=== PATIENT | male | born 1940 | race Caucasian/White ===

== ENCOUNTER → 2016-10-23 | Outpatient (CLI) | payer MEDICARE, OTHER ==
[2016-10-23 10:10] LABS: ALT 52 U/L (21-72); AST 43 U/L (17-59); Alkaline Phosphatase 84 U/L (38-126); Anion Gap 12 mmol/L; Blood Urea Nitrogen 20 mg/dL (9-20); Calcium 8.7 mg/dL (8.4-10.2); Carbon Dioxide 25 mmol/L (22-30); Chloride 106 mmol/L (98-107); Glucose 145 mg/dL (74-99); Non-African American GFR(MDRD) 58 (>60 ml/min/1.73 sqM); Sodium 143 mmol/L (137-145); Total Bilirubin 0.5 mg/dL (0.2-1.3); Total Protein 6.7 g/dL (6.3-8.2)
== END | disposition home or self-care (01) ==
LOC: LABWHC1 09:27
PROVIDERS: ATTEND Internal Medicine
DX: E03.9 Hypothyroidism, unspecified (principal); I10 Essential (primary) hypertension
CPT/HCPCS: 36415; 80053; 84443

== ENCOUNTER → 2017-03-27 | Outpatient (CLI) | payer MEDICARE, OTHER ==
--- NOTE | 2017-03-27 09:53 | CT ---
EXAMINATION TYPE: CT chest wo con DATE OF EXAM: 03/27/2017 COMPARISON: NONE HISTORY: persistent perihilar infiltrate CT DLP: 580.5 mGycm Automated exposure control for dose reduction was used. FINDINGS: Lung parenchyma: There is no mass or pulmonary nodule. There is no focal consolidation or atelectasis . However, there is a subtle groundglass opacity pattern, consistent with nonspecific alveolitis, pre dominantly in the axial compartment of the lung - and homogeneously involving the upper, mid and lowe r lung zones on the right. This pattern is not seen on the left. Pleural spaces: Negative. Mediastinum: Sternal sutures and mediastinal clips and coronary calcifications noted, mild cardiomega ly. Pericardial spaces negative. No adenopathy. Bones and soft tissues: Unremarkable. IMPRESSION: SUBTLE NONSPECIFIC RIGHT-SIDED ALVEOLITIS PATTERN; NO FOCAL MASS OR INFILTRATE.
== END | disposition home or self-care (01) ==
LOC: RADCTMAIN 07:02
PROVIDERS: ATTEND Internal Medicine
DX: J98.4 Other disorders of lung (principal)
CPT/HCPCS: 71250

== ENCOUNTER 2017-12-10 09:44 | Inpatient (IN) | payer MEDICARE, OTHER ==
[2017-12-10] MEDS ORDERED: IPRATROPIUM-ALBUTEROL 3 ML NEB INHALATION STA (10:18)
--- NOTE | 2017-12-10 11:57 | XR ---
EXAMINATION TYPE: XR chest 2V DATE OF EXAM: 12/10/2017 COMPARISON: Prior chest x-ray 11/08/2017 HISTORY: Difficulty breathing and shortness of breath TECHNIQUE: Frontal and lateral views of the chest are obtained. FINDINGS: Patient is post median sternotomy, generator in the right pectoral region again noted, the re are leads in the right atrium and ventricle. Surgical clips are present in the right upper quadran t. Right hemidiaphragm is elevated. No evident pneumothorax or pleural effusion. Cardiomediastinal si lhouette, pulmonary vascularity and hyacinth are stable. IMPRESSION: Similar to prior exam. Postprocedural changes.
[2017-12-10 12:05] LABS: Basophils % (A) 0 %; Eosinophils % (A) 0 %; HCT 33.7 % (39.0-53.0); HGB 11.1 gm/dL (13.0-17.5); Lymphocytes # (A) 0.6 k/uL (1.0-4.8); Lymphocytes % (A) 6 %; MCH 33.3 pg (25.0-35.0); MCHC 32.9 g/dL (31.0-37.0); MCV 101.4 fL (80.0-100.0); Macrocytosis Slight; Mean Platelet Volume 8.1; Monocytes # (A) 0.5 k/uL (0-1.0); Monocytes % (A) 5 %; Neutrophils # (A) 8.7 k/uL (1.3-7.7); Neutrophils % (A) 87 %; Platelet Count 128 k/uL (150-450); RBC 3.32 m/uL (4.30-5.90); RDW 14.7 % (11.5-15.5); WBC 9.9 k/uL (3.8-10.6)
[2017-12-10 12:12] LABS: ALT 45 U/L (21-72); AST 35 U/L (17-59); Albumin 3.3 g/dL (3.5-5.0); Alkaline Phosphatase 68 U/L (38-126); Anion Gap 11 mmol/L; Blood Urea Nitrogen 32 mg/dL (9-20); Calcium 8.5 mg/dL (8.4-10.2); Carbon Dioxide 26 mmol/L (22-30); Chloride 101 mmol/L (98-107); Glucose 102 mg/dL (74-99); Potassium 3.5 mmol/L (3.5-5.1); Sodium 138 mmol/L (137-145); Total Bilirubin 0.6 mg/dL (0.2-1.3); Total Protein 5.9 g/dL (6.3-8.2)
[2017-12-10 12:14] LABS: D-Dimer 0.34 mg/L FEU (<0.60); INR 1.5 (<1.2); Partial Thromboplastin Time 27.8 sec (22.0-30.0); Prothrombin Time 13.7 sec (9.0-12.0)
[2017-12-10 12:23] LABS: Troponin I 0.028 ng/mL (0.000-0.034)
[2017-12-10 12:26] LABS: Creatine Kinase MB 3.6 ng/mL (0.0-2.4)
--- NOTE | 2017-12-10 12:44 | ED ---
URI HPI - General Chief Complaint: Upper Respiratory Infection Stated Complaint: TANIA X 2 DYS Time Seen by Provider: 12/10/17 10:10 Source: patient, RN notes reviewed Mode of arrival: wheelchair Limitations: no limitations - History of Present Illness Initial Comments: 77-year-old male presents emergency Department chief complaint of exertional shortness of breath. Patient states that he's had shortness with the last few months but states last few days have been the worse. He has been seen his agency manager Dr. Santana who has been giving him steroids and antibiotics and states it's not helping. He has had problems with MRSA in the past states he also has an issue with his right lung in which he gets recurrent right lower lobe infections. Patient states that he usually gets Bactrim. Patient's concerned about possible CHF he has a history of CHF but only takes Lasix daily. Denies any increased swelling of his lower extremities. He states he has difficulty taking more than a few steps. He doesn't to some wheezing but states that he does do breathing treatments at home. Patient denies any known fever or chills. Denies headache, dizziness. Patient does have some underlying cardiac disease. - Related Data Home Medications Medication Instructions Recorded Confirmed ALPRAZolam [Xanax] 0.5 mg PO HS PRN 12/10/17 12/10/17 Albuterol Nebulized [Ventolin 2.5 mg INHALATION RT-QID PRN 12/10/17 12/10/17 Nebulized] Aspirin [Adult Low Dose Aspirin EC] 81 mg PO DAILY 12/10/17 12/10/17 Cyanocobalamin [Vitamin B-12 1,000 mcg SQ Q30D 12/10/17 12/10/17 Injection] Ferrous Sulfate [Feosol] 325 mg PO DAILY 12/10/17 12/10/17 Furosemide [Lasix] 40 mg PO BID 12/10/17 12/10/17 Gabapentin 600 mg PO BID 12/10/17 12/10/17 HYDROcodone/APAP 10-325MG [[place] 1 tab PO TID PRN 12/10/17 12/10/17 10-325] Ipratropium/Albuterol Sulfate 2 puff INHALATION RT-QID 12/10/17 12/10/17 [Combivent Respimat Inhaler] Isosorbide Mononitrate ER [Imdur] 30 mg PO DAILY 12/10/17 12/10/17 Levothyroxine Sodium [Synthroid] 50 mcg PO DAILY 12/10/17 12/10/17 Losartan Potassium [Cozaar] 25 mg PO HS 12/10/17 12/10/17 Metoprolol Succinate (ER) [Toprol 50 mg PO DAILY 12/10/17 12/10/17 Xl] Morphine Sulfate [Ms Contin] 30 mg PO BID PRN 12/10/17 12/10/17 Nitroglycerin Sl Tabs [Nitrostat] 0.4 mg SUBLINGUAL Q5M PRN 12/10/17 12/10/17 Ranolazine [Ranexa] 500 mg PO BID 12/10/17 12/10/17 Simvastatin 40 mg PO HS 12/10/17 12/10/17 Spironolactone [Aldactone] 25 mg PO DAILY 12/10/17 12/10/17 Sulfamethox-Tmp 800-160Mg [Bactrim 1 tab PO Q12HR 12/10/17 12/10/17 DS 800-160 mg] Vit C/E/Zn/Coppr/Lutein/Zeaxan 2 cap PO DAILY 12/10/17 12/10/17 [Preservision Areds 2 Softgel] Warfarin [Coumadin] 1 mg PO SUTUTH 12/10/17 12/10/17 Warfarin [Coumadin] 2 mg PO MOWEFRSA 12/10/17 12/10/17 predniSONE See Taper PO DIRECTED 12/10/17 12/10/17 rOPINIRole HCL [Requip] 2 mg PO 5XD 12/10/17 12/10/17 Allergies Allergy/AdvReac Type Severity Reaction Status Date / Time No Known Allergies Allergy Verified 12/10/17 10:13 Review of Systems ROS Statement: Those systems with pertinent positive or pertinent negative responses have been documented in the HPI. ROS Other: All systems not noted in ROS Statement are negative. Past Medical History Past Medical History: Thyroid Disorder History of Any Multi-Drug Resistant Organisms: MRSA Date of last positivie culture/infection: MDRO Source:: right hand Past Surgical History: Heart Catheterization, Heart Catheterization With Stent, Hernia Repair, Pacemaker Additional Past Surgical History / Comment(s): tritecta tissure heart valve, hammertoe, bunionectomy, gastroplasty Past Psychological History: No Psychological Hx Reported Smoking Status: Former smoker Past Alcohol Use History: None Reported Past Drug Use History: None Reported General Exam Limitations: no limitations General appearance: alert, in no apparent distress Head exam: Present: atraumatic, normocephalic, normal inspection Eye exam: Present: normal appearance, PERRL, EOMI. Absent: scleral icterus, conjunctival injection, periorbital swelling ENT exam: Present: normal exam, normal oropharynx, mucous membranes moist Neck exam: Present: normal inspection. Absent: tenderness, meningismus, lymphadenopathy Respiratory exam: Present: wheezes, rhonchi. Absent: normal lung sounds bilaterally, respiratory distress, rales, stridor Cardiovascular Exam: Present: regular rate, normal rhythm, normal heart sounds. Absent: systolic murmur, diastolic murmur, rubs, gallop, clicks Extremities exam: Absent: pedal edema Neurological exam: Present: alert, oriented X3, CN II-XII intact Skin exam: Present: warm, dry, intact, normal color. Absent: rash Course Vital Signs 12/10/17 12/10/17 12/10/17 09:47 10:40 10:50 Temperature 98.2 F Pulse Rate 74 82 80 Respiratory 18 Rate Blood Pressure 120/51 O2 Sat by Pulse 94 L Oximetry 12/10/17 12/10/17 12:17 12:57 Temperature Pulse Rate 69 89 Respiratory 18 18 Rate Blood Pressure 120/57 133/61 O2 Sat by Pulse 100 89 L Oximetry Medical Decision Making - Medical Decision Making 77-year-old male presented return for exertional shortness breath. He did have an impetigo ox in which she dropped on 89. Patient does have some underlying lung issues, cardiac issues. Patient will be admitted for evaluation. - Lab Data Result diagrams: 12/10/17 11:32 12/10/17 11:32 Lab Results 12/10/17 12/10/17 12/10/17 Range/Units 11:32 11:32 11:32 WBC 9.9 (3.8-10.6) k/uL RBC 3.32 L (4.30-5.90) m/uL Hgb 11.1 L (13.0-17.5) gm/dL Hct 33.7 L (39.0-53.0) % MCV 101.4 H (80.0-100.0) fL MCH 33.3 (25.0-35.0) pg MCHC 32.9 (31.0-37.0) g/dL RDW 14.7 (11.5-15.5) % Plt Count 128 L (150-450) k/uL Neutrophils % 87 % Lymphocytes % 6 % Monocytes % 5 % Eosinophils % 0 % Basophils % 0 % Neutrophils # 8.7 H (1.3-7.7) k/uL Lymphocytes # 0.6 L (1.0-4.8) k/uL Monocytes # 0.5 (0-1.0) k/uL Eosinophils # 0.0 (0-0.7) k/uL Basophils # 0.0 (0-0.2) k/uL Macrocytosis Slight PT (9.0-12.0) sec INR (<1.2) APTT (22.0-30.0) sec D-Dimer (<0.60) mg/L FEU Sodium 138 (137-145) mmol/L Potassium 3.5 (3.5-5.1) mmol/L Chloride 101 (98-107) mmol/L Carbon Dioxide 26 (22-30) mmol/L Anion Gap 11 mmol/L BUN 32 H (9-20) mg/dL Creatinine 1.22 (0.66-1.25) mg/dL Est GFR (MDRD) Af Amer >60 (>60 ml/min/1.73 sqM) Est GFR (MDRD) Non-Af 58 (>60 ml/min/1.73 sqM) Glucose 102 H (74-99) mg/dL Calcium 8.5 (8.4-10.2) mg/dL Magnesium 1.8 (1.6-2.3) mg/dL Total Bilirubin 0.6 (0.2-1.3) mg/dL AST 35 (17-59) U/L ALT 45 (21-72) U/L Alkaline Phosphatase 68 (38-126) U/L Total Creatine Kinase 174 H (55-170) U/L CK-MB (CK-2) 3.6 H* (0.0-2.4) ng/mL CK-MB (CK-2) Rel Index 2.1 Troponin I 0.028 (0.000-0.034) ng/mL NT-Pro-B Natriuret Pep pg/mL Total Protein 5.9 L (6.3-8.2) g/dL Albumin 3.3 L (3.5-5.0) g/dL 12/10/17 12/10/17 Range/Units 11:32 11:32 WBC (3.8-10.6) k/uL RBC (4.30-5.90) m/uL Hgb (13.0-17.5) gm/dL Hct (39.0-53.0) % MCV (80.0-100.0) fL MCH (25.0-35.0) pg MCHC (31.0-37.0) g/dL RDW (11.5-15.5) % Plt Count (150-450) k/uL Neutrophils % % Lymphocytes % % Monocytes % % Eosinophils % % Basophils % % Neutrophils # (1.3-7.7) k/uL Lymphocytes # (1.0-4.8) k/uL Monocytes # (0-1.0) k/uL Eosinophils # (0-0.7) k/uL Basophils # (0-0.2) k/uL Macrocytosis PT 13.7 H (9.0-12.0) sec INR 1.5 H (<1.2) APTT 27.8 (22.0-30.0) sec D-Dimer 0.34 (<0.60) mg/L FEU Sodium (137-145) mmol/L Potassium (3.5-5.1) mmol/L Chloride (98-107) mmol/L Carbon Dioxide (22-30) mmol/L Anion Gap mmol/L BUN (9-20) mg/dL Creatinine (0.66-1.25) mg/dL Est GFR (MDRD) Af Amer (>60 ml/min/1.73 sqM) Est GFR (MDRD) Non-Af (>60 ml/min/1.73 sqM) Glucose (74-99) mg/dL Calcium (8.4-10.2) mg/dL Magnesium (1.6-2.3) mg/dL Total Bilirubin (0.2-1.3) mg/dL AST (17-59) U/L ALT (21-72) U/L Alkaline Phosphatase (38-126) U/L Total Creatine Kinase (55-170) U/L CK-MB (CK-2) (0.0-2.4) ng/mL CK-MB (CK-2) Rel Index Troponin I (0.000-0.034) ng/mL NT-Pro-B Natriuret Pep 392 pg/mL Total Protein (6.3-8.2) g/dL Albumin (3.5-5.0) g/dL Disposition Clinical Impression: Exertional shortness of breath, COPD exacerbation Disposition: ADMITTED IP TO THIS HOSP Condition: Stable Referrals: Jagdeep Funez DO [Primary Care Provider] - 1-2 days
[2017-12-10] MEDS ORDERED: methylPREDNISolone SOD SUCCI 125 MG/2 ML VIAL IV STA (13:19)
[2017-12-10] MEDS ORDERED: NITROGLYCERIN SL TABS 0.4 MG TAB SUBLINGUAL PRN (18:15)
[2017-12-10] MEDS ORDERED: ALBUTEROL NEBULIZED 2.5 MG/3 ML INHALATION PRN (18:15)
[2017-12-10] MEDS ORDERED: ALPRAZolam 0.5 MG TAB PO PRN (18:15)
[2017-12-10] MEDS: MORPHINE SULFATE ER 30 MG TABLET PO PRN (18:48)
[2017-12-10] MEDS: WARFARIN 2 MG TAB PO SCH (18:59)
[2017-12-10] MEDS: FUROSEMIDE 40 MG TAB PO SCH (18:59)
[2017-12-10] MEDS: IPRATROPIUM-ALBUTEROL 3 ML NEB INHALATION SCH ×3 (19:43→23:59)
[2017-12-10] MEDS ORDERED: NON-FORMULARY DRUG (Ipratropium/Albuterol Sulfate [Combivent Respimat Inhaler] 2 PUFF) INHALATION SCH (20:00)
[2017-12-10 21:29] LABS: Appearance,Urine Clear (Clear); Bilirubin,Urine Negative (Negative); Blood,Urine Negative (Negative); Color,Urine Light Yellow; Glucose,Urine (UA) Negative (Negative); Ketones,Urine Negative (Negative); Leukocyte Esterase,Urine Negative (Negative); Protein,Urine Negative (Negative); Specific Gravity,Urine 1.006 (1.001-1.035); Urobilinogen,Urine <2.0 mg/dL (<2.0)
[2017-12-10 21:33] LABS: Glucose,Whole Blood 224 mg/dL (75-99)
[2017-12-10] MEDS: GABAPENTIN 300 MG CAP PO SCH (21:59)
[2017-12-10] MEDS: LOSARTAN 25 MG TAB PO SCH (21:59)
[2017-12-10] MEDS: RANOLAZINE 500 MG TAB.ER.12H PO SCH (21:59)
[2017-12-10] MEDS: SULFAMETHOX-TMP 800-160MG 1 EACH TAB PO SCH (21:59)
[2017-12-10] MEDS: ATORVASTATIN 20 MG TAB PO SCH (21:59)
[2017-12-10] MEDS: cefTRIAXone IN SWFI 1,000 MG/10 ML SYRINGE IVP SCH (22:02)
[2017-12-10] MEDS: INSULIN ASPART 100 UNIT/ML 1 ML 10 ML VIAL SQ SCH (22:03)
--- NOTE | 2017-12-10 22:05 | CT ---
EXAMINATION TYPE: CT chest wo con DATE OF EXAM: 12/10/2017 COMPARISON: 03/27/2017 HISTORY: SOB. CT DLP: 473.9 mGycm. Automated Exposure Control for Dose Reduction was Utilized. TECHNIQUE: CT scan of the thorax is performed without IV contrast. FINDINGS: There is some patchy nodular infiltrate in the right mid and lower lung field. There is interposition of the hepatic flexure of the colon which is a normal variant. There is some elevation of the right diaphragm. Thoracic aorta is atheromatous. There is no mediastinal adenopathy. There is no pericardia l effusion. There is no pleural effusion. There is a mild reticular nodular infiltrate also in the ri ght upper lobe. The left lung is clear of consolidation. There is linear density at the left medial p osterior lung base. There is spurring in the thoracic spine. IMPRESSION: There is chronic infiltrate in the right lung that is slightly worse than old CT scan and consistent with fibrosis and some degree of acute pneumonia in the right lower lobe. Chronic right d iaphragm elevation is suggestive of phrenic nerve paralysis. Atherosclerotic vascular disease. There is new atelectasis at the medial left posterior lung base.
--- NOTE | 2017-12-10 22:24 | HP ---
HISTORY AND PHYSICAL DATE OF SERVICE: 12/12/17 CHIEF COMPLAINTS: Cough and shortness of breath. HISTORY OF PRESENT ILLNESS: This 77-year-old gentleman with a past medical history of multiple medical problems including asthma, CHF, COPD, DVT, GERD, hypertension, hyperlipidemia, history of pneumonia, pulmonary embolism, history of rheumatoid arthritis being followed by Dr. Porter as well as Dr. Santana in the outpatient setting was complaining of increasing shortness of breath. The patient was being treated with Dr. Santana and the patient received steroids, antibiotics. Because of lack of improvement, increased shortness of breath, patient came to [facility] and was admitted for further evaluation and treatment. The patient also had history of MRSA and possible recurrent right lower lobe infection in the right lung also. There is no history of fever, rigors or chills. No history of headache, loss of consciousness or seizures at this time. PAST MEDICAL HISTORY: History of asthma, CHF, COPD, DVT, GERD, hypertension, hyperlipidemia, rheumatoid arthritis, pulmonary embolism. MEDICATIONS: Prior to admission include home medications are: 1. Prednisone taper. 2. Bactrim DS 1 p.o. b.i.d. 3. Toprol-XL 50 mg. 4. Ventolin 2.5 q.i.d. p.r.n. 5. Coumadin 2 mg, 1 mg on Sunday, Sunday, . 6. Nitrostat 0.4 mg p.r.n. 7. Vitamin B12 1000 mcg daily. 8. Combivent Respimat 2 puffs q.i.d. 9. Ranexa 5 mg. 10.Cozaar 25 mg daily. 11.Lasix 40 mg p.o. b.i.d. 12.Vitamin C, zinc, copper, lutein 2 capsules p.o. daily. 13.Aldactone 25 mg. 14.Synthroid 50 mg. 15.Imdur 30 mg. 16.Iron sulfate 320 mg p.o. daily. 17.Requip 2 mg. 18.Gabapentin 600 mg p.o. b.i.d. 19.Simvastatin 40 mg q.h.s. 20.Aspirin 81 mg. 21.Xanax 0.5 mg q.h.s. 22.Ms Contin 30 mg b.i.d. p.r.n. 23.[place] 1 tab t.i.d. p.r.n. ALLERGIES: None. FAMILY HISTORY: No history of strokes and heart disease in family. SOCIAL HISTORY: Previous history of smoking. No history of current smoking, alcohol intake. REVIEW OF SYSTEMS: ENT: No diminished vision or hearing. Cardiovascular: As mentioned earlier. Respirations: As mentioned earlier. GI no nausea or vomiting. no dysuria. Nervous system: No numbness, weakness. Allergy/Immunology: No asthma or hayfever. Musculoskeletal: As mentioned earlier. HEMATOLOGY/ONCOLOGY: No history of anemia. Endocrine: No history of diabetes or hypothyroidism. Constitutional: As mentioned earlier. Rheumatology: Negative. Dermatology: Negative. Psychiatric: As mentioned earlier. EXAMINATION: Pulse 73, blood pressure 140/78, respiration 18, temperature 98.8, pulse ox 94% on 2 L. HEENT: Conjunctivae normal. Oral mucosa moist. Neck is no jugular venous distention. No carotid bruit. No lymph node enlargement. Cardiovascular S1, S2 muffled. Respiratory: Breath sounds diminished in the bases. Bilateral scattered rhonchi and expiratory wheezing also present. ABDOMEN: Soft, nontender. No mass palpable. Legs no edema and no swelling. NERVOUS SYSTEM: Higher functions as mentioned earlier, moves all 4 limbs, no focal motor or sensory deficits. Lymphatics: No lymph nodes palpable in the neck, axillae or groin. Skin no ulcer, rash or bleeding. LABS: WBC 9.2, hemoglobin 11.1, and platelets 128, creatinine kinase is 174 and albumin 3.3. ASSESSMENT: 1. Shortness of breath for evaluation rule out possibly chronic obstructive pulmonary disease acute exacerbation and possibly right lobe pneumonia gram-negative. 2. History of recurrent infection, right lower lobe, rule out bronchiectasis. 3. Anemia increased MCV. 4. History of congestive heart failure. 5. History of asthma/chronic obstructive pulmonary disease. 6. History of deep vein thrombosis. 7. Gastroesophageal reflux disease. 8. Hypertension. 9. Hyperlipidemia. 10.History of pneumonia. 11.History of pulmonary embolism. 12.History of rheumatoid arthritis. 13.History of macular degeneration. 14.History of MRSA. 15.History of coronary artery disease/ stent. 16.History of Trifecta aortic valve replacement. 17.Remote history of nicotine dependence. RECOMMENDATIONS AND DISCUSSION: This 77-year-old gentleman who presented with multiple complex medical issues, we will monitor the patient closely, continue the current medications, symptomatic treatment, management and recommend bronchodilators and IV steroids. I would also recommend empiric antibiotics in the form of Rocephin and Zithromax. Resume the home medications. Monitor closely and Dr. Rodriguez will be consulted as well as Cardiology. Guarded prognosis because of multiple complex medical issues. The patient's NT proBNP is only 392. The heart failure seems to be unlikely. Repeat labs to be ordered. Further recommendations to follow. MMODL / IJN: [id number] / JOHN
[2017-12-10] MEDS: AZITHROMYCIN 500 MG in SODIUM CHLORIDE 0.9% 250 ML IVPB SCH (22:56)
[2017-12-11] MEDS: methylPREDNISolone SOD SUCCI 125 MG/2 ML VIAL IV SCH ×4 (00:08→17:17)
[2017-12-11 03:51] LABS: Hemoglobin A1C 4.8 % (4.0-6.0)
[2017-12-11] MEDS: IPRATROPIUM-ALBUTEROL 3 ML NEB INHALATION SCH ×5 (03:57→20:53)
[2017-12-11] MEDS: LEVOTHYROXINE 50 MCG TAB PO SCH (06:26)
[2017-12-11 07:29] LABS: Glucose,Whole Blood 234 mg/dL (75-99)
[2017-12-11 08:34] LABS: Basophils % (A) 0 %; Eosinophils % (A) 0 %; HCT 38.2 % (39.0-53.0); Lymphocytes # (A) 0.3 k/uL (1.0-4.8); Lymphocytes % (A) 3 %; MCH 32.3 pg (25.0-35.0); MCHC 31.6 g/dL (31.0-37.0); MCV 102.3 fL (80.0-100.0); Macrocytosis Slight; Monocytes # (A) 0.1 k/uL (0-1.0); Monocytes % (A) 2 %; Neutrophils # (A) 7.3 k/uL (1.3-7.7); Neutrophils % (A) 94 %; Platelet Count 131 k/uL (150-450); RBC 3.73 m/uL (4.30-5.90); RDW 14.5 % (11.5-15.5); WBC 7.7 k/uL (3.8-10.6)
[2017-12-11 08:43] LABS: INR 1.5 (<1.2); Prothrombin Time 14.2 sec (9.0-12.0)
[2017-12-11] MEDS: SULFAMETHOX-TMP 800-160MG 1 EACH TAB PO SCH ×2 (08:57→20:55)
[2017-12-11] MEDS: ISOSORBIDE MONONITRATE ER 30 MG TAB.ER.24H PO SCH (08:57)
[2017-12-11] MEDS: GABAPENTIN 300 MG CAP PO SCH ×2 (08:57→20:55)
[2017-12-11] MEDS: SPIRONOLACTONE 25 MG TAB PO SCH (08:58)
[2017-12-11] MEDS: ASPIRIN 81 MG PO SCH (08:58)
[2017-12-11] MEDS: FUROSEMIDE 40 MG TAB PO SCH ×2 (08:58→17:17)
[2017-12-11] MEDS: MORPHINE SULFATE ER 30 MG TABLET PO PRN ×2 (08:58→20:55)
[2017-12-11] MEDS: RANOLAZINE 500 MG TAB.ER.12H PO SCH ×2 (08:58→20:55)
[2017-12-11] MEDS: METOPROLOL SUCCINATE (ER) 50 MG TAB.ER.24H PO SCH (08:59)
[2017-12-11] MEDS: INSULIN ASPART 100 UNIT/ML 1 ML 10 ML VIAL SQ SCH ×4 (08:59→21:33)
[2017-12-11] MEDS: AZITHROMYCIN 500 MG in SODIUM CHLORIDE 0.9% 250 ML IVPB SCH (08:59)
[2017-12-11] MEDS: cefTRIAXone IN SWFI 1,000 MG/10 ML SYRINGE IVP SCH (08:59)
[2017-12-11 09:11] LABS: Anion Gap 14 mmol/L; Blood Urea Nitrogen 31 mg/dL (9-20); Calcium 8.7 mg/dL (8.4-10.2); Carbon Dioxide 21 mmol/L (22-30); Chloride 103 mmol/L (98-107); Glucose 229 mg/dL (74-99); Potassium 3.6 mmol/L (3.5-5.1); Sodium 138 mmol/L (137-145)
[2017-12-11 10:56] VITALS: BMI 32.5
--- NOTE | 2017-12-11 11:18 | P.CNPUL ---
History of Present Illness Consult date: 12/11/17 Reason for consult: dyspnea, cough, COPD, hypoxemia, pulmonary fibrosis, abnormal CXR/CT Chief complaint: Shortness of breath, upper respiratory tract infection History of present illness: Consult dated 12/11/2017 This is a 77-year-old male who comes to the emergency room complaining of shortness of breath. He's had progressive shortness of breath over the last few months. It's been getting worse. He sees my partner. He's been treated with antibiotics and steroids and has not been really helping. He's had a previous history of MRSA infection in the past. He also has a history of recurrent right lower lobe infection. The patient states that he is feeling much better today. His complaint chest and included shortness of breath chest tightness wheezing cough. His cough is very congested and wet. He was coughing up some phlegm yesterday none today. Again feeling much better today. No fever or chills. No nausea vomiting or diarrhea. His past medical history is positive for COPD multiple pulmonary infections hyperlipidemia hypertension hypothyroidism coronary artery disease heart catheterization stent placement pacemaker insertion. Review of Systems A 12 point review of system is positive for shortness of breath chest tightness wheezing cough chest congestion and minimal phlegm production. No fever or chills. Past Medical History Past Medical History: Asthma, Heart Failure, COPD, Deep Vein Thrombosis (DVT), GERD/Reflux, Hyperlipidemia, Hypertension, Pneumonia, Pulmonary Embolus (PE), Rheumatoid Arthritis (RA), Thyroid Disorder Additional Past Medical History / Comment(s): MACULAR DEGNERATION MISA EYES,PAST GERD,PT STATES HE IS NOT DIABETIC-IN PAST PT WAS TOLD HE WAS DIABETIC/ PUT ON METFORMIN BUT ANOTHER DR TOLD HIM HE WAS'NT AND TOOK HIM OFF MEDS, SHINGLES LT EAR 2011 OR 2012, "IRREG HEARTBEAT", RLS, USES A CANE FOR DISTANCE. History of Any Multi-Drug Resistant Organisms: MRSA Date of last positivie culture/infection: MDRO Source:: right hand Past Surgical History: Heart Catheterization, Heart Catheterization With Stent, Hernia Repair, Pacemaker Additional Past Surgical History / Comment(s): Trifecta aortic valve repalcement , hammertoe, bunionectomy, gastroplasty 7 heart caths, stents to rca, gastroplasty 1979, crys en y 8-2016 Past Anesthesia/Blood Transfusion Reactions: No Reported Reaction Date of Last Stent Placement:: 2012 Type of Cardiac Device: Permanent Pacemaker Device Placement Date:: 2006 Smoking Status: Former smoker - Past Family History Father History Unknown: Yes Mother History Unknown: Yes Medications and Allergies Home Medications Medication Instructions Recorded Confirmed Type ALPRAZolam [Xanax] 0.5 mg PO HS PRN 12/10/17 12/10/17 History Albuterol Nebulized [Ventolin 2.5 mg INHALATION RT-QID PRN 12/10/17 12/10/17 History Nebulized] Aspirin [Adult Low Dose Aspirin EC] 81 mg PO DAILY 12/10/17 12/10/17 History Cyanocobalamin [Vitamin B-12 1,000 mcg SQ Q30D 12/10/17 12/10/17 History Injection] Ferrous Sulfate [Feosol] 325 mg PO DAILY 12/10/17 12/10/17 History Furosemide [Lasix] 40 mg PO BID 12/10/17 12/10/17 History Gabapentin 600 mg PO BID 12/10/17 12/10/17 History HYDROcodone/APAP 10-325MG [[place] 1 tab PO TID PRN 12/10/17 12/10/17 History 10-325] Ipratropium/Albuterol Sulfate 2 puff INHALATION RT-QID 12/10/17 12/10/17 History [Combivent Respimat Inhaler] Isosorbide Mononitrate ER [Imdur] 30 mg PO DAILY 12/10/17 12/10/17 History Levothyroxine Sodium [Synthroid] 50 mcg PO DAILY 12/10/17 12/10/17 History Losartan Potassium [Cozaar] 25 mg PO HS 12/10/17 12/10/17 History Metoprolol Succinate (ER) [Toprol 50 mg PO DAILY 12/10/17 12/10/17 History Xl] Morphine Sulfate [Ms Contin] 30 mg PO BID PRN 12/10/17 12/10/17 History Nitroglycerin Sl Tabs [Nitrostat] 0.4 mg SUBLINGUAL Q5M PRN 12/10/17 12/10/17 History Ranolazine [Ranexa] 500 mg PO BID 12/10/17 12/10/17 History Simvastatin 40 mg PO HS 12/10/17 12/10/17 History Spironolactone [Aldactone] 25 mg PO DAILY 12/10/17 12/10/17 History Sulfamethox-Tmp 800-160Mg [Bactrim 1 tab PO Q12HR 12/10/17 12/10/17 History DS 800-160 mg] Vit C/E/Zn/Coppr/Lutein/Zeaxan 2 cap PO DAILY 12/10/17 12/10/17 History [Preservision Areds 2 Softgel] Warfarin [Coumadin] 1 mg PO SUTUTH 12/10/17 12/10/17 History Warfarin [Coumadin] 2 mg PO MOWEFRSA 12/10/17 12/10/17 History predniSONE See Taper PO DIRECTED 12/10/17 12/10/17 History rOPINIRole HCL [Requip] 2 mg PO 5XD 12/10/17 12/10/17 History Allergies Allergy/AdvReac Type Severity Reaction Status Date / Time No Known Allergies Allergy Verified 12/10/17 10:13 Physical Exam Osteopathic Statement: *. No significant issues noted on an osteopathic structural exam other than those noted in the History and Physical/Consult. Vitals: Vital Signs Temp Pulse Pulse Resp BP BP Pulse Ox 12/11/17 07:38 79 12/11/17 07:28 79 16 12/11/17 06:25 97.0 F L 73 16 139/74 93 L 12/11/17 04:10 84 12/11/17 03:58 80 12/11/17 00:14 84 12/11/17 00:00 84 12/10/17 23:00 97.4 F L 70 16 117/61 92 L 12/10/17 19:54 88 16 12/10/17 19:43 84 16 12/10/17 16:00 16 12/10/17 15:03 98.8 F 73 18 117/58 95 12/10/17 15:00 98.4 F 70 16 114/57 92 L 12/10/17 14:08 98.2 F 77 20 122/60 98 12/10/17 12:57 89 18 133/61 89 L 12/10/17 12:17 69 18 120/57 100 Intake and Output 12/10/17 12/11/17 12/11/17 22:59 06:59 14:59 Other: Voiding Method Urinal # Voids 1 1 1 Weight 108.862 kg Patient Weight 12/12/17 06:59 Weight 108.862 kg No acute distress, oriented 3. Nasal O2 in place. HEENT examination is grossly unremarkable. Mucous membranes are moist. No oral lesions. Neck supple. Full range of motion. No adenopathy thyromegaly or neck vein distention. Cardiovascular examination reveals regular rhythm rate. S1-S2 normal. No S3 or S4. No discernible murmur noted. Lungs reveal bilateral inspiratory and expiratory wheezes and rhonchi. Breath sounds are diminished. There is prolongation on forced maneuver.. Abdomen soft bowel sounds are heard. No masses or tenderness. Extremities are intact. No cyanosis clubbing or edema. Skin is without rash or lesion. Neurologic examination is brief but nonfocal. Results - Laboratory Findings CBC and BMP: 12/11/17 07:55 12/11/17 07:55 PT/INR, D-dimer PT 14.2 sec (9.0-12.0) H 12/11/17 07:55 INR 1.5 (<1.2) H 12/11/17 07:55 D-Dimer 0.34 mg/L FEU (<0.60) 12/10/17 11:32 Abnormal lab findings: Abnormal Labs 12/10/17 12/10/17 12/10/17 11:32 11:32 11:32 RBC 3.32 L Hgb 11.1 L Hct 33.7 L MCV 101.4 H Plt Count 128 L Neutrophils # 8.7 H Lymphocytes # 0.6 L PT INR Carbon Dioxide BUN 32 H Glucose 102 H POC Glucose (mg/dL) Total Creatine Kinase 174 H CK-MB (CK-2) 3.6 H* Total Protein 5.9 L Albumin 3.3 L 12/10/17 12/10/17 12/11/17 11:32 21:30 07:27 RBC Hgb Hct MCV Plt Count Neutrophils # Lymphocytes # PT 13.7 H INR 1.5 H Carbon Dioxide BUN Glucose POC Glucose (mg/dL) 224 H 234 H Total Creatine Kinase CK-MB (CK-2) Total Protein Albumin 12/11/17 12/11/17 12/11/17 07:55 07:55 07:55 RBC 3.73 L Hgb 12.0 L Hct 38.2 L MCV 102.3 H Plt Count 131 L Neutrophils # Lymphocytes # 0.3 L PT 14.2 H INR 1.5 H Carbon Dioxide 21 L BUN 31 H Glucose 229 H POC Glucose (mg/dL) Total Creatine Kinase CK-MB (CK-2) Total Protein Albumin - Diagnostic Findings Chest x-ray: image reviewed CT scan - chest: image reviewed (X-rays CAT scan labs and medications are all reviewed.) Assessment and Plan Assessment: Assessment COPD exacerbation complicated by purulent bronchitis/bronchopneumonia. Hypothyroidism Hypertension Hyperlipidemia Previous history of stent placement Previous history of pacemaker insertion Plan: Plan dated 12/11/2017 The patient's medications are reviewed. Chest x-ray seems to show her chronic changes particularly in the right lower lobe. The patient does not appear to be particularly ill. The patient is wheezing quite a bit. We'll make sure the patient's on appropriate medications including short acting beta agonist, short acting muscarinic antagonist, long-acting beta agonist, inhaled corticosteroids. Also needs systemic corticosteroids and antibiotics. Additional recommendations and suggestions are forthcoming. We'll continue to follow. Time with Patient: Greater than 30
[2017-12-11 11:37] LABS: Glucose,Whole Blood 240 mg/dL (75-99)
[2017-12-11] MEDS: VIT A,C & E-LUTEIN-MINERALS 1 EACH TAB PO SCH (11:53)
[2017-12-11] MEDS: FERROUS SULFATE 325 MG TAB PO SCH (11:53)
[2017-12-11 17:34] LABS: Glucose,Whole Blood 155 mg/dL (75-99)
[2017-12-11] MEDS ORDERED: WARFARIN 1 MG TAB PO SCH (18:00)
[2017-12-11] MEDS ORDERED: FORMOTEROL FUMARATE 20 MCG/2 ML NEBU INHALATION SCH (20:00)
[2017-12-11] MEDS ORDERED: Potassium Replacement Protocol 1 EACH MISC MISCELLANE PRN (20:16)
[2017-12-11 20:46] LABS: Glucose,Whole Blood 229 mg/dL (75-99)
[2017-12-11] MEDS: FORMOTEROL FUMARATE 20 MCG/2 ML NEBU INHALATION SCH (20:53)
[2017-12-11] MEDS: BUDESONIDE 1 MG/2 ML NEBU INHALATION SCH (20:53)
[2017-12-11] MEDS: ATORVASTATIN 20 MG TAB PO SCH (20:55)
[2017-12-11] MEDS: LOSARTAN 25 MG TAB PO SCH (20:55)
[2017-12-12] MEDS: IPRATROPIUM-ALBUTEROL 3 ML NEB INHALATION SCH ×7 (00:05→23:34)
[2017-12-12] MEDS: HYDROcodone/APAP 10-325MG 1 EACH TAB PO PRN ×2 (00:35→23:15)
[2017-12-12] MEDS: methylPREDNISolone SOD SUCCI 125 MG/2 ML VIAL IV SCH ×2 (00:35→06:35)
[2017-12-12] MEDS: LEVOTHYROXINE 50 MCG TAB PO SCH (06:35)
[2017-12-12 07:20] LABS: Glucose,Whole Blood 171 mg/dL (75-99)
[2017-12-12 08:20] LABS: Basophils % (A) 0 %; Eosinophils % (A) 0 %; HCT 36.5 % (39.0-53.0); HGB 11.8 gm/dL (13.0-17.5); Lymphocytes # (A) 0.2 k/uL (1.0-4.8); Lymphocytes % (A) 2 %; MCH 32.3 pg (25.0-35.0); MCHC 32.2 g/dL (31.0-37.0); MCV 100.2 fL (80.0-100.0); Macrocytosis Slight; Mean Platelet Volume 8.1; Monocytes # (A) 0.4 k/uL (0-1.0); Monocytes % (A) 2 %; Neutrophils # (A) 14.1 k/uL (1.3-7.7); Neutrophils % (A) 95 %; Platelet Count 169 k/uL (150-450); RBC 3.64 m/uL (4.30-5.90); RDW 14.4 % (11.5-15.5); WBC 14.8 k/uL (3.8-10.6)
[2017-12-12] MEDS: INSULIN ASPART 100 UNIT/ML 1 ML 10 ML VIAL SQ SCH ×7 (08:20→21:09)
[2017-12-12 08:30] LABS: Calcium 8.9 mg/dL (8.4-10.2); Potassium 4.1 mmol/L (3.5-5.1)
[2017-12-12] MEDS: cefTRIAXone IN SWFI 1,000 MG/10 ML SYRINGE IVP SCH (08:40)
[2017-12-12] MEDS: SULFAMETHOX-TMP 800-160MG 1 EACH TAB PO SCH (08:40)
[2017-12-12] MEDS: GABAPENTIN 300 MG CAP PO SCH ×2 (08:40→21:03)
[2017-12-12] MEDS: METOPROLOL SUCCINATE (ER) 50 MG TAB.ER.24H PO SCH (08:40)
[2017-12-12] MEDS: ASPIRIN 81 MG PO SCH (08:41)
[2017-12-12] MEDS: ISOSORBIDE MONONITRATE ER 30 MG TAB.ER.24H PO SCH (08:41)
[2017-12-12] MEDS: AZITHROMYCIN 500 MG TAB PO SCH (08:41)
[2017-12-12] MEDS: SPIRONOLACTONE 25 MG TAB PO SCH (08:41)
[2017-12-12] MEDS: FUROSEMIDE 40 MG TAB PO SCH (08:41)
[2017-12-12] MEDS: RANOLAZINE 500 MG TAB.ER.12H PO SCH ×2 (08:42→21:04)
[2017-12-12] MEDS: BUDESONIDE 1 MG/2 ML NEBU INHALATION SCH ×2 (08:48→19:16)
[2017-12-12] MEDS: FORMOTEROL FUMARATE 20 MCG/2 ML NEBU INHALATION SCH ×2 (08:48→19:16)
[2017-12-12] MEDS: FERROUS SULFATE 325 MG TAB PO SCH (10:58)
[2017-12-12] MEDS: VIT A,C & E-LUTEIN-MINERALS 1 EACH TAB PO SCH (10:58)
[2017-12-12 11:32] LABS: Glucose,Whole Blood 163 mg/dL (75-99)
--- NOTE | 2017-12-12 12:00 | P.PN ---
Subjective Progress Note Date: 12/12/17 Mr. Hall is seen and examined today in follow-up. He is seen sitting up in the chair in no acute distress. He states his breathing is getting better since admission. He is continuing to receive IV antibiotics and IV steroids. He denies chest pain, palpitation, nausea, vomiting or syncope. WBC 14.8, hgb 11.8 , plt 169, INR 2.0, potassium 4.1, creatinine 1.62 up from 1.2 on admission. Blood pressure today 123/70 heart rate 71 afebrile. Objective - Vital Signs Vital signs: Vital Signs Temp 97.4 F L 12/12/17 06:33 Pulse 72 12/12/17 09:13 Resp 16 12/12/17 06:33 BP 123/70 12/12/17 06:33 Pulse Ox 93 L 12/12/17 06:33 Intake & Output 12/11/17 12/12/17 12/12/17 18:59 06:59 18:59 Weight 108.862 kg 102 kg Other: # Voids 3 2 # Bowel Movements 1 - Exam GENERAL: Well-appearing, well-nourished and in no acute distress. NECK: Supple without JVD or thyromegaly. LUNGS: Faint expiratory wheeze. No rales or rhonchi. Respiration equal and unlabored. HEART: Regular rate and rhythm with systolic click secondary to aortic valve replacement. No rubs or gallops. S1 and S2 heard. EXTREMITIES: Normal range of motion, no edema. No clubbing or cyanosis. Peripheral pulses intact. - Labs CBC & Chem 7: 12/12/17 07:48 12/12/17 07:48 Labs: Abnormal Lab Results - Last 24 Hours (Table) 12/11/17 12/11/17 12/12/17 Range/Units 17:14 20:44 07:18 WBC (3.8-10.6) k/uL RBC (4.30-5.90) m/uL Hgb (13.0-17.5) gm/dL Hct (39.0-53.0) % MCV (80.0-100.0) fL Neutrophils # (1.3-7.7) k/uL Lymphocytes # (1.0-4.8) k/uL PT (9.0-12.0) sec INR (<1.2) BUN (9-20) mg/dL Creatinine (0.66-1.25) mg/dL Glucose (74-99) mg/dL POC Glucose (mg/dL) 155 H 229 H 171 H (75-99) mg/dL 12/12/17 12/12/17 12/12/17 Range/Units 07:48 07:48 07:48 WBC 14.8 H (3.8-10.6) k/uL RBC 3.64 L (4.30-5.90) m/uL Hgb 11.8 L (13.0-17.5) gm/dL Hct 36.5 L (39.0-53.0) % MCV 100.2 H (80.0-100.0) fL Neutrophils # 14.1 H (1.3-7.7) k/uL Lymphocytes # 0.2 L (1.0-4.8) k/uL PT 18.0 H (9.0-12.0) sec INR 2.0 H (<1.2) BUN 41 H (9-20) mg/dL Creatinine 1.62 H (0.66-1.25) mg/dL Glucose 153 H (74-99) mg/dL POC Glucose (mg/dL) (75-99) mg/dL 12/12/17 Range/Units 11:29 WBC (3.8-10.6) k/uL RBC (4.30-5.90) m/uL Hgb (13.0-17.5) gm/dL Hct (39.0-53.0) % MCV (80.0-100.0) fL Neutrophils # (1.3-7.7) k/uL Lymphocytes # (1.0-4.8) k/uL PT (9.0-12.0) sec INR (<1.2) BUN (9-20) mg/dL Creatinine (0.66-1.25) mg/dL Glucose (74-99) mg/dL POC Glucose (mg/dL) 163 H (75-99) mg/dL Assessment and Plan Assessment: ASSESSMENT 1. Acute exacerbation of COPD on IV steroids and antibiotics 2. History of coronary artery disease 3. History of pacemaker implantation 4. History of mechanical aortic valve replacement, on coumadin 5. Dyslipidemia 6. Hypertension PLAN Follow up with his primary undercar specialist upon discharge. Continue aspirin, atorvastatin, imdur, losartan, toprol, ranexa, aldactone and coumadin as previously ordered. We will see him as needed. Nurse Practitioner note has been reviewed, I agree with a documented findings and plan of care. Patient was seen and examined.
--- NOTE | 2017-12-12 12:32 | P.PN ---
Subjective Progress Note Date: 12/12/17 Principal diagnosis: COPD exacerbation, with purulent bronchitis/bronchopneumonia, chronic right diaphragm paralysis, cannot rule out right lower lobe pneumonia Consult dated 12/11/2017 This is a 77-year-old male who comes to the emergency room complaining of shortness of breath. He's had progressive shortness of breath over the last few months. It's been getting worse. He sees my partner. He's been treated with antibiotics and steroids and has not been really helping. He's had a previous history of MRSA infection in the past. He also has a history of recurrent right lower lobe infection. The patient states that he is feeling much better today. His complaint chest and included shortness of breath chest tightness wheezing cough. His cough is very congested and wet. He was coughing up some phlegm yesterday none today. Again feeling much better today. No fever or chills. No nausea vomiting or diarrhea. His past medical history is positive for COPD multiple pulmonary infections hyperlipidemia hypertension hypothyroidism coronary artery disease heart catheterization stent placement pacemaker insertion. On 12/04/2017 patient seen in follow-up. Reports breathing a lot easier. Bilateral lower extremity edema has significantly improved. Lung sounds are positive for coarse rhonchi over right posterior lower lobe, there are a few expiratory wheezes auscultated. His cough is productive of small amount of green sputum. he remains afebrile, he is on room air with O2 sat at 93%. His respirations are even and nonlabored. He did sleep in the chair last night, but not related to dyspnea but rather his chronic back pain. Today's labs show WBC is 14.8, INR is 2.0, electrolyte profile is normal, BUN is up to 41 from 31 from yesterday, and creatinine is up to 1.62. Patient is currently on oral Lasix at 40 mg twice a day, we will decreased the dose down to once daily, patient is also on Bactrim, we will discontinue that. Remains on Rocephin, and Zithromax, remains on Pulmicort, Perforomist, and IV steroids, which we will change to oral prednisone. Objective - Vital Signs Vital signs: Vital Signs Temp 97.4 F L 12/12/17 06:33 Pulse 72 12/12/17 12:06 Resp 16 12/12/17 06:33 BP 123/70 12/12/17 06:33 Pulse Ox 93 L 12/12/17 06:33 Intake & Output 12/11/17 12/12/17 12/12/17 18:59 06:59 18:59 Weight 108.862 kg 102 kg Other: # Voids 3 2 # Bowel Movements 1 - Exam No acute distress, oriented 3. Nasal O2 in place. HEENT examination is grossly unremarkable. Mucous membranes are moist. No oral lesions. Neck supple. Full range of motion. No adenopathy thyromegaly or neck vein distention. Cardiovascular examination reveals regular rhythm rate. S1-S2 normal. No S3 or S4. No discernible murmur noted. Lungs reveal right posterior lower lobe inspiratory and expiratory wheezes and rhonchi. Breath sounds are diminished. There is prolongation on forced maneuver.. Abdomen soft bowel sounds are heard. No masses or tenderness. Extremities are intact. No cyanosis clubbing or edema. Skin is without rash or lesion. Neurologic examination is brief but nonfocal. - Labs CBC & Chem 7: 12/12/17 07:48 12/12/17 07:48 Labs: Abnormal Lab Results - Last 24 Hours (Table) 12/11/17 12/11/17 12/12/17 Range/Units 17:14 20:44 07:18 WBC (3.8-10.6) k/uL RBC (4.30-5.90) m/uL Hgb (13.0-17.5) gm/dL Hct (39.0-53.0) % MCV (80.0-100.0) fL Neutrophils # (1.3-7.7) k/uL Lymphocytes # (1.0-4.8) k/uL PT (9.0-12.0) sec INR (<1.2) BUN (9-20) mg/dL Creatinine (0.66-1.25) mg/dL Glucose (74-99) mg/dL POC Glucose (mg/dL) 155 H 229 H 171 H (75-99) mg/dL 12/12/17 12/12/17 12/12/17 Range/Units 07:48 07:48 07:48 WBC 14.8 H (3.8-10.6) k/uL RBC 3.64 L (4.30-5.90) m/uL Hgb 11.8 L (13.0-17.5) gm/dL Hct 36.5 L (39.0-53.0) % MCV 100.2 H (80.0-100.0) fL Neutrophils # 14.1 H (1.3-7.7) k/uL Lymphocytes # 0.2 L (1.0-4.8) k/uL PT 18.0 H (9.0-12.0) sec INR 2.0 H (<1.2) BUN 41 H (9-20) mg/dL Creatinine 1.62 H (0.66-1.25) mg/dL Glucose 153 H (74-99) mg/dL POC Glucose (mg/dL) (75-99) mg/dL 12/12/17 Range/Units 11:29 WBC (3.8-10.6) k/uL RBC (4.30-5.90) m/uL Hgb (13.0-17.5) gm/dL Hct (39.0-53.0) % MCV (80.0-100.0) fL Neutrophils # (1.3-7.7) k/uL Lymphocytes # (1.0-4.8) k/uL PT (9.0-12.0) sec INR (<1.2) BUN (9-20) mg/dL Creatinine (0.66-1.25) mg/dL Glucose (74-99) mg/dL POC Glucose (mg/dL) 163 H (75-99) mg/dL Assessment and Plan Plan: Assessment: #1. COPD exacerbation complicated by purulent bronchitis/bronchopneumonia. #2. Right hemidiaphragm chronic paralysis, CT chest from 12/10/2017 showed a chronic infiltrate in the right lung that is slightly worse than the old CT, cannot rule out acute pneumonia in the right lower lobe. But clinically patient is negative for any fevers, chills, chest pain. #3. Acute kidney injury, possibly related to Bactrim and ATN, we'll decrease the dose of Lasix to once daily, we'll discontinue Bactrim, patient will continue on Rocephin and Zithromax for now #4. Hypothyroidism #5. Hypertension #6. Hyperlipidemia #7. Previous history of stent placement #8. Previous history of pacemaker insertion Plan: Continue with current plan of treatment, patient developed acute kidney injury, possibly related to Bactrim and acute tubular necrosis. We will decrease the dose of Lasix down to once a day, we'll discontinue the Bactrim. Continue on Rocephin and Zithromax, continues on nebulized treatments. We'll switch the Solu-Medrol to oral prednisone. Sputum culture. I performed a history & physical examination of the patient and discussed their management with my nurse practitioner, Gayle Thompson. I reviewed the nurse practitioner's note and agree with the documented findings and plan of care. Lung sounds are positive for scattered rhonchi and wheezing over right lower lobe . The findings and the impression was discussed with the patient. I attest to the documentation by the nurse practitioner. Time with Patient: Less than 30
--- NOTE | 2017-12-12 13:03 | ECHOF ---
Referral Reason:sob MEASUREMENTS -------- HEIGHT: 182.9 cm WEIGHT: 108.9 kg BP: IVSd: 1.2 cm (0.6 - 1.1) LVIDd: 4.3 cm (3.9 - 5.3) LVPWd: 1.4 cm (0.6 - 1.1) IVSs: 2.0 cm LVIDs: 2.7 cm LVPWs: 2.2 cm LAESV Index (A-L): 28.93 ml/m Ao Diam: 3.0 cm (2.0 - 3.7) AV Cusp: 1.5 cm (1.5 - 2.6) LA Diam: 4.3 cm (2.7 - 3.8) MV EXCURSION: 19.436 mm (> 18.000) MV EF SLOPE: 36 mm/s (70 - 150) EPSS: 1.0 cm AV maxP.13 mmHg AV meanP.42 mmHg RAP: 5.00 mmHg RVSP: 11.86 mmHg FINDINGS -------- Pacemaker This was a technically difficult study with suboptimal views. The left ventricular size is normal. There is moderate concentric left ventricular hypertrophy. O verall left ventricular systolic function is low-normal with, an EF between 50 - 55 %. The right ventricle is normal in size and function. LA is midly dilated 29-33ml/m2. The right atrium is normal in size. 1.5mg of Definity was utilized for enhancement of images Peak/mean gradient across the Aortic Valve is 28.13mmHg / 14.42mmHg. Normally functioning bioprosth etic valve. The mitral valve leaflets are mildly thickened. Mild mitral annular calcification present. Mild m itral regurgitation is present. Mild tricuspid regurgitation present. The right ventricular systolic pressure, as measured by Doppl er, is 11.86mmHg. Pulmonic valve appears structurally normal. The aortic root, ascending aorta and aortic arch are normal. Normal inferior vena cava with normal inspiratory collapse consistent with estimated right atrial pre ssure of 5 mmHg. The pericardium is normal. CONCLUSIONS -------- 1. Pacemaker 2. This was a technically difficult study with suboptimal views. 3. The left ventricular size is normal. 4. There is moderate concentric left ventricular hypertrophy. 5. The right ventricle is normal in size and function. 6. LA is midly dilated 29-33ml/m2. 7. The right atrium is normal in size. 8. Lumason used 9. Peak/mean gradient across the Aortic Valve is 28.13mmHg / 14.42mmHg. 10. Normally functioning bioprosthetic valve. 11. The mitral valve leaflets are mildly thickened. 12. Mild mitral annular calcification present. 13. Mild mitral regurgitation is present. 14. Mild tricuspid regurgitation present. 15. The right ventricular systolic pressure, as measured by Doppler, is 11.86mmHg. 16. Pulmonic valve appears structurally normal. 17. The aortic root, ascending aorta and aortic arch are normal. 18. Normal inferior vena cava with normal inspiratory collapse consistent with estimated right atrial pressure of 5 mmHg. 19. The pericardium is normal. NUTRITION INTERN: Ophelia Jaimes RDCS
--- NOTE | 2017-12-12 15:29 | P.PN ---
Subjective Progress Note Date: 12/11/17 Progress note being dictated for Dr. Dean. Interval history: This a 77-year-old gentleman admitted with shortness of breath , possible COPD exacerbation, possibly right lower lobe pneumonia in a patient with history of recurrent right lower lobe infection and multiple other medical issues. Maintained on nebulized bronchodilators, IV steroids, Rocephin and Zithromax. Breathing improving, nonproductive congested cough. Afebrile, normal WBC. Objective - Vital Signs Vital signs: Vital Signs Temp 96.9 F L 12/11/17 15:00 Pulse 80 12/11/17 16:32 Resp 18 12/11/17 15:44 BP 104/55 12/11/17 15:00 Pulse Ox 94 L 12/11/17 15:00 Intake & Output 12/11/17 12/11/17 12/12/17 06:59 18:59 06:59 Weight 108.862 kg Other: Voiding Method Urinal # Voids 1 3 # Bowel Movements 1 - Exam PHYSICAL EXAM: VITAL SIGNS: As above GENERAL: Sitting up in bed, no acute distress HEENT: Conjunctivae normal. eyes normal. NECK: No JVD. No thyroid enlargement. No LNs CARDIOVASCULAR: S1, S2 muffled. No murmur RESPIRATION: Breath sounds diminished in the bases. Bilateral Scattered rhonchi with prolonged expiratory wheezing ABDOMEN: Soft, nontender . No guarding. no masses palpable.Bowel sounds heard. LEGS: No edema. no swelling PSYCHIATRY: Alert and oriented -3, mood and affect normal. NERVOUS SYSTEM: Cranial N 2-12 grossly normal. Moves all 4 limbs. Diffuse weakness No focal deficits. Skin: no ulcer no rash Joints: No active swelling. No inflammation. Lymphatic system. No LN neck axilla or groin. - Labs CBC & Chem 7: 12/12/17 07:48 12/12/17 07:48 Labs: Abnormal Lab Results - Last 24 Hours (Table) 12/10/17 12/11/17 12/11/17 Range/Units 21:30 07:27 07:55 RBC 3.73 L (4.30-5.90) m/uL Hgb 12.0 L (13.0-17.5) gm/dL Hct 38.2 L (39.0-53.0) % MCV 102.3 H (80.0-100.0) fL Plt Count 131 L (150-450) k/uL Lymphocytes # 0.3 L (1.0-4.8) k/uL PT (9.0-12.0) sec INR (<1.2) Carbon Dioxide (22-30) mmol/L BUN (9-20) mg/dL Glucose (74-99) mg/dL POC Glucose (mg/dL) 224 H 234 H (75-99) mg/dL 12/11/17 12/11/17 12/11/17 Range/Units 07:55 07:55 11:22 RBC (4.30-5.90) m/uL Hgb (13.0-17.5) gm/dL Hct (39.0-53.0) % MCV (80.0-100.0) fL Plt Count (150-450) k/uL Lymphocytes # (1.0-4.8) k/uL PT 14.2 H (9.0-12.0) sec INR 1.5 H (<1.2) Carbon Dioxide 21 L (22-30) mmol/L BUN 31 H (9-20) mg/dL Glucose 229 H (74-99) mg/dL POC Glucose (mg/dL) 240 H (75-99) mg/dL 12/11/17 Range/Units 17:14 RBC (4.30-5.90) m/uL Hgb (13.0-17.5) gm/dL Hct (39.0-53.0) % MCV (80.0-100.0) fL Plt Count (150-450) k/uL Lymphocytes # (1.0-4.8) k/uL PT (9.0-12.0) sec INR (<1.2) Carbon Dioxide (22-30) mmol/L BUN (9-20) mg/dL Glucose (74-99) mg/dL POC Glucose (mg/dL) 155 H (75-99) mg/dL Assessment and Plan Assessment: 1. Shortness of breath for evaluation, acute COPD exacerbation, purulent bronchitis, possible right lower lobe pneumonia, gram-negative 2. History of recurrent infection, right lower lobe, rule out bronchiectasis 3. Anemia, increased MCV 4. Chronic CHF 5. Gastroesophageal reflux disease 6. Hypertension 7. Hyperlipidemia 8. CAD, history of stent, trifecta.aortic valve replacement, pacemaker 9. Remote history of nicotine dependence Plan: Continue on current medication regime ,monitoring and symptomatic treatment. Maintain nebulized medical dilators, steroids and antibiotics. Increase ambulation as tolerated. Follow closely with both cardiology and pulmonary. Discharge planning in progress for tomorrow. The impression and plan of care has been dictated as directed. : I performed a history and examination of this patient, discussed the same with the dictator. I agree with the dictator's note ,documented as a scribe. Any additional findings or plans will be noted.
--- NOTE | 2017-12-12 15:42 | P.PN ---
Subjective Progress Note Date: 12/12/17 Progress note being dictated for Dr. Dean. Interval history: This a 77-year-old gentleman admitted with shortness of breath , possible COPD exacerbation, possibly right lower lobe pneumonia in a patient with history of recurrent right lower lobe infection and multiple other medical issues. Maintained on nebulized bronchodilators, IV steroids, Rocephin and Zithromax. Breathing improving, nonproductive congested cough. Afebrile, normal WBC. 12/12/17 Breathing continues to improve, maintaining O2 sats on room air 93%. Reports minimal green sputum production. Afebrile, elevated WBC 14.8. Renal function mildly worsened. Chest CT reporting chronic right lung infiltrate slightly worse than prior scan, consistent with fibrosis, possible acute right lower lobe pneumonia, chronic right diaphragm elevation, possible phrenic nerve paralysis, new left basilar atelectasis . Echo suboptimal reports moderate concentric left ventricular hypertrophy, low normal LV function, EF 50-55%. Objective - Vital Signs Vital signs: Vital Signs Temp 96.0 F L 12/12/17 15:00 Pulse 67 12/12/17 15:00 Resp 16 12/12/17 15:00 BP 101/56 12/12/17 15:00 Pulse Ox 94 L 12/12/17 15:00 Intake & Output 12/11/17 12/12/17 12/12/17 18:59 06:59 18:59 Intake Total 480 Balance 480 Weight 108.862 kg 102 kg Intake: Oral 480 Other: # Voids 3 2 2 # Bowel Movements 1 - Exam PHYSICAL EXAM: VITAL SIGNS: As above GENERAL: Sitting up in chair, no acute distress HEENT: Conjunctivae normal. eyes normal. NECK: No JVD. No thyroid enlargement. No LNs CARDIOVASCULAR: S1, S2 muffled. No murmur RESPIRATION: Breath sounds diminished in the bases. Bilateral Scattered rhonchi with prolonged expiratory wheezing ABDOMEN: Soft, nontender . No guarding. no masses palpable.Bowel sounds heard. LEGS: No edema. no swelling PSYCHIATRY: Alert and oriented -3, mood and affect normal. NERVOUS SYSTEM: Cranial N 2-12 grossly normal. Moves all 4 limbs. Diffuse weakness No focal deficits. Skin: no ulcer no rash Joints: No active swelling. No inflammation. Lymphatic system. No LN neck axilla or groin. - Labs CBC & Chem 7: 12/12/17 07:48 12/12/17 07:48 Labs: Abnormal Lab Results - Last 24 Hours (Table) 12/11/17 12/11/17 12/12/17 Range/Units 17:14 20:44 07:18 WBC (3.8-10.6) k/uL RBC (4.30-5.90) m/uL Hgb (13.0-17.5) gm/dL Hct (39.0-53.0) % MCV (80.0-100.0) fL Neutrophils # (1.3-7.7) k/uL Lymphocytes # (1.0-4.8) k/uL PT (9.0-12.0) sec INR (<1.2) BUN (9-20) mg/dL Creatinine (0.66-1.25) mg/dL Glucose (74-99) mg/dL POC Glucose (mg/dL) 155 H 229 H 171 H (75-99) mg/dL 12/12/17 12/12/17 12/12/17 Range/Units 07:48 07:48 07:48 WBC 14.8 H (3.8-10.6) k/uL RBC 3.64 L (4.30-5.90) m/uL Hgb 11.8 L (13.0-17.5) gm/dL Hct 36.5 L (39.0-53.0) % MCV 100.2 H (80.0-100.0) fL Neutrophils # 14.1 H (1.3-7.7) k/uL Lymphocytes # 0.2 L (1.0-4.8) k/uL PT 18.0 H (9.0-12.0) sec INR 2.0 H (<1.2) BUN 41 H (9-20) mg/dL Creatinine 1.62 H (0.66-1.25) mg/dL Glucose 153 H (74-99) mg/dL POC Glucose (mg/dL) (75-99) mg/dL 12/12/17 Range/Units 11:29 WBC (3.8-10.6) k/uL RBC (4.30-5.90) m/uL Hgb (13.0-17.5) gm/dL Hct (39.0-53.0) % MCV (80.0-100.0) fL Neutrophils # (1.3-7.7) k/uL Lymphocytes # (1.0-4.8) k/uL PT (9.0-12.0) sec INR (<1.2) BUN (9-20) mg/dL Creatinine (0.66-1.25) mg/dL Glucose (74-99) mg/dL POC Glucose (mg/dL) 163 H (75-99) mg/dL Assessment and Plan Assessment: 1. Shortness of breath for evaluation, acute COPD exacerbation, purulent bronchitis, possible right lower lobe pneumonia, gram-negative 2. History of recurrent infection, right lower lobe, rule out bronchiectasis 3. Anemia, increased MCV 4. Chronic CHF 5. Gastroesophageal reflux disease 6. Hypertension 7. Hyperlipidemia 8. CAD, history of stent, trifecta.aortic valve replacement, pacemaker 9. Remote history of nicotine dependence Plan: Continue on current medication regime ,monitoring and symptomatic treatment. Sputum culture ordered. Maintain nebulized bronchodilators, steroids and antibiotics. Steroid tapering as per pulmonary. Increase ambulation as tolerated. Bactrim discontinued, Lasix dose decreased, Close monitoring of renal function with repeat labs ordered for a.m. Discharge planning in progress for tomorrow. The impression and plan of care has been dictated as directed. : I performed a history and examination of this patient, discussed the same with the dictator. I agree with the dictator's note ,documented as a scribe. Any additional findings or plans will be noted.
[2017-12-12] MEDS ORDERED: FUROSEMIDE 40 MG TAB PO SCH (16:00)
[2017-12-12] MEDS: MORPHINE SULFATE ER 30 MG TABLET PO PRN (16:17)
--- NOTE | 2017-12-12 16:39 | CDI ---
Last Revision, September 2017 Documentation Clarification Form Date: 12/12/2017 4:15:00 PM From: Alva Mckinney RN, CCDS Admit Date: 12/10/2017 1:34:00 PM Patient Name: Emmanuel Hall Visit Number: [id number] Discharge Date: ATTENTION: The Clinical Documentation Specialists (CDI) and [facility] Coding Staff appreciate your assistance in clarifying documentation. Please respond to the clarification below the line at the bottom and electronically sign. The CDI & [facility] Coding staff will review the response and follow-up if needed. Please note: Queries are made part of the Legal Health Record. If you have any questions, please contact the author of this message via ITS. Dr. Tabitha Dean/[place] LE[facility]IS History/Risk Factors: COPD, HTN, CHF, Asthma Clinical Indicators: Admitted with shortness of breath with chronic CHF in your H/P and progress notes. VS/Pulse OX: 120/51 74 18 98.2 BNP: 392 Echocardiogram Results: EF 50-55 % Chest X Ray: Postporcedural changes Treatment: Lasix PO In your professional opinion, can you please clarify the type of CHF if known? Chronic Systolic Heart Failure: Chronic Diastolic Heart Failure: Unable to Determine Other, please specify Please continue to document in your progress notes and discharge summary in order to capture severity of illness and risk of mortality. Include clinical findings that support your diagnosis. \ Chronic Diastolic Heart Failure: MTDD
[2017-12-12 16:58] LABS: Glucose,Whole Blood 132 mg/dL (75-99)
[2017-12-12] MEDS: WARFARIN 2 MG TAB PO SCH (17:54)
[2017-12-12 20:54] LABS: Glucose,Whole Blood 142 mg/dL (75-99)
[2017-12-12] MEDS: LOSARTAN 25 MG TAB PO SCH (21:04)
[2017-12-12] MEDS: ATORVASTATIN 20 MG TAB PO SCH (21:04)
[2017-12-13] MEDS: IPRATROPIUM-ALBUTEROL 3 ML NEB INHALATION SCH ×3 (04:12→11:40)
[2017-12-13] MEDS: MORPHINE SULFATE ER 30 MG TABLET PO PRN (04:21)
[2017-12-13 06:21] VITALS: BP 126/74; TEMP 96.7
[2017-12-13] MEDS: LEVOTHYROXINE 50 MCG TAB PO SCH (06:21)
[2017-12-13] MEDS: FORMOTEROL FUMARATE 20 MCG/2 ML NEBU INHALATION SCH (07:07)
[2017-12-13] MEDS: BUDESONIDE 1 MG/2 ML NEBU INHALATION SCH (07:07)
[2017-12-13 07:36] LABS: Glucose,Whole Blood 151 mg/dL (75-99)
[2017-12-13] MEDS: INSULIN ASPART 100 UNIT/ML 1 ML 10 ML VIAL SQ SCH ×4 (07:46→12:22)
[2017-12-13] MEDS: SPIRONOLACTONE 25 MG TAB PO SCH (07:46)
[2017-12-13] MEDS: METOPROLOL SUCCINATE (ER) 50 MG TAB.ER.24H PO SCH (07:47)
[2017-12-13] MEDS: GABAPENTIN 300 MG CAP PO SCH (07:47)
[2017-12-13] MEDS: ISOSORBIDE MONONITRATE ER 30 MG TAB.ER.24H PO SCH (07:47)
[2017-12-13] MEDS: RANOLAZINE 500 MG TAB.ER.12H PO SCH (07:47)
[2017-12-13] MEDS: AZITHROMYCIN 500 MG TAB PO SCH (07:47)
[2017-12-13] MEDS: ASPIRIN 81 MG PO SCH (07:48)
[2017-12-13] MEDS: cefTRIAXone IN SWFI 1,000 MG/10 ML SYRINGE IVP SCH (07:49)
[2017-12-13 08:02] LABS: Basophils % (A) 0 %; Eosinophils % (A) 0 %; HCT 34.5 % (39.0-53.0); HGB 11.2 gm/dL (13.0-17.5); Lymphocytes # (A) 0.4 k/uL (1.0-4.8); Lymphocytes % (A) 3 %; MCH 32.2 pg (25.0-35.0); MCHC 32.6 g/dL (31.0-37.0); MCV 98.8 fL (80.0-100.0); Mean Platelet Volume 8.7; Monocytes # (A) 0.6 k/uL (0-1.0); Monocytes % (A) 4 %; Neutrophils % (A) 92 %; Platelet Count 151 k/uL (150-450); RBC 3.49 m/uL (4.30-5.90); RDW 14.5 % (11.5-15.5)
[2017-12-13 08:08] LABS: INR 2.4 (<1.2); Prothrombin Time 21.7 sec (9.0-12.0)
[2017-12-13 08:51] VITALS: RESP 18
[2017-12-13 08:53] LABS: Calcium 8.7 mg/dL (8.4-10.2); Potassium 3.9 mmol/L (3.5-5.1)
[2017-12-13] MEDS ORDERED: predniSONE 20 MG TAB PO SCH (09:00)
[2017-12-13] MEDS ORDERED: FUROSEMIDE 40 MG TAB PO SCH ×2 (09:00)
--- NOTE | 2017-12-13 11:09 | P.PN ---
Subjective Progress Note Date: 12/13/17 Principal diagnosis: COPD exacerbation, with purulent bronchitis/bronchopneumonia, chronic right diaphragm paralysis, cannot rule out right lower lobe pneumonia Consult dated 12/11/2017 This is a 77-year-old male who comes to the emergency room complaining of shortness of breath. He's had progressive shortness of breath over the last few months. It's been getting worse. He sees my partner. He's been treated with antibiotics and steroids and has not been really helping. He's had a previous history of MRSA infection in the past. He also has a history of recurrent right lower lobe infection. The patient states that he is feeling much better today. His complaint chest and included shortness of breath chest tightness wheezing cough. His cough is very congested and wet. He was coughing up some phlegm yesterday none today. Again feeling much better today. No fever or chills. No nausea vomiting or diarrhea. His past medical history is positive for COPD multiple pulmonary infections hyperlipidemia hypertension hypothyroidism coronary artery disease heart catheterization stent placement pacemaker insertion. On 12/12/2017 patient seen in follow-up. Reports breathing a lot easier. Bilateral lower extremity edema has significantly improved. Lung sounds are positive for coarse rhonchi over right posterior lower lobe, there are a few expiratory wheezes auscultated. His cough is productive of small amount of green sputum. he remains afebrile, he is on room air with O2 sat at 93%. His respirations are even and nonlabored. He did sleep in the chair last night, but not related to dyspnea but rather his chronic back pain. Today's labs show WBC is 14.8, INR is 2.0, electrolyte profile is normal, BUN is up to 41 from 31 from yesterday, and creatinine is up to 1.62. Patient is currently on oral Lasix at 40 mg twice a day, we will decreased the dose down to once daily, patient is also on Bactrim, we will discontinue that. Remains on Rocephin, and Zithromax, remains on Pulmicort, Perforomist, and IV steroids, which we will change to oral prednisone. On 12/13/2017 patient seen in follow-up. Doing very well, denies any acute distress, has been ambulating around the room, tolerating it well. Lung sounds are positive for some coarse rhonchi over right lung, patient states it is a chronic finding in view of his right hemidiaphragm paralysis. There are a few scattered rales over left base. But overall patient reports feeling better, only occasional minimal cough, dry nonproductive. Today's lab work shows WBC is trending down, down to 13.0, hemoglobin is stable at 11.2, INR is 2.4, BUN is 48, creatinine is 1.67. Christina date we decreased the oral Lasix to once a day, and we discontinued the Bactrim. Patient continues on a combination of Rocephin and Zithromax for a purulent bronchitis/bronchopneumonia, cannot rule out right lower lobe pneumonia. Patient is afebrile, vital signs are stable denies any chest congestion or excessive sputum production, denies any chest pain. Denies any hemoptysis. From pulmonary standpoint he is stable for discharge home today, on outpatient course of antibiotics, prednisone taper, his maintenance inhalers and nebulized treatments. Objective - Vital Signs Vital signs: Vital Signs Temp 96.7 F L 12/13/17 06:20 Pulse 76 12/13/17 07:33 Resp 18 12/13/17 08:00 BP 126/74 12/13/17 06:20 Pulse Ox 93 L 12/13/17 06:20 Intake & Output 12/12/17 12/13/17 12/13/17 18:59 06:59 18:59 Intake Total 480 500 Balance 480 500 Weight 102 kg 108 kg Intake: Oral 480 500 Other: Voiding Method Urinal Urinal # Voids 2 1 # Bowel Movements 1 - Exam No acute distress, oriented 3. Nasal O2 in place. HEENT examination is grossly unremarkable. Mucous membranes are moist. No oral lesions. Neck supple. Full range of motion. No adenopathy thyromegaly or neck vein distention. Cardiovascular examination reveals regular rhythm rate. S1-S2 normal. No S3 or S4. No discernible murmur noted. Lungs reveal right posterior lower l rhonchi. Minimal crackles over left base . Overall breath sounds reveal better air entry bilaterally There is prolongation on forced maneuver.. Abdomen soft bowel sounds are heard. No masses or tenderness. Extremities are intact. No cyanosis clubbing or edema. Skin is without rash or lesion. Neurologic examination is brief but nonfocal. - Labs CBC & Chem 7: 12/13/17 07:32 12/13/17 07:32 Labs: Abnormal Lab Results - Last 24 Hours (Table) 12/12/17 12/12/17 12/12/17 Range/Units 11:29 16:55 20:44 WBC (3.8-10.6) k/uL RBC (4.30-5.90) m/uL Hgb (13.0-17.5) gm/dL Hct (39.0-53.0) % Neutrophils # (1.3-7.7) k/uL Lymphocytes # (1.0-4.8) k/uL PT (9.0-12.0) sec INR (<1.2) BUN (9-20) mg/dL Creatinine (0.66-1.25) mg/dL Glucose (74-99) mg/dL POC Glucose (mg/dL) 163 H 132 H 142 H (75-99) mg/dL 12/13/17 12/13/17 12/13/17 Range/Units 07:32 07:32 07:32 WBC 13.0 H (3.8-10.6) k/uL RBC 3.49 L (4.30-5.90) m/uL Hgb 11.2 L (13.0-17.5) gm/dL Hct 34.5 L (39.0-53.0) % Neutrophils # 12.0 H (1.3-7.7) k/uL Lymphocytes # 0.4 L (1.0-4.8) k/uL PT 21.7 H (9.0-12.0) sec INR 2.4 H (<1.2) BUN 48 H (9-20) mg/dL Creatinine 1.67 H (0.66-1.25) mg/dL Glucose 135 H (74-99) mg/dL POC Glucose (mg/dL) (75-99) mg/dL 12/13/17 Range/Units 07:34 WBC (3.8-10.6) k/uL RBC (4.30-5.90) m/uL Hgb (13.0-17.5) gm/dL Hct (39.0-53.0) % Neutrophils # (1.3-7.7) k/uL Lymphocytes # (1.0-4.8) k/uL PT (9.0-12.0) sec INR (<1.2) BUN (9-20) mg/dL Creatinine (0.66-1.25) mg/dL Glucose (74-99) mg/dL POC Glucose (mg/dL) 151 H (75-99) mg/dL Microbiology - Last 24 Hours (Table) 12/12/17 16:30 Gram Stain - Preliminary Sputum Assessment and Plan Plan: Assessment: #1. COPD exacerbation complicated by purulent bronchitis/bronchopneumonia. #2. Right hemidiaphragm chronic paralysis, CT chest from 12/10/2017 showed a chronic infiltrate in the right lung that is slightly worse than the old CT, cannot rule out acute pneumonia in the right lower lobe. But clinically patient is negative for any fevers, chills, chest pain, hemoptysis #3. Acute kidney injury, possibly related to Bactrim and ATN, we'll decrease the dose of Lasix to once daily, we'll discontinue Bactrim, patient will continue on Rocephin and Zithromax for now #4. Hypothyroidism #5. Hypertension #6. Hyperlipidemia #7. Previous history of stent placement #8. Previous history of pacemaker insertion Plan: Patient continues to improve, reports feeling much better, requesting to go home today. Patient has been ambulating in the room, tolerating it well. Denies any fevers, denies any chills, night sweats, hemoptysis or chest wall tenderness. Vital signs are stable. From pulmonary standpoint patient is stable to be discharged home today, on outpatient course of Zithromax in [place] , and prednisone taper, he can continue on his maintenance inhalers and nebulized treatments, follow-up with Dr. Santana in the office, patient has an existing appointment on 12/20/2017. He can keep that appointment. I performed a history & physical examination of the patient and discussed their management with my nurse practitioner, Gayle Thompson. I reviewed the nurse practitioner's note and agree with the documented findings and plan of care. Lung sounds are positive for scattered rhonchi over right lower lobe, minimal crackles over left base . The findings and the impression was discussed with the patient. I attest to the documentation by the nurse practitioner. Time with Patient: Less than 30
[2017-12-13] MEDS: FERROUS SULFATE 325 MG TAB PO SCH (11:12)
[2017-12-13] MEDS: VIT A,C & E-LUTEIN-MINERALS 1 EACH TAB PO SCH (11:12)
[2017-12-13 11:42] VITALS: PULSE 72
[2017-12-13 12:01] LABS: Glucose,Whole Blood 119 mg/dL (75-99)
--- NOTE | 2017-12-14 06:32 | DS ---
DISCHARGE SUMMARY DATE OF SERVICE: 12/13/2017 FINAL DIAGNOSES: 1. Chronic obstructive pulmonary disease acute exacerbation with possible right lower lobe pneumonia, gram-negative, improved. 2. History of recurrent infection, right lower lobe with chronic changes. 3. Anemia, increased MCV. 4. Chronic congestive heart failure. 5. Gastroesophageal reflux disease. 6. Hypertension. 7. Hyperlipidemia. 8. Coronary artery disease stent. 9. aortic valve replacement pacemaker. 10.Remote history of nicotine dependence. DISCHARGE DISPOSITION: The patient is being discharged in stable condition with guarded prognosis. HISTORY OF PRESENT ILLNESS: This 77-year-old gentleman with a past history of multiple medical problems, admitted with features of shortness of breath and cough and COPD versus possible pneumonia, treated with bronchodilators and antibiotics. Patient improved significantly. Cardiology and Pulmonology saw the patient. Chest CT was also done. PHYSICAL EXAMINATION: On exam, vital signs were stable. Cardiovascular: S1, S2. Abdomen soft, respiration, a few crackles in the right lower base. DISCHARGE INSTRUCTIONS: 1. Discharge diet is cardiac diet. 2. Activity limited until followup. 3. Follow up with Dr. Roberts as mentioned before. 4. Follow with Dr. Santana as recommended. MEDICATIONS: 1. Albuterol 2.5 q.i.d. 2. Xanax 0.5 q.h.s. p.r.n. 3. Ecotrin 81 mg p.o. daily. 4. Zithromax 500 mg daily for 4 days. 5. Ceftin 500 mg p.o. b.i.d. for 1 week. 6. Vitamin B12 1000 mcg p.o. Q 30 days. 7. Iron sulfate 320 mg p.o. daily. 8. Lasix 40 mg p.o. b.i.d. 9. Gabapentin 600 mg p.o. b.i.d. 10.Hydrocodone 10 mg t.i.d. p.r.n. 11.Combivent Rescue 2 puffs q.i.d. 12.Imdur 30 mg p.o. daily. 13.Synthroid 50 mcg p.o. daily. 14.Cozaar 25 mg q.h.s. 15.Toprol-XL 50 mg p.o. daily. 16.MS Contin 30 mg b.i.d. p.r.n. 17.Nitrostat 0.4 sublingual p.r.n. 18.Prednisone that will be 30 mg daily for 3 days, 20 for 3 days, 10 mg for 3 days and then stop. 19.Ranexa 500 mg p.o. b.i.d. 20.Requip 2 mg p.o. 5 times . 21.Simvastatin 40 mg q.h.s. 22.Aldactone 25 mg p.o. daily. 23.Vitamin D zinc 1 p.o. daily. 24.Coumadin 1 mg and Sunday, and 2 mg on other days. Follow up labs, PT. MMODL / IJN: [id number] / JOHN
== END 2017-12-13 14:14 | disposition home or self-care (01) | DRG 177 ==
LOC: EC 09:44 → 4MS4W 13:34
PROVIDERS: ADMIT Hospitalist; ATTEND Hospitalist
DX: J15.6 Pneumonia due to other Gram-negative bacteria (principal); N17.0 Acute kidney failure with tubular necrosis; I50.32 Chronic diastolic (congestive) heart failure; J44.1 Chronic obstructive pulmonary disease with (acute) exacerbation; J44.0 Chronic obstructive pulmonary disease with (acute) lower respiratory infection; I11.0 Hypertensive heart disease with heart failure; D64.9 Anemia, unspecified; J18.0 Bronchopneumonia, unspecified organism; M06.9 Rheumatoid arthritis, unspecified; K21.9 Gastro-esophageal reflux disease without esophagitis; E78.5 Hyperlipidemia, unspecified; H35.30 Unspecified macular degeneration; I25.10 Atherosclerotic heart disease of native coronary artery without angina pectoris; E03.9 Hypothyroidism, unspecified; J98.6 Disorders of diaphragm; G25.81 Restless legs syndrome; G89.29 Other chronic pain; Z95.5 Presence of coronary angioplasty implant and graft; Z95.2 Presence of prosthetic heart valve; Z87.891 Personal history of nicotine dependence; Z86.718 Personal history of other venous thrombosis and embolism; Z87.01 Personal history of pneumonia (recurrent); Z86.711 Personal history of pulmonary embolism; Z86.14 Personal history of Methicillin resistant Staphylococcus aureus infection; Z79.899 Other long term (current) drug therapy; Z79.82 Long term (current) use of aspirin; Z79.891 Long term (current) use of opiate analgesic; Z79.01 Long term (current) use of anticoagulants; Z86.19 Personal history of other infectious and parasitic diseases; Z95.0 Presence of cardiac pacemaker; Z79.52 Long term (current) use of systemic steroids
CPT/HCPCS: 36415; 71046; 71250; 80048; 80053; 81003; 82550; 82553; 83036; 83735; 83880; 84484; 85025; 85379; 85610; 85730; 87070; 87077; 87186; 87205; 93005; 93306; 94640; 96374; 99284

== ENCOUNTER 2018-01-29 16:48 | Inpatient (IN) | payer MEDICARE, OTHER ==
[2018-01-29] MEDS ORDERED: SODIUM CHLORIDE 0.9% 1,000 ML IV STA (17:21)
[2018-01-29] MEDS ORDERED: IPRATROPIUM 0.5 MG/2.5 ML NEBU INHALATION STA (17:21)
[2018-01-29] MEDS ORDERED: ALBUTEROL NEBULIZED 2.5 MG/3 ML INHALATION STA (17:21)
[2018-01-29] MEDS ORDERED: SODIUM CHLORIDE 0.9% 500 ML IV STA (17:21)
--- NOTE | 2018-01-29 17:35 | ED ---
General Adult HPI - General Chief complaint: Shortness of Breath Stated complaint: pneumonia Time Seen by Provider: 01/29/18 17:21 Source: patient, RN notes reviewed, old records reviewed Mode of arrival: ambulatory Limitations: no limitations - History of Present Illness Initial comments: This is a 77-year-old male to the ER for evaluation. Patient sent in by Dr. Rdz for evaluation and admission. Patient has history of pneumonia, MRSA, multiple lung infections and recent hospitalization. No recent travel history or sick contacts. Patient states he has been feeling well for a few days worsening fever and chills last night increased shortness of breath today. No pain - Related Data Home Medications Medication Instructions Recorded Confirmed ALPRAZolam [Xanax] 0.5 mg PO HS PRN 12/10/17 01/29/18 Aspirin [Adult Low Dose Aspirin EC] 81 mg PO DAILY 12/10/17 01/29/18 Cyanocobalamin [Vitamin B-12 1,000 mcg SQ Q30D 12/10/17 01/29/18 Injection] Ferrous Sulfate [Iron (65 MG 325 mg PO DAILY 12/10/17 01/29/18 Elemental)] Furosemide [Lasix] 40 mg PO BID 12/10/17 01/29/18 Gabapentin 600 mg PO BID 12/10/17 01/29/18 HYDROcodone/APAP 10-325MG [[place] 1 tab PO TID PRN 12/10/17 01/29/18 10-325] Ipratropium/Albuterol Sulfate 2 puff INHALATION RT-QID 12/10/17 01/29/18 [Combivent Respimat Inhaler] Isosorbide Mononitrate ER [Imdur] 30 mg PO DAILY 12/10/17 01/29/18 Levothyroxine Sodium [Synthroid] 50 mcg PO DAILY 12/10/17 01/29/18 Losartan Potassium [Cozaar] 25 mg PO HS 12/10/17 01/29/18 Metoprolol Succinate (ER) [Toprol 50 mg PO DAILY 12/10/17 01/29/18 XL] Morphine Sulfate [Ms Contin] 30 mg PO BID PRN 12/10/17 01/29/18 Nitroglycerin Sl Tabs [Nitrostat] 0.4 mg SUBLINGUAL Q5M PRN 12/10/17 01/29/18 Ranolazine [Ranexa] 500 mg PO BID 12/10/17 01/29/18 Simvastatin 40 mg PO HS 12/10/17 01/29/18 Spironolactone [Aldactone] 25 mg PO DAILY 12/10/17 01/29/18 Vit C/E/Zn/Coppr/Lutein/Zeaxan 2 cap PO DAILY 12/10/17 01/29/18 [Preservision Areds 2 Softgel] Warfarin [Coumadin] 1 mg PO SUTUTH 12/10/17 01/29/18 Warfarin [Coumadin] 2 mg PO MOWEFRSA 12/10/17 01/29/18 rOPINIRole HCL [Requip] 2 mg PO 5XD 12/10/17 01/29/18 predniSONE 5 mg PO DAILY 01/29/18 01/29/18 Previous Rx's Medication Instructions Recorded Albuterol Nebulized [Ventolin 2.5 mg INHALATION RT-QID #0 12/13/17 Nebulized] Allergies Allergy/AdvReac Type Severity Reaction Status Date / Time No Known Allergies Allergy Verified 01/29/18 18:29 Review of Systems ROS Statement: Those systems with pertinent positive or pertinent negative responses have been documented in the HPI. ROS Other: All systems not noted in ROS Statement are negative. Past Medical History Past Medical History: Asthma, Heart Failure, COPD, Deep Vein Thrombosis (DVT), GERD/Reflux, Hyperlipidemia, Hypertension, Pneumonia, Pulmonary Embolus (PE), Rheumatoid Arthritis (RA), Thyroid Disorder Additional Past Medical History / Comment(s): MACULAR DEGNERATION MISA EYES,PAST GERD,PT STATES HE IS NOT DIABETIC-IN PAST PT WAS TOLD HE WAS DIABETIC/ PUT ON METFORMIN BUT ANOTHER DR TOLD HIM HE WAS'NT AND TOOK HIM OFF MEDS, SHINGLES LT EAR 2011 OR 2012, "IRREG HEARTBEAT", RLS, USES A CANE FOR DISTANCE. History of Any Multi-Drug Resistant Organisms: MRSA Date of last positivie culture/infection: MDRO Source:: right hand Past Surgical History: Heart Catheterization, Heart Catheterization With Stent, Hernia Repair, Pacemaker Additional Past Surgical History / Comment(s): Trifecta aortic valve repalcement , hammertoe, bunionectomy, gastroplasty 7 heart caths, stents to rca, gastroplasty 1979, crys en y Past Anesthesia/Blood Transfusion Reactions: No Reported Reaction Date of Last Stent Placement:: 2012 Type of Cardiac Device: Permanent Pacemaker Device Placement Date:: 2006 Past Psychological History: No Psychological Hx Reported Smoking Status: Former smoker Past Alcohol Use History: None Reported Past Drug Use History: None Reported - Past Family History Father History Unknown: Yes Mother History Unknown: Yes General Exam Limitations: no limitations General appearance: alert, in no apparent distress, anxious Head exam: Present: atraumatic, normocephalic, normal inspection Eye exam: Present: normal appearance, PERRL, EOMI. Absent: scleral icterus, conjunctival injection, periorbital swelling ENT exam: Present: normal exam, mucous membranes moist Neck exam: Present: normal inspection. Absent: tenderness, meningismus, lymphadenopathy Respiratory exam: Present: wheezes, accessory muscle use, decreased breath sounds, prolonged expiratory. Absent: normal lung sounds bilaterally, respiratory distress, rales, rhonchi, stridor Cardiovascular Exam: Present: regular rate, normal rhythm, normal heart sounds. Absent: systolic murmur, diastolic murmur, rubs, gallop, clicks GI/Abdominal exam: Present: soft, normal bowel sounds. Absent: distended, tenderness, guarding, rebound, rigid Extremities exam: Present: normal inspection, full ROM, normal capillary refill. Absent: tenderness, pedal edema, joint swelling, calf tenderness Back exam: Present: normal inspection Neurological exam: Present: alert, oriented X3, CN II-XII intact Psychiatric exam: Present: normal affect, normal mood Skin exam: Present: warm, dry, intact, normal color. Absent: rash Course Vital Signs 01/29/18 01/29/18 01/29/18 17:17 17:54 17:56 Temperature 98.4 F Pulse Rate 70 73 73 Respiratory 20 20 Rate Blood Pressure 109/53 140/65 O2 Sat by Pulse 91 L 98 Oximetry 01/29/18 18:04 Temperature Pulse Rate 83 Respiratory Rate Blood Pressure O2 Sat by Pulse Oximetry - Reevaluation(s) Reevaluation #1: 01/29/18 18:41 Patient does have improvement in breathing is breathing treatment EKG Findings - EKG Comments: EKG Findings:: EKG shows A. fib rhythm rate of 70 FL 254 QRS 112 QTc 423 Medical Decision Making - Medical Decision Making 77 male the ER for evaluation shortness of breath cough congestion fever pneumonia. Patient be admitted for IV antibiotics. Patient will be evaluated by pulmonology - Lab Data Result diagrams: 01/29/18 17:50 01/29/18 17:50 Lab Results 01/29/18 01/29/18 01/29/18 Range/Units 17:50 17:50 17:50 WBC 15.0 H (3.8-10.6) k/uL RBC 3.23 L (4.30-5.90) m/uL Hgb 10.1 L (13.0-17.5) gm/dL Hct 31.3 L (39.0-53.0) % MCV 96.7 (80.0-100.0) fL MCH 31.4 (25.0-35.0) pg MCHC 32.4 (31.0-37.0) g/dL RDW 15.0 (11.5-15.5) % Plt Count 132 L (150-450) k/uL Neutrophils % 90 % Lymphocytes % 4 % Monocytes % 4 % Eosinophils % 0 % Basophils % 0 % Neutrophils # 13.4 H (1.3-7.7) k/uL Lymphocytes # 0.7 L (1.0-4.8) k/uL Monocytes # 0.7 (0-1.0) k/uL Eosinophils # 0.1 (0-0.7) k/uL Basophils # 0.0 (0-0.2) k/uL PT (9.0-12.0) sec INR (<1.2) APTT (22.0-30.0) sec Sodium 140 (137-145) mmol/L Potassium 3.6 (3.5-5.1) mmol/L Chloride 104 (98-107) mmol/L Carbon Dioxide 25 (22-30) mmol/L Anion Gap 11 mmol/L BUN 33 H (9-20) mg/dL Creatinine 1.69 H (0.66-1.25) mg/dL Est GFR (CKD-EPI)AfAm 45 (>60 ml/min/1.73 sqM) Est GFR (CKD-EPI)NonAf 39 (>60 ml/min/1.73 sqM) Glucose 110 H (74-99) mg/dL Calcium 8.3 L (8.4-10.2) mg/dL Magnesium 1.5 L (1.6-2.3) mg/dL Total Bilirubin 0.6 (0.2-1.3) mg/dL AST 25 (17-59) U/L ALT 32 (21-72) U/L Alkaline Phosphatase 89 (38-126) U/L Total Creatine Kinase 127 (55-170) U/L NT-Pro-B Natriuret Pep pg/mL Total Protein 5.6 L (6.3-8.2) g/dL Albumin 3.0 L (3.5-5.0) g/dL 01/29/18 01/29/18 Range/Units 17:50 17:50 WBC (3.8-10.6) k/uL RBC (4.30-5.90) m/uL Hgb (13.0-17.5) gm/dL Hct (39.0-53.0) % MCV (80.0-100.0) fL MCH (25.0-35.0) pg MCHC (31.0-37.0) g/dL RDW (11.5-15.5) % Plt Count (150-450) k/uL Neutrophils % % Lymphocytes % % Monocytes % % Eosinophils % % Basophils % % Neutrophils # (1.3-7.7) k/uL Lymphocytes # (1.0-4.8) k/uL Monocytes # (0-1.0) k/uL Eosinophils # (0-0.7) k/uL Basophils # (0-0.2) k/uL PT 17.7 H (9.0-12.0) sec INR 1.9 H (<1.2) APTT 27.3 (22.0-30.0) sec Sodium (137-145) mmol/L Potassium (3.5-5.1) mmol/L Chloride (98-107) mmol/L Carbon Dioxide (22-30) mmol/L Anion Gap mmol/L BUN (9-20) mg/dL Creatinine (0.66-1.25) mg/dL Est GFR (CKD-EPI)AfAm (>60 ml/min/1.73 sqM) Est GFR (CKD-EPI)NonAf (>60 ml/min/1.73 sqM) Glucose (74-99) mg/dL Calcium (8.4-10.2) mg/dL Magnesium (1.6-2.3) mg/dL Total Bilirubin (0.2-1.3) mg/dL AST (17-59) U/L ALT (21-72) U/L Alkaline Phosphatase (38-126) U/L Total Creatine Kinase (55-170) U/L NT-Pro-B Natriuret Pep 818 pg/mL Total Protein (6.3-8.2) g/dL Albumin (3.5-5.0) g/dL - Radiology Data Radiology results: report reviewed (Chest x-ray two-view positive pneumonia), image reviewed Disposition Clinical Impression: COPD exacerbation, Exertional shortness of breath, Acute exacerbation of chronic obstructive airways disease, Nosocomial pneumonia Disposition: ADMITTED IP TO THIS HOSP Condition: Fair Is patient prescribed a controlled substance at discharge?: No If prescribed controlled substance>3 days was MAPS reviewed?: No When asked, does pt state using other controlled substances?: No Referrals: Jagdeep Funez DO [Primary Care Provider] - 1-2 days
[2018-01-29 18:06] LABS: Basophils % (A) 0 %; Eosinophils # (A) 0.1 k/uL (0-0.7); Eosinophils % (A) 0 %; HCT 31.3 % (39.0-53.0); HGB 10.1 gm/dL (13.0-17.5); Lymphocytes # (A) 0.7 k/uL (1.0-4.8); Lymphocytes % (A) 4 %; MCH 31.4 pg (25.0-35.0); MCHC 32.4 g/dL (31.0-37.0); MCV 96.7 fL (80.0-100.0); Mean Platelet Volume 9.4; Monocytes # (A) 0.7 k/uL (0-1.0); Monocytes % (A) 4 %; Neutrophils # (A) 13.4 k/uL (1.3-7.7); Neutrophils % (A) 90 %; Platelet Count 132 k/uL (150-450); RBC 3.23 m/uL (4.30-5.90)
[2018-01-29 18:16] LABS: Calcium 8.3 mg/dL (8.4-10.2); Magnesium 1.5 mg/dL (1.6-2.3); Potassium 3.6 mmol/L (3.5-5.1); Total Bilirubin 0.6 mg/dL (0.2-1.3); Total Protein 5.6 g/dL (6.3-8.2)
[2018-01-29 18:17] LABS: INR 1.9 (<1.2); Partial Thromboplastin Time 27.3 sec (22.0-30.0); Prothrombin Time 17.7 sec (9.0-12.0)
[2018-01-29 18:26] LABS: Creatine Kinase 127 U/L (55-170)
[2018-01-29 18:40] LABS: Troponin I <0.012 ng/mL (0.000-0.034)
[2018-01-29] MEDS ORDERED: PNEUMONIA PROTOCOL UTILIZED 1 EACH MISC PO PRN (18:42)
[2018-01-29] MEDS ORDERED: LEVOFLOXACIN 750MG-D5W PMX 750 MG in DEXTROSE/WATER 1 150ML.BAG IVPB STA (18:42)
[2018-01-29] MEDS ORDERED: PIPERACILLIN-TAZOBACTAM 3.375 GM in DEXTROSE/WATER 1 50ML.BAG IVPB STA (18:42)
[2018-01-29 18:44] LABS: Creatine Kinase MB 4.2 ng/mL (0.0-2.4)
--- NOTE | 2018-01-29 18:57 | XR ---
EXAMINATION TYPE: XR chest 2V DATE OF EXAM: 01/29/2018 COMPARISON: 12/10/17 HISTORY: Shortness of breath TECHNIQUE: Frontal and lateral views of the chest are obtained. FINDINGS: Scattered senescent parenchymal changes noted. Hyperinflation compatible with COPD. Patchy infiltrate right perihilar and right lower lobe regions. Chronic elevation right hemidiaphragm . Heart size is stable. Mediastinal structures are stable and grossly unremarkable. No evidence for hilar prominence. Degenerative changes dorsal spine. IMPRESSION: 1. Patchy infiltrate right perihilar and right lower lobe regions.
[2018-01-29] MEDS: IPRATROPIUM-ALBUTEROL 3 ML NEB INHALATION SCH (19:48)
[2018-01-29] MEDS ORDERED: NITROGLYCERIN SL TABS 0.4 MG TAB SUBLINGUAL PRN (21:47)
[2018-01-29] MEDS ORDERED: MORPHINE SULFATE ER 30 MG TABLET PO PRN (21:47)
[2018-01-29] MEDS ORDERED: CYANOCOBALAMIN 1,000 MCG/ML 1 ML VIAL IM SCH (22:00)
[2018-01-29] MEDS ORDERED: WARFARIN 1 MG TAB PO ONE (22:00)
[2018-01-29] MEDS: SODIUM CHLORIDE 0.9% 1,000 ML IV SCH (22:20)
[2018-01-29] MEDS: GABAPENTIN 300 MG CAP PO SCH (22:25)
[2018-01-29] MEDS: ATORVASTATIN 20 MG TAB PO SCH (22:26)
[2018-01-29] MEDS: RANOLAZINE 500 MG TAB.ER.12H PO SCH (22:26)
[2018-01-29] MEDS: LOSARTAN 25 MG TAB PO SCH (22:26)
[2018-01-29] MEDS: FUROSEMIDE 40 MG TAB PO SCH (22:26)
--- NOTE | 2018-01-30 03:12 | HP ---
HISTORY AND PHYSICAL DATE OF SERVICE: 01/29/2018 CHIEF COMPLAINT: Shortness of breath and cough and fever. HISTORY OF PRESENT ILLNESS: This 77-year-old gentleman with a past medical history of COPD, a history of right lower lobe pneumonia recently and history of CHF, history of GERD, hypertension, hyperlipidemia being followed by Dr. Funez in the outpatient setting, was recently admitted with pneumonia and COPD. The patient went home and currently the patient complained of increasing shortness of breath and cough. The patient went to Dr. Santana's office and right upper lobe pneumonia was suspected. Patient was then taken to [facility] for further evaluation and treatment. There is no history any rigors. There is no history of headache, loss of consciousness, seizures. PAST MEDICAL HISTORY: History of COPD, history of CHF, history of hypertension, hyperlipidemia, history of CAD, aortic valve replacement. MEDICATIONS PRIOR TO ADMISSION: Include home medications are: 1. Xanax 0.5 b.i.d. p.r.n. 2. Vitamin B12 1000 mcg subcu 30 days. 3. Nitrostat 0.4 mg p.o. sublingual p.r.n. 4. Coumadin 2 mg Sunday, Sunday, Sunday, Sunday; 1 mg Sunday, Sunday, . 5. Simvastatin 40 mg q.h.s. 6. Cozaar 25 mg q.h.s. 7. [place] 10 mg t.i.d. p.r.n. 8. Requip 0.2 mg 5 times daily. 9. Prednisone 5 mg p.o. daily. 10.PreserVision 2 capsules daily. 11.Aldactone 25 mg p.o. daily. 12.Ranexa 500 mg p.o. b.i.d. 13.MS Contin 30 mg b.i.d. p.r.n. 14.Toprol-XL 50 mg p.o. daily. 15.Synthroid 50 mcg p.o. daily. 16.Imdur 30 mg p.o. daily. 17.Combivent 2 puffs q.i.d. 18.Gabapentin 600 mg p.o. b.i.d. 19.Lasix 40 mg p.o. b.i.d. 20.Iron sulfate 320 mg p.o. daily. 21.Aspirin 81 mg p.o. daily. 22.Ventolin 2.5 q.i.d. ALLERGIES: None. FAMILY HISTORY: No history of heart disease, strokes in the family. SOCIAL HISTORY: Previous history of smoking. No history of currently alcohol or smoking. REVIEW OF SYSTEMS: ENT: No diminished hearing, diminished vision. CARDIOVASCULAR: As mentioned earlier. RESPIRATORY: As mentioned earlier. GI: No nausea or vomiting, diarrhea. : No dysuria. NERVOUS: No numbness or weakness. ALLERGY/IMMUNOLOGY: No asthma or hay fever. MUSCULOSKELETAL: As mentioned earlier. HEMATOLOGY/ONCOLOGY: No history of anemia. ENDOCRINE: No history of diabetes, hypothyroidism. CONSTITUTIONAL: As mentioned earlier. DERMATOLOGY: Negative. RHEUMATOLOGY: Negative. PSYCHIATRY: As mentioned earlier. PHYSICAL EXAM: Patient is alert, oriented x3. Pulse is 69, blood pressure 126/64, respirations 16, temperature 98.4, pulse ox 97% on 2L. HEENT: Conjunctivae normal. Oral mucosa moist. NECK: No jugular venous distention. No carotid bruits. No lymph node enlargement. CARDIOVASCULAR: S1, S2 muffled. RESPIRATORY: Breath sounds diminished in the bases. A few scattered rhonchi and crackles. Expiratory wheezing also present. ABDOMEN: Soft, nontender. No mass palpable. LEGS: No edema. No swelling. NERVOUS SYSTEM: Higher functions as mentioned earlier. Moves all 4 limbs. No focal motor or sensory deficits. LYMPHATIC: No lymphadenopathy in neck or axillae. SKIN: No ulcer, rash or bleeding. LABS: WBC 15, hemoglobin is 10.1, platelets are 132. Creatinine is 1.69. CK-MB is 4.2. ASSESSMENT: 1. Chronic obstructive pulmonary disease acute exacerbation with acute right lower lobe pneumonia, possibly gram-negative. 2. History of right lower lobe recurrent infections and pneumonia and with chronic changes. 3. Increased creatinine with chronic kidney disease stage 3. 4. Increased WBC. 5. Anemia. 6. History of asthma. 7. History of congestive heart failure. 8. History of deep venous thrombosis. 9. Chronic obstructive pulmonary disease. 10.Hypertension. 11.Hyperlipidemia. 12.History of pulmonary embolism. 13.History of rheumatoid arthritis. 14.History of macular degeneration. 15.History of coronary artery disease with stent. 16.History of Trifecta aortic valve replacement. 17.History of gastroplasty. 18.History of permanent pacemaker. 19.Anxiety. 20.Remote history of nicotine dependence. RECOMMENDATIONS AND DISCUSSION: In this 77-year-old gentleman who presented with multiple complex medical issues, at this time, we will monitor the patient closely, continue the current medical management and symptomatic treatment, bronchodilators, resume the home medications. I would also recommend broad-spectrum IV antibiotics and follow closely with Dr. Santana and Dr. Roberts. See orders for details. Prognosis guarded because of multiple complex medical issues. Further recommendations to follow. MMODL / IJN: [id number] /
[2018-01-30] MEDS: PIPERACILLIN-TAZOBACTAM 3.375 GM in DEXTROSE/WATER 1 50ML.BAG IVPB SCH ×3 (06:04→22:28)
[2018-01-30] MEDS: LEVOTHYROXINE 50 MCG TAB PO SCH (06:47)
[2018-01-30] MEDS: IPRATROPIUM-ALBUTEROL 3 ML NEB INHALATION SCH ×4 (07:10→19:18)
[2018-01-30] MEDS: ASPIRIN 81 MG PO SCH (07:28)
[2018-01-30] MEDS: FUROSEMIDE 40 MG TAB PO SCH ×2 (07:28→20:25)
[2018-01-30] MEDS: ISOSORBIDE MONONITRATE ER 30 MG TAB.ER.24H PO SCH (07:28)
[2018-01-30] MEDS: RANOLAZINE 500 MG TAB.ER.12H PO SCH ×2 (07:28→20:25)
[2018-01-30] MEDS: METOPROLOL SUCCINATE (ER) 50 MG TAB.ER.24H PO SCH (07:28)
[2018-01-30] MEDS: GABAPENTIN 300 MG CAP PO SCH ×2 (07:28→20:25)
[2018-01-30] MEDS: SPIRONOLACTONE 25 MG TAB PO SCH (07:28)
[2018-01-30] MEDS ORDERED: ENOXAPARIN 40 MG/0.4 ML SYRINGE SQ SCH (09:00)
[2018-01-30] MEDS ORDERED: predniSONE 5 MG TAB PO SCH (09:00)
--- NOTE | 2018-01-30 10:10 | XR ---
EXAMINATION TYPE: XR chest 2V DATE OF EXAM: 01/30/2018 COMPARISON: Previous chest x-ray 01/29/2018 HISTORY: Pneumonia TECHNIQUE: Frontal and lateral views of the chest are obtained. FINDINGS: Right hemidiaphragm remains elevated. Airspace disease again noted in the right lung. Pace maker is stable, surgical clips present in the right upper quadrant. No evident pneumothorax or pleur al effusion. Cardiac mediastinal silhouette, pulmonary vascularity and hyacinth are stable. Patient is po st median sternotomy. IMPRESSION: Findings similar to prior exam, correlate for pneumonia. Follow-up recommended.
[2018-01-30] MEDS: methylPREDNISolone SOD SUCCI 40 MG/ML 1 ML VIAL IV SCH ×3 (10:51→23:43)
[2018-01-30] MEDS: VIT A,C & E-LUTEIN-MINERALS 1 EACH TAB PO SCH (10:51)
[2018-01-30] MEDS: FERROUS SULFATE 325 MG TAB PO SCH (10:52)
[2018-01-30 11:17] LABS: Basophils % (A) 0 %; Eosinophils # (A) 0.1 k/uL (0-0.7); Eosinophils % (A) 1 %; HCT 30.6 % (39.0-53.0); HGB 10.2 gm/dL (13.0-17.5); Lymphocytes # (A) 0.5 k/uL (1.0-4.8); Lymphocytes % (A) 4 %; MCH 32.1 pg (25.0-35.0); MCHC 33.3 g/dL (31.0-37.0); MCV 96.4 fL (80.0-100.0); Mean Platelet Volume 8.8; Monocytes # (A) 0.6 k/uL (0-1.0); Monocytes % (A) 5 %; Neutrophils # (A) 11.4 k/uL (1.3-7.7); Neutrophils % (A) 89 %; Platelet Count 143 k/uL (150-450); RBC 3.18 m/uL (4.30-5.90); RDW 14.9 % (11.5-15.5); WBC 12.8 k/uL (3.8-10.6)
[2018-01-30 11:29] LABS: Potassium 3.8 mmol/L (3.5-5.1)
[2018-01-30 11:31] LABS: Calcium 8.2 mg/dL (8.4-10.2)
--- NOTE | 2018-01-30 12:03 | CDI ---
Last Revision, September 2017 Documentation Clarification Form Date: 01/30/2018 12:00:00 PM From: Angela RoyANTONIO, CCDS Admit Date: 01/29/2018 6:42:00 PM Patient Name: Emmanuel Hall Visit Number: [id number] Discharge Date: ATTENTION: The Clinical Documentation Specialists (CDI) and [facility] Coding Staff appreciate your assistance in clarifying documentation. Please respond to the clarification below the line at the bottom and electronically sign. The CDI & [facility] Coding staff will review the response and follow-up if needed. Please note: Queries are made part of the Legal Health Record. If you have any questions, please contact the author of this message via ITS. Dr. Tabitha Dean: 77 yo male admitted with SOB, cough & fever. History/Risk Factors: COPD, Chronic Diastolic CHF (per previous admission notes) , CKD Stage 3, Hypertension & recurrent pneumonia. Present of coronary stents, PPM & AVR. Former smoker. Clinical Indicators: VS: P 70, R 20, BP 109/53, PO 91 ra LAB: CKMB 4.2, BNP: 818, BUN 33, Creatinine 1.69. Echocardiogram Results: Previous admission 12/12: Systolic low normal w/EF 50-55% , Mild TR. No ECHO this admit. Chest X Ray: Heart size is stable, Patchy infiltrate right perihilar & RLL regions. Treatment: Albuterol Nebs, IV fluids, IV Levaquin, IV Zosyn, O2 2Lnc, po Lasix 40 mg BID (home dose), Coumadin, other home meds. Pulmonary consult pending. In your professional opinion, can you please clarify the type of CHF if known? Systolic Heart Failure: Diastolic Heart Failure: Systolic & Diastolic Heart Failure: Unable to Determine Other, please specify Please continue to document in your progress notes and discharge summary in order to capture severity of illness and risk of mortality. Include clinical findings that support your diagnosis. Diastolic Heart Failure:chronic MTDD
[2018-01-30] MEDS: SODIUM CHLORIDE 0.9% 1,000 ML IV SCH (14:48)
--- NOTE | 2018-01-30 15:04 | P.CNPUL ---
History of Present Illness Consult date: 01/30/18 Requesting physician: Tabitha Dean Reason for consult: dyspnea, cough, pneumonia Chief complaint: Increased weakness, shortness of breath, chills, chest congestion History of present illness: Mr. Hall is a 77-year-old white male patient of Dr. Funez, who presented to the emergency department on 01/29/2018 at 1648 with complaints of increasing shortness of breath, chills, chest congestion, cough, increasing weakness with the onset of symptoms on 01/28/2018. Patient has an underlying history of chronic right diaphragmatic paralysis, pneumonias, permanent pacemaker, MRSA infection in the left upper chest pacemaker incision site subsequent pacemaker generator placement in the right upper chest, aortic valve replacement, previous Crys-en-Y gastric bypass surgery and subsequent gastroplasty, hypothyroidism, hypertension, hyperlipidemia, coronary artery disease with previous stenting, chronic kidney disease, and obstructive sleep apnea, and chronic CHF. Patient had a recent hospitalization in November for an acute COPD exacerbation with purulent tracheal bronchitis/bronchopneumonia, and possible right lower lobe pneumonia, was treated with Zithromax and Rocephin, steroids, and nebulized treatments, improved and was discharged home in stable condition. Chest x-ray from 01/30/2018 showed elevated right hemidiaphragm, patchy infiltrates in the right upper lobe, and a pacemaker in the right upper chest, surgical clips in the right upper quadrant, no evident pneumothorax or pleural effusion. Patient has been afebrile while inpatient, he was hypoxemic at 89% on 2 L per nasal cannula on presentation. he has been hemodynamically stable. Patient was started on empiric antibiotics Zosyn and Levaquin, nebulized bronchodilators, and IV steroids and was admitted for further management. Blood work showed leukocytosis with a CBC of 15.0, hemoglobin of 10.1, INR is 1.9, and the patient is on chronic anticoagulation with Coumadin, BUN is 33, and creatinine is 1.69, and the renal profile is improved compared to the previous hospitalization in . Troponin was negative 1, CK -MB was 4.2, proBNP was within normal limits at 818. EKG showed atrial paced rhythm at a rate of 70 BPM, with nonspecific ST and T wave changes. Review of Systems All systems: negative Constitutional: Denies chills, Denies fever Eyes: denies blurred vision, denies pain Ears, nose, mouth and throat: Denies headache, Denies sore throat Cardiovascular: Denies chest pain, Denies shortness of breath Respiratory: Reports congestion, Reports dyspnea, Reports pain, Reports pain on inspiration, Reports pleurisy, Reports respiratory infections, Reports sleep apnea, Denies cough Gastrointestinal: Denies abdominal pain, Denies diarrhea, Denies nausea, Denies vomiting Musculoskeletal: Denies myalgias Integumentary: Denies pruritus, Denies rash Neurological: Denies numbness, Denies weakness Psychiatric: Denies anxiety, Denies depression Endocrine: Denies fatigue, Denies weight change Past Medical History Past Medical History: Atrial Fibrillation, Asthma, Coronary Artery Disease (CAD) , Heart Failure, COPD, Deep Vein Thrombosis (DVT), GERD/Reflux, Hyperlipidemia, Hypertension, Pneumonia, Pulmonary Embolus (PE), Rheumatoid Arthritis (RA), Thyroid Disorder Additional Past Medical History / Comment(s): MACULAR DEGNERATION MISA EYES,GERD , SHINGLES LT EAR [id number], "IRREG HEARTBEAT", RLS, USES A CANE FOR DISTANCE. History of Any Multi-Drug Resistant Organisms: MRSA Date of last positivie culture/infection: MDRO Source:: right hand Past Surgical History: Bariatric Surgery, Heart Catheterization, Heart Catheterization With Stent, Hernia Repair, Pacemaker Additional Past Surgical History / Comment(s): Trifecta aortic valve repalcement , hammertoe, bunionectomy, gastroplasty 7 heart caths, stents to rca, gastroplasty 1979, crys en y -2015 Past Anesthesia/Blood Transfusion Reactions: No Reported Reaction Date of Last Stent Placement:: 2012 Type of Cardiac Device: Permanent Pacemaker Device Placement Date:: 2006 Past Psychological History: Anxiety Smoking Status: Former smoker Past Alcohol Use History: None Reported Additional Past Alcohol Use History / Comment(s): STARTED SMOKING AT AGE 19 UP TO 2 PPD QUIT 1977 Past Drug Use History: None Reported - Past Family History Father History Unknown: Yes Mother History Unknown: Yes Medications and Allergies Home Medications Medication Instructions Recorded Confirmed Type ALPRAZolam [Xanax] 0.5 mg PO BID PRN 12/10/17 01/29/18 History Aspirin [Adult Low Dose Aspirin EC] 81 mg PO DAILY 12/10/17 01/29/18 History Cyanocobalamin [Vitamin B-12 1,000 mcg SQ Q30D 12/10/17 01/29/18 History Injection] Ferrous Sulfate [Iron (65 MG 325 mg PO DAILY 12/10/17 01/29/18 History Elemental)] Furosemide [Lasix] 40 mg PO BID 12/10/17 01/29/18 History Gabapentin 600 mg PO BID 12/10/17 01/29/18 History HYDROcodone/APAP 10-325MG [[place] 1 tab PO TID PRN 12/10/17 01/29/18 History 10-325] Ipratropium/Albuterol Sulfate 2 puff INHALATION RT-QID 12/10/17 01/29/18 History [Combivent Respimat Inhaler] Isosorbide Mononitrate ER [Imdur] 30 mg PO DAILY 12/10/17 01/29/18 History Levothyroxine Sodium [Synthroid] 50 mcg PO DAILY 12/10/17 01/29/18 History Losartan Potassium [Cozaar] 25 mg PO HS 12/10/17 01/29/18 History Metoprolol Succinate (ER) [Toprol 50 mg PO DAILY 12/10/17 01/29/18 History XL] Morphine Sulfate [Ms Contin] 30 mg PO BID PRN 12/10/17 01/29/18 History Nitroglycerin Sl Tabs [Nitrostat] 0.4 mg SUBLINGUAL Q5M PRN 12/10/17 01/29/18 History Ranolazine [Ranexa] 500 mg PO BID 12/10/17 01/29/18 History Simvastatin 40 mg PO HS 12/10/17 01/29/18 History Spironolactone [Aldactone] 25 mg PO DAILY 12/10/17 01/29/18 History Vit C/E/Zn/Coppr/Lutein/Zeaxan 2 cap PO DAILY 12/10/17 01/29/18 History [Preservision Areds 2 Softgel] Warfarin [Coumadin] 1 mg PO SUTUTH 12/10/17 01/29/18 History Warfarin [Coumadin] 2 mg PO MOWEFRSA 12/10/17 01/29/18 History rOPINIRole HCL [Requip] 2 mg PO 5XD 12/10/17 01/29/18 History Albuterol Nebulized [Ventolin 2.5 mg INHALATION RT-QID #0 12/13/17 01/29/18 Rx Nebulized] predniSONE 5 mg PO DAILY 01/29/18 01/29/18 History Allergies Allergy/AdvReac Type Severity Reaction Status Date / Time No Known Allergies Allergy Verified 01/29/18 18:29 Physical Exam Vitals: Vital Signs Temp Pulse Pulse Resp BP BP Pulse Ox 01/30/18 12:10 76 01/30/18 11:53 80 01/30/18 07:20 76 01/30/18 07:10 76 01/30/18 05:55 97.9 F 67 20 108/49 96 01/29/18 22:55 97.1 F L 70 20 112/61 97 01/29/18 19:02 98.5 F 69 16 126/65 97 01/29/18 18:49 83 01/29/18 18:04 83 01/29/18 17:56 73 20 140/65 98 01/29/18 17:54 73 01/29/18 17:17 98.4 F 70 20 109/53 91 L Intake and Output 01/29/18 01/30/18 01/30/18 22:59 06:59 14:59 Other: Voiding Method Toilet Toilet # Voids 1 3 3 Weight 111.584 kg - Constitutional General appearance: no acute distress - EENT Eyes: EOMI ENT: NA/AT, normal oropharynx - Neck Neck: no lymphadenopathy Carotids: bilateral: upstroke normal Thyroid: bilateral: normal size - Respiratory Respiratory: bilateral: diminished, rales (Right upper lobe), prolonged expiration - Cardiovascular Rhythm: regular Heart sounds: normal: S1, S2 leg Peripheral Edema: absent: None foot Peripheral Edema: absent: None dorsalis pedis Peripheral Pulses: bilateral: Normal radial pulse Peripheral Pulses: bilateral: Normal - Gastrointestinal General gastrointestinal: no organomegaly, soft, no tenderness - Integumentary Integumentary: normal turgor - Neurologic Neurologic: CNII-XII intact - Musculoskeletal Musculoskeletal: generalized weakness Results - Laboratory Findings CBC and BMP: 01/30/18 10:58 01/30/18 10:58 PT/INR, D-dimer PT 17.7 sec (9.0-12.0) H 01/29/18 17:50 INR 1.9 (<1.2) H 01/29/18 17:50 Abnormal lab findings: Abnormal Labs 01/29/18 01/29/18 01/29/18 17:50 17:50 17:50 WBC 15.0 H RBC 3.23 L Hgb 10.1 L Hct 31.3 L Plt Count 132 L Neutrophils # 13.4 H Lymphocytes # 0.7 L PT INR BUN 33 H Creatinine 1.69 H Glucose 110 H Calcium 8.3 L Magnesium 1.5 L CK-MB (CK-2) 4.2 H* Total Protein 5.6 L Albumin 3.0 L 01/29/18 01/30/18 01/30/18 17:50 10:58 10:58 WBC 12.8 H RBC 3.18 L Hgb 10.2 L Hct 30.6 L Plt Count 143 L Neutrophils # 11.4 H Lymphocytes # 0.5 L PT 17.7 H INR 1.9 H BUN 28 H Creatinine 1.55 H Glucose 117 H Calcium 8.2 L Magnesium CK-MB (CK-2) Total Protein Albumin - Diagnostic Findings Chest x-ray: report reviewed, image reviewed Additional studies: Twelve-lead EKG reviewed Assessment and Plan Plan: Assessment: #1. Acute hypoxic respiratory failure, secondary to acute right upper lobe pneumonia, possibly gram-negative. Chest x-ray shows chronic elevation of the right hemidiaphragm and a new right upper lobe patchy infiltrate. And the patient presented with increasing shortness of breath, weakness, chills, chest congestion and wheezing #2. Acute exacerbation of COPD secondary to the above #3. Leukocytosis secondary to the acute right upper lobe pneumonia #4. Acute on chronic renal failure, possibly related to ATN #5. Chronic elevation of the right hemidiaphragm #6. History of sleep apnea #7. Chronic congestive heart failure, and the most recent echocardiogram from 12/11/2017 showed preserved left ventricular systolic function with ejection fraction of 50-55% off #8. History of bioprosthetic aortic valve replacement #9. Permanent pacemaker, with initial implantation in the left upper chest, MRSA infection in the incision site, and subsequent generator change and placement in the right upper chest #10. History of pulmonary embolisms and DVTs, patient is on chronic anticoagulation with Coumadin, and his admission INR is 1.9 #11. Hypertension, hyperlipidemia #12. Hypothyroidism #13. History of coronary artery disease with previous stenting #14. History of Crys-en-Y gastric bypass, with subsequent gastroplasty in 1979 #15. Anemia of chronic disease Plan: Continue with current antibiotic coverage, sputum sample is positive for Enterobacter aerogenes and it is sensitive to Zosyn and Levaquin, continue nebulized treatments, continue oral Lasix. Continue Coumadin. Monitor vital signs, fever pattern, monitor lab work, and renal profile, urine output. We will add IV Solu-Medrol at 40 mg every 8 hours. We'll continue to follow I performed a history & physical examination of the patient and discussed their management with my nurse practitioner, Gayle Thompson. I reviewed the nurse practitioner's note and agree with the documented findings and plan of care. Lung sounds are positive for prolongation of the expiratory phase, coarse rales in the right upper lobe. The findings and the impression was discussed with the patient. I attest to the documentation by the nurse practitioner. Time with Patient: Greater than 30
[2018-01-30] MEDS: HYDROcodone/APAP 10-325MG 1 EACH TAB PO PRN (15:14)
[2018-01-30] MEDS ORDERED: WARFARIN 2 MG TAB PO SCH (18:00)
[2018-01-30] MEDS ORDERED: LEVOFLOXACIN 750MG-D5W PMX 750 MG in DEXTROSE/WATER 1 150ML.BAG IVPB SCH (20:00)
[2018-01-30] MEDS: LOSARTAN 25 MG TAB PO SCH (20:25)
[2018-01-30] MEDS: ATORVASTATIN 20 MG TAB PO SCH (20:25)
[2018-01-31] MEDS: ALPRAZolam 0.5 MG TAB PO PRN ×3 (00:32→22:24)
[2018-01-31] MEDS: PIPERACILLIN-TAZOBACTAM 3.375 GM in DEXTROSE/WATER 1 50ML.BAG IVPB SCH ×3 (05:00→22:54)
[2018-01-31] MEDS: LEVOTHYROXINE 50 MCG TAB PO SCH (06:49)
[2018-01-31] MEDS: GABAPENTIN 300 MG CAP PO SCH ×2 (07:50→22:20)
[2018-01-31] MEDS: SPIRONOLACTONE 25 MG TAB PO SCH (07:51)
[2018-01-31] MEDS: RANOLAZINE 500 MG TAB.ER.12H PO SCH ×2 (07:51→22:21)
[2018-01-31] MEDS: FUROSEMIDE 40 MG TAB PO SCH ×2 (07:51→22:18)
[2018-01-31] MEDS: METOPROLOL SUCCINATE (ER) 50 MG TAB.ER.24H PO SCH (07:52)
[2018-01-31] MEDS: ASPIRIN 81 MG PO SCH (07:52)
[2018-01-31] MEDS: ISOSORBIDE MONONITRATE ER 30 MG TAB.ER.24H PO SCH (07:52)
[2018-01-31] MEDS: methylPREDNISolone SOD SUCCI 40 MG/ML 1 ML VIAL IV SCH (07:52)
[2018-01-31 08:30] LABS: Basophils % (A) 0 %; Eosinophils % (A) 0 %; HCT 35.3 % (39.0-53.0); HGB 11.5 gm/dL (13.0-17.5); Lymphocytes # (A) 0.4 k/uL (1.0-4.8); Lymphocytes % (A) 3 %; MCH 31.7 pg (25.0-35.0); MCHC 32.5 g/dL (31.0-37.0); MCV 97.3 fL (80.0-100.0); Mean Platelet Volume 9.1; Monocytes # (A) 0.4 k/uL (0-1.0); Monocytes % (A) 3 %; Neutrophils % (A) 94 %; Platelet Count 168 k/uL (150-450); RBC 3.63 m/uL (4.30-5.90); RDW 14.9 % (11.5-15.5); WBC 14.9 k/uL (3.8-10.6)
[2018-01-31 08:42] LABS: Calcium 8.8 mg/dL (8.4-10.2); Potassium 3.5 mmol/L (3.5-5.1)
[2018-01-31] MEDS: IPRATROPIUM-ALBUTEROL 3 ML NEB INHALATION SCH ×4 (09:20→20:34)
[2018-01-31] MEDS ORDERED: Magnesium Replacement Protocol 1 EACH MISC MISCELLANE PRN (11:28)
[2018-01-31 12:09] LABS: INR 2.3 (<1.2); Prothrombin Time 20.7 sec (9.0-12.0)
[2018-01-31] MEDS: VIT A,C & E-LUTEIN-MINERALS 1 EACH TAB PO SCH (12:09)
[2018-01-31] MEDS: FERROUS SULFATE 325 MG TAB PO SCH (12:09)
[2018-01-31] MEDS: predniSONE 10 MG TAB PO SCH (12:09)
[2018-01-31] MEDS: MAGNESIUM SULFATE-D5W PMX 1 GM in DEXTROSE/WATER 1 100ML.BAG IVPB SCH ×2 (12:11→14:30)
--- NOTE | 2018-01-31 13:32 | P.PN ---
Subjective Progress Note Date: 01/31/18 Principal diagnosis: Acute hypoxic respiratory failure secondary to an acute right upper lobe pneumonia. Mr. Hall is a 77-year-old white male patient of Dr. Funez, who presented to the emergency department on 01/29/2018 at 1648 with complaints of increasing shortness of breath, chills, chest congestion, cough, increasing weakness with the onset of symptoms on 01/28/2018. Patient has an underlying history of chronic right diaphragmatic paralysis, pneumonias, permanent pacemaker, MRSA infection in the left upper chest pacemaker incision site subsequent pacemaker generator placement in the right upper chest, aortic valve replacement, previous Vazquez-en-Y gastric bypass surgery and subsequent gastroplasty, hypothyroidism, hypertension, hyperlipidemia, coronary artery disease with previous stenting, chronic kidney disease, and obstructive sleep apnea, and chronic CHF. Patient had a recent hospitalization in November for an acute COPD exacerbation with purulent tracheal bronchitis/bronchopneumonia, and possible right lower lobe pneumonia, was treated with Zithromax and Rocephin, steroids, and nebulized treatments, improved and was discharged home in stable condition. Chest x-ray from 01/30/2018 showed elevated right hemidiaphragm, patchy infiltrates in the right upper lobe, and a pacemaker in the right upper chest, surgical clips in the right upper quadrant, no evident pneumothorax or pleural effusion. Patient has been afebrile while inpatient, he was hypoxemic at 89% on 2 L per nasal cannula on presentation. he has been hemodynamically stable. Patient was started on empiric antibiotics Zosyn and Levaquin, nebulized bronchodilators, and IV steroids and was admitted for further management. Blood work showed leukocytosis with a CBC of 15.0, hemoglobin of 10.1, INR is 1.9, and the patient is on chronic anticoagulation with Coumadin, BUN is 33, and creatinine is 1.69, and the renal profile is improved compared to the previous hospitalization in . Troponin was negative 1, CK -MB was 4.2, proBNP was within normal limits at 818. EKG showed atrial paced rhythm at a rate of 70 BPM, with nonspecific ST and T wave changes. The patient was seen and evaluated again today 01/31/2018 in follow-up on the regular medical floor. He is awake and alert in no acute distress. He is breathing easier today as compared to yesterday. He was somewhat agitated this morning and his IV Solu-Medrol converted to poor oral prednisone. No worsening shortness of breath, cough or congestion. He is maintaining good O2 saturations in the 90s on room air. Follow-up chest x-ray reveals improvement in the right upper lobe infiltrate. Cultures reveal no growth. White count 14.9. INR 2.3. Creatinine 1.30. Objective - Vital Signs Vital signs: Vital Signs Temp 97.4 F L 01/31/18 07:15 Pulse 72 01/31/18 09:36 Resp 16 01/31/18 07:15 BP 110/57 01/31/18 07:15 Pulse Ox 92 L 01/31/18 07:15 Intake & Output 01/30/18 01/31/18 01/31/18 18:59 06:59 18:59 Intake Total 200 200 Balance 200 200 Intake: Oral 200 200 Other: Voiding Method Toilet # Voids 3 1 # Bowel Movements 0 - Exam GENERAL EXAM: Alert, active, comfortable in no apparent distress. HEAD: Normocephalic. EYES: Normal reaction of pupils, equal size. NOSE: Clear with pink turbinates. THROAT: No erythema or exudates. NECK: No masses, no JVD. CHEST: No chest wall deformity. LUNGS: Equal air entry with crackles in the right upper lobe. CVS: S1 and S2 normal with no audible murmur, regular rhythm. ABDOMEN: No hepatosplenomegaly, normal bowel sounds, no guarding or rigidity. SPINE: No scoliosis or deformity SKIN: No rashes CENTRAL NERVOUS SYSTEM: No focal deficits, tone is normal in all 4 extremities. EXTREMITIES: There is no peripheral edema. No clubbing, no cyanosis. Peripheral pulses are intact. - Labs CBC & Chem 7: 01/31/18 07:28 01/31/18 07:28 Labs: Abnormal Lab Results - Last 24 Hours (Table) 01/31/18 01/31/18 01/31/18 Range/Units 07:28 07:28 07:28 WBC 14.9 H (3.8-10.6) k/uL RBC 3.63 L (4.30-5.90) m/uL Hgb 11.5 L (13.0-17.5) gm/dL Hct 35.3 L (39.0-53.0) % Neutrophils # 14.0 H (1.3-7.7) k/uL Lymphocytes # 0.4 L (1.0-4.8) k/uL PT (9.0-12.0) sec INR (<1.2) BUN 29 H (9-20) mg/dL Creatinine 1.30 H (0.66-1.25) mg/dL Glucose 152 H (74-99) mg/dL Magnesium 1.5 L (1.6-2.3) mg/dL 01/31/18 Range/Units 11:39 WBC (3.8-10.6) k/uL RBC (4.30-5.90) m/uL Hgb (13.0-17.5) gm/dL Hct (39.0-53.0) % Neutrophils # (1.3-7.7) k/uL Lymphocytes # (1.0-4.8) k/uL PT 20.7 H (9.0-12.0) sec INR 2.3 H (<1.2) BUN (9-20) mg/dL Creatinine (0.66-1.25) mg/dL Glucose (74-99) mg/dL Magnesium (1.6-2.3) mg/dL Microbiology - Last 24 Hours (Table) 01/29/18 17:50 Blood Culture - Preliminary Blood No Growth after 24 hours Assessment and Plan Assessment: Assessment: #1. Acute hypoxic respiratory failure, secondary to acute right upper lobe pneumonia, possibly gram-negative. Chest x-ray shows chronic elevation of the right hemidiaphragm and a new right upper lobe patchy infiltrate. And the patient presented with increasing shortness of breath, weakness, chills, chest congestion and wheezing. 01/31/2018 follow-up chest x-ray shows improvement. He is also improved clinically. Maintaining good O2 saturations in the 90s on room air. #2. Acute exacerbation of COPD secondary to the above #3. Leukocytosis secondary to the acute right upper lobe pneumonia #4. Acute on chronic renal failure, possibly related to ATN #5. Chronic elevation of the right hemidiaphragm #6. History of sleep apnea #7. Chronic congestive heart failure, and the most recent echocardiogram from 12/11/2017 showed preserved left ventricular systolic function with ejection fraction of 50-55% off #8. History of bioprosthetic aortic valve replacement #9. Permanent pacemaker, with initial implantation in the left upper chest, MRSA infection in the incision site, and subsequent generator change and placement in the right upper chest #10. History of pulmonary embolisms and DVTs, patient is on chronic anticoagulation with Coumadin, and his admission INR is 1.9 #11. Hypertension, hyperlipidemia #12. Hypothyroidism #13. History of coronary artery disease with previous stenting #14. History of Vazquez-en-Y gastric bypass, with subsequent gastroplasty in 1979 #15. Anemia of chronic disease Plan: The patient was seen and evaluated by Dr. Roberts. He is improved today both clinically and radiographically. He remains on Zosyn and Levaquin. He's been converted to oral prednisone. Continue with his other current medications. We' ll increase his activity as tolerated. We'll continue to follow. I, the cosigning physician, performed a history & physical examination of the patient. Lungs sounds crackles in the right upper lobe. Maintaining good O2 saturations in the 90s on room air. I discussed the assessment and plan of care with my nurse practitioner, Katja Lin. I attest to the above note as dictated by her.
--- NOTE | 2018-01-31 14:08 | XR ---
EXAMINATION TYPE: XR chest 2V DATE OF EXAM: 01/31/2018 COMPARISON: Prior chest x-ray 01/30/2018 HISTORY: Pneumonia TECHNIQUE: Frontal and lateral views of the chest are obtained on 3 images. FINDINGS: There is some improvement in aeration as compared to prior exam within the right lung. No significant change. IMPRESSION: There is some improvement in aeration as compared to prior.
[2018-01-31] MEDS: SODIUM CHLORIDE 0.9% 1,000 ML IV SCH (17:51)
[2018-01-31] MEDS ORDERED: WARFARIN 1 MG TAB PO SCH (18:00)
--- NOTE | 2018-01-31 18:27 | P.PN ---
Subjective Progress Note Date: 01/30/18 Progress note being dictated for Dr. Dean. Interval history: This a 77-year-old gentleman admitted with acute exacerbation COPD, acute right lower lobe pneumonia, acute on chronic renal failure and multiple other medical issues. Evaluated by pulmonary with recommendations noted. Maintained on IV antibiotics, nebulized bronchodilators with breathing improving. Renal function improving. Denies chest pain, palpitations, or increasing shortness of breath. Objective - Vital Signs Vital signs: Vital Signs Temp 97.9 F 01/30/18 05:55 Pulse 76 01/30/18 07:20 Resp 20 01/30/18 05:55 BP 108/49 01/30/18 05:55 Pulse Ox 96 01/30/18 05:55 Intake & Output 01/29/18 01/30/18 01/30/18 18:59 06:59 18:59 Weight 111.584 kg Other: Voiding Method Toilet Toilet # Voids 3 - Exam PHYSICAL EXAM: VITAL SIGNS: As above GENERAL: Sitting up in chair, no acute distress HEENT: Conjunctivae normal. eyes normal. Oral mucosa more NECK: No JVD. No thyroid enlargement. No LNs CARDIOVASCULAR: S1, S2 muffled. No murmur RESPIRATION: Breath sounds diminished in the bases. Occasional scattered rhonchi and crackles. Mild expiratory wheezing. ABDOMEN: Soft, nontender . No guarding. no masses palpable.Bowel sounds heard. LEGS: No edema. no swelling PSYCHIATRY: Alert and oriented -3, mood and affect normal. NERVOUS SYSTEM: Cranial N 2-12 grossly normal. Moves all 4 limbs. Diffuse weakness No focal deficits. Skin: no ulcer no rash Joints: No active swelling. No inflammation. Lymphatic system. No LN neck axilla or groin. - Labs CBC & Chem 7: 01/31/18 07:28 01/31/18 07:28 Labs: Abnormal Lab Results - Last 24 Hours (Table) 01/29/18 01/29/18 01/29/18 Range/Units 17:50 17:50 17:50 WBC 15.0 H (3.8-10.6) k/uL RBC 3.23 L (4.30-5.90) m/uL Hgb 10.1 L (13.0-17.5) gm/dL Hct 31.3 L (39.0-53.0) % Plt Count 132 L (150-450) k/uL Neutrophils # 13.4 H (1.3-7.7) k/uL Lymphocytes # 0.7 L (1.0-4.8) k/uL PT (9.0-12.0) sec INR (<1.2) BUN 33 H (9-20) mg/dL Creatinine 1.69 H (0.66-1.25) mg/dL Glucose 110 H (74-99) mg/dL Calcium 8.3 L (8.4-10.2) mg/dL Magnesium 1.5 L (1.6-2.3) mg/dL CK-MB (CK-2) 4.2 H* (0.0-2.4) ng/mL Total Protein 5.6 L (6.3-8.2) g/dL Albumin 3.0 L (3.5-5.0) g/dL 01/29/18 Range/Units 17:50 WBC (3.8-10.6) k/uL RBC (4.30-5.90) m/uL Hgb (13.0-17.5) gm/dL Hct (39.0-53.0) % Plt Count (150-450) k/uL Neutrophils # (1.3-7.7) k/uL Lymphocytes # (1.0-4.8) k/uL PT 17.7 H (9.0-12.0) sec INR 1.9 H (<1.2) BUN (9-20) mg/dL Creatinine (0.66-1.25) mg/dL Glucose (74-99) mg/dL Calcium (8.4-10.2) mg/dL Magnesium (1.6-2.3) mg/dL CK-MB (CK-2) (0.0-2.4) ng/mL Total Protein (6.3-8.2) g/dL Albumin (3.5-5.0) g/dL Assessment and Plan Assessment: 1. Acute COPD exacerbation with acute right lower lobe pneumonia, possibly gram -negative 2. History of right lower lobe recurrent infections, pneumonia with chronic changes 3. Acute on chronic renal failure, stage III, improving 4. Leukocytosis 5. Anemia of chronic disease 6. Hypertension 7. Hyperlipidemia 8. History of permanent pacemaker implantation 9. CAD with history of stent, Trifecta aortic valve replacement
--- NOTE | 2018-01-31 18:43 | P.PN ---
Subjective Progress Note Date: 01/31/18 Progress note being dictated for Dr. Dean. Interval history: This a 77-year-old gentleman admitted with acute exacerbation COPD, acute right lower lobe pneumonia, acute on chronic renal failure and multiple other medical issues. Evaluated by pulmonary with recommendations noted. Maintained on IV antibiotics, nebulized bronchodilators with breathing improving. Renal function improving. Denies chest pain, palpitations, or increasing shortness of breath. 01/31/2018 breathing improving chest x-ray reporting improvement in aeration. Steroids converted to oral. Cultures reporting no growth. Renal function continues to improve. INR 2.3. Objective - Vital Signs Vital signs: Vital Signs Temp 98.0 F 01/31/18 15:00 Pulse 76 01/31/18 17:49 Resp 20 01/31/18 15:00 BP 113/52 01/31/18 15:00 Pulse Ox 93 L 01/31/18 15:00 Intake & Output 01/30/18 01/31/18 01/31/18 18:59 06:59 18:59 Intake Total 200 400 Balance 200 400 Intake: Oral 200 400 Other: Voiding Method Toilet # Voids 3 1 2 # Bowel Movements 0 - Exam PHYSICAL EXAM: VITAL SIGNS: As above GENERAL: Sitting up in chair, no acute distress HEENT: Conjunctivae normal. eyes normal. Oral mucosa more NECK: No JVD. No thyroid enlargement. No LNs CARDIOVASCULAR: S1, S2 muffled. No murmur RESPIRATION: Breath sounds diminished in the bases. Occasional scattered rhonchi and right upper lobe crackles. ABDOMEN: Soft, nontender . No guarding. no masses palpable.Bowel sounds heard. LEGS: No edema. no swelling PSYCHIATRY: Alert and oriented -3, mood and affect normal. NERVOUS SYSTEM: Cranial N 2-12 grossly normal. Moves all 4 limbs. Diffuse weakness No focal deficits. Skin: no ulcer no rash Joints: No active swelling. No inflammation. Lymphatic system. No LN neck axilla or groin. Microbiology 01/29/18 17:50 Blood Blood Culture - Preliminary No Growth after 24 hours - Labs CBC & Chem 7: 01/31/18 07:28 01/31/18 07:28 Labs: Abnormal Lab Results - Last 24 Hours (Table) 01/31/18 01/31/18 01/31/18 Range/Units 07:28 07:28 07:28 WBC 14.9 H (3.8-10.6) k/uL RBC 3.63 L (4.30-5.90) m/uL Hgb 11.5 L (13.0-17.5) gm/dL Hct 35.3 L (39.0-53.0) % Neutrophils # 14.0 H (1.3-7.7) k/uL Lymphocytes # 0.4 L (1.0-4.8) k/uL PT (9.0-12.0) sec INR (<1.2) BUN 29 H (9-20) mg/dL Creatinine 1.30 H (0.66-1.25) mg/dL Glucose 152 H (74-99) mg/dL Magnesium 1.5 L (1.6-2.3) mg/dL 01/31/18 Range/Units 11:39 WBC (3.8-10.6) k/uL RBC (4.30-5.90) m/uL Hgb (13.0-17.5) gm/dL Hct (39.0-53.0) % Neutrophils # (1.3-7.7) k/uL Lymphocytes # (1.0-4.8) k/uL PT 20.7 H (9.0-12.0) sec INR 2.3 H (<1.2) BUN (9-20) mg/dL Creatinine (0.66-1.25) mg/dL Glucose (74-99) mg/dL Magnesium (1.6-2.3) mg/dL Microbiology - Last 24 Hours (Table) 01/29/18 17:50 Blood Culture - Preliminary Blood No Growth after 24 hours Assessment and Plan Assessment: 1. Acute COPD exacerbation with acute right lower lobe pneumonia, possibly gram -negative 2. History of right lower lobe recurrent infections, pneumonia with chronic changes 3. Acute on chronic renal failure, stage III, improving 4. Leukocytosis 5. Anemia of chronic disease 6. Hypertension 7. Hyperlipidemia 8. History of permanent pacemaker implantation 9. CAD with history of stent, Trifecta aortic valve replacement Plan: Continue on current medication regime ,monitoring and symptomatic treatment. Maintained Levaquin, Zosyn, nebulized bronchodilators, oral steroids. Increase activity as tolerated. Close monitoring of renal function with repeat labs ordered for a.m. Discharge planning in progress for tomorrow pending pulmonary clearance. The impression and plan of care has been dictated as directed. : I performed a history and examination of this patient, discussed the same with the dictator. I agree with the dictator's note ,documented as a scribe. Any additional findings or plans will be noted.
[2018-01-31] MEDS ORDERED: LEVOFLOXACIN 750 MG TAB PO SCH (20:00)
[2018-01-31] MEDS: HYDROcodone/APAP 10-325MG 1 EACH TAB PO PRN (22:02)
[2018-01-31] MEDS: LOSARTAN 25 MG TAB PO SCH (22:17)
[2018-01-31] MEDS: ATORVASTATIN 20 MG TAB PO SCH (22:18)
[2018-01-31 23:15] VITALS: RESP 18
[2018-02-01 06:12] VITALS: BP 112/70; TEMP 98.8
[2018-02-01] MEDS: PIPERACILLIN-TAZOBACTAM 3.375 GM in DEXTROSE/WATER 1 50ML.BAG IVPB SCH ×2 (06:13→12:58)
[2018-02-01] MEDS: LEVOTHYROXINE 50 MCG TAB PO SCH (06:27)
[2018-02-01] MEDS: ISOSORBIDE MONONITRATE ER 30 MG TAB.ER.24H PO SCH (08:51)
[2018-02-01] MEDS: GABAPENTIN 300 MG CAP PO SCH (08:52)
[2018-02-01] MEDS: RANOLAZINE 500 MG TAB.ER.12H PO SCH (08:52)
[2018-02-01] MEDS: FUROSEMIDE 40 MG TAB PO SCH (08:52)
[2018-02-01] MEDS: predniSONE 10 MG TAB PO SCH (08:53)
[2018-02-01] MEDS: ASPIRIN 81 MG PO SCH (08:53)
[2018-02-01] MEDS: SPIRONOLACTONE 25 MG TAB PO SCH (08:53)
[2018-02-01] MEDS: METOPROLOL SUCCINATE (ER) 50 MG TAB.ER.24H PO SCH (08:53)
[2018-02-01 09:03] LABS: Basophils % (A) 0 %; Eosinophils % (A) 0 %; HCT 35.9 % (39.0-53.0); Lymphocytes % (A) 6 %; MCH 32.7 pg (25.0-35.0); MCHC 33.5 g/dL (31.0-37.0); MCV 97.5 fL (80.0-100.0); Monocytes # (A) 0.8 k/uL (0-1.0); Monocytes % (A) 5 %; Neutrophils # (A) 13.8 k/uL (1.3-7.7); Neutrophils % (A) 87 %; Platelet Count 203 k/uL (150-450); RBC 3.68 m/uL (4.30-5.90); RDW 14.7 % (11.5-15.5); WBC 15.9 k/uL (3.8-10.6)
[2018-02-01] MEDS: IPRATROPIUM-ALBUTEROL 3 ML NEB INHALATION SCH ×2 (09:04→12:04)
[2018-02-01 09:37] LABS: Calcium 8.9 mg/dL (8.4-10.2); Magnesium 1.9 mg/dL (1.6-2.3); Potassium 3.2 mmol/L (3.5-5.1)
[2018-02-01] MEDS ORDERED: Potassium Replacement Protocol 1 EACH MISC MISCELLANE PRN (10:43)
[2018-02-01] MEDS ORDERED: Magnesium Replacement Protocol 1 EACH MISC MISCELLANE PRN (10:43)
[2018-02-01] MEDS: MAGNESIUM SULFATE-D5W PMX 1 GM in DEXTROSE/WATER 1 100ML.BAG IVPB SCH ×2 (11:49→12:57)
[2018-02-01] MEDS: POTASSIUM CHLORIDE ER 20 MEQ TAB.ER PO SCH (11:49)
[2018-02-01 12:07] VITALS: PULSE 68
[2018-02-01] MEDS: VIT A,C & E-LUTEIN-MINERALS 1 EACH TAB PO SCH (12:57)
[2018-02-01] MEDS: FERROUS SULFATE 325 MG TAB PO SCH (12:57)
[2018-02-01 13:55] LABS: Prothrombin Time 17.7 sec (9.0-12.0)
--- NOTE | 2018-02-01 14:25 | P.PN ---
Subjective Progress Note Date: 02/01/18 Principal diagnosis: Acute hypoxic respiratory failure secondary to an acute right upper lobe pneumonia Mr. Hall is a 77-year-old white male patient of Dr. Funez, who presented to the emergency department on 01/29/2018 at 1648 with complaints of increasing shortness of breath, chills, chest congestion, cough, increasing weakness with the onset of symptoms on 01/28/2018. Patient has an underlying history of chronic right diaphragmatic paralysis, pneumonias, permanent pacemaker, MRSA infection in the left upper chest pacemaker incision site subsequent pacemaker generator placement in the right upper chest, aortic valve replacement, previous Vazquez-en-Y gastric bypass surgery and subsequent gastroplasty, hypothyroidism, hypertension, hyperlipidemia, coronary artery disease with previous stenting, chronic kidney disease, and obstructive sleep apnea, and chronic CHF. Patient had a recent hospitalization in November for an acute COPD exacerbation with purulent tracheal bronchitis/bronchopneumonia, and possible right lower lobe pneumonia, was treated with Zithromax and Rocephin, steroids, and nebulized treatments, improved and was discharged home in stable condition. Chest x-ray from 01/30/2018 showed elevated right hemidiaphragm, patchy infiltrates in the right upper lobe, and a pacemaker in the right upper chest, surgical clips in the right upper quadrant, no evident pneumothorax or pleural effusion. Patient has been afebrile while inpatient, he was hypoxemic at 89% on 2 L per nasal cannula on presentation. he has been hemodynamically stable. Patient was started on empiric antibiotics Zosyn and Levaquin, nebulized bronchodilators, and IV steroids and was admitted for further management. Blood work showed leukocytosis with a CBC of 15.0, hemoglobin of 10.1, INR is 1.9, and the patient is on chronic anticoagulation with Coumadin, BUN is 33, and creatinine is 1.69, and the renal profile is improved compared to the previous hospitalization in . Troponin was negative 1, CK -MB was 4.2, proBNP was within normal limits at 818. EKG showed atrial paced rhythm at a rate of 70 BPM, with nonspecific ST and T wave changes. The patient was seen and evaluated again today 01/31/2018 in follow-up on the regular medical floor. He is awake and alert in no acute distress. He is breathing easier today as compared to yesterday. He was somewhat agitated this morning and his IV Solu-Medrol converted to poor oral prednisone. No worsening shortness of breath, cough or congestion. He is maintaining good O2 saturations in the 90s on room air. Follow-up chest x-ray reveals improvement in the right upper lobe infiltrate. Cultures reveal no growth. White count 14.9. INR 2.3. Creatinine 1.30. On 02/01/2018 patient seen in follow-up. He is improving, denies any worsening dyspnea, but is sensitive stable, he is afebrile, denies any fever or chills, denies any chest discomfort. He is currently on room air, with O2 sat 95%. Today's lab was reviewed, WBCs 15.9, hemoglobin is 12.0, potassium is 3.2, and his renal profile is slightly worse, with B1 40, and creatinine is 1.44, patient has been receiving diuretics. Denies any chest pain, denies any cough or sputum production. No hemoptysis. No acute events overnight. Patient is stable for discharge home today, on 7 course of outpatient Levaquin, and his maintenance inhalers and nebulized treatments. Objective - Vital Signs Vital signs: Vital Signs Temp 98.8 F 02/01/18 05:40 Pulse 68 02/01/18 12:12 Resp 18 02/01/18 05:40 BP 112/70 02/01/18 05:40 Pulse Ox 95 02/01/18 09:05 Intake & Output 01/31/18 02/01/18 02/01/18 18:59 06:59 18:59 Intake Total 400 Balance 400 Intake: Oral 400 Other: # Voids 2 1 # Bowel Movements 0 - Exam GENERAL EXAM: Alert, active, comfortable in no apparent distress. HEAD: Normocephalic. EYES: Normal reaction of pupils, equal size. NOSE: Clear with pink turbinates. THROAT: No erythema or exudates. NECK: No masses, no JVD. CHEST: No chest wall deformity. LUNGS: Clear breath sounds, rhonchi, no rales CVS: S1 and S2 normal with no audible murmur, regular rhythm. ABDOMEN: No hepatosplenomegaly, normal bowel sounds, no guarding or rigidity. SPINE: No scoliosis or deformity SKIN: No rashes CENTRAL NERVOUS SYSTEM: No focal deficits, tone is normal in all 4 extremities. EXTREMITIES: There is no peripheral edema. No clubbing, no cyanosis. Peripheral pulses are intact. - Labs CBC & Chem 7: 02/01/18 08:10 02/01/18 08:10 Labs: Abnormal Lab Results - Last 24 Hours (Table) 02/01/18 02/01/18 02/01/18 Range/Units 08:10 08:10 13:36 WBC 15.9 H (3.8-10.6) k/uL RBC 3.68 L (4.30-5.90) m/uL Hgb 12.0 L (13.0-17.5) gm/dL Hct 35.9 L (39.0-53.0) % Neutrophils # 13.8 H (1.3-7.7) k/uL PT 17.7 H (9.0-12.0) sec INR 2.0 H (<1.2) Potassium 3.2 L (3.5-5.1) mmol/L BUN 40 H (9-20) mg/dL Creatinine 1.44 H (0.66-1.25) mg/dL Glucose 108 H (74-99) mg/dL Microbiology - Last 24 Hours (Table) 01/31/18 09:00 Gram Stain - Preliminary Sputum 01/29/18 17:50 Blood Culture - Preliminary Blood No Growth after 48 hours Assessment and Plan Plan: Assessment: #1. Acute hypoxic respiratory failure, secondary to acute right upper lobe pneumonia, possibly gram-negative. Chest x-ray shows chronic elevation of the right hemidiaphragm and a new right upper lobe patchy infiltrate. And the patient presented with increasing shortness of breath, weakness, chills, chest congestion and wheezing #2. Acute exacerbation of COPD secondary to the above #3. Leukocytosis secondary to the acute right upper lobe pneumonia #4. Acute on chronic renal failure, possibly related to ATN #5. Chronic elevation of the right hemidiaphragm #6. History of sleep apnea #7. Chronic congestive heart failure, and the most recent echocardiogram from 12/11/2017 showed preserved left ventricular systolic function with ejection fraction of 50-55% off #8. History of bioprosthetic aortic valve replacement #9. Permanent pacemaker, with initial implantation in the left upper chest, MRSA infection in the incision site, and subsequent generator change and placement in the right upper chest #10. History of pulmonary embolisms and DVTs, patient is on chronic anticoagulation with Coumadin, and his admission INR is 1.9 #11. Hypertension, hyperlipidemia #12. Hypothyroidism #13. History of coronary artery disease with previous stenting #14. History of Vazquez-en-Y gastric bypass, with subsequent gastroplasty in 1979 #15. Anemia of chronic disease Plan: Patient continues to improve, has been treated with accommodation of Zosyn and Levaquin, currently afebrile, denies any chest pain, denies any fever or chills , denies any worsening dyspnea. Blood and sputum culture pending, but the patient is improved. Patient is stable for discharge home today, on 7-day course of Levaquin 750 mg once daily. Follow-up with Dr. Santana any office in 7 days. I performed a history & physical examination of the patient and discussed their management with my nurse practitioner, Gayle Thompson. I reviewed the nurse practitioner's note and agree with the documented findings and plan of care. Lung sounds are positive clear lung sounds. The findings and the impression was discussed with the patient. I attest to the documentation by the nurse practitioner. Time with Patient: Less than 30
--- NOTE | 2018-02-01 14:26 | P.PN ---
Subjective Progress Note Date: 02/01/18 Mr. Hall is a 77-year-old white male patient of Dr. Funez, who presented to the emergency department on 01/29/2018 at 1648 with complaints of increasing shortness of breath, chills, chest congestion, cough, increasing weakness with the onset of symptoms on 01/28/2018. Patient has an underlying history of chronic right diaphragmatic paralysis, pneumonias, permanent pacemaker, MRSA infection in the left upper chest pacemaker incision site subsequent pacemaker generator placement in the right upper chest, aortic valve replacement, previous Vazquez-en-Y gastric bypass surgery and subsequent gastroplasty, hypothyroidism, hypertension, hyperlipidemia, coronary artery disease with previous stenting, chronic kidney disease, and obstructive sleep apnea, and chronic CHF. Patient had a recent hospitalization in November for an acute COPD exacerbation with purulent tracheal bronchitis/bronchopneumonia, and possible right lower lobe pneumonia, was treated with Zithromax and Rocephin, steroids, and nebulized treatments, improved and was discharged home in stable condition. Chest x-ray from 01/30/2018 showed elevated right hemidiaphragm, patchy infiltrates in the right upper lobe, and a pacemaker in the right upper chest, surgical clips in the right upper quadrant, no evident pneumothorax or pleural effusion. Patient has been afebrile while inpatient, he was hypoxemic at 89% on 2 L per nasal cannula on presentation. he has been hemodynamically stable. Patient was started on empiric antibiotics Zosyn and Levaquin, nebulized bronchodilators, and IV steroids and was admitted for further management. Blood work showed leukocytosis with a CBC of 15.0, hemoglobin of 10.1, INR is 1.9, and the patient is on chronic anticoagulation with Coumadin, BUN is 33, and creatinine is 1.69, and the renal profile is improved compared to the previous hospitalization in November/December. Troponin was negative 1, CK -MB was 4.2, proBNP was within normal limits at 818. EKG showed atrial paced rhythm at a rate of 70 BPM, with nonspecific ST and T wave changes. The patient was seen and evaluated again today 01/31/2018 in follow-up on the regular medical floor. He is awake and alert in no acute distress. He is breathing easier today as compared to yesterday. He was somewhat agitated this morning and his IV Solu-Medrol converted to poor oral prednisone. No worsening shortness of breath, cough or congestion. He is maintaining good O2 saturations in the 90s on room air. Follow-up chest x-ray reveals improvement in the right upper lobe infiltrate. Cultures reveal no growth. White count 14.9. INR 2.3. Creatinine 1.30. On 02/02/2008 and I'm seeing this patient for a follow-up in no fever or chills. Patient is on room air. The chest x-ray from yesterday was showing improvement in the right upper lobe pulmonary infiltrates. No fever. No chills. The patient is on accommodation of Zosyn and Levaquin. The patient is white cell count of 15.9. The sputum cultures been negative. The blood cultures been negative Objective - Vital Signs Vital signs: Vital Signs Temp 98.8 F 02/01/18 05:40 Pulse 68 02/01/18 12:12 Resp 18 02/01/18 05:40 BP 112/70 02/01/18 05:40 Pulse Ox 95 02/01/18 09:05 Intake & Output 01/31/18 02/01/18 02/01/18 18:59 06:59 18:59 Intake Total 400 Balance 400 Intake: Oral 400 Other: # Voids 2 1 1 # Bowel Movements 0 - Exam GENERAL EXAM: Alert, active, comfortable in no apparent distress. HEAD: Normocephalic. EYES: Normal reaction of pupils, equal size. NOSE: Clear with pink turbinates. THROAT: No erythema or exudates. NECK: No masses, no JVD. CHEST: No chest wall deformity. LUNGS: Equal air entry with crackles in the right upper lobe. CVS: S1 and S2 normal with no audible murmur, regular rhythm. ABDOMEN: No hepatosplenomegaly, normal bowel sounds, no guarding or rigidity. SPINE: No scoliosis or deformity SKIN: No rashes CENTRAL NERVOUS SYSTEM: No focal deficits, tone is normal in all 4 extremities. EXTREMITIES: There is no peripheral edema. No clubbing, no cyanosis. Peripheral pulses are intact. - Labs CBC & Chem 7: 02/01/18 08:10 02/01/18 08:10 Labs: Abnormal Lab Results - Last 24 Hours (Table) 02/01/18 02/01/18 02/01/18 Range/Units 08:10 08:10 13:36 WBC 15.9 H (3.8-10.6) k/uL RBC 3.68 L (4.30-5.90) m/uL Hgb 12.0 L (13.0-17.5) gm/dL Hct 35.9 L (39.0-53.0) % Neutrophils # 13.8 H (1.3-7.7) k/uL PT 17.7 H (9.0-12.0) sec INR 2.0 H (<1.2) Potassium 3.2 L (3.5-5.1) mmol/L BUN 40 H (9-20) mg/dL Creatinine 1.44 H (0.66-1.25) mg/dL Glucose 108 H (74-99) mg/dL Microbiology - Last 24 Hours (Table) 01/31/18 09:00 Gram Stain - Preliminary Sputum 01/29/18 17:50 Blood Culture - Preliminary Blood No Growth after 48 hours Assessment and Plan Plan: Assessment: #1. Acute hypoxic respiratory failure, secondary to acute right upper lobe pneumonia, suspect bacterial, although there is no positive sputum culture obtained in this patient. the patient is improved in the right upper lobe infiltrate is been improving and clinically the patient is much less short of breath and his oxidation is normalized to the point where the patient is currently on room air. He was treated with a combination of Zosyn and Levaquin. #2. Acute exacerbation of COPD secondary to the above, improved #3. Leukocytosis secondary to the acute right upper lobe pneumonia, improved #4. Acute on chronic renal failure, possibly related to ATN, with a stable renal function #5. Chronic elevation of the right hemidiaphragm #6. History of sleep apnea #7. Chronic congestive heart failure, and the most recent echocardiogram from 12/11/2017 showed preserved left ventricular systolic function with ejection fraction of 50-55% off #8. History of bioprosthetic aortic valve replacement #9. Permanent pacemaker, with initial implantation in the left upper chest, MRSA infection in the incision site, and subsequent generator change and placement in the right upper chest #10. History of pulmonary embolisms and DVTs, patient is on chronic anticoagulation with Coumadin, and his admission INR is 1.9 #11. Hypertension, hyperlipidemia #12. Hypothyroidism #13. History of coronary artery disease with previous stenting #14. History of Vazquez-en-Y gastric bypass, with subsequent gastroplasty in 1979 #15. Anemia of chronic disease Plan The patient can be discharged home on Levaquin orally 750 mg on a daily basis to be followed up by Dr. Fitch for the follow-up chest x-ray within a week. He is clear for discharge from the pulmonary standpoint.
--- NOTE | 2018-02-01 19:50 | DS ---
DISCHARGE SUMMARY FINAL DIAGNOSES: 1. Chronic obstructive pulmonary disease, acute exacerbation, with acute right upper lobe pneumonia, possibly Gram-negative. 2. History of right lower lobe pneumonia, recurrent infections, and pneumonia with chronic changes. 3. Acute on chronic renal failure, stage III, improving. 4. Leukocytosis. 5. Anemia of chronic disease. 6. Hypertension. 7. Hyperlipidemia. 8. History of permanent pacemaker implantation. 9. History of coronary artery disease and stent. 10.Trifecta aortic valve replacement. DISCHARGE DISPOSITION: The patient will be discharged in stable condition. Discharge cleared by Dr. Roberts. HISTORY OF PRESENT ILLNESS: This 77-year-old gentleman with a past medical history of multiple medical issues and multiple medical problems was admitted with COPD, acute exacerbation, as well as right upper lobe pneumonia. Patient was treated with antibiotics, steroids and bronchodilators. Patient improved significantly. Dr. Roberts saw the patient and recommended the patient for discharge. On exam, vitals are stable. CARDIOVASCULAR SYSTEM: S1, S2 muffled. RESPIRATORY SYSTEM: A few scattered rhonchi and crackles. Abdomen is soft. NERVOUS SYSTEM: No focal deficit. DISCHARGE ADVICE AND MEDICATIONS: 1. Diet is cardiac. 2. Activity limited until followup. 3. Follow up with Dr. Roberts in 2-3 days. 4. Follow up with Dr. Funez. 5. Albuterol 2.5 q.i.d. and p.r.n. 6. Xanax 0.5 b.i.d. 7. Ecotrin 81 mg p.o. daily. 8. Vitamin B12 1000 subcutaneously daily. 9. Iron sulfate 325 mg p.o. daily. 10.Lasix 40 mg p.o. b.i.d. 11.Gabapentin 600 mg p.o. b.i.d. 12.Porter 10 mg t.i.d. p.r.n. 13.DuoNeb q.i.d. and p.r.n. 14.Imdur ER 30 mg p.o. daily. 15.Levaquin 750 mg q.24 hours for 7 days. 16.Levothyroxine 50 mcg p.o. daily. 17.Cozaar 25 mg p.o. at bedtime. 18.Toprol XL 50 mg p.o. daily. 19.MS Contin 30 mg p.o. b.i.d. 20.Nitrostat 0.4 sublingually p.r.n. 21.Prednisone taper: 30 mg p.o. daily for 3 days; 20 mg p.o. daily for 3 days; 10 mg for 3 days; and then resume the maintenance dose of 5 mg p.o. daily. 22.Ranexa 500 mg p.o. b.i.d. 23.Requip 2 mg p.o. 5 times daily. 24.Simvastatin 40 mg p.o. at bedtime. 25.Aldactone 25 mg p.o. daily. 26.Vitamin C, E, zinc, copper, lutein 2 capsules p.o. daily. 27.Coumadin 1 mg p.o. Sunday, Sunday, ; and 2 mg on Sunday, Sunday, Sunday, Sunday. 28.Monitor PT/INR, CBC closely in the outpatient setting. MMODL / IJN: [id number] / MTDD
--- NOTE | 2018-02-04 11:49 | XR ---
EXAMINATION TYPE: XR chest 2V DATE OF EXAM: 02/04/2018 COMPARISON: Prior chest x-ray 01/31/2018 HISTORY: Right upper lobe pneumonia TECHNIQUE: Frontal and lateral views of the chest are obtained. FINDINGS: There is some improvement in aeration within the right lung. Elevation of the right hemidi aphragm persists. Postop changes are again seen. No evident pneumothorax or sizable effusion. Cardiac mediastinal silhouette is stable. IMPRESSION: Improvement in aeration.
--- NOTE | 2018-02-09 15:20 | CDI ---
Documentation Clarification Form Date: 02/09/2018 12:00:00 AM From: STEVE Gilmore; Tahmina Viveros Tutor Phone: If you have a question about this query, please contact Tahmina Viveros Tutor at [phone] between 8am and 5pm. Admit Date: 01/29/2018 6:42:00 PM Patient Name: Emmanuel Hall Visit Number: [id number] Discharge Date:02/01/2018 ATTENTION: The Clinical Documentation Specialists (CDI) and [facility] Coding Staff appreciate your assistance in clarifying documentation. Please respond to the clarification below the line at the bottom and electronically sign. The CDI & [facility] Coding staff will review the response and follow-up if needed. Please note: Queries are made part of the Legal Health Record. If you have any questions, please contact the author of this message via ITS. Dr. Tabitha Dean Atrial fibrillation is documented in consultation dated 01/30, along with irregular heartbeat. History/Risk Factors: CAD, CHF, pacemaker. Treatment: Coumadin EKG: Afib rhythm rate of 70. In your professional opinion, can you please clarify the type of atrial fibrillation, if known? Chronic/Permanent Paroxysmal Persistent Other, please specify Unable to determine Chronic/Permanent MTDD
== END 2018-02-01 14:30 | disposition home or self-care (01) | DRG 177 ==
LOC: EC 16:48 → 4MS4W 18:42
PROVIDERS: ADMIT Hospitalist; ATTEND Hospitalist
DX: J15.6 Pneumonia due to other Gram-negative bacteria (principal); J96.01 Acute respiratory failure with hypoxia; N17.0 Acute kidney failure with tubular necrosis; I13.0 Hypertensive heart and chronic kidney disease with heart failure and stage 1 through stage 4 chronic kidney disease, or unspecified chronic kidney disease; I50.32 Chronic diastolic (congestive) heart failure; J44.0 Chronic obstructive pulmonary disease with (acute) lower respiratory infection; J44.1 Chronic obstructive pulmonary disease with (acute) exacerbation; D63.8 Anemia in other chronic diseases classified elsewhere; Z86.14 Personal history of Methicillin resistant Staphylococcus aureus infection; E03.9 Hypothyroidism, unspecified; E78.5 Hyperlipidemia, unspecified; F41.9 Anxiety disorder, unspecified; G25.81 Restless legs syndrome; G47.33 Obstructive sleep apnea (adult) (pediatric); H35.30 Unspecified macular degeneration; I25.10 Atherosclerotic heart disease of native coronary artery without angina pectoris; K21.9 Gastro-esophageal reflux disease without esophagitis; M06.9 Rheumatoid arthritis, unspecified; N18.3 Chronic kidney disease, stage 3 (moderate); Y95 Nosocomial condition; Z79.01 Long term (current) use of anticoagulants; Z79.82 Long term (current) use of aspirin; Z79.899 Other long term (current) drug therapy; Z86.711 Personal history of pulmonary embolism; Z86.718 Personal history of other venous thrombosis and embolism; Z87.01 Personal history of pneumonia (recurrent); Z87.891 Personal history of nicotine dependence; Z95.0 Presence of cardiac pacemaker; Z95.3 Presence of xenogenic heart valve; Z95.5 Presence of coronary angioplasty implant and graft; Z98.84 Bariatric surgery status; Z79.890 Hormone replacement therapy; Z79.891 Long term (current) use of opiate analgesic; Z79.52 Long term (current) use of systemic steroids; I48.2 Chronic atrial fibrillation
CPT/HCPCS: 36415; 71046; 80048; 80053; 82550; 82553; 83735; 83880; 84484; 85025; 85610; 85730; 87040; 87070; 87205; 93005; 94640; 94644; 94760; 96361; 96365; 99285

== ENCOUNTER → 2018-03-12 | Outpatient (CLI) | payer MEDICARE, OTHER ==
--- NOTE | 2018-03-12 16:29 | FL ---
EXAMINATION TYPE: FL sniff test without CXR DATE OF EXAM: 03/12/2018 COMPARISON: Fluoroscopic sniff test report May 17, 2015. Chest x-ray February 22, 2018 and older studies back through July 03, 2016. HISTORY: Right-sided diaphragm paralysis per order. History of aortic valve replacement, pacemaker wi th repositioning due to MRSA, coronary stents, gastric bypass, and cholecystectomy as well as COPD. TECHNIQUE: Fluoroscopic assisted sniff test. A total of 25 seconds of fluoroscopic time was utilized. 30 spot images are saved. FINDINGS: Elevated right hemidiaphragm is redemonstrated. Sternal wires and dual lead right-sided pac emaker is again seen. Surgical sutures and clips from gastric bypass procedure epigastric region are noted. Cholecystectomy clips are seen. During real-time scanning there is satisfactory movement of the left hemidiaphragm in appropriate dir ection during inspiration and expiration. There is absent movement of the elevated right hemidiaphrag m noted on today's study. IMPRESSION: Fluoroscopic confirmation of right hemidiaphragm paralysis on today's study.
== END | disposition home or self-care (01) ==
LOC: RADFLMAIN 15:56
PROVIDERS: ATTEND Internal Medicine
DX: J98.6 Disorders of diaphragm (principal)
CPT/HCPCS: 76000

== ENCOUNTER 2018-06-27 11:01 | Emergency (ER) | payer MEDICARE, OTHER ==
[2018-06-27 11:31] VITALS: RESP 18
--- NOTE | 2018-06-27 11:36 | ED ---
General Adult HPI - General Chief complaint: Shortness of Breath Stated complaint: POSS PNEUMONIA Source: patient Mode of arrival: ambulatory Limitations: no limitations - History of Present Illness Initial comments: Dictation was produced using [email or web address] dictation software. please excuse any grammatical, word or spelling errors. Chief Complaint: 77-year-old male past medical history of right diaphragmatic injury who is followed outpatient by payroll analyst told to come to the emergency department for shortness of breath and difficulty breathing. History of Present Illness: Patient is a 77-year-old male with complicated history. He has a history of right diaphragmatic injury and COPD. He has had multiple gastric bypass surgeries several years ago. There is concern that patient suffered diaphragmatic injury from that approximately 5 years ago. Patient's payroll analyst is Dr. Santana. He called his payroll analyst today explain his symptoms and was instructed come to the emergency department. Patient is supposed to undergo bronchial washing. He is supposed to have a scheduled diaphragmatic plication to be done at [facility] by cardiothoracic surgery. He actually was supposed to get the surgery however surgery was not performed because of concerns of pneumonia. Patient feels well at this time. The ROS documented in this emergency department record has been reviewed and confirmed by me. Those systems with pertinent positive or negative responses have been documented in the HPI. All other systems are other negative and/or noncontributory. - Related Data Home Medications Medication Instructions Recorded Confirmed ALPRAZolam [Xanax] 0.5 mg PO BID PRN 12/10/17 06/27/18 Aspirin [Adult Low Dose Aspirin EC] 81 mg PO DAILY 12/10/17 06/27/18 Cyanocobalamin [Vitamin B-12 1,000 mcg SQ Q30D 12/10/17 06/27/18 Injection] Ferrous Sulfate [Iron (65 MG 325 mg PO DAILY 12/10/17 06/27/18 Elemental)] Furosemide [Lasix] 40 mg PO BID 12/10/17 06/27/18 Gabapentin 600 mg PO BID 12/10/17 06/27/18 HYDROcodone/APAP 10-325MG [[place] 1 tab PO TID PRN 12/10/17 06/27/18 10-325] Ipratropium/Albuterol Sulfate 2 puff INHALATION RT-QID 12/10/17 06/27/18 [Combivent Respimat Inhaler] Isosorbide Mononitrate ER [Imdur] 30 mg PO DAILY 12/10/17 06/27/18 Levothyroxine Sodium [Synthroid] 50 mcg PO DAILY 12/10/17 06/27/18 Losartan Potassium [Cozaar] 25 mg PO HS 12/10/17 06/27/18 Metoprolol Succinate (ER) [Toprol 50 mg PO DAILY 12/10/17 06/27/18 XL] Morphine Sulfate [Ms Contin] 30 mg PO BID PRN 12/10/17 06/27/18 Nitroglycerin Sl Tabs [Nitrostat] 0.4 mg SUBLINGUAL Q5M PRN 12/10/17 06/27/18 Ranolazine [Ranexa] 500 mg PO BID 12/10/17 06/27/18 Simvastatin 40 mg PO HS 12/10/17 06/27/18 Spironolactone [Aldactone] 25 mg PO DAILY 12/10/17 06/27/18 Vit C/E/Zn/Coppr/Lutein/Zeaxan 2 cap PO DAILY 12/10/17 06/27/18 [Preservision Areds 2 Softgel] Warfarin [Coumadin] 1 mg PO DIRECTED 12/10/17 06/27/18 rOPINIRole HCL [Requip] 2 mg PO 5XD 12/10/17 06/27/18 Albuterol Nebulized [Ventolin 2.5 mg INHALATION RT-Q6H PRN 06/27/18 06/27/18 Nebulized] Cephalexin [Keflex] 500 mg PO Q6H 06/27/18 06/27/18 Famotidine [Pepcid] 20 mg PO DAILY 06/27/18 06/27/18 guaiFENesin [Mucinex] 600 mg PO BID 06/27/18 06/27/18 Previous Rx's Medication Instructions Recorded predniSONE 5 mg PO DAILY #0 02/01/18 Sulfamethox-Tmp 800-160Mg [Bactrim 1 tab PO Q12HR 5 Days #10 tab 06/27/18 DS 800-160 mg] methylPREDNISolone [Medrol Dose 4 mg PO DIRECTED #1 pack 06/27/18 Pack] Allergies Allergy/AdvReac Type Severity Reaction Status Date / Time No Known Allergies Allergy Verified 06/27/18 11:43 Review of Systems ROS Statement: Those systems with pertinent positive or pertinent negative responses have been documented in the HPI. ROS Other: All systems not noted in ROS Statement are negative. Past Medical History Past Medical History: Atrial Fibrillation, Asthma, Coronary Artery Disease (CAD) , Heart Failure, COPD, Deep Vein Thrombosis (DVT), GERD/Reflux, Hyperlipidemia, Hypertension, Pneumonia, Pulmonary Embolus (PE), Rheumatoid Arthritis (RA), Thyroid Disorder Additional Past Medical History / Comment(s): MACULAR DEGNERATION MISA EYES,GERD , SHINGLES LT EAR [phone], "IRREG HEARTBEAT", RLS, USES A CANE FOR DISTANCE. History of Any Multi-Drug Resistant Organisms: MRSA Date of last positivie culture/infection: MDRO Source:: right hand Past Surgical History: Bariatric Surgery, Heart Catheterization, Heart Catheterization With Stent, Hernia Repair, Pacemaker Additional Past Surgical History / Comment(s): Trifecta aortic valve repalcement , hammertoe, bunionectomy, gastroplasty 7 heart caths, stents to rca, gastroplasty 1979, crys en y Past Anesthesia/Blood Transfusion Reactions: No Reported Reaction Date of Last Stent Placement:: 2012 Type of Cardiac Device: Permanent Pacemaker Device Placement Date:: 2006 Past Psychological History: Anxiety Smoking Status: Former smoker Past Alcohol Use History: None Reported Past Drug Use History: None Reported - Past Family History Father History Unknown: Yes Mother History Unknown: Yes General Exam - General Exam Comments Initial Comments: PHYSICAL EXAM: General Impression: Alert and oriented x3, not in acute distress HEENT: Normocephalic atraumatic, extra-ocular movements intact, pupils equal and reactive to light bilaterally, mucous membranes moist. Cardiovascular: Heart regular rate and rhythm, S1&S2 audible, no murmurs, rubs or gallops Chest: Bilateral lung crackles worse in the right than on the left Abdomen: Bowel sounds present, abdomen soft, non-tender, non-distended, no organomegaly Musculoskeletal: Pulses present and equal in all extremities, no peripheral edema Motor: Power 5/5 bilaterally, no focal deficits noted Neurological: CN II-XII grossly intact, no focal motor or sensory deficits noted Skin: Intact with no visualized rashes Psych: Normal affect and mood Limitations: no limitations Course Vital Signs 06/27/18 06/27/18 06/27/18 11:04 11:30 12:35 Temperature 98.3 F Pulse Rate 60 69 75 Respiratory 20 18 Rate Blood Pressure 140/62 137/62 O2 Sat by Pulse 85 L 98 Oximetry 06/27/18 12:44 Temperature Pulse Rate 77 Respiratory Rate Blood Pressure O2 Sat by Pulse Oximetry Medical Decision Making - Medical Decision Making ED course: 77-year-old male instructed by payroll analyst come to the emergency department for admission. Patient has a complex history of right diaphragmatic injury, frequent pneumonias vital signs upon arrival shows hypoxia of 85% on room air. Patient is not on home oxygen.Laboratory evaluation obtained. Patient has a white count 10.8 which is below usual. INR shows level II.0 which is therapeutic. His patient is on Coumadin. Laboratory evaluation obtained. Elevation of renal markers. Glucose 127. Metabolic panel obtained showing no acute processes. Patient has normal renal markers. Slight elevation in V1. Rest of labs unremarkable. X-ray was obtained showing atelectasis to the right lower lung. Patient case was discussed with his payroll analyst Dr. Santana who requests the patient be treated for COPD. He requests that patient be given Bactrim antibiotics and Medrol Dosepak. Discussed with patient that he should return with strict precautions. Patient told that if he has any issues to report merely back to the emergency department. Initial vital signs taken by nurse shows hypoxia of 85 however I believe this is an error. Patient was taken off of oxygen and had room air saturations in the mid to high 90s. No discernible hypoxia at this time. Patient clear for discharge. He understands and agrees with disposition. He lives nearby can come back to the emergency department should he expense any worsening or recurrent symptoms. Patient told to keep his appointment with Dr. Loja. - Lab Data Result diagrams: 06/27/18 11:25 06/27/18 11:25 Lab Results 06/27/18 06/27/18 06/27/18 Range/Units 11:25 11:25 11:25 WBC 10.8 H (3.8-10.6) k/uL RBC 3.46 L (4.30-5.90) m/uL Hgb 11.2 L (13.0-17.5) gm/dL Hct 34.6 L (39.0-53.0) % MCV 99.8 (80.0-100.0) fL MCH 32.4 (25.0-35.0) pg MCHC 32.4 (31.0-37.0) g/dL RDW 14.8 (11.5-15.5) % Plt Count 222 (150-450) k/uL Neutrophils % 85 % Lymphocytes % 5 % Monocytes % 6 % Eosinophils % 2 % Basophils % 0 % Neutrophils # 9.2 H (1.3-7.7) k/uL Lymphocytes # 0.5 L (1.0-4.8) k/uL Monocytes # 0.7 (0-1.0) k/uL Eosinophils # 0.2 (0-0.7) k/uL Basophils # 0.0 (0-0.2) k/uL Macrocytosis Slight PT (9.0-12.0) sec INR (<1.2) APTT (22.0-30.0) sec Sodium 141 (137-145) mmol/L Potassium 4.3 (3.5-5.1) mmol/L Chloride 108 H (98-107) mmol/L Carbon Dioxide 25 (22-30) mmol/L Anion Gap 8 mmol/L BUN 27 H (9-20) mg/dL Creatinine 1.23 (0.66-1.25) mg/dL Est GFR (CKD-EPI)AfAm 65 (>60 ml/min/1.73 sqM) Est GFR (CKD-EPI)NonAf 57 (>60 ml/min/1.73 sqM) Glucose 127 H (74-99) mg/dL Calcium 8.7 (8.4-10.2) mg/dL Magnesium 1.6 (1.6-2.3) mg/dL Total Bilirubin 0.6 (0.2-1.3) mg/dL AST 25 (17-59) U/L ALT 37 (21-72) U/L Alkaline Phosphatase 79 (38-126) U/L Total Creatine Kinase 95 (55-170) U/L CK-MB (CK-2) 4.9 H (0.0-2.4) ng/mL CK-MB (CK-2) Rel Index 5.2 Troponin I <0.012 (0.000-0.034) ng/mL Total Protein 6.1 L (6.3-8.2) g/dL Albumin 3.3 L (3.5-5.0) g/dL 06/27/18 Range/Units 11:25 WBC (3.8-10.6) k/uL RBC (4.30-5.90) m/uL Hgb (13.0-17.5) gm/dL Hct (39.0-53.0) % MCV (80.0-100.0) fL MCH (25.0-35.0) pg MCHC (31.0-37.0) g/dL RDW (11.5-15.5) % Plt Count (150-450) k/uL Neutrophils % % Lymphocytes % % Monocytes % % Eosinophils % % Basophils % % Neutrophils # (1.3-7.7) k/uL Lymphocytes # (1.0-4.8) k/uL Monocytes # (0-1.0) k/uL Eosinophils # (0-0.7) k/uL Basophils # (0-0.2) k/uL Macrocytosis PT 27.3 H (9.0-12.0) sec INR 3.0 H (<1.2) APTT 33.5 H (22.0-30.0) sec Sodium (137-145) mmol/L Potassium (3.5-5.1) mmol/L Chloride (98-107) mmol/L Carbon Dioxide (22-30) mmol/L Anion Gap mmol/L BUN (9-20) mg/dL Creatinine (0.66-1.25) mg/dL Est GFR (CKD-EPI)AfAm (>60 ml/min/1.73 sqM) Est GFR (CKD-EPI)NonAf (>60 ml/min/1.73 sqM) Glucose (74-99) mg/dL Calcium (8.4-10.2) mg/dL Magnesium (1.6-2.3) mg/dL Total Bilirubin (0.2-1.3) mg/dL AST (17-59) U/L ALT (21-72) U/L Alkaline Phosphatase (38-126) U/L Total Creatine Kinase (55-170) U/L CK-MB (CK-2) (0.0-2.4) ng/mL CK-MB (CK-2) Rel Index Troponin I (0.000-0.034) ng/mL Total Protein (6.3-8.2) g/dL Albumin (3.5-5.0) g/dL Disposition Clinical Impression: Dyspnea Disposition: HOME SELF-CARE Condition: Good Instructions: COPD (Chronic Obstructive Pulmonary Disease) (ED) Prescriptions: methylPREDNISolone [Medrol Dose Pack] 4 mg PO DIRECTED #1 pack Sulfamethox-Tmp 800-160Mg [Bactrim DS 800-160 mg] 1 tab PO Q12HR 5 Days #10 tab Is patient prescribed a controlled substance at d/c from ED?: No Referrals: Randell Santana MD [Primary Care Provider] - 1-2 days Time of Disposition: 13:34
[2018-06-27] MEDS ORDERED: SODIUM CHLORIDE 0.9% 1,000 ML IV STA (11:43)
[2018-06-27 12:01] LABS: Basophils % (A) 0 %; Eosinophils # (A) 0.2 k/uL (0-0.7); Eosinophils % (A) 2 %; HCT 34.6 % (39.0-53.0); HGB 11.2 gm/dL (13.0-17.5); Lymphocytes # (A) 0.5 k/uL (1.0-4.8); Lymphocytes % (A) 5 %; MCH 32.4 pg (25.0-35.0); MCHC 32.4 g/dL (31.0-37.0); MCV 99.8 fL (80.0-100.0); Macrocytosis Slight; Mean Platelet Volume 7.4; Monocytes # (A) 0.7 k/uL (0-1.0); Monocytes % (A) 6 %; Neutrophils # (A) 9.2 k/uL (1.3-7.7); Neutrophils % (A) 85 %; Platelet Count 222 k/uL (150-450); RBC 3.46 m/uL (4.30-5.90); RDW 14.8 % (11.5-15.5); WBC 10.8 k/uL (3.8-10.6)
[2018-06-27 12:04] LABS: Partial Thromboplastin Time 33.5 sec (22.0-30.0); Prothrombin Time 27.3 sec (9.0-12.0)
[2018-06-27 12:09] LABS: Albumin 3.3 g/dL (3.5-5.0); Calcium 8.7 mg/dL (8.4-10.2); Magnesium 1.6 mg/dL (1.6-2.3); Potassium 4.3 mmol/L (3.5-5.1); Total Bilirubin 0.6 mg/dL (0.2-1.3); Total Protein 6.1 g/dL (6.3-8.2)
[2018-06-27 12:18] LABS: Creatine Kinase 95 U/L (55-170)
--- NOTE | 2018-06-27 12:18 | XR ---
EXAMINATION TYPE: XR chest 2V DATE OF EXAM: 06/27/2018 COMPARISON: Prior chest 05/15/2018, 02/01/2018 HISTORY: Pleural effusion, abnormal chest x-ray TECHNIQUE: Frontal and lateral views of the chest are obtained. FINDINGS: Patient is post median sternotomy and rotated. There are overlying cardiac leads. Cardiac mediastinal silhouette, pulmonary vascularity and hyacinth are stable. There is chronic elevation of righ t hemidiaphragm, surgical clips present in the right upper quadrant. Pacemaker stable, there are lead s in the right atrium and ventricle. No evident pneumothorax. No sizable effusion. Some minimal patch y basilar density persists. The aorta is dense. IMPRESSION: Probable basilar atelectasis, follow-up as indicated.
[2018-06-27] MEDS ORDERED: IPRATROPIUM-ALBUTEROL 3 ML NEB INHALATION STA (12:25)
[2018-06-27] MEDS ORDERED: DEXAMETHASONE SOD PHOSPHATE 10 MG/ML 1 ML VIAL IV STA (12:26)
[2018-06-27 12:30] LABS: Creatine Kinase MB 4.9 ng/mL (0.0-2.4); Troponin I <0.012 ng/mL (0.000-0.034)
[2018-06-27 13:35] VITALS: BP 133/64; PULSE 74
[2018-06-27 13:46] VITALS: TEMP 97.7
== END 2018-06-27 13:35 | disposition home or self-care (01) ==
LOC: EC 11:01
DX: R06.02 Shortness of breath (principal); R09.02 Hypoxemia; J98.11 Atelectasis; I25.10 Atherosclerotic heart disease of native coronary artery without angina pectoris; J44.9 Chronic obstructive pulmonary disease, unspecified; I48.91 Unspecified atrial fibrillation; I11.0 Hypertensive heart disease with heart failure; I50.9 Heart failure, unspecified; F41.9 Anxiety disorder, unspecified; E78.5 Hyperlipidemia, unspecified; K21.9 Gastro-esophageal reflux disease without esophagitis; Z79.01 Long term (current) use of anticoagulants; Z79.82 Long term (current) use of aspirin; Z79.899 Other long term (current) drug therapy; Z87.891 Personal history of nicotine dependence; Z86.711 Personal history of pulmonary embolism; Z86.718 Personal history of other venous thrombosis and embolism; Z95.0 Presence of cardiac pacemaker; Z95.1 Presence of aortocoronary bypass graft; Z98.84 Bariatric surgery status
CPT/HCPCS: 36415; 71046; 80053; 82550; 82553; 83735; 84484; 85025; 85610; 85730; 93005; 94640; 96361; 96374; 99285

== ENCOUNTER 2018-07-02 11:21 | Day surgery (SDC) | payer MEDICARE, OTHER ==
[2018-06-28 12:43] VITALS: BMI 29.7
[~2018-07-02 11:21] MED LIST: ALBUTEROL NEB (CONC) 2.5 MG/0.5 ML INHALATION ONE; LACTATED RINGERS 1,000 ML IV ONE; LACTATED RINGERS 1,000 ML IV SCH; LIDOCAINE 2% (PF) 20 MG/ML 2 ML AMP INHALATION ONE; LIDOCAINE VISCOUS 300 MG/15 ML CUP MUCOUS MEM ONE; MORPHINE SULFATE 2 MG/ML SYRINGE IV PRN; ONDANSETRON 4 MG/2 ML VIAL IVP ONE
[2018-07-02 12:15] VITALS: RESP 16; TEMP 98.4
[2018-07-02 12:18] LABS: Glucose,Whole Blood 110 mg/dL (75-99)
[2018-07-02] MEDS ORDERED: LIDOCAINE 1% INJ 10MG/ML (20 ML MDV) ONE (12:52)
[2018-07-02] MEDS ORDERED: PROPOFOL 10 MG/ML 20 ML VIAL IV ONE (12:52)
[2018-07-02] MEDS ORDERED: LIDOCAINE 2% INJ 20 MG/ML INTRATRACH ONE (13:05)
[2018-07-02 13:43] VITALS: BP 117/43; PULSE 70
--- NOTE | 2018-07-02 13:58 | PCN ---
PROCEDURE NOTE PROCEDURE: Bronchoscopy, bronchoalveolar lavage of the right middle lobe and right lower lobe. 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 ANESTHESIA USED: IV conscious sedation. Please refer to [employer] SE[employer] documentation. PROCEDURE DESCRIPTION: Patient was prepared according to the bronchoscopy protocol. O2 was applied via nasal cannula. We monitored his O2 saturation continuously. Blood pressure was intermittently monitored, and cardiac rhythm was continuously monitored. After adequate IV conscious sedation, 2 mL of lidocaine were instilled into the right naris, and the right naris was locally anesthetized. Then the bronchoscope was advanced through the right naris down to the area of the vocal cords. Purulent secretions were noted on the vocal cords, and these were suctioned. Then bronchoscope was advanced further down through the vocal cords down to the area of the trachea, thorough examination was done of the trachea, right upper lobe, right middle lobe, right lower lobe, left upper lobe, lingula and left lower lobe. There was clearly evidence of significant purulent secretions noted in the right middle lobe and right lower lobe. Lavage and suctioning of all the purulent secretions was done. Minimal secretions noted in the left lower lobe and these were suctioned. Fluid which was obtained from the right middle lobe and right lower lobe was sent for different diagnostic studies. The procedure was well tolerated, no evidence of any immediate complications. MMODL / IJN: [id number] /
[2018-07-02 16:56] LABS: Appearance,BF Cloudy; Color,BF Yellow; Nucleated Cells, Body Fluid 19100 /uL; RBC, Body Fluid 400 /uL
[2018-07-02 17:02] LABS: Mononuclear WBC,Body Fluid 3 %; Polynuclear WBC,Body Fluid 97 %; Total Cells Counted,Body Fluid 100
== END 2018-07-02 14:17 | disposition home or self-care (01) ==
LOC: ORWHC2ENDO 11:21
PROVIDERS: ATTEND Internal Medicine
DX: J18.9 Pneumonia, unspecified organism (principal); J98.6 Disorders of diaphragm; Z87.01 Personal history of pneumonia (recurrent); Z87.09 Personal history of other diseases of the respiratory system; J98.11 Atelectasis; J44.9 Chronic obstructive pulmonary disease, unspecified; I13.0 Hypertensive heart and chronic kidney disease with heart failure and stage 1 through stage 4 chronic kidney disease, or unspecified chronic kidney disease; I50.9 Heart failure, unspecified; N18.9 Chronic kidney disease, unspecified; E53.8 Deficiency of other specified B group vitamins; M19.90 Unspecified osteoarthritis, unspecified site; G25.81 Restless legs syndrome; D50.9 Iron deficiency anemia, unspecified; G47.33 Obstructive sleep apnea (adult) (pediatric); E78.5 Hyperlipidemia, unspecified; E03.9 Hypothyroidism, unspecified; E66.01 Morbid (severe) obesity due to excess calories; Z68.29 Body mass index [BMI] 29.0-29.9, adult; I25.10 Atherosclerotic heart disease of native coronary artery without angina pectoris; K21.9 Gastro-esophageal reflux disease without esophagitis; Z95.0 Presence of cardiac pacemaker; Z95.5 Presence of coronary angioplasty implant and graft; Z95.2 Presence of prosthetic heart valve; Z79.82 Long term (current) use of aspirin; Z79.891 Long term (current) use of opiate analgesic; Z79.51 Long term (current) use of inhaled steroids; Z79.52 Long term (current) use of systemic steroids; Z79.899 Other long term (current) drug therapy; Z79.01 Long term (current) use of anticoagulants; Z79.890 Hormone replacement therapy; Z86.14 Personal history of Methicillin resistant Staphylococcus aureus infection; Z87.891 Personal history of nicotine dependence
CPT/HCPCS: 94640; 89050; 87070; 87205; 87116; 87102; 87077; 87186; 87206; 31645; 31624; J2001 ×3; J2704

== ENCOUNTER 2019-05-19 18:17 | Inpatient (IN) | payer MEDICARE, OTHER ==
[2019-05-19] MEDS ORDERED: methylPREDNISolone SOD SUCCI 125 MG/2 ML VIAL IV STA (18:35)
[2019-05-19] MEDS ORDERED: IPRATROPIUM-ALBUTEROL 3 ML NEB INHALATION STA (18:35)
[2019-05-19] MEDS ORDERED: SODIUM CHLORIDE 0.9% 1,000 ML IV STA ×3 (18:35→19:31)
--- NOTE | 2019-05-19 18:38 | ED ---
General Adult HPI - General Chief complaint: Shortness of Breath Stated complaint: Sob/cough Time Seen by Provider: 05/19/19 18:28 Source: patient, RN notes reviewed Mode of arrival: ambulatory Limitations: no limitations - History of Present Illness Initial comments: Patient is a pleasant 78-year-old male presenting to the emergency Department with complaints of difficulty breathing. Onset of symptoms was today. Symptoms are somewhat worse this morning and improve somewhat with nebulizer treatment. Patient does have history of chronic lung problems and chronic pneumonia. No fevers. Patient has been coughing with occasional dark brownish sputum. No leg pain or leg swelling. No chest pain. - Related Data Home Medications Medication Instructions Recorded Confirmed ALPRAZolam [Xanax] 0.5 mg PO BID PRN 12/10/17 05/19/19 Aspirin [Adult Low Dose Aspirin EC] 81 mg PO DAILY 12/10/17 05/19/19 Cyanocobalamin [Vitamin B-12 1,000 mcg SQ Q30D 12/10/17 05/19/19 Injection] Ferrous Sulfate [Iron (65 MG 325 mg PO DAILY 12/10/17 05/19/19 Elemental)] Furosemide [Lasix] 40 mg PO BID 12/10/17 05/19/19 Gabapentin 600 mg PO BID 12/10/17 05/19/19 HYDROcodone/APAP 10-325MG [[place] 1 tab PO TID PRN 12/10/17 05/19/19 10-325] Isosorbide Mononitrate ER [Imdur] 30 mg PO DAILY 12/10/17 05/19/19 Levothyroxine Sodium [Synthroid] 50 mcg PO DAILY 12/10/17 05/19/19 Losartan Potassium [Cozaar] 25 mg PO HS 12/10/17 05/19/19 Metoprolol Succinate (ER) [Toprol 50 mg PO DAILY 12/10/17 05/19/19 XL] Morphine Sulfate [Ms Contin] 30 mg PO Q12H 12/10/17 05/19/19 Nitroglycerin Sl Tabs [Nitrostat] 0.4 mg SUBLINGUAL Q5M PRN 12/10/17 05/19/19 Simvastatin 40 mg PO HS 12/10/17 05/19/19 Spironolactone [Aldactone] 25 mg PO DAILY 12/10/17 05/19/19 Vit C/E/Zn/Coppr/Lutein/Zeaxan 2 cap PO DAILY 12/10/17 05/19/19 [Preservision Areds 2 Softgel] rOPINIRole HCL [Requip] 2 mg PO DIRECTED 12/10/17 05/19/19 Albuterol Nebulized [Ventolin 2.5 mg INHALATION RT-QID PRN 06/27/18 05/19/19 Nebulized] Warfarin Sodium [Coumadin] 2 mg PO SUTUWETHFRSA 09/11/18 05/19/19 predniSONE 5 mg PO DAILY 09/11/18 05/19/19 Ranolazine [Ranexa] 500 mg PO BID 05/19/19 05/19/19 Warfarin Sodium [Coumadin] 3 mg PO MO 05/19/19 05/19/19 Previous Rx's Medication Instructions Recorded Ipratropium/Albuterol Sulfate 2 puff INHALATION RT-QID #120 09/13/18 [Combivent Respimat Inhaler] Allergies Allergy/AdvReac Type Severity Reaction Status Date / Time No Known Allergies Allergy Verified 05/19/19 18:59 Review of Systems ROS Statement: Those systems with pertinent positive or pertinent negative responses have been documented in the HPI. ROS Other: All systems not noted in ROS Statement are negative. Constitutional: Denies: fever Eyes: Denies: eye pain ENT: Denies: ear pain Respiratory: Reports: cough, dyspnea Cardiovascular: Denies: chest pain Endocrine: Reports: fatigue Gastrointestinal: Denies: abdominal pain Genitourinary: Denies: dysuria Musculoskeletal: Denies: back pain Skin: Denies: rash Neurological: Denies: weakness Past Medical History Past Medical History: Atrial Fibrillation, Asthma, Coronary Artery Disease (CAD), Heart Failure, COPD, Deep Vein Thrombosis (DVT), GERD/Reflux, Hyperlipidemia, Hypertension, Pneumonia, Pulmonary Embolus (PE), Rheumatoid Arthritis (RA), Thyroid Disorder Additional Past Medical History / Comment(s): MACULAR DEGNERATION MISA EYES,GERD, SHINGLES LT EAR [phone], "IRREG HEARTBEAT", RLS, USES A CANE FOR DISTANCE. History of Any Multi-Drug Resistant Organisms: ESBL, MRSA Date of last positivie culture/infection: 07/02/18 ESBL / 01/2017 MRSA MDRO Source:: BRONCH ESBL/ MRSA HAND Past Surgical History: Bariatric Surgery, Heart Catheterization, Heart Catheterization With Stent, Hernia Repair, Pacemaker Additional Past Surgical History / Comment(s): Trifecta aortic valve repalcement, hammertoe, bunionectomy, gastroplasty 7 heart caths, stents to rca, gastroplasty 1979, crys-en-y May 2016 at [facility] [place]; 2017- Diaphram Plycation at [facility] Past Anesthesia/Blood Transfusion Reactions: No Reported Reaction Date of Last Stent Placement:: 2012 Type of Cardiac Device: Permanent Pacemaker Device Placement Date:: 2006 Past Psychological History: Anxiety Smoking Status: Former smoker Past Alcohol Use History: None Reported Past Drug Use History: None Reported - Past Family History Father History Unknown: Yes Mother History Unknown: Yes General Exam Limitations: no limitations General appearance: alert, in no apparent distress Head exam: Present: atraumatic Eye exam: Present: normal appearance, PERRL ENT exam: Present: normal oropharynx Neck exam: Present: normal inspection Respiratory exam: Present: respiratory distress (Patient does have mild respiratory distress), wheezes, rales Cardiovascular Exam: Present: regular rate, normal rhythm GI/Abdominal exam: Present: soft. Absent: tenderness Extremities exam: Present: normal inspection. Absent: calf tenderness Back exam: Present: normal inspection Neurological exam: Present: alert Psychiatric exam: Present: normal affect, normal mood Skin exam: Present: normal color Course Vital Signs 05/19/19 05/19/19 05/19/19 18:25 18:32 18:39 Temperature 99.0 F Pulse Rate 71 68 67 Respiratory 22 20 20 Rate Blood Pressure 63/31 81/70 75/44 O2 Sat by Pulse 82 L 87 L 91 L Oximetry 05/19/19 05/19/19 05/19/19 18:45 18:48 18:56 Temperature Pulse Rate 69 70 70 Respiratory 20 18 20 Rate Blood Pressure 74/37 78/34 O2 Sat by Pulse 96 98 Oximetry 05/19/19 05/19/19 05/19/19 18:57 19:00 19:06 Temperature Pulse Rate 72 70 Respiratory 18 20 24 Rate Blood Pressure 70/34 O2 Sat by Pulse 96 Oximetry 05/19/19 05/19/19 05/19/19 19:31 20:21 20:45 Temperature Pulse Rate 72 77 70 Respiratory 22 18 20 Rate Blood Pressure 87/41 98/46 102/52 O2 Sat by Pulse 98 98 97 Oximetry 05/19/19 05/19/19 05/19/19 20:48 20:58 21:00 Temperature Pulse Rate 70 72 70 Respiratory 20 18 20 Rate Blood Pressure 102/52 100/47 106/49 O2 Sat by Pulse 97 96 96 Oximetry - Reevaluation(s) Reevaluation #1: 05/19/19 19:54 Patient is criteria for septic shock diagnosed at 1954. Blood culture and lactic acid and IV fluid bolus has been ordered. 05/19/19 20:55 Patient and family were updated on results and plan. Case was discussed with Dr. Quintanilla, covering for Dr. Santana, who will consult with critical care. He does recommend admission under Dr. Dean. 05/19/19 21:[address] camp, covering for Dr. Dean who will admit. EKG Findings - EKG Comments: EKG Findings:: Paced rhythm with rate of 70. OH 224. QRS 132. QT or 18. QTC 41. Left axis. Left bundle branch block. No acute ST change. Procedures - Central Line Placement Right SC Consent Obtained: verbal consent Patient Placed on Monitor/Pulse Ox: Yes MD Prep: mask, gown, gloves Central Line Prep: Povidone-Iodine 1% Local Anesthesia Used: Lidocaine 1% Amount of Anesthesia Used (mls): 2 Ultrasound Used for Placement: No Central Line Lumen Inserted: triple Central Line Position: good blood return, all ports aspirated, flushed, capped, sutured in place with 3-0 nylon Dressing Applied: Tegaderm Post Procedure X-Ray: tip of catheter in good position Patient Tolerated Procedure: well Complications: none - Sepsis Sepsis Focused Exam #1 Time Sepsis Criteria Met: 19:54 Sepsis Focused Exam Date: 05/19/19 Sepsis Focused Exam Time: 20:37 Sepsis Focused Exam Complete: Yes Vital Signs & RN Notes Reviewed: Yes Capillary Refill: < 2 Seconds: Fingers, Toes Peripheral Pulses: Normal: Radial (R), Radial (L) Skin Color: Normal for Patient Respiratory Exam: rales Cardiovascular Exam: regular rate, normal rhythm Medical Decision Making - Lab Data Result diagrams: 05/19/19 18:45 05/19/19 18:45 Lab Results 05/19/19 05/19/19 05/19/19 Range/Units 18:37 18:45 18:45 WBC 17.1 H (3.8-10.6) k/uL RBC 3.60 L (4.30-5.90) m/uL Hgb 11.8 L (13.0-17.5) gm/dL Hct 35.3 L (39.0-53.0) % MCV 98.0 (80.0-100.0) fL MCH 32.7 (25.0-35.0) pg MCHC 33.4 (31.0-37.0) g/dL RDW 14.7 (11.5-15.5) % Plt Count 166 (150-450) k/uL Neutrophils % (Manual) 55 % Band Neutrophils % 31 % Lymphocytes % (Manual) 6 % Monocytes % (Manual) 8 % Neutrophils # (Manual) 14.70 H (1.3-7.7) k/uL Lymphocytes # (Manual) 1.03 (1.0-4.8) k/uL Monocytes # (Manual) 1.37 H (0-1.0) k/uL Nucleated RBCs 0 (0-0) /100 WBC Manual Slide Review Performed Hypochromasia (manual) Present Poikilocytosis (manual Present Anisocytosis (manual) Present PT (9.0-12.0) sec INR (<1.2) APTT (22.0-30.0) sec Sodium 141 (137-145) mmol/L Potassium 4.2 (3.5-5.1) mmol/L Chloride 106 (98-107) mmol/L Carbon Dioxide 22 (22-30) mmol/L Anion Gap 13 mmol/L BUN 48 H (9-20) mg/dL Creatinine 1.99 H (0.66-1.25) mg/dL Est GFR (CKD-EPI)AfAm 36 (>60 ml/min/1.73 sqM) Est GFR (CKD-EPI)NonAf 31 (>60 ml/min/1.73 sqM) Glucose 110 H (74-99) mg/dL Plasma Lactic Acid Rivas 4.1 H* (0.7-2.0) mmol/L Calcium 8.6 (8.4-10.2) mg/dL Total Bilirubin 0.7 (0.2-1.3) mg/dL AST 29 (17-59) U/L ALT 21 (21-72) U/L Alkaline Phosphatase 58 (38-126) U/L Troponin I (0.000-0.034) ng/mL Total Protein 6.4 (6.3-8.2) g/dL Albumin 3.5 (3.5-5.0) g/dL 05/19/19 05/19/19 Range/Units 18:45 18:45 WBC (3.8-10.6) k/uL RBC (4.30-5.90) m/uL Hgb (13.0-17.5) gm/dL Hct (39.0-53.0) % MCV (80.0-100.0) fL MCH (25.0-35.0) pg MCHC (31.0-37.0) g/dL RDW (11.5-15.5) % Plt Count (150-450) k/uL Neutrophils % (Manual) % Band Neutrophils % % Lymphocytes % (Manual) % Monocytes % (Manual) % Neutrophils # (Manual) (1.3-7.7) k/uL Lymphocytes # (Manual) (1.0-4.8) k/uL Monocytes # (Manual) (0-1.0) k/uL Nucleated RBCs (0-0) /100 WBC Manual Slide Review Hypochromasia (manual) Poikilocytosis (manual Anisocytosis (manual) PT 21.9 H (9.0-12.0) sec INR 2.2 H (<1.2) APTT 29.9 (22.0-30.0) sec Sodium (137-145) mmol/L Potassium (3.5-5.1) mmol/L Chloride (98-107) mmol/L Carbon Dioxide (22-30) mmol/L Anion Gap mmol/L BUN (9-20) mg/dL Creatinine (0.66-1.25) mg/dL Est GFR (CKD-EPI)AfAm (>60 ml/min/1.73 sqM) Est GFR (CKD-EPI)NonAf (>60 ml/min/1.73 sqM) Glucose (74-99) mg/dL Plasma Lactic Acid Rivas (0.7-2.0) mmol/L Calcium (8.4-10.2) mg/dL Total Bilirubin (0.2-1.3) mg/dL AST (17-59) U/L ALT (21-72) U/L Alkaline Phosphatase (38-126) U/L Troponin I 0.015 (0.000-0.034) ng/mL Total Protein (6.3-8.2) g/dL Albumin (3.5-5.0) g/dL - Radiology Data Radiology results: report reviewed (Chest x-ray shows multifocal) pneumonia, mostly right lower lobe) Critical Care Time Critical Care Time: Yes Total Critical Care Time: 45 Disposition Clinical Impression: Pneumonia, Septic shock Disposition: ADMITTED IP TO THIS [facility] Condition: Serious Referrals: Jagdeep Funez DO [Primary Care Provider] - 1-2 days Decision Time: 20:56
[2019-05-19] MEDS ORDERED: SODIUM CHLORIDE 0.9% 500 ML 500 ML IV STA (18:58)
[2019-05-19 19:03] LABS: Albumin 3.5 g/dL (3.5-5.0); Calcium 8.6 mg/dL (8.4-10.2); Potassium 4.2 mmol/L (3.5-5.1); Total Bilirubin 0.7 mg/dL (0.2-1.3); Total Protein 6.4 g/dL (6.3-8.2)
[2019-05-19 19:21] LABS: HCT 35.3 % (39.0-53.0); HGB 11.8 gm/dL (13.0-17.5); MCH 32.7 pg (25.0-35.0); MCHC 33.4 g/dL (31.0-37.0); Mean Platelet Volume 8.4; Platelet Count 166 k/uL (150-450); RDW 14.7 % (11.5-15.5); WBC 17.1 k/uL (3.8-10.6)
[2019-05-19 19:27] LABS: INR 2.2 (<1.2); Partial Thromboplastin Time 29.9 sec (22.0-30.0); Prothrombin Time 21.9 sec (9.0-12.0)
[2019-05-19] MEDS ORDERED: SODIUM CHLORIDE 0.9% 250 ML IV STA (19:31)
[2019-05-19] MEDS ORDERED: IPRATROPIUM-ALBUTEROL 3 ML NEB INHALATION PRN (19:37)
[2019-05-19] MEDS ORDERED: PIPERACILLIN-TAZOBACTAM 3.375 GM in SODIUM CHLORIDE 0.9% 100 ML IVPB STA (19:37)
[2019-05-19] MEDS ORDERED: PNEUMONIA PROTOCOL UTILIZED 1 EACH MISC PO PRN (19:37)
[2019-05-19] MEDS ORDERED: LEVOFLOXACIN 750MG-D5W PMX 750 MG in DEXTROSE/WATER 1 150ML.BAG IVPB STA (19:37)
[2019-05-19 19:49] LABS: Band Neutrophils % 31 %; Lymphocytes # (M) 1.03 k/uL (1.0-4.8); Monocytes # (M) 1.37 k/uL (0-1.0); Neutrophils % (M) 55 %; Nucleated Red Blood Cells 0 /100 WBC (0-0); Total Cells Counted 100
[2019-05-19 19:50] LABS: Anisocytosis (M) Present; Hypochromasia (M) Present; Poikilocytosis (M) Present
[2019-05-19] MEDS: SODIUM CHLORIDE 0.9% 1,000 ML IV SCH ×2 (20:06→23:56)
--- NOTE | 2019-05-19 20:16 | XR ---
EXAMINATION: XR chest - 3V DATE AND TIME: 05/19/2019 7:23 PM CLINICAL INDICATION: PHH; difficulty breathing TECHNIQUE: AP and 2 lateral radiographs COMPARISON: 09/11/2018 FINDINGS: Cardiac pacemaker and EKG leads and sternal sutures and mediastinal clips noted. Cardiac silhouette mildly enlarged. There is ill-defined consolidated opacity throughout the right mid and lower lung zone, with blunting of the right costophrenic angle. These changes are consistent with a clinical diagnosis of multifoca l pneumonia with right pleural effusion. Retrocardiac air bronchograms also noted, consistent with co nsolidative involvement of some of the left lower lobe. No abnormal gas collections. No acute skeletal or soft tissue findings. IMPRESSION: Radiographic pattern consistent with a clinical diagnosis of multifocal bronchopneumonia. Short interval follow-up imaging recommended to prove resolution of these findings.
[2019-05-19] MEDS ORDERED: NALOXONE 0.4 MG/ML 1 ML VIAL IV PRN (20:56)
[2019-05-19] MEDS ORDERED: ACETAMINOPHEN TAB 325 MG TAB PO PRN (20:56)
--- NOTE | 2019-05-19 21:27 | XR ---
EXAMINATION: XR chest 1V portable DATE AND TIME: 05/19/2019 8:46 PM CLINICAL INDICATION: PHH; line TECHNIQUE: AP upright portable COMPARISON: 05/19/2019 7:31 PM FINDINGS: Since the prior study a right subclavian central line has been placed, with its tip superimposed over the SVC. There is no pneumothorax. The previously seen evidence of multifocal bronchopneumonia is unaltered. IMPRESSION: Central line placement.
[2019-05-19 22:40] LABS: Glucose,Whole Blood 156 mg/dL (75-99)
[2019-05-19] MEDS: IPRATROPIUM-ALBUTEROL 3 ML NEB INHALATION SCH (23:09)
[2019-05-19] MEDS ORDERED: ROPINIROLE HCL 2 MG PO SCH (23:45)
[2019-05-19] MEDS ORDERED: ALPRAZolam 0.5 MG TAB PO PRN (23:49)
[2019-05-19] MEDS ORDERED: ALBUTEROL NEBULIZED 2.5 MG/3 ML INHALATION PRN (23:49)
[2019-05-19] MEDS ORDERED: WARFARIN 3 MG TAB PO SCH (23:55)
[2019-05-19] MEDS: NOREPINEPHRINE 32 MG in SODIUM CHLORIDE 0.9% 218 ML IV SCH (23:56)
[2019-05-20] MEDS ORDERED: HYDROcodone/APAP 10-325MG 1 EACH TAB PO PRN
[2019-05-20] MEDS ORDERED: WARFARIN 2 MG TAB PO SCH
[2019-05-20] MEDS: GABAPENTIN 300 MG CAP PO SCH ×3 (00:25→22:30)
[2019-05-20] MEDS: RANOLAZINE 500 MG TAB.ER.12H PO SCH ×3 (00:25→22:31)
[2019-05-20] MEDS: PIPERACILLIN-TAZOBACTAM 3.375 GM in SODIUM CHLORIDE 0.9% 100 ML IVPB SCH ×3 (04:15→22:30)
[2019-05-20 04:51] VITALS: BMI 25.9
[2019-05-20 06:33] LABS: Albumin 2.9 g/dL (3.5-5.0); Calcium 8.1 mg/dL (8.4-10.2); Total Bilirubin 0.4 mg/dL (0.2-1.3); Total Protein 5.6 g/dL (6.3-8.2)
[2019-05-20] MEDS: SODIUM CHLORIDE 0.9% 1,000 ML IV SCH ×3 (06:37→11:34)
[2019-05-20] MEDS: LEVOTHYROXINE 50 MCG TAB PO SCH (06:37)
[2019-05-20 06:45] LABS: HGB 10.2 gm/dL (13.0-17.5); MCH 32.8 pg (25.0-35.0); MCHC 32.8 g/dL (31.0-37.0); MCV 99.9 fL (80.0-100.0); Mean Platelet Volume 8.8; Platelet Count 127 k/uL (150-450); RDW 14.8 % (11.5-15.5); WBC 17.9 k/uL (3.8-10.6)
[2019-05-20] MEDS: IPRATROPIUM-ALBUTEROL 3 ML NEB INHALATION SCH ×4 (07:58→20:17)
[2019-05-20] MEDS: FERROUS SULFATE 325 MG TAB PO SCH (08:23)
[2019-05-20] MEDS: MORPHINE SULFATE ER 30 MG TABLET PO SCH ×2 (08:23→22:30)
[2019-05-20] MEDS: ASPIRIN 81 MG PO SCH (08:23)
--- NOTE | 2019-05-20 08:28 | XR ---
EXAMINATION TYPE: XR chest 1V portable DATE OF EXAM: 05/20/2019 COMPARISON: 05/19/2019 HISTORY: Abnormal x-ray TECHNIQUE: Single frontal view of the chest is obtained. FINDINGS: Right-sided infiltrate and pleural effusion stable. Subsegmental changes medial margin lef t lung base stable. Cardiomegaly, postsurgical change and cardiac device noted prominence to the interstitium. No pneumothorax. Arthropathy of the shoulders. IMPRESSION: 1. Bilateral Infiltrate and right-sided pleural effusion correlate for pneumonia versus CHF.
[2019-05-20 08:52] LABS: Band Neutrophils % 21 %; Lymphocytes # (M) 0.54 k/uL (1.0-4.8); Monocytes # (M) 0.54 k/uL (0-1.0); Neutrophils % (M) 73 %; Nucleated Red Blood Cells 0 /100 WBC (0-0); Total Cells Counted 200
[2019-05-20 08:53] LABS: Anisocytosis (M) Present; Poikilocytosis (M) Present
[2019-05-20 08:54] LABS: Crenated RBC Present
[2019-05-20] MEDS ORDERED: PANTOPRAZOLE 40 MG/10 ML VIAL IV SCH (09:00)
--- NOTE | 2019-05-20 09:45 | CONS ---
CONSULTATION PULMONARY/CRITICAL CARE CONSULTATION: DATE OF CONSULTATION: May 20, 2019 This is a 78-year-old gentleman who presented to the emergency room with complaints of cough, phlegm production and shortness of breath. He typically sees my partner as his primary doctor. Anyway, the patient complained of difficulty breathing. Apparently developed the day of admission. Prior to that, he was doing relatively well. Apparently was painting or painting a barn or something like this. Anyway, his had a doctor's appointment. He ended up developing this acute and sudden shortness of breath, chest congestion, cough and some phlegm production. There was no fever or chills. He was not coughing up any blood. No nausea, vomiting or diarrhea. No chest pain or chest discomfort. No genitourinary complaints. He was seen in the emergency room by Dr. Rick Medina and Dr. Medina called me on the phone because he was concerned about possible early sepsis. His lactic acid was elevated and the patient had on chest x-ray what appeared to be a pneumonia. Anyway, Emmanuel is resting pretty comfortably. He is on O2 of 4 L by nasal cannula. He is getting saline at 100 mL an hour. The patient is currently on Zosyn and Levaquin and he was admitted with a diagnosis of pneumonia. The patient also has significant history of a right diaphragm plication by Dr. Mena at [facility] back in June 2018. CURRENT HOME MEDICATIONS: Current home medications include Xanax, aspirin, vitamin B12, iron tablets, Lasix, gabapentin, [place], Imdur, Synthroid, Cozaar, Toprol, morphine, nitroglycerin, simvastatin, Aldactone, eye vitamins, Requip, Ventolin, Coumadin, prednisone, Ranexa, and warfarin. ALLERGIES: Allergies are denied. MEDICAL HISTORY: His medical history is extensive and includes atrial fibrillation, chronic bronchial asthma/COPD, CAD, CHF, deep venous thrombosis, GERD, hyperlipidemia, hypertension, pneumonia, pulmonary embolism, rheumatoid arthritis, and hypothyroidism. In addition, the patient suffers from macular degeneration, shingles, restless legs syndrome, and a previous history of extended spectrum beta lactamase producing organisms and MRSA infection. SURGICAL HISTORY: Surgical history includes among other things, bariatric surgery, heart catheterization with stent placement, hernia repair, pacemaker insertion, aortic valve replacement, hammertoe and bunionectomy surgeries, multiple heart catheterizations and stents and the recent diaphragmatic plication in June 2018. SOCIAL HISTORY: Social history is positive for previous heavy tobacco use. Does not smoke currently. Denies any alcohol use or illicit drug use. FAMILY HISTORY: Family history is unknown. He apparently did not know of the prior history of either his mother or his father. They may have had some medical illnesses, but he was not aware of them. OCCUPATION HISTORY: Occupational history is that he is currently retired. He worked in a factory I believe. REVIEW OF SYSTEMS: CONSTITUTIONAL: Weakness. NEUROLOGIC: Negative. HEENT: Negative. CARDIOVASCULAR: Negative. PULMONARY: Shortness of breath, cough, chest congestion, occasional phlegm production. GI: Negative : Negative. RHEUMATOLOGIC: Negative. IMMUNOLOGIC: Negative. ENDOCRINOLOGIC: Negative. DERMATOLOGIC: Negative. PHYSICAL EXAMINATION: VITAL SIGNS: Current vital signs are reviewed. His temperature is 97.9, heart rate 70, respiratory rate 16, blood pressure 120/57, mean 78 and 3 L saturations 100%. He appears in no acute distress. HEENT: Examination is grossly unremarkable. Mucous membranes are moist. No oral lesions. NECK: Supple. Full range of motion. No adenopathy or thyromegaly. Neck veins are flat. CARDIOVASCULAR: Examination reveals regular rhythm rate. Heart rate 70 beats per minute. S1, S2 normal. Heart sounds are distant. No distinct murmur noted. LUNGS: Reveal coarse inspiratory and expiratory rhonchi. No expiratory wheezes. Few scattered bilateral crackles. Breath sounds equal bilaterally, but they are diminished throughout. When you ask the patient to cough, it has a very wet congested-sounding cough. ABDOMEN: Soft. Bowel sounds are heard. EXTREMITIES: Are intact. No cyanosis, clubbing, or edema. SKIN: Without rash. NEUROLOGIC: Examination is brief but nonfocal. LAB DATA: Lab data is reviewed. White count 17.9, hemoglobin 10.2, hematocrit 31, platelet count 127,000. Sodium 141, potassium 4, chloride 111, CO2 is 23. Anion gap is 7. BUN and creatinine were 45 and 1.65. Lactic acid came down from 5.7 to 2.3. Albumin 2.9. He has had 3 chest x-rays since he has been here. It does show bilateral infiltrates and right-sided pleural effusion. Likely consistent with pneumonia than anything else. The patient's N-terminal proBNP was modestly elevated at 1100. Microbiology is currently pending or negative. I did ask Richy, the nurse, to make sure he had blood, urine and sputum cultures. MEDICATIONS: Medications are reviewed. Everything is appropriate. He is currently on Zosyn and Levaquin. ASSESSMENT: 1. Pneumonia, with possible sepsis, improved. 2. Previous history of pneumonia. 3. History of chronic obstructive pulmonary disease/asthma. 4. History of atrial fibrillation, chronic. 5. History of coronary artery disease with multiple stents. 6. History of congestive heart failure. 7. History of deep venous thrombosis. 8. Gastroesophageal reflux disease by history. 9. History of hyperlipidemia. 10.Benign essential hypertension. 11.History of pulmonary embolism. 12.Rheumatoid arthritis by history. 13.Hypothyroidism. 14.Macular degeneration. 15.History of shingles. 16.Status post aortic valve replacement. 17.Previous history of extended spectrum beta lactamase producing organisms as well as methicillin-resistant Staphylococcus aureus infection. PLAN: Medications are reviewed. Currently, he is on updrafts and Zosyn as well as Levaquin. We will continue to follow. Emmanuel's lactic acid has come down nicely. Later today he could be transferred out of the unit if remained stable. No additional recommendations made. We will continue to follow. We will make sure he is on all his appropriate breathing medications. Prognosis is guarded. I have asked the nurse to make sure he had blood, urine and sputum sampling. MMODL / IJN: [id number] /
[2019-05-20] MEDS: predniSONE 5 MG TAB PO SCH (09:53)
--- NOTE | 2019-05-20 12:17 | P.HPIM ---
History of Present Illness 70-year-old pleasant gentleman came in complaints of found shards of breath cough with sputum production and fever. Patient is found to have right lower lobe infiltrate patient was admitted for Pneumonia patient multiple episodes of pneumonia because of which patient was started on Zosyn and vancomycin. Patient has a highly elevated lactic acid of around 5.5 which has come down patient on IV fluids holding off on diuretic therapy at this time. Patient doesn't have any fevers today denied any diarrhea denied any dysuria. He lactic acidosis did improve. Patient will be continued on IV fluids. Patient on Coumadin with ther apy cannot INR will be repeated tomorrow. As patient is on Coumadin discontinue levofloxacin and Zosyn will be continued and INR repeated tomorrow Review of Systems REVIEW OF SYSTEMS: CONSTITUTIONAL: No fever, no malaise, no fatigue. HEENT: No recent visual problems or hearing problems. Denied any sore throat. CARDIOVASCULAR: As mentioned in HPI PULMONARY: No shortness of breath, no cough, no hemoptysis. GASTROINTESTINAL: No diarrhea, no nausea, no vomiting, no abdominal pain. NEUROLOGICAL: No headaches, no weakness, no numbness. HEMATOLOGICAL: Denies any bleeding or petechiae. GENITOURINARY: Denies any burning micturition, frequency, or urgency. MUSCULOSKELETAL/RHEUMATOLOGICAL: Denies any joint pain, swelling, or any muscle pain. ENDOCRINE: Denies any polyuria or polydipsia. The rest of the 14-point review of systems is negative. Past Medical History Past Medical History: Atrial Fibrillation, Asthma, Coronary Artery Disease (CAD), Heart Failure, COPD, Deep Vein Thrombosis (DVT), GERD/Reflux, Hyperlip idemia, Hypertension, Pneumonia, Pulmonary Embolus (PE), Rheumatoid Arthritis (RA), Thyroid Disorder Additional Past Medical History / Comment(s): MACULAR DEGNERATION MISA EYES,GERD, SHINGLES LT EAR [id number], "IRREG HEARTBEAT", RLS, USES A CANE FOR DISTANCE. History of Any Multi-Drug Resistant Organisms: ESBL, MRSA Date of last positivie culture/infection: 07/02/18 ESBL / 01/2017 MRSA MDRO Source:: BRONCH ESBL/ MRSA HAND Past Surgical History: Bariatric Surgery, Heart Catheterization, Heart Catheterization With Stent, Hernia Repair, Pacemaker Additional Past Surgical History / Comment(s): Trifecta aortic valve repalcement, hammertoe, bunionectomy, gastroplasty 7 heart caths, stents to rca, gastroplasty 1979, crys-en-y May 2016 at [facility]; 2017- Diaphram Plycation at [facility] Past Anesthesia/Blood Transfusion Reactions: No Reported Reaction Date of Last Stent Placement:: 2012 Type of Cardiac Device: Permanent Pacemaker Device Placement Date:: 2006 Past Psychological History: Anxiety Smoking Status: Former smoker Past Alcohol Use History: None Reported Additional Past Alcohol Use History / Comment(s): STARTED SMOKING AT AGE 19 UP TO 2 PPD QUIT 1977 Past Drug Use History: None Reported - Past Family History Father History Unknown: Yes Mother History Unknown: Yes Medications and Allergies Home Medications Medication Instructions Recorded Confirmed Type ALPRAZolam [Xanax] 0.5 mg PO BID PRN 12/10/17 05/19/19 History Aspirin [Adult Low Dose Aspirin EC] 81 mg PO DAILY 12/10/17 05/19/19 History Cyanocobalamin [Vitamin B-12 1,000 mcg SQ Q30D 12/10/17 05/19/19 History Injection] Ferrous Sulfate [Iron (65 MG 325 mg PO DAILY 12/10/17 05/19/19 History Elemental)] Furosemide [Lasix] 40 mg PO BID 12/10/17 05/19/19 History Gabapentin 600 mg PO BID 12/10/17 05/19/19 History HYDROcodone/APAP 10-325MG [[place] 1 tab PO TID PRN 12/10/17 05/19/19 History 10-325] Isosorbide Mononitrate ER [Imdur] 30 mg PO DAILY 12/10/17 05/19/19 History Levothyroxine Sodium [Synthroid] 50 mcg PO DAILY 12/10/17 05/19/19 History Losartan Potassium [Cozaar] 25 mg PO HS 12/10/17 05/19/19 History Metoprolol Succinate (ER) [Toprol 50 mg PO DAILY 12/10/17 05/19/19 History XL] Morphine Sulfate [Ms Contin] 30 mg PO Q12H 12/10/17 05/19/19 History Nitroglycerin Sl Tabs [Nitrostat] 0.4 mg SUBLINGUAL Q5M PRN 12/10/17 05/19/19 History Simvastatin 40 mg PO HS 12/10/17 05/19/19 History Spironolactone [Aldactone] 25 mg PO DAILY 12/10/17 05/19/19 History Vit C/E/Zn/Coppr/Lutein/Zeaxan 2 cap PO DAILY 12/10/17 05/19/19 History [Preservision Areds 2 Softgel] rOPINIRole HCL [Requip] 2 mg PO DIRECTED 12/10/17 05/19/19 History Albuterol Nebulized [Ventolin 2.5 mg INHALATION RT-QID PRN 06/27/18 05/19/19 History Nebulized] Warfarin Sodium [Coumadin] 2 mg PO SUTUWETHFRSA 09/11/18 05/19/19 History predniSONE 5 mg PO DAILY 09/11/18 05/19/19 History Ipratropium/Albuterol Sulfate 2 puff INHALATION RT-QID #120 09/13/18 05/19/19 Rx [Combivent Respimat Inhaler] Ranolazine [Ranexa] 500 mg PO BID 05/19/19 05/19/19 History Warfarin Sodium [Coumadin] 3 mg PO MO 05/19/19 05/19/19 History Allergies Allergy/AdvReac Type Severity Reaction Status Date / Time No Known Allergies Allergy Verified 05/19/19 18:59 Physical Exam Vitals: Vital Signs Temp Pulse Resp BP Pulse Ox 05/20/19 11:49 79 05/20/19 11:00 70 15 106/58 98 05/20/19 10:00 70 16 111/80 98 05/20/19 09:00 74 21 108/58 94 L 05/20/19 08:08 81 05/20/19 08:00 97.9 F 70 16 120/57 100 05/20/19 07:58 80 05/20/19 07:00 71 20 111/57 98 05/20/19 06:00 71 23 105/52 97 05/20/19 05:00 73 14 94/53 100 05/20/19 04:00 98.5 F 70 21 95/47 99 05/20/19 03:00 70 20 89/46 99 05/20/19 02:00 90 21 114/90 98 05/20/19 01:00 77 29 H 112/57 96 05/20/19 00:00 98.9 F 81 20 106/66 96 05/19/19 23:25 79 22 89/46 97 05/19/19 23:15 75 9 L 100/53 97 05/19/19 23:00 77 38 H 99/49 97 05/19/19 22:45 98.0 F 79 23 100/67 98 05/19/19 22:20 98.6 F 78 20 105/78 98 05/19/19 21:31 73 18 05/19/19 21:20 71 18 05/19/19 21:17 98.0 F 05/19/19 21:00 70 20 106/49 96 05/19/19 20:58 72 18 100/47 96 05/19/19 20:48 70 20 102/52 97 05/19/19 20:45 70 20 102/52 97 05/19/19 20:21 77 18 98/46 98 05/19/19 19:31 72 22 87/41 98 05/19/19 19:06 24 05/19/19 19:00 70 20 70/34 96 05/19/19 18:57 72 18 05/19/19 18:56 70 20 78/34 98 05/19/19 18:48 70 18 05/19/19 18:45 69 20 74/37 96 05/19/19 18:39 67 20 75/44 91 L 05/19/19 18:32 68 20 81/70 87 L 05/19/19 18:25 99.0 F 71 22 63/31 82 L Intake and Output 05/19/19 05/20/19 05/20/19 22:59 06:59 14:59 Intake Total 800 885 Output Total 600 Balance 200 885 Intake: IV 800 525 0.9 800 500 Piperacillin-Tazobactam 3 25 .375 gm In Sodium Chloride 0.9% 100 ml @ 25 mls/hr IVPB Q8H [facility] Rx#: [id number] Tube Feeding 360 Output: Urine 600 Other: Voiding Method Urinal # Voids 0 Weight 91.626 kg 91.6 kg PHYSICAL EXAMINATION: GENERAL: The patient is alert and oriented x3, not in any acute distress. Well developed, well nourished. HEENT: Pupils are round and equally reacting to light. EOMI. No scleral icterus. No conjunctival pallor. Normocephalic, atraumatic. No pharyngeal erythema. No thyromegaly. CARDIOVASCULAR: S1 and S2 present. No murmurs, rubs, or gallops. PULMONARY: Right lower lobe rhonchi fairly good air entry bilateral lung [place] no wheezing was appreciated ABDOMEN: Soft, nontender, nondistended, normoactive bowel sounds. No palpable organomegaly. MUSCULOSKELETAL: No joint swelling or deformity. EXTREMITIES: No cyanosis, clubbing, or pedal edema. NEUROLOGICAL: Gross neurological examination did not reveal any focal deficits. SKIN: No rashes. Results CBC & Chem 7: 05/20/19 06:10 05/20/19 06:10 Labs: Abnormal Lab Results - Last 24 Hours (Table) 05/19/19 05/19/19 05/19/19 Range/Units 18:37 18:45 18:45 WBC 17.1 H (3.8-10.6) k/uL RBC 3.60 L (4.30-5.90) m/uL Hgb 11.8 L (13.0-17.5) gm/dL Hct 35.3 L (39.0-53.0) % Plt Count (150-450) k/uL Neutrophils # (Manual) 14.70 H (1.3-7.7) k/uL Lymphocytes # (Manual) (1.0-4.8) k/uL Monocytes # (Manual) 1.37 H (0-1.0) k/uL PT (9.0-12.0) sec INR (<1.2) Chloride (98-107) mmol/L BUN 48 H (9-20) mg/dL Creatinine 1.99 H (0.66-1.25) mg/dL Glucose 110 H (74-99) mg/dL POC Glucose (mg/dL) (75-99) mg/dL Plasma Lactic Acid [place] 4.1 H* (0.7-2.0) mmol/L Calcium (8.4-10.2) mg/dL Total Protein (6.3-8.2) g/dL Albumin (3.5-5.0) g/dL 05/19/19 05/19/19 05/19/19 Range/Units 18:45 22:37 23:35 WBC (3.8-10.6) k/uL RBC (4.30-5.90) m/uL Hgb (13.0-17.5) gm/dL Hct (39.0-53.0) % Plt Count (150-450) k/uL Neutrophils # (Manual) (1.3-7.7) k/uL Lymphocytes # (Manual) (1.0-4.8) k/uL Monocytes # (Manual) (0-1.0) k/uL PT 21.9 H (9.0-12.0) sec INR 2.2 H (<1.2) Chloride (98-107) mmol/L BUN (9-20) mg/dL Creatinine (0.66-1.25) mg/dL Glucose (74-99) mg/dL POC Glucose (mg/dL) 156 H (75-99) mg/dL Plasma Lactic Acid [place] 5.7 H* (0.7-2.0) mmol/L Calcium (8.4-10.2) mg/dL Total Protein (6.3-8.2) g/dL Albumin (3.5-5.0) g/dL 05/20/19 05/20/19 05/20/19 Range/Units 06:10 06:10 06:20 WBC 17.9 H (3.8-10.6) k/uL RBC 3.10 L (4.30-5.90) m/uL Hgb 10.2 L (13.0-17.5) gm/dL Hct 31.0 L (39.0-53.0) % Plt Count 127 L (150-450) k/uL Neutrophils # (Manual) 16.80 H (1.3-7.7) k/uL Lymphocytes # (Manual) 0.54 L (1.0-4.8) k/uL Monocytes # (Manual) (0-1.0) k/uL PT (9.0-12.0) sec INR (<1.2) Chloride 111 H (98-107) mmol/L BUN 45 H (9-20) mg/dL Creatinine 1.65 H (0.66-1.25) mg/dL Glucose 166 H (74-99) mg/dL POC Glucose (mg/dL) (75-99) mg/dL Plasma Lactic Acid [place]ivas 2.3 H* (0.7-2.0) mmol/L Calcium 8.1 L (8.4-10.2) mg/dL Total Protein 5.6 L (6.3-8.2) g/dL Albumin 2.9 L (3.5-5.0) g/dL Assessment and Plan Plan: -Severe sepsis and septic shock: Secondary to possible right lower lobe pneumonia patient was continued on IV fluids diuretic therapy will be held aspi rin cultures will be obtained. Patient was requiring pressor support as today blood pressures better today. Off pressor support. Zosyn will be continued IV fluids will be switched to half-normal saline because of hyperchloremia -Acute hypoxic respiratory failure secondary to pneumonia -COPD without any acute exacerbation, patient doesn't use any onset at home -Atrial fibrillation presently rate controlled, continue with Coumadin at present dose discontinue levofloxacin because of significant interaction. -Hypothyroidism -History of pulmonary embolism in the past and DVT in the past Coronary artery disease -Hypertension: Holding of aneurysm medications because of septic shock although his blood pressure improved patient will be resumed on metoprolol her aneurysm medications will be held -Hyperlipidemia -History from acute arthritis in the past
[2019-05-20] MEDS: METOPROLOL SUCCINATE (ER) 50 MG TAB.ER.24H PO SCH (12:51)
[2019-05-20] MEDS: SODIUM CHLORIDE 0.45% 1,000 ML IV SCH ×2 (12:52→22:31)
[2019-05-20] MEDS: WARFARIN 2 MG TAB PO SCH (17:16)
[2019-05-20] MEDS: SYMBICORT 160-4.5 MCG INHALER INHALATION SCH (20:17)
[2019-05-20] MEDS ORDERED: LEVOFLOXACIN 750MG-D5W PMX 750 MG in DEXTROSE/WATER 1 150ML.BAG IVPB SCH (21:00)
[2019-05-20] MEDS: ATORVASTATIN 20 MG TAB PO SCH (22:30)
[2019-05-20] MEDS: NOREPINEPHRINE 32 MG in SODIUM CHLORIDE 0.9% 218 ML IV SCH (22:30)
[2019-05-21] MEDS: PIPERACILLIN-TAZOBACTAM 3.375 GM in SODIUM CHLORIDE 0.9% 100 ML IVPB SCH ×3 (03:58→21:25)
[2019-05-21 07:07] LABS: Basophils % (A) 0 %; Eosinophils % (A) 0 %; HCT 32.8 % (39.0-53.0); HGB 10.7 gm/dL (13.0-17.5); Lymphocytes # (A) 0.7 k/uL (1.0-4.8); Lymphocytes % (A) 4 %; MCH 32.2 pg (25.0-35.0); MCHC 32.5 g/dL (31.0-37.0); Mean Platelet Volume 8.7; Monocytes # (A) 0.6 k/uL (0-1.0); Monocytes % (A) 3 %; Neutrophils # (A) 16.6 k/uL (1.3-7.7); Neutrophils % (A) 92 %; Platelet Count 138 k/uL (150-450); RBC 3.31 m/uL (4.30-5.90); RDW 14.1 % (11.5-15.5); WBC 18.1 k/uL (3.8-10.6)
[2019-05-21 07:14] LABS: INR 3.4 (<1.2); Prothrombin Time 32.8 sec (9.0-12.0)
[2019-05-21 07:32] LABS: Calcium 8.4 mg/dL (8.4-10.2); Magnesium 1.7 mg/dL (1.6-2.3); Potassium 4.1 mmol/L (3.5-5.1)
[2019-05-21] MEDS: SYMBICORT 160-4.5 MCG INHALER INHALATION SCH ×2 (07:46→20:33)
[2019-05-21] MEDS: IPRATROPIUM-ALBUTEROL 3 ML NEB INHALATION SCH ×4 (07:46→20:33)
[2019-05-21] MEDS: LEVOTHYROXINE 50 MCG TAB PO SCH (08:13)
[2019-05-21] MEDS: FERROUS SULFATE 325 MG TAB PO SCH (08:13)
[2019-05-21] MEDS: MORPHINE SULFATE ER 30 MG TABLET PO SCH ×2 (08:13→21:24)
[2019-05-21] MEDS: GABAPENTIN 300 MG CAP PO SCH ×2 (08:13→21:25)
[2019-05-21] MEDS: ASPIRIN 81 MG PO SCH (08:13)
[2019-05-21] MEDS: PANTOPRAZOLE 40 MG TABLET PO SCH (08:14)
[2019-05-21] MEDS: METOPROLOL SUCCINATE (ER) 50 MG TAB.ER.24H PO SCH (08:14)
[2019-05-21] MEDS: predniSONE 5 MG TAB PO SCH (08:15)
[2019-05-21] MEDS: RANOLAZINE 500 MG TAB.ER.12H PO SCH ×2 (08:15→22:52)
--- NOTE | 2019-05-21 09:00 | XR ---
EXAMINATION TYPE: XR chest 1V portable DATE OF EXAM: 05/21/2019 COMPARISON: Prior chest x-ray 05/20/2019 HISTORY: Central venous catheter placement, abnormal chest x-ray TECHNIQUE: Single frontal view of the chest is obtained. FINDINGS: There is a generator in the right pectoral region, leads are present in the right atrium a nd ventricle. There are overlying cardiac leads, patient is post median sternotomy. The aorta is dens e. Patchy bibasilar increased densities noted, there is no pneumothorax, there is blunting the right costophrenic angle. Volume loss suspected in the right hemithorax. Heart is borderline enlarged and s table. Right subclavian central venous catheter shows the distal tip at approximately that level of t he tip overlying the region of the confluence of the innominate veins. IMPRESSION: Findings are similar to prior exam. Correlate for possible congestive heart failure, pne umonia not excluded. Follow-up recommended.
--- NOTE | 2019-05-21 09:43 | PN ---
PROGRESS NOTE PULMONARY/CRITICAL CARE PROGRESS NOTE: DATE OF SERVICE: 05/21/2019 This is a 78-year-old male, well known to our service. He presents to the emergency room with complaints of cough and phlegm production as well as shortness of breath. He was admitted to the hospital with a diagnosis of pneumonia and possible sepsis. Currently, the patient is doing very well. He states that his breathing is much improved. He is still coughing and producing some phlegm. He is currently not receiving any supplemental oxygen. The patient is getting half-normal saline at 100 mL an hour. The IV could be turned off. The patient's culture data so far is negative. He is currently on Zosyn. The patient could be downgraded to a the patient could be graded to add to a general medical floor. The patient denies any chest pain or chest discomfort. There is no coughing up of any blood. There is no fever or chills. No nausea, vomiting or diarrhea. The patient has a history of multiple medical problems including previous episodes of pneumonia, COPD, chronic obstructive pulmonary disease with COPD exacerbations, chronic atrial fibrillation, CAD with multiple stents, CHF, DVT, gastroesophageal reflux disease, hyperlipidemia, hypertension, pulmonary embolism, and rheumatoid arthritis to name a few. PHYSICAL EXAMINATION: Currently, vital signs are stable. Temperature is 98.6, heart rate 70, respiratory rate 13, blood pressure 125/71 mean 89 and saturations are 94% on room air. Appears in no acute distress. HEENT: Examination is grossly unremarkable. Mucous membranes are moist. No supplemental oxygen. NECK: Supple. Full range of motion. No adenopathy or thyromegaly. Neck veins are flat. CARDIOVASCULAR: Examination reveals regular rhythm and rate. Heart rate 70. S1, S2 normal. No S3, S4, or murmur. Heart sounds are distant. LUNGS: Reveal a few scattered coarse rhonchi. There are no wheezes. A few scattered crackles as well. Breath sounds are diminished throughout. Slight prolongation on forced maneuver. Breath sounds are improved. ABDOMEN: Soft. Bowel sounds are heard. No masses or tenderness. EXTREMITIES: Intact. No cyanosis, clubbing, or edema. SKIN: Without rash. NEUROLOGIC: Examination is brief but nonfocal. Microbiologic studies are thus far negative. No labs today as yet. Medications are reviewed. They are appropriate. He remains on Zosyn for possible pneumonia. ASSESSMENT: 1. Pneumonia with possible sepsis, improved. 2. Prior history of pneumonia. 3. Multiple chronic obstructive pulmonary disease exacerbations. 4. History of chronic atrial fibrillation. 5. History of coronary artery disease with multiple stents. 6. History of congestive heart failure. 7. History of deep venous thrombosis. 8. History of gastroesophageal reflux disease. 9. History of hyperlipidemia. 10.Benign essential hypertension. 11.History of pulmonary embolism. 12.History of rheumatoid arthritis. 13.Hypothyroidism. 14.Macular degeneration. 15.History of shingles. 16.Status post aortic valve replacement. 17.Previous history of extended spectrum beta lactamase producing organisms as well as methicillin-resistant Staphylococcus aureus infection. PLAN: The patient remains on good antibiotics. Culture data is thus far negative. His respiratory status seems improved. He denies any chest pain or chest discomfort. His breathing is improved. He is still coughing in chest and having chest congestion with wheezing. Some phlegm production. No fever or chills. No other complaints to speak of. We will continue to follow. Prognosis is guarded. MMODL / IJN: [id number] /
[2019-05-21] MEDS: SODIUM CHLORIDE 0.45% 1,000 ML IV SCH (10:18)
--- NOTE | 2019-05-21 16:38 | PN ---
PROGRESS NOTE DATE OF SERVICE: 05/21/2019 This 78-year-old gentleman with right lower pneumonia and possible sepsis also had features of significant sepsis, septic shock with acute hypoxic respiratory failure. The patient was monitored in ICU at this time. The most recent chest x-ray done today which was personally reviewed by me showed significant pneumonic process on the right side. PAST MEDICAL HISTORY: Reviewed. REVIEW OF SYSTEMS: Cardiovascular system: No angina or palpitations. RESPIRATORY: As mentioned earlier. GASTROINTESTINAL: As mentioned earlier. no dysuria. NERVOUS SYSTEM: No numbness or weakness. CURRENT MEDICATIONS: Reviewed and include: 1. Tylenol 650 q.4 p.r.n. 2. [place] 10 mg p.r.n. 3. DuoNeb q.i.d. and p.r.n. 4. Xanax 0.5 b.i.d. 5. Aspirin 81 mg daily. 6. Lipitor 20 mg q.h.s. 7. Symbicort 160/4.5 2 puffs b.i.d. 8. Iron sulfate 320 mg daily. 9. Neurontin 600 mg p.o. b.i.d. 10.Synthroid 50 mcg p.o. daily. 11.Toprol-XL 50 mg p.o. daily. 12.MS Contin 30 mg p.o. b.i.d. 13.Narcan 0.2 q.2 p.r.n. 14.Protonix 40 mg p.o. daily. 15.Zosyn 3.375 IV q.8. 16.Prednisone 5 mg p.o. daily. 17.Ranexa 500 mg p.o. b.i.d. 18.Requip 2 mg q.4 p.r.n. 19.Coumadin 3 mg p.o. Sunday and Coumadin 2 mg p.o. Sunday, Sunday, Sunday, , Sunday, Sunday. PHYSICAL EXAM: Patient is alert, oriented x3. Pulse 70. Blood pressure is 151/92, respirations 16, temperature 97.7, pulse ox 94% on room air. HEENT: Conjunctivae normal. NECK: No jugular venous distention. CARDIOVASCULAR: S1, S2 muffled. RESPIRATION: Breath sounds diminished in the bases. Bilateral scattered rhonchi and crackles. Expiratory wheezing also present. ABDOMEN: Soft, nontender. LEGS no edema. No swelling. NERVOUS SYSTEM: No focal deficits. LABS: WBC 18.2, hemoglobin 10.7, INR is 3.4. Creatinine is 1.4. ASSESSMENT: 1. Acute right lower lobe pneumonia possibly gram-negative with severe sepsis, septic shock and as well as acute hypoxic respiratory failure. 2. Chronic obstructive pulmonary disease acute exacerbation. 3. Atrial fibrillation, rate controlled. 4. Hypothyroidism. 5. History of pulmonary embolism. 6. History of coronary artery disease. 7. Hypertension. 8. History of hyperlipidemia. 9. History of degenerative joint disease. 10.Increased creatinine with chronic kidney disease stage III. 11.FULL CODE. RECOMMENDATIONS AND DISCUSSION: This 78-year-old gentleman who presented with multiple medical issues, at this time, I recommend to continue current medications, management and symptomatic treatment, continue the bronchodilators, continue with empiric antibiotics. Cultures are negative so far. Closely follow with Pulmonary. Monitor blood sugars closely which is coming up nicely. Guarded prognosis. Further recommendations to follow. A copy of this dictation is being forwarded to the primary physician. MMODL / IJN: [id number] /
[2019-05-21] MEDS: WARFARIN 2 MG TAB PO SCH (18:00)
[2019-05-21] MEDS ORDERED: LEVOFLOXACIN 750MG-D5W PMX 750 MG in DEXTROSE/WATER 1 150ML.BAG IVPB SCH (21:00)
[2019-05-21] MEDS: LOSARTAN 25 MG TAB PO SCH (21:24)
[2019-05-21] MEDS: ATORVASTATIN 20 MG TAB PO SCH (21:24)
[2019-05-22] MEDS: PIPERACILLIN-TAZOBACTAM 3.375 GM in SODIUM CHLORIDE 0.9% 100 ML IVPB SCH ×4 (04:24→23:33)
[2019-05-22] MEDS: LEVOTHYROXINE 50 MCG TAB PO SCH (04:24)
[2019-05-22] MEDS: FERROUS SULFATE 325 MG TAB PO SCH (07:20)
[2019-05-22] MEDS: RANOLAZINE 500 MG TAB.ER.12H PO SCH ×2 (07:20→23:33)
[2019-05-22] MEDS: ISOSORBIDE MONONITRATE ER 30 MG TAB.ER.24H PO SCH (07:20)
[2019-05-22] MEDS: METOPROLOL SUCCINATE (ER) 50 MG TAB.ER.24H PO SCH (07:20)
[2019-05-22] MEDS: GABAPENTIN 300 MG CAP PO SCH ×2 (07:21→20:09)
[2019-05-22] MEDS: PANTOPRAZOLE 40 MG TABLET PO SCH (07:21)
[2019-05-22] MEDS: predniSONE 5 MG TAB PO SCH (07:21)
[2019-05-22] MEDS: MORPHINE SULFATE ER 30 MG TABLET PO SCH ×2 (07:21→20:09)
[2019-05-22] MEDS: ASPIRIN 81 MG PO SCH (07:22)
[2019-05-22 08:25] LABS: Basophils % (A) 0 %; Eosinophils # (A) 0.3 k/uL (0-0.7); Eosinophils % (A) 3 %; HCT 34.9 % (39.0-53.0); HGB 11.2 gm/dL (13.0-17.5); Lymphocytes # (A) 1.1 k/uL (1.0-4.8); Lymphocytes % (A) 9 %; MCH 32.2 pg (25.0-35.0); MCHC 32.2 g/dL (31.0-37.0); MCV 99.8 fL (80.0-100.0); Mean Platelet Volume 7.9; Monocytes # (A) 0.4 k/uL (0-1.0); Monocytes % (A) 3 %; Neutrophils # (A) 10.5 k/uL (1.3-7.7); Neutrophils % (A) 84 %; Platelet Count 149 k/uL (150-450); RDW 14.2 % (11.5-15.5); WBC 12.5 k/uL (3.8-10.6)
[2019-05-22] MEDS: SYMBICORT 160-4.5 MCG INHALER INHALATION SCH ×2 (08:34→19:12)
[2019-05-22] MEDS: IPRATROPIUM-ALBUTEROL 3 ML NEB INHALATION SCH ×4 (08:34→19:12)
[2019-05-22 08:48] LABS: INR 2.8 (<1.2); Prothrombin Time 26.8 sec (9.0-12.0)
[2019-05-22 08:51] LABS: Calcium 8.6 mg/dL (8.4-10.2); Potassium 4.4 mmol/L (3.5-5.1)
--- NOTE | 2019-05-22 10:09 | P.PN ---
Subjective Progress Note Date: 05/22/19 Principal diagnosis: Bibasilar pneumonia The patient is seen today 05/22/2019 in follow-up on the regular medical floor. He is awake and alert in no acute distress. Maintaining good O2 saturations in the 90s on room air. He is currently afebrile. Hemodynamically stable. Blood and urine cultures reveal no growth. Sputum culture pending. White count 12.5. Hemoglobin 11.2. INR 2.8. Creatinine 1.36. He remains on Zosyn and bronchodilators. Objective - Vital Signs Vital signs: Vital Signs Temp 98.4 F 05/22/19 07:00 Pulse 72 05/22/19 08:45 Resp 16 05/22/19 07:00 BP 121/71 05/22/19 07:00 Pulse Ox 94 L 05/22/19 07:00 Intake & Output 05/21/19 05/22/19 05/22/19 18:59 06:59 18:59 Intake Total 924 240 Output Total 700 Balance 224 240 Weight 91 kg Intake: Oral 924 240 Output: Urine 700 Other: Voiding Method Urinal Urinal Toilet Urinal # Voids 1 1 - Exam GENERAL EXAM: Alert, active, comfortable in no apparent distress. On room air. HEAD: Normocephalic. EYES: Normal reaction of pupils, equal size. NOSE: Clear with pink turbinates. THROAT: No erythema or exudates. NECK: No masses, no JVD. CHEST: No chest wall deformity. LUNGS: Equal air entry with faint crackles in the posterior bases. CVS: S1 and S2 normal with no audible murmur, regular rhythm. ABDOMEN: No hepatosplenomegaly, normal bowel sounds, no guarding or rigidity. SPINE: No scoliosis or deformity SKIN: No rashes CENTRAL NERVOUS SYSTEM: No focal deficits, tone is normal in all 4 extremities. EXTREMITIES: There is no peripheral edema. No clubbing, no cyanosis. Peripheral pulses are intact. - Labs CBC & Chem 7: 05/22/19 08:02 05/22/19 08:02 Labs: Abnormal Lab Results - Last 24 Hours (Table) 05/22/19 05/22/19 05/22/19 Range/Units 08:02 08:02 08:02 WBC 12.5 H (3.8-10.6) k/uL RBC 3.50 L (4.30-5.90) m/uL Hgb 11.2 L (13.0-17.5) gm/dL Hct 34.9 L (39.0-53.0) % Plt Count 149 L (150-450) k/uL Neutrophils # 10.5 H (1.3-7.7) k/uL PT 26.8 H (9.0-12.0) sec INR 2.8 H (<1.2) BUN 33 H (9-20) mg/dL Creatinine 1.36 H (0.66-1.25) mg/dL Glucose 118 H (74-99) mg/dL Microbiology - Last 24 Hours (Table) 05/19/19 18:45 Blood Culture - Preliminary Blood No Growth after 48 hours 05/20/19 06:49 Urine Culture - Final Urine,Voided Assessment and Plan Assessment: Impression: #1 Bibasilar pneumonia, suspect community-acquired. #2 Previous history of multiple pneumonias with extended spectrum beta lactamase producing organisms as well as MRSA infections. #3 Chronic obstructive pulmonary disease #4 Chronic atrial fibrillation, anticoagulated with warfarin. #5 Coronary artery disease with previous multiple stent placements. #6 History of congestive heart failure. #7 History of shingles. #8 History of GERD. #9 Hyperlipidemia. #10 Hypertension. #11 History of PE/DVT. #12 Rheumatoid arthritis. #13 Hypothyroidism. #14 Macular degeneration. #15 Status post aortic valve replacement. Plan: The patient was seen and evaluated by Dr. Rodriguez. He is improved today as co mpared to yesterday. Chest x-ray is pending. He could probably be discharged later today or possibly tomorrow morning. He'll follow up with Dr. Santana in our office next week. I, the cosigning physician, performed a history & physical examination of the patient. Lungs sounds faint crackles in the posterior bases. Maintaining good O2 saturations in the 90s on room air. I discussed the assessment and plan of care with my nurse practitioner, Katja Lin. I attest to the above note as dictated by her.
--- NOTE | 2019-05-22 16:32 | XR ---
EXAMINATION TYPE: XR chest 2V DATE OF EXAM: 05/22/2019 COMPARISON: Yesterday HISTORY: Pneumonia TECHNIQUE: Frontal and lateral views of the chest are obtained. FINDINGS: There is patchy airspace consolidation in the right lower lobe with blunting of right cost ophrenic angle. There is no overt heart failure. There are sternal wires. There is a right axillary p acemaker. Left lung is clear of consolidation. IMPRESSION: Right lower lobe pneumonia and atelectasis and pleural fluid improved slightly compared to yesterday.
[2019-05-22] MEDS: WARFARIN 2 MG TAB PO SCH (17:27)
[2019-05-22] MEDS: ATORVASTATIN 20 MG TAB PO SCH (20:09)
[2019-05-22] MEDS: LOSARTAN 25 MG TAB PO SCH (20:09)
--- NOTE | 2019-05-22 21:03 | PN ---
PROGRESS NOTE DATE OF SERVICE: 05/22/2019 This 78-year-old gentleman admitted with right lower lobe pneumonia, sepsis and acute hypoxic respiratory failure, is being closely monitored at this time. Most recent chest x-ray was done today which was personally reviewed by me and showed bibasilar infiltrate. Dr. Rodriguez is following the patient closely. No chest pain. No palpitations. No fever. EXAM: Alert and oriented times three. Pulse 70. Blood pressure 103/64, respirations 16, temperature 97.9, pulse ox 98% on room air. HEENT: Conjunctivae normal. NECK: No jugular venous distention. CARDIOVASCULAR: S1, S2 muffled. RESPIRATORY: Breath sounds diminished in the bases. Scattered rhonchi and crackles. Expiratory wheezing also present. ABDOMEN: Soft, nontender. NERVOUS SYSTEM: No focal deficits. LABS: WBC 12.2, hemoglobin 11.2. Creatinine is 1.36. ASSESSMENT: 1. Acute right lower lobe pneumonia with gram-negative with possible sepsis, severe sepsis, septic shock and as well as acute hypoxic respiratory failure present on admission. 2. Chronic obstructive pulmonary disease, acute exacerbation. 3. Atrial fibrillation, rate controlled. 4. Hypothyroidism. 5. History of pulmonary embolus. 6. History of coronary artery disease. 7. History of hypertension. 8. History of hyperlipidemia. 9. History of degenerative joint disease. 10.Increased creatinine with chronic kidney disease stage III. 11.FULL CODE. RECOMMENDATIONS AND DISCUSSION: Recommend to continue current medications, continue with monitoring, symptomatic treatment. Otherwise, at this time, I recommend continue with monitor the PT/INR. Continue the IV antibiotics. Closely follow with Pulmonary. Guarded prognosis because of multiple complex medical issues. Further recommendations to follow. Probably home within the next 24-48 hours if the patient is stable. MMODL / IJN: [id number] /
[2019-05-23 03:24] VITALS: RESP 16
[2019-05-23] MEDS: LEVOTHYROXINE 50 MCG TAB PO SCH (06:16)
[2019-05-23] MEDS: PIPERACILLIN-TAZOBACTAM 3.375 GM in SODIUM CHLORIDE 0.9% 100 ML IVPB SCH (06:16)
[2019-05-23] MEDS: SYMBICORT 160-4.5 MCG INHALER INHALATION SCH (07:55)
[2019-05-23] MEDS: IPRATROPIUM-ALBUTEROL 3 ML NEB INHALATION SCH ×2 (07:56→11:09)
[2019-05-23 07:58] LABS: Basophils % (A) 1 %; Eosinophils # (A) 0.6 k/uL (0-0.7); Eosinophils % (A) 7 %; HGB 11.6 gm/dL (13.0-17.5); Lymphocytes # (A) 1.4 k/uL (1.0-4.8); Lymphocytes % (A) 16 %; MCH 32.6 pg (25.0-35.0); MCHC 32.3 g/dL (31.0-37.0); MCV 100.9 fL (80.0-100.0); Macrocytosis Slight; Mean Platelet Volume 8.4; Monocytes # (A) 0.3 k/uL (0-1.0); Monocytes % (A) 4 %; Neutrophils # (A) 6.2 k/uL (1.3-7.7); Neutrophils % (A) 72 %; Platelet Count 170 k/uL (150-450); RBC 3.57 m/uL (4.30-5.90); RDW 14.9 % (11.5-15.5); WBC 8.7 k/uL (3.8-10.6)
[2019-05-23 08:07] LABS: INR 2.6 (<1.2); Prothrombin Time 25.6 sec (9.0-12.0)
[2019-05-23 08:11] LABS: Calcium 8.7 mg/dL (8.4-10.2); Potassium 4.2 mmol/L (3.5-5.1)
[2019-05-23 08:17] VITALS: BP 112/63; TEMP 98.5
[2019-05-23] MEDS: MORPHINE SULFATE ER 30 MG TABLET PO SCH (09:26)
[2019-05-23] MEDS: ISOSORBIDE MONONITRATE ER 30 MG TAB.ER.24H PO SCH (09:26)
[2019-05-23] MEDS: ASPIRIN 81 MG PO SCH (09:26)
[2019-05-23] MEDS: METOPROLOL SUCCINATE (ER) 50 MG TAB.ER.24H PO SCH (09:26)
[2019-05-23] MEDS: GABAPENTIN 300 MG CAP PO SCH (09:26)
[2019-05-23] MEDS: PANTOPRAZOLE 40 MG TABLET PO SCH (09:26)
[2019-05-23] MEDS: FERROUS SULFATE 325 MG TAB PO SCH (09:27)
[2019-05-23] MEDS: RANOLAZINE 500 MG TAB.ER.12H PO SCH (09:27)
[2019-05-23] MEDS: predniSONE 5 MG TAB PO SCH (09:28)
[2019-05-23 11:12] VITALS: PULSE 72
--- NOTE | 2019-05-23 12:12 | P.PN ---
Subjective Progress Note Date: 05/23/19 Principal diagnosis: Bibasilar pneumonia The patient is seen today 05/23/2019 in follow-up on the regular medical floor. He is awake and alert in no acute distress. Maintaining good O2 saturations in the 90s on room air. He is currently afebrile. Hemodynamically stable. Blood and urine cultures reveal no growth. Sputum culture with catalina. White count 8.7. Hemoglobin 11.6. INR 2.6. Creatinine 1.48. He remains on Zosyn and bronchodilators. He is nearly back to his baseline. Objective - Vital Signs Vital signs: Vital Signs Temp 98.5 F 05/23/19 07:00 Pulse 72 05/23/19 11:19 Resp 16 05/23/19 08:00 BP 112/63 05/23/19 07:00 Pulse Ox 94 L 05/23/19 07:00 Intake & Output 05/22/19 05/23/19 05/23/19 18:59 06:59 18:59 Intake Total 1102 Balance 1102 Intake: IV 100 Piperacillin-Tazobactam 3 100 .375 gm In Sodium Chloride 0.9% 100 ml @ 25 mls/hr IVPB Q8H [facility] Rx#: [id number] Oral 1002 Other: Voiding Method Toilet Toilet Urinal # Voids 1 - Exam GENERAL EXAM: Alert, pleasant 78-year-old gentleman, active, comfortable in no apparent distress. On room air. HEAD: Normocephalic. EYES: Normal reaction of pupils, equal size. NOSE: Clear with pink turbinates. THROAT: No erythema or exudates. NECK: No masses, no JVD. CHEST: No chest wall deformity. LUNGS: Equal air entry with faint crackles in the right posterior base. CVS: S1 and S2 normal with no audible murmur, regular rhythm. ABDOMEN: No hepatosplenomegaly, normal bowel sounds, no guarding or rigidity. SPINE: No scoliosis or deformity SKIN: No rashes CENTRAL NERVOUS SYSTEM: No focal deficits, tone is normal in all 4 extremities. EXTREMITIES: There is no peripheral edema. No clubbing, no cyanosis. Peripheral pulses are intact. - Labs CBC & Chem 7: 05/23/19 06:47 05/23/19 06:47 Labs: Abnormal Lab Results - Last 24 Hours (Table) 08/07/0305/23/19 05/23/19 Range/Units 06:47 06:47 06:47 RBC 3.57 L (4.30-5.90) m/uL Hgb 11.6 L (13.0-17.5) gm/dL Hct 36.0 L (39.0-53.0) % MCV 100.9 H (80.0-100.0) fL PT 25.6 H (9.0-12.0) sec INR 2.6 H (<1.2) BUN 33 H (9-20) mg/dL Creatinine 1.48 H (0.66-1.25) mg/dL Microbiology - Last 24 Hours (Table) 05/19/19 18:45 Blood Culture - Preliminary Blood No Growth after 72 hours 05/20/19 11:00 Gram Stain - Final Sputum Sputum Culture - Final Catalina glabrata Assessment and Plan Assessment: Impression: #1 Bibasilar pneumonia, suspect community-acquired. Follow-up chest x-ray reveals residual right basilar atelectasis. #2 Previous history of multiple pneumonias with extended spectrum beta lactamase producing organisms as well as MRSA infections. #3 Chronic obstructive pulmonary disease #4 Chronic atrial fibrillation, anticoagulated with warfarin. #5 Coronary artery disease with previous multiple stent placements. #6 History of congestive heart failure. #7 History of shingles. #8 History of GERD. #9 Hyperlipidemia. #10 Hypertension. #11 History of PE/DVT. #12 Rheumatoid arthritis. #13 Hypothyroidism. #14 Macular degeneration. #15 Status post aortic valve replacement. Plan: The patient was seen and evaluated by Dr. Rodriguez. He is cleared for discharge from the pulmonary standpoint. Complete his course of antibiotics. Continue his home pulmonary medications. He'll follow up with Dr. Santana in our office next week. I, the cosigning physician, performed a history & physical examination of the patient. Lungs sounds faint crackles in the right base. Maintaining good O2 saturations in the 90s on room air. I discussed the assessment and plan of care with my nurse practitioner, Katja Lin. I attest to the above note as dictated by her.
--- NOTE | 2019-05-24 10:08 | DS ---
DISCHARGE SUMMARY DATE OF SERVICE: 05/23/2019. FINAL DIAGNOSES: 1. Acute right lower lobe pneumonia with possibly gram-negative with possible sepsis, severe sepsis, septic shock and as well as acute hypoxic respiratory failure present on admission. 2. Chronic obstructive pulmonary disease, acute exacerbation. 3. Atrial fibrillation, rate controlled. 4. Hypothyroidism. 5. History of pulmonary embolism. 6. History of coronary artery disease. 7. History of hypertension. 8. History of hyperlipidemia. 9. History of degenerative joint disease. 10.History of increased creatinine with chronic kidney disease stage III. 11.[place] Glabrata in the sputum. 12.FULL CODE. DISCHARGE DISPOSITION: The patient will be discharged in stable condition with guarded prognosis. Total time taken 35 minutes. HISTORY OF PRESENT ILLNESS: This 78-year-old gentleman with past medical history of multiple medical problems including right lower lobe pneumonia and associated complication as mentioned earlier, monitored in ICU initially, treated in conjunction with Dr. Rodriguez with IV fluids and multiple other medical issues. The patient improved significantly. Patient will be discharged in stable condition with guarded prognosis. On exam, vitals are stable. Cardiovascular: S1, S2. Abdomen soft. Nervous system: No focal deficits. Cultures are negative except Catalina glabrata in the sputum. DISCHARGE ADVICE AND MEDICATIONS: 1. Discharge diet is cardiac diet. 2. Activity limited until followup. 3. Follow up with Dr. Funez in 2-3 days. 4. Follow up with pulmonology, Dr. Rodriguez, as advised. MEDICATIONS: 1. Aspirin 81 mg p.o. daily. 2. Aldactone 25 mg p.o. daily. 3. Coumadin 2 mg p.o. Sunday, Sunday, Sunday, , Sunday, Sunday and 3 mg p.o. Sunday. 4. Cozaar 25 mg q.h.s. 5. Gabapentin 600 mg p.o. b.i.d. 6. Imdur 30 mg p.o. daily. 7. Iron 320 mg p.o. daily. 8. Lasix 40 mg p.o. b.i.d. 9. MS Contin 30 mg p.o. b.i.d. 10.Nitrostat 0.4 sublingual p.r.n. 11.[place] 10 mg t.i.d. p.r.n. 12.Vitamins C, E zinc, copper, lutein, Ziac, 2 capsules p.o. daily. 13.Ranexa 500 mg p.o. b.i.d. 14.Requip 2 mg p.r.n. 15.Simvastatin 40 mg q.h.s. 16.Synthroid 50 mcg p.o. daily. 17.Toprol-XL 50 mg p.o. daily. 18.Vitamin B12 1000 mcg q 30 days. 19.Xanax 0.5 mg b.i.d. p.r.n. 20.Augmentin 875 mg 1 p.o. b.i.d. for 5 days. 21.Combivent 2 puffs q.i.d. 22.Diflucan 100 mg daily for 7 days. 23.Prednisone taper 40 mg daily for 3 days, 30 for 3 days, 20 for 3 days and 10 for 3 days. 24.Symbicort 1 puff b.i.d. 25.Ventolin inhaler q.i.d. p.r.n. Once again, the patient will be discharged in stable condition with guarded prognosis. CBC, BMP, PT/INR in the outpatient setting. Continued monitoring. MMODL / IJN: [id number] /
== END 2019-05-23 13:25 | disposition home or self-care (01) | DRG 871 ==
LOC: EC 18:17 → 2SICU 20:56 → 4SSUR 05-21 10:47
PROVIDERS: ADMIT Internal Medicine; ATTEND Internal Medicine
PROC: 05HY33Z Insertion of Infusion Device into Upper Vein, Percutaneous Approach (ICD-10-PCS; principal; 2019-05-19)
DX: A41.50 Gram-negative sepsis, unspecified (principal); J15.6 Pneumonia due to other Gram-negative bacteria; J96.01 Acute respiratory failure with hypoxia; R65.21 Severe sepsis with septic shock; I13.0 Hypertensive heart and chronic kidney disease with heart failure and stage 1 through stage 4 chronic kidney disease, or unspecified chronic kidney disease; J44.0 Chronic obstructive pulmonary disease with (acute) lower respiratory infection; J44.1 Chronic obstructive pulmonary disease with (acute) exacerbation; J98.11 Atelectasis; N17.9 Acute kidney failure, unspecified; E87.8 Other disorders of electrolyte and fluid balance, not elsewhere classified; I48.2 Chronic atrial fibrillation; I50.9 Heart failure, unspecified; M06.9 Rheumatoid arthritis, unspecified; N18.3 Chronic kidney disease, stage 3 (moderate); E03.9 Hypothyroidism, unspecified; E78.5 Hyperlipidemia, unspecified; F41.9 Anxiety disorder, unspecified; G25.81 Restless legs syndrome; H35.30 Unspecified macular degeneration; I25.10 Atherosclerotic heart disease of native coronary artery without angina pectoris; K21.9 Gastro-esophageal reflux disease without esophagitis; M19.90 Unspecified osteoarthritis, unspecified site; Z79.01 Long term (current) use of anticoagulants; Z79.82 Long term (current) use of aspirin; Z79.890 Hormone replacement therapy; Z79.899 Other long term (current) drug therapy; Z86.14 Personal history of Methicillin resistant Staphylococcus aureus infection; Z86.19 Personal history of other infectious and parasitic diseases; Z86.711 Personal history of pulmonary embolism; Z86.718 Personal history of other venous thrombosis and embolism; Z87.01 Personal history of pneumonia (recurrent); Z87.891 Personal history of nicotine dependence; Z95.5 Presence of coronary angioplasty implant and graft; Z95.2 Presence of prosthetic heart valve; Z95.0 Presence of cardiac pacemaker
CPT/HCPCS: 36415; 36556; 71045; 71046; 80048; 80053; 83605; 83735; 83880; 84484; 85025; 85610; 85730; 87040; 87070; 87086; 87205; 93005; 94640; 96361; 96365; 96375; 99291

== ENCOUNTER 2019-09-02 12:54 | Inpatient (IN) | payer MEDICARE, OTHER ==
[2019-09-02 19:05] VITALS: BMI 25.2
[2019-09-02] MEDS ORDERED: HEPARIN SODIUM,PORCINE 5,000 UNIT/ML 1 ML VIAL IV PRN (19:38)
[2019-09-02] MEDS ORDERED: HEPARIN SOD,PORK IN 0.45% NACL 25,000 UNIT in 0.45% NACL 1 250ML.BAG IV SCH (19:45)
[2019-09-02] MEDS ORDERED: ONDANSETRON 4 MG/2 ML VIAL IVP PRN (19:50)
[2019-09-02 20:23] LABS: Basophils # (A) 0.1 k/uL (0-0.2); Basophils % (A) 1 %; Eosinophils # (A) 0.1 k/uL (0-0.7); Eosinophils % (A) 2 %; HCT 38.5 % (39.0-53.0); HGB 12.7 gm/dL (13.0-17.5); Lymphocytes # (A) 1.2 k/uL (1.0-4.8); Lymphocytes % (A) 14 %; MCH 33.1 pg (25.0-35.0); MCHC 33.1 g/dL (31.0-37.0); MCV 100.2 fL (80.0-100.0); Mean Platelet Volume 8.1; Monocytes # (A) 0.5 k/uL (0-1.0); Monocytes % (A) 6 %; Neutrophils # (A) 6.7 k/uL (1.3-7.7); Neutrophils % (A) 76 %; Platelet Count 181 k/uL (150-450); RBC 3.85 m/uL (4.30-5.90); RDW 13.3 % (11.5-15.5); WBC 8.8 k/uL (3.8-10.6)
[2019-09-02 20:45] LABS: INR 1.3 (<1.2); Prothrombin Time 13.7 sec (9.0-12.0)
[2019-09-02] MEDS: RANOLAZINE 500 MG TAB.ER.12H PO SCH (21:40)
[2019-09-02] MEDS: GABAPENTIN 300 MG CAP PO SCH (21:40)
[2019-09-02] MEDS: METOPROLOL TARTRATE 25 MG TAB PO SCH (21:40)
[2019-09-02] MEDS: ATORVASTATIN 20 MG TAB PO SCH (21:42)
[2019-09-02] MEDS: ALPRAZolam 0.5 MG TAB PO PRN (23:51)
[2019-09-03 04:17] LABS: Basophils # (A) 0.1 k/uL (0-0.2); Basophils % (A) 1 %; Eosinophils # (A) 0.3 k/uL (0-0.7); Eosinophils % (A) 4 %; HCT 35.1 % (39.0-53.0); HGB 11.5 gm/dL (13.0-17.5); Lymphocytes # (A) 1.3 k/uL (1.0-4.8); Lymphocytes % (A) 18 %; MCH 32.6 pg (25.0-35.0); MCHC 32.9 g/dL (31.0-37.0); MCV 99.2 fL (80.0-100.0); Mean Platelet Volume 8.4; Monocytes # (A) 0.4 k/uL (0-1.0); Monocytes % (A) 6 %; Neutrophils # (A) 4.7 k/uL (1.3-7.7); Neutrophils % (A) 68 %; Platelet Count 152 k/uL (150-450); RBC 3.53 m/uL (4.30-5.90); RDW 13.2 % (11.5-15.5); WBC 6.9 k/uL (3.8-10.6)
[2019-09-03] MEDS: HYDROcodone/APAP 10-325MG 1 EACH TAB PO PRN (04:38)
[2019-09-03] MEDS: GABAPENTIN 300 MG CAP PO SCH ×2 (06:25→21:30)
[2019-09-03] MEDS: RANOLAZINE 500 MG TAB.ER.12H PO SCH ×2 (06:25→21:30)
[2019-09-03] MEDS: predniSONE 5 MG TAB PO SCH (06:25)
[2019-09-03] MEDS: FERROUS SULFATE 325 MG TAB PO SCH (06:25)
[2019-09-03] MEDS: METOPROLOL TARTRATE 25 MG TAB PO SCH (06:25)
[2019-09-03] MEDS: LEVOTHYROXINE 50 MCG TAB PO SCH (06:25)
[2019-09-03] MEDS: ALBUTEROL NEBULIZED 2.5 MG/3 ML INHALATION PRN ×2 (08:27→18:45)
[2019-09-03] MEDS: BUDESONIDE 0.25 MG/2 ML NEBU INHALATION SCH (08:27)
[2019-09-03] MEDS ORDERED: LIDOCAINE 1% INJ 10MG/ML (20 ML MDV) ONE (09:19)
[2019-09-03] MEDS ORDERED: fentaNYL (PF) 50 MCG/ML 2 ML AMP ONE (09:19)
[2019-09-03] MEDS ORDERED: ASPIRIN 325 MG TAB ONE (09:25)
[2019-09-03] MEDS ORDERED: ASPIRIN 325 MG TAB PO ONE (09:30)
[2019-09-03] MEDS ORDERED: HEPARIN SODIUM 1,000 UN/ML (10ML VL) ONE (09:37)
[2019-09-03] MEDS ORDERED: VERAPAMIL 2.5 MG/ML 2 ML AMP ONE (09:37)
[2019-09-03] MEDS ORDERED: IV FLUID CONTINUATION 300 ML IV ONE (09:39)
[2019-09-03] MEDS ORDERED: LIDOCAINE 1% INJ 10MG/ML (20 ML MDV) SQ ONE (09:45)
[2019-09-03] MEDS ORDERED: fentaNYL (PF) 50 MCG/ML 2 ML AMP IV ONE (09:45)
[2019-09-03] MEDS ORDERED: VERAPAMIL SYRINGE (5 MG/10 ML) INTRAARTER ONE (09:48)
[2019-09-03] MEDS: HEPARIN SODIUM 1,000 UN/ML (10ML VL) IV ONE ×2 (09:49→10:51)
--- NOTE | 2019-09-03 10:36 | P.HPIM ---
History of Present Illness Patient is a pleasant 70-year-old gentleman was transferred from [facility] after he was evaluated for syncope patient was evaluated by neurology and cardiology patient appears to have cardiac syncope, V. tach. Patient had a pacemaker which was interrogated which showed episodes of V. tach. Patient was subsequently transferred here for cardiac catheterization to rule out any coronary artery disease that is contributing to his V. tach episodes and if possible placement of an AICD. Patient is going for cardiac catheterization today. Patient denied any chest pain patient and her lightheadedness at this time patient does have history of atrial fibrillation on Coumadin which is being held for cardiac catheterization procedure. Patient does have heart failure with EF of around 45%. Review of Systems REVIEW OF SYSTEMS: CONSTITUTIONAL: No fever, no malaise, no fatigue. HEENT: No recent visual problems or hearing problems. Denied any sore throat. CARDIOVASCULAR: No chest pain, orthopnea, PND, no palpitations, no syncope. PULMONARY: No shortness of breath, no cough, no hemoptysis. GASTROINTESTINAL: No diarrhea, no nausea, no vomiting, no abdominal pain. NEUROLOGICAL: No headaches, no weakness, no numbness. HEMATOLOGICAL: Denies any bleeding or petechiae. GENITOURINARY: Denies any burning micturition, frequency, or urgency. MUSCULOSKELETAL/RHEUMATOLOGICAL: Denies any joint pain, swelling, or any muscle pain. ENDOCRINE: Denies any polyuria or polydipsia. The rest of the 14-point review of systems is negative. Past Medical History Past Medical History: Atrial Flutter, Asthma, Coronary Artery Disease (CAD), Heart Failure, COPD, Deep Vein Thrombosis (DVT), GERD/Reflux, Hyperlipidemia, Hypertension, Pneumonia, Pulmonary Embolus (PE), Rheumatoid Arthritis (RA), Thyroid Disorder Additional Past Medical History / Comment(s): MACULAR DEGNERATION MISA EYES,GERD, SHINGLES LT EAR [id number], "IRREG HEARTBEAT", RLS, hammertoe, chronic low back pain, USES A CANE FOR DISTANCE. History of Any Multi-Drug Resistant Organisms: ESBL, MRSA Date of last positivie culture/infection: 07/02/18 ESBL / 07/2013 & 01/2017 MRSA MDRO Source:: BRONCH ESBL/ MRSA 2nd pacer & HAND Past Surgical History: Bariatric Surgery, Coronary Bypass/CABG, Heart Catheterization, Heart Catheterization With Stent, Hernia Repair, Pacemaker Additional Past Surgical History / Comment(s): Trifecta aortic valve repalcement, bunionectomy left great toe, 7 heart caths, stents x2 to rca, gastroplasty 1979, crys-en-y May 2016 at [facility]; 2017- Diaphram Plycation at [facility], heart valve replacement at [facility]- Aortic valve- bovine, Pacers x3 (first pacer placed in 2006- need a new battery in 2012, placed 2nd pacer 2012. 2nd pacer became infected with MRSA and was removed. once infection cleared a 3rd was placed on the right side) Past Anesthesia/Blood Transfusion Reactions: No Reported Reaction Date of Last Stent Placement:: 2012 Type of Cardiac Device: Permanent Pacemaker Device Placement Date:: 2013 Past Psychological History: Anxiety Smoking Status: Former smoker Past Alcohol Use History: None Reported Additional Past Alcohol Use History / Comment(s): STARTED SMOKING AT AGE 19 UP TO 2 PPD QUIT 1977 Past Drug Use History: None Reported - Past Family History Father History Unknown: Yes Mother History Unknown: Yes Medications and Allergies Home Medications Medication Instructions Recorded Confirmed Type ALPRAZolam [Xanax] 0.5 mg PO BID PRN 12/10/17 09/02/19 History Aspirin [Adult Low Dose Aspirin EC] 81 mg PO DAILY 12/10/17 09/02/19 History Cyanocobalamin [Vitamin B-12 1,000 mcg SQ Q30D 12/10/17 09/02/19 History Injection] Ferrous Sulfate [Iron (65 MG 325 mg PO DAILY 12/10/17 09/02/19 History Elemental)] Furosemide [Lasix] 40 mg PO BID 12/10/17 09/02/19 History Gabapentin 600 mg PO BID 12/10/17 09/02/19 History HYDROcodone/APAP 10-325MG [[place] 1 tab PO TID PRN 12/10/17 09/02/19 History 10-325] Isosorbide Mononitrate ER [Imdur] 30 mg PO DAILY 12/10/17 09/02/19 History Levothyroxine Sodium [Synthroid] 50 mcg PO DAILY 12/10/17 09/02/19 History Losartan Potassium [Cozaar] 25 mg PO HS 12/10/17 09/02/19 History Metoprolol Succinate (ER) [Toprol 50 mg PO DAILY 12/10/17 09/02/19 History XL] Morphine Sulfate [Ms Contin] 30 mg PO Q12H 12/10/17 09/02/19 History Nitroglycerin Sl Tabs [Nitrostat] 0.4 mg SUBLINGUAL Q5M PRN 12/10/17 09/02/19 History Simvastatin 40 mg PO HS 12/10/17 09/02/19 History Spironolactone [Aldactone] 25 mg PO DAILY 12/10/17 09/02/19 History Vit C/E/Zn/Coppr/Lutein/Zeaxan 2 cap PO DAILY 12/10/17 09/02/19 History [Preservision Areds 2 Softgel] rOPINIRole HCL [Requip] 2 mg PO 5XD 12/10/17 09/02/19 History Warfarin Sodium [Coumadin] 2 mg PO THSA 09/11/18 09/02/19 History Ranolazine [Ranexa] 500 mg PO BID 05/19/19 09/02/19 History Warfarin Sodium [Coumadin] 1 mg PO SUMOTUWEFR 05/19/19 09/02/19 History Albuterol Nebulized [Ventolin 2.5 mg INHALATION RT-QID PRN 30 05/23/19 09/02/19 Rx Nebulized] Days #120 nebu Ipratropium/Albuterol Sulfate 2 puff INHALATION RT-QID #120 05/23/19 09/02/19 Rx [Combivent Respimat Inhaler] mist.inhal Omeprazole 20 mg PO DAILY 09/02/19 09/02/19 History predniSONE 5 mg PO DAILY 09/02/19 09/02/19 History Allergies Allergy/AdvReac Type Severity Reaction Status Date / Time No Known Allergies Allergy Verified 09/02/19 18:57 Physical Exam Vitals: Vital Signs Temp Pulse Pulse Resp BP Pulse Ox 09/03/19 08:41 64 09/03/19 08:27 72 09/03/19 08:00 97.7 F 59 L 18 142/67 93 L 09/03/19 04:00 97.7 F 66 18 138/73 93 L 09/03/19 03:36 18 09/03/19 00:00 98.2 F 70 18 133/64 94 L 09/02/19 20:00 97.8 F 66 18 145/74 96 09/02/19 17:54 70 16 166/75 94 L Intake and Output 09/02/19 09/03/19 09/03/19 22:59 06:59 14:59 Intake Total 240 240 418.292 Output Total 400 Balance 240 -160 418.292 Intake: Intake, IV Titration 182.292 Amount Heparin Sod,Pork in 0.45% 182.292 NaCl 25,000 unit In 0.45 % NaCl 1 250ml.bag @ 4. 951 UNITS/KG/HR 10.001 mls/hr IV .Q24H [facility] Rx#: [id number] Oral 240 240 236 Output: Urine 400 Other: Voiding Method Toilet Toilet Urinal Urinal # Voids 2 1 Weight 202 kg 92 kg PHYSICAL EXAMINATION: GENERAL: The patient is alert and oriented x3, not in any acute distress. Well developed, well nourished. HEENT: Pupils are round and equally reacting to light. EOMI. No scleral icterus. No conjunctival pallor. Normocephalic, atraumatic. No pharyngeal erythema. No t hyromegaly. CARDIOVASCULAR: S1 and S2 present. No murmurs, rubs, or gallops. PULMONARY: Chest is clear to auscultation, no wheezing or crackles. ABDOMEN: Soft, nontender, nondistended, normoactive bowel sounds. No palpable organomegaly. MUSCULOSKELETAL: No joint swelling or deformity. EXTREMITIES: No cyanosis, clubbing, or pedal edema. NEUROLOGICAL: Gross neurological examination did not reveal any focal deficits. SKIN: No rashes. Results CBC & Chem 7: 09/03/19 04:08 Labs: Abnormal Lab Results - Last 24 Hours (Table) 09/02/19 09/02/19 09/03/19 Range/Units 20:10 20:10 04:08 RBC 3.85 L 3.53 L (4.30-5.90) m/uL Hgb 12.7 L 11.5 L (13.0-17.5) gm/dL Hct 38.5 L 35.1 L (39.0-53.0) % MCV 100.2 H (80.0-100.0) fL PT 13.7 H (9.0-12.0) sec INR 1.3 H (<1.2) APTT 32.0 H (22.0-30.0) sec 09/03/19 Range/Units 04:08 RBC (4.30-5.90) m/uL Hgb (13.0-17.5) gm/dL Hct (39.0-53.0) % MCV (80.0-100.0) fL PT (9.0-12.0) sec INR (<1.2) APTT 66.8 H (22.0-30.0) sec Thrombosis Risk Factor Assmnt - Choose All That Apply Any of the Below Risk Factors Present?: Yes Each Factor Represents 1 point: Abnormal pulmonary function (COPD) Other Risk Factors: Yes Each Risk Factor Represents 3 Points: Age 75 years or older Other congenital or acquired thrombophilia - If yes, enter type in comment: No Thrombosis Risk Factor Assessment Total Risk Factor Score: 4 Thrombosis Risk Factor Assessment Level: Moderate Risk Assessment and Plan Plan: -Syncope: Secondary to V. tach episodes, cardiac catheterization today and depending on the Results patient probably will undergo AICD placement if needed and if cardiology believes he needs one. -Atrial fibrillation presently rate controlled continue with rate control medications Coumadin is on hold because for cardiac catheterization -History of coronary artery disease Hepatitis start failure Or dysfunction without any acute exacerbation patient had a mildly depressed ejection fraction of around 45%. -History of DVT and PE in the past gastroesophageal reflux disease -COPD without any significant exacerbation Plan have been hypertension -Hyperlipidemia -Hypothyroidism For rest of the above-mentioned chronic medical problems patient will be resumed and continued on appropriate home medications.
[2019-09-03] MEDS: NITROGLYCERIN 1000MCG/10ML SYRINGE INTRACORON ONE ×2 (10:53→10:57)
[2019-09-03] MEDS ORDERED: ADENOSINE 90 MG in SODIUM CHLORIDE 0.9% 60 ML IVP ONE (11:00)
[2019-09-03] MEDS ORDERED: IOPAMIDOL-370 125ML BTL INJ ONE (11:06)
[2019-09-03] MEDS ORDERED: IOPAMIDOL-370 50ML BTL INJ ONE (11:06)
[2019-09-03] MEDS: SODIUM CHLORIDE 0.9% 1,000 ML IV SCH ×2 (11:39→23:35)
--- NOTE | 2019-09-03 11:39 | PCN ---
PROCEDURE NOTE DATE OF SERVICE: 09/03/2019. PROCEDURE: Fractional flow reserve assessment of left anterior descending vessel in the midportion and a second diagonal branch. PERFORMED BY: Dr. Randell Schneider. Moderate conscious sedation time was 19 minutes. Patient was administered Versed. Oxygen saturation, hemodynamics and EKG were monitored closely. PROCEDURE NOTE: Following coronary angiography that was performed by Dr. Fine, there was a question that the mid LAD had a moderate lesion and a second diagonal also had a moderate lesion. The patient had a syncope and VT and has had a prior pacemaker. In view of the moderate lesions, he was advised to have a fractional flow reserve assessment to verify the significance of the lesion and need for intervention. The existing 6-[place] Citizen introducer in the right radial artery was used to perform procedure. A JL3.5 guide catheter of 6-[place] caliber was used to cannulate the left coronary artery. The patient received 4000 units of additional heparin. I used a Verrata wire and crossed the mid LAD lesion. Wire was kept distally. After doing the calibration and giving intracoronary nitroglycerin waiting about 3 minutes, an IFR was performed and subsequently with adenosine infusion as per protocol FFR was performed. Subsequently, I advanced the Verrata wire into the second diagonal branch and obtained an IFR. Both these values suggested that there was no significant disease. The catheter and wire were taken out and TR band applied as per protocol with saturation in the fingers of the right hand of about 97%. The patient tolerated procedure well without complication. No need for any coronary intervention given the fact IFR and FFR were unremarkable. This was explained to the patient and he was sent to the room in a stable condition. Left anterior descending coronary artery mid lesion was assessed by IFR. The value was 0.89. After adenosine infusion as per protocol, FFR was assessed and this value was also 0.89. I performed an IFR of the 2nd major diagonal branch and the IFR was 0.94. The patient does not have any hemodynamically significant lesions in his LAD or diagonal. MMODL / IJN: [id number] /
[2019-09-03] MEDS ORDERED: HEPARIN SODIUM,PORCINE 5,000 UNIT/ML 1 ML VIAL IV ONE (17:55)
[2019-09-03 18:35] LABS: INR 1.3 (<1.2); Partial Thromboplastin Time 27.2 sec (22.0-30.0); Prothrombin Time 13.1 sec (9.0-12.0)
[2019-09-03] MEDS: HEPARIN SOD,PORK IN 0.45% NACL 25,000 UNIT in 0.45% NACL 1 250ML.BAG IV SCH (18:45)
[2019-09-03] MEDS: ATORVASTATIN 20 MG TAB PO SCH (21:30)
[2019-09-03] MEDS: SOTALOL 80 MG TAB PO SCH (21:58)
[2019-09-03] MEDS: ALPRAZolam 0.5 MG TAB PO PRN (23:35)
[2019-09-04] MEDS: HYDROcodone/APAP 10-325MG 1 EACH TAB PO PRN (01:05)
[2019-09-04] MEDS: LEVOTHYROXINE 50 MCG TAB PO SCH (06:10)
[2019-09-04 06:38] LABS: Basophils % (A) 1 %; Eosinophils # (A) 0.2 k/uL (0-0.7); Eosinophils % (A) 3 %; HCT 34.6 % (39.0-53.0); HGB 11.5 gm/dL (13.0-17.5); Lymphocytes # (A) 1.4 k/uL (1.0-4.8); Lymphocytes % (A) 21 %; MCH 33.1 pg (25.0-35.0); MCHC 33.2 g/dL (31.0-37.0); MCV 99.7 fL (80.0-100.0); Mean Platelet Volume 7.1; Monocytes # (A) 0.5 k/uL (0-1.0); Monocytes % (A) 7 %; Neutrophils # (A) 4.4 k/uL (1.3-7.7); Neutrophils % (A) 65 %; Platelet Count 174 k/uL (150-450); RBC 3.47 m/uL (4.30-5.90); RDW 13.2 % (11.5-15.5); WBC 6.7 k/uL (3.8-10.6)
[2019-09-04 06:48] LABS: Albumin 2.8 g/dL (3.5-5.0); Calcium 8.1 mg/dL (8.4-10.2); Potassium 3.7 mmol/L (3.5-5.1); Total Bilirubin 0.4 mg/dL (0.2-1.3); Total Protein 5.6 g/dL (6.3-8.2)
[2019-09-04] MEDS: HEPARIN SODIUM,PORCINE 5,000 UNIT/ML 1 ML VIAL IV PRN ×2 (07:40→16:15)
[2019-09-04] MEDS: RANOLAZINE 500 MG TAB.ER.12H PO SCH ×2 (08:40→21:17)
[2019-09-04] MEDS: FERROUS SULFATE 325 MG TAB PO SCH (08:40)
[2019-09-04] MEDS: SOTALOL 80 MG TAB PO SCH ×2 (08:41→21:17)
[2019-09-04] MEDS: predniSONE 5 MG TAB PO SCH (08:41)
[2019-09-04] MEDS: GABAPENTIN 300 MG CAP PO SCH ×2 (08:42→21:17)
[2019-09-04] MEDS: BUDESONIDE 0.25 MG/2 ML NEBU INHALATION SCH (09:11)
[2019-09-04] MEDS: ALBUTEROL NEBULIZED 2.5 MG/3 ML INHALATION PRN (09:11)
[2019-09-04] MEDS ORDERED: IV FLUID CONTINUATION 800 ML IV ONE (09:35)
[2019-09-04] MEDS ORDERED: IOPAMIDOL-370 100ML BTL INJ ONE (09:40)
[2019-09-04] MEDS ORDERED: RX INFO: IV CONTRAST WAS GIVEN 1 EACH MISC MISCELLANE PRN (09:46)
--- NOTE | 2019-09-04 09:55 | P.CARDCATH ---
Date of Procedure: 09/03/19 Preoperative Diagnosis: Recurrent syncope and V. tach and known ischemic heart disease Postoperative Diagnosis: Stable coronary artery disease with patent stents in the RCA and moderate disease in the LAD and the diagonal Description of Procedure: HISTORY: This is a 78-year-old gentleman with history of ischemic heart disease with a previous stent placement of the RCA and also permanent pacemaker implantation was admitted to [facility] with recurrent syncopes. Evaluation of his pacemaker showed evidence of recurrent ventricular tachycardia episodes. Patient is advised to have a cardiac catheterization to rule out any progression of ischemic heart disease CONSENT:I have discussed the risks, benefits and alternative therapies for the above-mentioned procedure and for both sedation/analgesia as well as necessary blood product administration, if indicated, as they pertain to this patient. The patient has indicated understanding and acceptance of the risks and procedures discussed. PROCEDURE: Patient was brought to the lab in a fasting state. Patient was given some IV sedation. The right wrist is infiltrated with lidocaine and right radial artery was entered using Seldinger technique. A 6-Slovenian catheter was left in place and selective coronary arteriography was performed. Patient tolerated the procedure well. Patient went on to have FFR of the LAD and diagonal by Dr. GAYATRI Schneider Conscious Sedation: Versed 0mg Fentanyl 50 g Duration 30minutes HEMODYNAMICS: The aortic pressure is about 120/70. Left ventricle pressure was not measured because patient has prosthetic valve SELECTIVE CORONARY ARTERIOGRAPHY: LEFT MAIN:. This is of normal length and free of any occlusive disease THE LEFT ANTERIOR DESCENDING CORONARY ARTERY:. This is a good caliber vessel giving rise to 3 diagonal branches. The LAD has moderate disease in midportion and appears to be 50-60% and eccentric in nature. The second diagonal branch also has ostial lesion which is difficult to define. THE LEFT CIRCUMFLEX AND IS CORONARY ARTERY: This is a nondominant vessel and free of any occlusive disease THE RIGHT CORONARY ARTERY:. This is a dominant vessel giving rise good-sized PDA and PLV. Free of any occlusive disease LEFT VENTRICULOGRAPHY:. Not performed FINAL IMPRESSION:, Patent stents in the RCA. Moderate disease in the LAD and diagonal branches. Patient is going to have FFR by Dr. GAYATRI Schneider to assess the significance of the lesion LAD and the diagonal branch PLAN:. FFR of the LAD and diagonal branch PROGNOSIS: Fair
--- NOTE | 2019-09-04 09:57 | P.PCN ---
Date of Procedure: 09/04/19 Preoperative Diagnosis: History of previous pacemaker requiring upgraded to AICD. Assess the patency of the subclavian system Postoperative Diagnosis: Patent left circumflex nervous system and axillary veins Procedure(s) Performed: Venogram Description of Procedure: Patient was brought to the lab in a fasting state. Venogram of the left arm was performed. Patient tolerated the procedure well. Findings. Patent left subclavian and axillary system.
[2019-09-04] MEDS: SODIUM CHLORIDE 0.9% 1,000 ML IV SCH ×2 (12:37→16:14)
--- NOTE | 2019-09-04 16:07 | P.PN ---
Subjective Progress Note Date: 09/04/19 Principal diagnosis: Patient is a pleasant 70-year-old gentleman was transferred from [facility] after he was evaluated for syncope patient was evaluated by neurology and cardiology patient appears to have cardiac syncope, V. tach. Patient had a pacemaker which was interrogated which showed episodes of V. tach. Patient was subsequently transferred here for cardiac catheterization to rule out any coronary artery disease that is contributing to his V. tach episodes and if possible placement of an AICD. Patient is going for cardiac catheterization today. Patient denied any chest pain patient and her lightheadedness at this time patient does have history of atrial fibrillation on Coumadin which is being held for cardiac catheterization procedure. Patient does have heart failure with EF of around 45%. 09/04/2019 Patient is sitting up in bed in no acute distress with family at the bedside. Patient underwent a venogram with Dr. Fine showing patent left subclavian and axillary system and also underwent cardiac catheterization yesterday and was determined that the patient does not have any significant lesions in his LAD or diagonal and is scheduled to have an AICD placed tomorrow. Patient has a past history of pacemakers and is currently requiring the placement of an AICD. Cardiology is following closely. Currently patient denies any chest pain, shortness of breath, or palpitations. Patient is afebrile. Patient denies any nausea or vomiting and has been tolerating diet. Patient was also started on sotalol. Patient was inquiring about a possible primary care provider in this area as his current PCP is about an hour to an hour and a half out of town. Resources will be provided. Will continue to monitor closely. Guarded prognosis. Objective - Vital Signs Vital signs: Vital Signs Temp 97.8 F 09/04/19 12:00 Pulse 70 09/04/19 12:00 Resp 20 09/04/19 12:00 BP 125/69 09/04/19 12:00 Pulse Ox 94 L 09/04/19 12:00 Intake & Output 09/03/19 09/04/19 09/04/19 18:59 06:59 18:59 Intake Total 945.292 600 153.167 Output Total 1150 Balance 945.292 -550 153.167 Weight 93.8 kg Intake: IV 169 25 Intake, IV Titration 182.292 128.167 Amount Heparin Sod,Pork in 0.45% 128.167 NaCl 25,000 unit In 0.45 % NaCl 1 250ml.bag @ 10. 87 UNITS/KG/HR 10 mls/hr IV .Q24H [facility] Rx#: [id number] Heparin Sod,Pork in 0.45% 182.292 NaCl 25,000 unit In 0.45 % NaCl 1 250ml.bag @ 4. 951 UNITS/KG/HR 10.001 mls/hr IV .Q24H [facility] Rx#: [id number] Oral 594 600 Output: Urine 1150 Other: Voiding Method Toilet Toilet Toilet Urinal Urinal # Voids 1 # Bowel Movements 1 - Exam GENERAL: The patient is alert and oriented x3, not in any acute distress. Well developed, well nourished. HEENT: Pupils are round and equally reacting to light. EOMI. No scleral icterus. No conjunctival pallor. Normocephalic, atraumatic. No pharyngeal erythema. No thyromegaly. CARDIOVASCULAR: S1 and S2 present. No murmurs, rubs, or gallops. PULMONARY: Diminished breath sounds at the bases otherwise Chest is clear to auscultation, no wheezing or crackles. ABDOMEN: Soft, nontender, nondistended, normoactive bowel sounds. No palpable organomegaly. MUSCULOSKELETAL: No joint swelling or deformity. EXTREMITIES: No cyanosis, clubbing, or pedal edema. NEUROLOGICAL: Gross neurological examination did not reveal any focal deficits. SKIN: No rashes. - Labs CBC & Chem 7: 09/04/19 06:23 09/04/19 06:23 Labs: Abnormal Lab Results - Last 24 Hours (Table) 09/03/19 09/04/19 09/04/19 Range/Units 18:13 00:28 06:23 RBC 3.47 L (4.30-5.90) m/uL Hgb 11.5 L (13.0-17.5) gm/dL Hct 34.6 L (39.0-53.0) % PT 13.1 H (9.0-12.0) sec INR 1.3 H (<1.2) APTT 30.9 H (22.0-30.0) sec Chloride (98-107) mmol/L BUN (9-20) mg/dL Creatinine (0.66-1.25) mg/dL Calcium (8.4-10.2) mg/dL Total Protein (6.3-8.2) g/dL Albumin (3.5-5.0) g/dL 09/04/19 09/04/19 Range/Units 06:23 06:23 RBC (4.30-5.90) m/uL Hgb (13.0-17.5) gm/dL Hct (39.0-53.0) % PT (9.0-12.0) sec INR (<1.2) APTT 33.1 H (22.0-30.0) sec Chloride 109 H (98-107) mmol/L BUN 21 H (9-20) mg/dL Creatinine 1.28 H (0.66-1.25) mg/dL Calcium 8.1 L (8.4-10.2) mg/dL Total Protein 5.6 L (6.3-8.2) g/dL Albumin 2.8 L (3.5-5.0) g/dL Assessment and Plan Assessment: -Syncope: Secondary to V. tach episodes, cardiac catheterization done yesterday.patient probably will undergo AICD placement if needed and if cardiology believes he needs one. A venogram was also done showing patent left subclavian and axillary system. Plan is for an AICD placement tomorrow. -Atrial fibrillation presently rate controlled continue with rate control medications Coumadin is on hold because for cardiac catheterization -History of coronary artery disease Congestive heart failure Or dysfunction without any acute exacerbation patient had a mildly depressed ejection fraction of around 45%. -History of DVT and PE in the past -gastroesophageal reflux disease -COPD without any significant exacerbation -History of hypertension -Hyperlipidemia -Hypothyroidism
--- NOTE | 2019-09-04 17:26 | P.PN ---
Subjective Progress Note Date: 09/04/19 This is a 78-year-old gentleman with history of ischemic heart disease with previous stent placement of the RCA and also history of aortic valve replacement who was admitted to [facility] with recurrent episodes of syncope. Interrogation of the pacemaker showed evidence of recurrent bouts of ventricular tachycardia. The is Pa are not available but the ventricular rate was high compared to the atrial rate and appeared to be bouts of ventricular tachycardia. His EKG showed normal QT interval without any significant changes. Cardiac catheterization did not reveal any evidence of pr ogression of ischemic heart disease. There was moderate disease in the LAD and diagonal but FFR was within normal limits. Because of hemodynamically significant episodes of V. tach associated with syncope. Patient is advised to have prophylactic AICD implantation. He is also initiated on sotalol. Patient did not want to go on amiodarone. Patient was explained the risks and benefits of the procedure which she fully understood and accepted. He is being scheduled for upgrading of his pacemaker to AICD tomorrow morning. Currently, patient is stable. A venogram showed patent vein on the right side. Objective - Vital Signs Vital signs: Vital Signs Temp 98.5 F 09/04/19 16:00 Pulse 73 09/04/19 16:00 Resp 20 09/04/19 16:00 BP 139/72 09/04/19 16:00 Pulse Ox 94 L 09/04/19 16:00 Intake & Output 09/03/19 09/04/19 09/04/19 18:59 06:59 18:59 Intake Total 945.292 600 504.423 Output Total 1150 Balance 945.292 -550 504.423 Weight 93.8 kg Intake: IV 169 25 Intake, IV Titration 182.292 239.423 Amount Heparin Sod,Pork in 0.45% 239.423 NaCl 25,000 unit In 0.45 % NaCl 1 250ml.bag @ 10. 87 UNITS/KG/HR 10 mls/hr IV .Q24H [facility] Rx#: [id number] Heparin Sod,Pork in 0.45% 182.292 NaCl 25,000 unit In 0.45 % NaCl 1 250ml.bag @ 4. 951 UNITS/KG/HR 10.001 mls/hr IV .Q24H [facility] Rx#: [id number] Oral 594 600 240 Output: Urine 1150 Other: Voiding Method Toilet Toilet Toilet Urinal Urinal # Voids 1 2 # Bowel Movements 1 2 - Exam GENERAL EXAM: Patient is alert and oriented and doesn't appear to be in any acute distress HEENT: Normocephalic. Normal reaction of pupils, equal size, normal range of extraocular motion. No erythema or exudates in the throat. NECK: No masses, no nuchal rigidity. CHEST: No chest wall deformity. LUNGS: Equal air entry with no crackles or wheeze. HEART: S1 and S2 normal with no audible mumurs or gallops. Regular rhythm, femorals equal on both sides.. ABDOMEN: No hepatosplenomegaly, normal bowel sounds, no guarding or rigidity. SKIN: No rashes CENTRAL NERVOUS SYSTEM: No focal deficits. EXTREMITIES: No cyanosis, clubbing or edema. - Labs CBC & Chem 7: 09/04/19 06:23 09/04/19 06:23 Labs: Abnormal Lab Results - Last 24 Hours (Table) 09/03/19 09/04/19 09/04/19 Range/Units 18:13 00:28 06:23 RBC 3.47 L (4.30-5.90) m/uL Hgb 11.5 L (13.0-17.5) gm/dL Hct 34.6 L (39.0-53.0) % PT 13.1 H (9.0-12.0) sec INR 1.3 H (<1.2) APTT 30.9 H (22.0-30.0) sec Chloride (98-107) mmol/L BUN (9-20) mg/dL Creatinine (0.66-1.25) mg/dL Calcium (8.4-10.2) mg/dL Total Protein (6.3-8.2) g/dL Albumin (3.5-5.0) g/dL 09/04/19 09/04/19 09/04/19 Range/Units 06:23 06:23 14:55 RBC (4.30-5.90) m/uL Hgb (13.0-17.5) gm/dL Hct (39.0-53.0) % PT (9.0-12.0) sec INR (<1.2) APTT 33.1 H 42.7 H (22.0-30.0) sec Chloride 109 H (98-107) mmol/L BUN 21 H (9-20) mg/dL Creatinine 1.28 H (0.66-1.25) mg/dL Calcium 8.1 L (8.4-10.2) mg/dL Total Protein 5.6 L (6.3-8.2) g/dL Albumin 2.8 L (3.5-5.0) g/dL Assessment and Plan (1) Syncope and collapse Current Visit: Yes Status: Acute Code(s): R55 - SYNCOPE AND COLLAPSE SNOMED Code(s): 707279032 (2) Ventricular tachycardia Current Visit: Yes Status: Acute Code(s): I47.2 - VENTRICULAR TACHYCARDIA SNOMED Code(s): 08844019 (3) Ischemic heart disease Current Visit: Yes Status: Acute Code(s): I25.9 - CHRONIC ISCHEMIC HEART DISEASE, UNSPECIFIED SNOMED Code(s): 900196595 (4) History of aortic valve replacement Current Visit: Yes Status: Acute Code(s): Z95.2 - PRESENCE OF PROSTHETIC HEART VALVE SNOMED Code(s): 7014903955621 Plan: Will proceed with AICD implantation the morning. We'll continue heparin. Continue the rest of the medication including sotalol.
[2019-09-04] MEDS: HEPARIN SOD,PORK IN 0.45% NACL 25,000 UNIT in 0.45% NACL 1 250ML.BAG IV SCH (19:37)
[2019-09-04] MEDS: ATORVASTATIN 20 MG TAB PO SCH (21:18)
[2019-09-04 23:08] LABS: INR 1.2 (<1.2); Partial Thromboplastin Time 52.4 sec (22.0-30.0); Prothrombin Time 12.6 sec (9.0-12.0)
[2019-09-05] MEDS: HYDROcodone/APAP 10-325MG 1 EACH TAB PO PRN ×3 (00:51→23:48)
[2019-09-05] MEDS: SODIUM CHLORIDE 0.9% 1,000 ML IV SCH ×3 (00:53→15:41)
[2019-09-05] MEDS: ALPRAZolam 0.5 MG TAB PO PRN ×2 (00:59→05:44)
[2019-09-05] MEDS: GABAPENTIN 300 MG CAP PO SCH ×2 (05:33→20:36)
[2019-09-05] MEDS: RANOLAZINE 500 MG TAB.ER.12H PO SCH ×2 (05:33→20:36)
[2019-09-05] MEDS: LEVOTHYROXINE 50 MCG TAB PO SCH (05:34)
[2019-09-05] MEDS: FERROUS SULFATE 325 MG TAB PO SCH (05:34)
[2019-09-05] MEDS: predniSONE 5 MG TAB PO SCH (05:45)
[2019-09-05] MEDS: SOTALOL 80 MG TAB PO SCH ×2 (05:45→20:36)
[2019-09-05] MEDS ORDERED: ceFAZolin 1,000 MG in SODIUM CHLORIDE 0.9% IRRIGATIO 250 ML IRRIGATION ONE (06:00)
[2019-09-05] MEDS ORDERED: SODIUM CHLORIDE 0.9% 1,000 ML IV SCH ×2 (06:00)
[2019-09-05 07:03] LABS: Basophils # (A) 0.1 k/uL (0-0.2); Basophils % (A) 1 %; Eosinophils # (A) 0.3 k/uL (0-0.7); Eosinophils % (A) 4 %; HCT 35.1 % (39.0-53.0); HGB 11.7 gm/dL (13.0-17.5); Lymphocytes # (A) 1.2 k/uL (1.0-4.8); Lymphocytes % (A) 19 %; MCH 32.9 pg (25.0-35.0); MCHC 33.2 g/dL (31.0-37.0); MCV 99.2 fL (80.0-100.0); Mean Platelet Volume 7.8; Monocytes # (A) 0.4 k/uL (0-1.0); Monocytes % (A) 6 %; Neutrophils # (A) 4.2 k/uL (1.3-7.7); Neutrophils % (A) 68 %; Platelet Count 173 k/uL (150-450); RBC 3.54 m/uL (4.30-5.90); RDW 13.1 % (11.5-15.5); WBC 6.1 k/uL (3.8-10.6)
[2019-09-05] MEDS: BUDESONIDE 0.25 MG/2 ML NEBU INHALATION SCH (09:41)
[2019-09-05] MEDS: ALBUTEROL NEBULIZED 2.5 MG/3 ML INHALATION PRN (09:41)
[2019-09-05] MEDS ORDERED: HYDROCORTISONE SUCCINATE 100 MG/2 ML VIAL IV STA (10:32)
[2019-09-05] MEDS ORDERED: MIDAZOLAM 2 MG/2 ML VIAL ONE (11:37)
[2019-09-05] MEDS ORDERED: fentaNYL (PF) 50 MCG/ML 2 ML AMP ONE (11:37)
[2019-09-05] MEDS ORDERED: PROPOFOL 10 MG/ML 20 ML VIAL IV ONE (11:37)
[2019-09-05] MEDS ORDERED: PHENYLEPHRINE-0.9% NACL SYG 1 MG/10 ML SYRINGE ONE (11:37)
[2019-09-05] MEDS ORDERED: LIDOCAINE 1% INJ 10MG/ML (20 ML MDV) ONE (12:05)
[2019-09-05] MEDS ORDERED: IOPAMIDOL-370 50ML BTL INJ ONE (12:10)
[2019-09-05] MEDS ORDERED: LIDOCAINE 1% INJ 10MG/ML (20 ML MDV) SQ ONE ×2 (12:25→13:05)
[2019-09-05] MEDS ORDERED: SODIUM CHLORIDE 0.9% 1,000 ML IV ONE ×2 (12:30)
[2019-09-05] MEDS ORDERED: ACETAMINOPHEN TAB 325 MG TAB PO PRN (13:26)
--- NOTE | 2019-09-05 13:46 | P.PCN ---
Date of Procedure: 09/05/19 Preoperative Diagnosis: Recurrence episodes of V. tach and syncope. Ischemic heart disease and status post aortic valve replacement. He had history of permanent pacemaker implantation Postoperative Diagnosis: The same Procedure(s) Performed: Implantation of ICD, single coil and single-chamber. Explantation of the old generator , capping of the ventricular lead and pocket revision. Description of Procedure: History: This is a 78-year-old gentleman with history of ischemic heart disease with previous stent placement of the RCA, aortic valve replacement and permanent pacemaker implantation for bradycardia, is admitted to the hospital with episodes of recurrent syncope. Evaluation of the pacemaker showed recurrent bouts of ventricular tachycardia at the time of syncope. Patient is advised to have AICD implantation. Patient fully understood and accepted. CONSENT:I have discussed the risks, benefits and alternative therapies for the above-mentioned procedure and for both sedation/analgesia as well as necessary b lood product administration, if indicated, as they pertain to this patient. The patient has indicated understanding and acceptance of the risks and procedures discussed. PROCEDURE: Patient was brought to the lab in a fasting state. Patient was prepped and draped in the usual fashion. Patient was given sedation by department of anesthesia The skin over the existing pulse generator was infiltra holger with lidocaine. An incision was made over the generator and the initiation was deepened until the pectoral fascia was exposed. The capsule was cut open and the leads were freed from medications. Pocket was revised to adapt for the AICD generator. Blunt dissection and also cautery was used. . Axillary venography was already performed performed to delineate the course of the axillary vein. A single venous stick were performed into extrathoracic portion of the axillary vein and a single sheath was advanced over the guidewires and left in subclavian vein. Conscious Sedation: Admission by department of anesthesia Fentanyl [] g Duration 60minutes LEADS: ATRIAL: This is manufactured by [employer]. Model number is [id number] and the serial number is [id number] VENTRICULAR: Explanted lead was manufactured by [employer]. Model number [id number] and the serial number is [id number] ICD lead: This is manufactured by [employer]. Model number is [id number] and the serial number is [id number] Explanted device: This is manufactured by [employer]. Model number is [id number] and the serial number is [id number]. The ICD generator: This is manufactured by [employer]. Model number is [id number] and the serial number [id number]. The ventricular lead is maneuvered l with help of a straight and curved stylets into the left ventricle septall region. Satisfactory position was obtained and threshold measurements were made. The atrial lead was then maneuvered into the right atrial appendage. And thresholds were obtained. THRESHOLDS: ATRIUM: Minimal pacing threshold is 0.625 V at a pulse width of 0.5. The impedance is 350 ohms P-wave:2.1 milliamps. Will he appears. VENTRICLE: The minimal patient threshold was 0.75 at pulse width of 0.5 ms. The R-wave is 6.7 and the impedance is 559 The leads and pulse generator remained in the pocket after it was washed with antibiotics. Pocket was closed in the usual fashion. The fascia was closed with 2-0 Prolene ,the subcutaneous tissue was closed with 3-0 Prolene and the skin was closed with 4-0 Prolene. DFT testing: Patient was given deep anesthesia. Vent ricular fibrillation was induced with T shock. 15 J shock failed to convert patient but 25 J shock converted patient back to sinus rhythm. Patient tolerated the procedure well PROGRAMMING: Bradycardia therapy: MODE: DDDR RATE: 60-120 OUTPUT: Atrium : 3.5 Ventricle: 3.5 v Tachycardia therapy: VF zone is programmed to a rate of 2 40 bpm with atypical therapy 1 followed by shocks of 30 J followed by 365. VT 1 zone was programmed to a rate of 1 76 bpm. Therapies are programmed ATP 3 followed by a TC time. 3 followed by 30 J and eversion followed by 30 J time to cardioversion. VT zone 2 was programmed to a rate of 214. Therapies are programmed to ATP 2 followed by 30 J cardioversion followed by 363 FINAL IMPRESSION: #1. Implantation of single-chamber single coil AICD #2. Explantation of existing pulse generator #3, capping of the ventricular lead were 4. Pocket revision new COMPLICATIONS: None PLAN: Patient will be monitored on the telemetry unit. Prophylactic antibiotics to be continued. Chest x-ray in the morning.
--- NOTE | 2019-09-05 15:30 | P.PN ---
Subjective Progress Note Date: 09/05/19 Principal diagnosis: Patient is a pleasant 70-year-old gentleman was transferred from [facility] after he was evaluated for syncope patient was evaluated by neurology and cardiology patient appears to have cardiac syncope, V. tach. Patient had a pacemaker which was interrogated which showed episodes of V. tach. Patient was subsequently transferred here for cardiac catheterization to rule out any coronary artery disease that is contributing to his V. tach episodes and if possible placement of an AICD. Patient is going for cardiac catheterization today. Patient denied any chest pain patient and her lightheadedness at this time patient does have history of atrial fibrillation on Coumadin which is being held for cardiac catheterization procedure. Patient does have heart failure with EF of around 45%. 09/04/2019 Patient is sitting up in bed in no acute distress with family at the bedside. Patient underwent a venogram with Dr. Fine showing patent left subclavian and axillary system and also underwent cardiac catheterization yesterday and was determined that the patient does not have any significant lesions in his LAD or diagonal and is scheduled to have an AICD placed tomorrow. Patient has a past history of pacemakers and is currently requiring the placement of an AICD. Cardiology is following closely. Currently patient denies any chest pain, shortness of breath, or palpitations. Patient is afebrile. Patient denies any nausea or vomiting and has been tolerating diet. Patient was also started on sotalol. Patient was inquiring about a possible primary care provider in this area as his current PCP is about an hour to an hour and a half out of town. Resources will be provided. Will continue to monitor closely. Guarded prognosis. 09/05/2019 Patient is lying in bed in no acute distress awaiting to go down for AICD placement. Cardiology is following. Will continue to monitor closely. No acute overnight issues. REVIEW OF SYSTEMS: ENT: No diminished vision or hearing. CARDIOVASCULAR: No reports of chest pain or palpitations RESPIRATORY: No reports her shortness of breath or cough GI: No nausea, vomiting or diarrhea. : No dysuria or retention. NERVOUS SYSTEM: No numbness or weakness. HEMATOLOGY/ONCOLOGY: No history of anemia. ENDOCRINE: No history of diabetes, reports hypothyroidism. CONSTITUTIONAL: No reports of fever, fatigue DERMATOLOGY: Negative. PSYCHIATRY: Cooperative, non-suicidal Active Medications Hydrocodone Bitart/Acetaminophen ([place] 10) 1 each PO TID PRN Albuterol Sulfate (Ventolin Nebulized) 2.5 mg INHALATION RT-QID PRN Alprazolam (Xanax) 0.5 mg PO BID PRN Atorvastatin Calcium (Lipitor) 20 mg PO HS DEANN Budesonide (Pulmicort) 0.25 mg INHALATION RT-DAILY DEANN Ferrous Sulfate (Feosol) 325 mg PO DAILY DEANN Gabapentin (Neurontin) 600 mg PO BID DEANN Heparin Sodium (Porcine) (Heparin) 0 unit IV PER PROTOCOL PRN; Protocol Ceftriaxone Sodium 1 gm/ (Sodium Chloride) 50 mls @ 100 mls/hr IVPB Q24HR DEANN Sodium Chloride (Saline 0.9%) 1,000 mls @ 75 mls/hr IV .[id number] DEANN Levothyroxine Sodium (Synthroid) 50 mcg PO 0630 DEANN Prednisone () 5 mg PO DAILY DEANN Ranolazine (Ranexa) 500 mg PO BID DEANN Ropinirole HCl (Requip) 2 mg PO 5XD DEANN Sotalol HCl (Betapace) [address] [facility] Objective - Vital Signs Vital signs: Vital Signs Temp 97.3 F L 09/05/19 07:40 Pulse 70 09/05/19 08:18 Resp 20 09/05/19 08:18 BP 152/81 09/05/19 07:40 Pulse Ox 93 L 09/05/19 07:40 Intake & Output 09/04/19 09/05/19 09/05/19 18:59 06:59 18:59 Intake Total 871.000 240 Balance 871.000 240 Weight 93.8 kg Intake: IV 25 Intake, IV Titration 250.000 Amount Heparin Sod,Pork in 0.45% 250.000 NaCl 25,000 unit In 0.45 % NaCl 1 250ml.bag @ 10. 87 UNITS/KG/HR 10 mls/hr IV .Q24H DEANN Rx#: [id number] Oral 596 240 Other: Voiding Method Toilet Toilet Toilet Urinal Urinal Urinal # Voids 2 # Bowel Movements 2 - Exam GENERAL: The patient is alert and oriented x3, not in any acute distress. Well developed, well nourished. HEENT: Pupils are round and equally reacting to light. EOMI. No scleral icterus. No conjunctival pallor. Normocephalic, atraumatic. No pharyngeal erythema. No thyromegaly. CARDIOVASCULAR: S1 and S2 present. No murmurs, rubs, or gallops. PULMONARY: Diminished breath sounds at the bases otherwise Chest is clear to auscultation, no wheezing or crackles. ABDOMEN: Soft, nontender, nondistended, normoactive bowel sounds. No palpable organomegaly. MUSCULOSKELETAL: No joint swelling or deformity. EXTREMITIES: No cyanosis, clubbing, or pedal edema. NEUROLOGICAL: Gross neurological examination did not reveal any focal deficits. SKIN: No rashes. - Labs CBC & Chem 7: 09/05/19 06:48 09/04/19 06:23 Labs: Abnormal Lab Results - Last 24 Hours (Table) 09/04/19 09/04/19 09/05/19 Range/Units 14:55 22:55 06:48 RBC 3.54 L (4.30-5.90) m/uL Hgb 11.7 L (13.0-17.5) gm/dL Hct 35.1 L (39.0-53.0) % PT 12.6 H (9.0-12.0) sec INR 1.2 H (<1.2) APTT 42.7 H 52.4 H (22.0-30.0) sec 09/05/19 Range/Units 06:48 RBC (4.30-5.90) m/uL Hgb (13.0-17.5) gm/dL Hct (39.0-53.0) % PT (9.0-12.0) sec INR (<1.2) APTT 50.2 H (22.0-30.0) sec Assessment and Plan Assessment: -Syncope: Secondary to V. tach episodes, cardiac catheterization and venogram done yesterday. patient awaiting to undergo AICD placement this morning. -Atrial fibrillation presently rate controlled continue with rate control medications Coumadin is on hold because for cardiac catheterization -History of coronary artery disease -Congestive heart failure or dysfunction without any acute exacerbation patient had a mildly depressed ejection fraction of around 45%. -History of DVT and PE in the past -gastroesophageal reflux disease -COPD without any significant exacerbation -History of hypertension -Hyperlipidemia -Hypothyroidism Recommendations and discussion: Recommend continue current medications, management, and symptomatic treatment. Patient is awaiting to go down for an AICD placement. Cardiology is following closely. Will continue to monitor closely. Further recommendations to follow. Possible discharge in 24-48 hours.
[2019-09-05] MEDS: ATORVASTATIN 20 MG TAB PO SCH (20:36)
[2019-09-05] MEDS ORDERED: TEMAZEPAM 15 MG CAP PO PRN (22:08)
[2019-09-05] MEDS ORDERED: BENZOCAINE/MENTHOL LOZENG 1 EACH LOZENGE MUCOUS MEM PRN (22:11)
--- NOTE | 2019-09-06 05:47 | P.PN ---
Subjective Progress Note Date: 09/06/19 This is a 78-year-old gentleman with history of ischemic heart disease with previous stent placement of the RCA and also history of aortic valve replacement who was admitted to [facility] with recurrent episodes of syncope. Interrogation of the pacemaker showed evidence of recurrent bouts of ventricular tachycardia. The is Pa are not available but the ventricular rate was high compared to the atrial rate and appeared to be bouts of ventricular tachycardia. His EKG showed normal QT interval without any significant changes. Cardiac catheterization did not reveal any evidence of pr ogression of ischemic heart disease. There was moderate disease in the LAD and diagonal but FFR was within normal limits. Because of hemodynamically significant episodes of V. tach associated with syncope. Patient is advised to have prophylactic AICD implantation. He is also initiated on sotalol. Patient did not want to go on amiodarone. Patient was explained the risks and benefits of the procedure which she fully understood and accepted. He is being scheduled for upgrading of his pacemaker to AICD tomorrow morning. Currently, patient is stable. A venogram showed patent vein on the right side. 09/06/2019: This 78-year-old gentleman with history of ischemic heart disease and also aortic valve replacement was admitted to the hospital with complaints of recurrent syncope. Interrogation of the pacemaker was suggestive of intermittent ventricular tachycardia episodes. Yesterday patient had upgrading of his pacemaker to AICD. Patient tolerated the procedure well. He remained st able. The dressing is dry with minimal strain. No hematoma. Patient is feeling better. No complaints of any chest pain or shortness of breath. He is tolerating activity fairly well. Patient could be discharged home later today. He'll continue home medications plus sotalol 80 mg by mouth twice a day. He will also go on Keflex 500 mg by mouth 3 times a day. Follow-up in the office in one week Objective - Vital Signs Vital signs: Vital Signs Temp 98.1 F 09/06/19 04:00 Pulse 65 09/06/19 04:00 Resp 18 09/06/19 04:00 BP 133/69 09/06/19 04:00 Pulse Ox 93 L 09/06/19 04:00 Intake & Output 09/05/19 09/05/19 09/06/19 06:59 18:59 06:59 Intake Total 240 890 140 Balance 240 890 140 Weight 93.8 kg Intake: IV 650 Intake, IV Titration 140 Amount Sodium Chloride 0.9% 1, 40 000 ml @ 0 mls/hr IV .[facility] Rx#:[id number] ceFAZolin 2 gm In Sodium 100 Chloride 0.9% 50 ml @ 100 mls/hr IVPB Q6HR [facility] Rx# :[id number] Oral 240 240 Other: Voiding Method Toilet Toilet Toilet Urinal Urinal Urinal - Exam GENERAL EXAM: Patient is alert and oriented and doesn't appear to be in any acute distress HEENT: Normocephalic. Normal reaction of pupils, equal size, normal range of extraocular motion. No erythema or exudates in the throat. NECK: No masses, no nuchal rigidity. CHEST: No chest wall deformity. LUNGS: Equal air entry with no crackles or wheeze. HEART: S1 and S2 normal with no audible mumurs or gallops. Regular rhythm, femorals equal on both sides.. ABDOMEN: No hepatosplenomegaly, normal bowel sounds, no guarding or rigidity. SKIN: No rashes CENTRAL NERVOUS SYSTEM: No focal deficits. EXTREMITIES: No cyanosis, clubbing or edema. PROCEDURE SITE: The pacemaker site seemed to be dry with minimal drainage of the dressing. No hematoma - Labs CBC & Chem 7: 09/05/19 06:48 09/04/19 06:23 Labs: Abnormal Lab Results - Last 24 Hours (Table) 09/05/19 09/05/19 Range/Units 06:48 06:48 RBC 3.54 L (4.30-5.90) m/uL Hgb 11.7 L (13.0-17.5) gm/dL Hct 35.1 L (39.0-53.0) % APTT 50.2 H (22.0-30.0) sec Assessment and Plan (1) Syncope and collapse Current Visit: Yes Status: Acute Code(s): R55 - SYNCOPE AND COLLAPSE SNOMED Code(s): 458922329 (2) Ventricular tachycardia Current Visit: Yes Status: Acute Code(s): I47.2 - VENTRICULAR TACHYCARDIA SNOMED Code(s): 96475986 (3) Ischemic heart disease Current Visit: Yes Status: Acute Code(s): I25.9 - CHRONIC ISCHEMIC HEART DISEASE, UNSPECIFIED SNOMED Code(s): 723590509 (4) History of aortic valve replacement Current Visit: Yes Status: Acute Code(s): Z95.2 - PRESENCE OF PROSTHETIC HEART VALVE SNOMED Code(s): 5189153815935 Plan: Patient is overall doing well. We'll check a chest x-ray and device today. If findings are stable, patient could be discharged home on home medication plus sotalol and prophylactic antibiotic, Keflex 5 mg by mouth 3 times a day for 3 days. Follow-up in the office in one week
[2019-09-06] MEDS: LEVOTHYROXINE 50 MCG TAB PO SCH (06:16)
[2019-09-06 07:04] LABS: Basophils # (A) 0.1 k/uL (0-0.2); Basophils % (A) 1 %; Eosinophils # (A) 0.2 k/uL (0-0.7); Eosinophils % (A) 3 %; HCT 35.8 % (39.0-53.0); HGB 12.2 gm/dL (13.0-17.5); Lymphocytes # (A) 1.3 k/uL (1.0-4.8); Lymphocytes % (A) 17 %; MCH 33.8 pg (25.0-35.0); MCV 99.3 fL (80.0-100.0); Mean Platelet Volume 7.2; Monocytes # (A) 0.5 k/uL (0-1.0); Monocytes % (A) 6 %; Neutrophils # (A) 5.3 k/uL (1.3-7.7); Neutrophils % (A) 71 %; Platelet Count 169 k/uL (150-450); RDW 13.1 % (11.5-15.5); WBC 7.5 k/uL (3.8-10.6)
[2019-09-06] MEDS: SOTALOL 80 MG TAB PO SCH (08:45)
[2019-09-06] MEDS: FERROUS SULFATE 325 MG TAB PO SCH (08:45)
[2019-09-06] MEDS: predniSONE 5 MG TAB PO SCH (08:45)
[2019-09-06] MEDS: GABAPENTIN 300 MG CAP PO SCH (08:45)
[2019-09-06] MEDS: RANOLAZINE 500 MG TAB.ER.12H PO SCH (08:45)
[2019-09-06 09:10] VITALS: RESP 20
[2019-09-06] MEDS: BUDESONIDE 0.25 MG/2 ML NEBU INHALATION SCH (09:14)
--- NOTE | 2019-09-06 10:28 | P.DS ---
Providers Date of admission: 09/02/19 17:30 Attending physician: Amador Bean Consults: 09/02/19 21:04 Consult Physician Routine Consulting Provider: Edgar Argueta Consult Reason/Comments: [facility] for possible pacer or cath Do you want consulting provider notified?: Yes, Notify in am Placement Type Exists?: Yes Primary care physician: Stated None Hospital Course: 70-year-old gentleman was transferred from [facility] after he was evaluated for syncope patient was evaluated by neurology and cardiology patient appears to have cardiac syncope, V. tach. Patient had a pacemaker which was interrogated which showed episodes of V. tach. Patient was subsequently transferred here for cardiac catheterization to rule out any coronary artery disease that is contributing to his V. tach episodes and if possible placement of an AICD. Patient is going for cardiac catheterization today. Patient denied any chest pain patient and her lightheadedness at this time patient does have h istory of atrial fibrillation on Coumadin which is being held for cardiac catheterization procedure. Patient does have heart failure with EF of around 45%. 09/04/2019 Patient is sitting up in bed in no acute distress with family at the bedside. Patient underwent a venogram with Dr. Fine showing patent left subclavian and axillary system and also underwent cardiac catheterization yesterday and was determined that the patient does not have any significant lesions in his LAD or diagonal and is scheduled to have an AICD placed tomorrow. Patient has a past history of pacemakers and is currently requiring the placement of an AICD. Cardiology is following closely. Currently patient denies any chest pain, shortness of breath, or palpitations. Patient is afebrile. Patient denies any nausea or vomiting and has been tolerating diet. Patient was also started on sotalol. Patient was inquiring about a possible primary care provider in this area as his current PCP is about an hour to an hour and a half out of town. Resources will be provided. Will continue to monitor closely. Guarded prognosis. 09/05/2019 Patient is lying in bed in no acute distress awaiting to go down for AICD placement. Cardiology is following. Will continue to monitor closely. No acute overnight issues. 09/06/2019 Patient is doing well and received AICD. Pronation patient will be discharged today PHYSICAL EXAMINATION: GENERAL: The patient is alert and oriented x3, not in any acute distress. Well developed, well nourished. HEENT: Pupils are round and equally reacting to light. EOMI. No scleral icterus. No conjunctival pallor. Normocephalic, atraumatic. No pharyngeal erythema. No thyromegaly. CARDIOVASCULAR: S1 and S2 present. No murmurs, rubs, or gallops. PULMONARY: Chest is clear to auscultation, no wheezing or crackles. ABDOMEN: Soft, nontender, nondistended, normoactive bowel sounds. No palpable organomegaly. MUSCULOSKELETAL: No joint swelling or deformity. EXTREMITIES: No cyanosis, clubbing, or pedal edema. NEUROLOGICAL: Gross neurological examination did not reveal any focal deficits. SKIN: No rashes. Assessment and Plan Assessment: -Syncope: Secondary to V. tach episodes, cardiac catheterization which did not show any significant coronary occlusive disease patient had an ACD placement will be discharged today -Atrial fibrillation presently rate controlled Coumadin is being resumed -History of coronary artery disease -Congestive heart failure or dysfunction without any acute exacerbation patient had a mildly depressed ejection fraction of around 45%. -History of DVT and PE in the past -gastroesophageal reflux disease -COPD without any significant exacerbation -History of hypertension -Hyperlipidemia -Hypothyroidism Plan - Discharge Summary New Discharge Prescriptions: New Sotalol [Betapace] 80 mg PO BID #60 tab Budesonide [Pulmicort] 0.25 mg INHALATION RT-DAILY #30 nebu Cephalexin [Keflex] 500 mg PO Q8HR #10 cap Continue Metoprolol Succinate (ER) [Toprol XL] 50 mg PO DAILY Nitroglycerin Sl Tabs [Nitrostat] 0.4 mg SUBLINGUAL Q5M PRN PRN Reason: Chest Pain Losartan Potassium [Cozaar] 25 mg PO HS Furosemide [Lasix] 40 mg PO BID Cyanocobalamin [Vitamin B-12 Injection] 1,000 mcg SQ Q30D Vit C/E/Zn/Coppr/Lutein/Zeaxan [Preservision Areds 2 Softgel] 2 cap PO DAILY Spironolactone [Aldactone] 25 mg PO DAILY Levothyroxine Sodium [Synthroid] 50 mcg PO DAILY Isosorbide Mononitrate ER [Imdur] 30 mg PO DAILY Ferrous Sulfate [Iron (65 MG Elemental)] 325 mg PO DAILY rOPINIRole HCL [Requip] 2 mg PO 5XD Gabapentin 600 mg PO BID Simvastatin 40 mg PO HS Aspirin [Adult Low Dose Aspirin EC] 81 mg PO DAILY ALPRAZolam [Xanax] 0.5 mg PO BID PRN PRN Reason: Anxiety Morphine Sulfate [Ms Contin] 30 mg PO Q12H HYDROcodone/APAP 10-325MG [[place] 10-325] 1 tab PO TID PRN PRN Reason: LOWER BACK PAIN Warfarin Sodium [Coumadin] 2 mg PO THSA Ranolazine [Ranexa] 500 mg PO BID Warfarin Sodium [Coumadin] 1 mg PO SUMOTUWEFR Albuterol Nebulized [Ventolin Nebulized] 2.5 mg INHALATION RT-QID PRN 30 Days #120 nebu PRN Reason: Shortness Of Breath Ipratropium/Albuterol Sulfate [Combivent Respimat Inhaler] 2 puff INHALATION RT-QID #120 mist.inhal predniSONE 5 mg PO DAILY Omeprazole 20 mg PO DAILY Discharge Medication List ALPRAZolam [Xanax] 0.5 mg PO BID PRN 12/10/17 [History] Aspirin [Adult Low Dose Aspirin EC] 81 mg PO DAILY 12/10/17 [History] Cyanocobalamin [Vitamin B-12 Injection] 1,000 mcg SQ Q30D 12/10/17 [History] Ferrous Sulfate [Iron (65 MG Elemental)] 325 mg PO DAILY 12/10/17 [History] Furosemide [Lasix] 40 mg PO BID 12/10/17 [History] Gabapentin 600 mg PO BID 12/10/17 [History] HYDROcodone/APAP 10-325MG [[place] 10-325] 1 tab PO TID PRN 12/10/17 [History] Isosorbide Mononitrate ER [Imdur] 30 mg PO DAILY 12/10/17 [History] Levothyroxine Sodium [Synthroid] 50 mcg PO DAILY 12/10/17 [History] Losartan Potassium [Cozaar] 25 mg PO HS 12/10/17 [History] Metoprolol Succinate (ER) [Toprol XL] 50 mg PO DAILY 12/10/17 [History] Morphine Sulfate [Ms Contin] 30 mg PO Q12H 12/10/17 [History] Nitroglycerin Sl Tabs [Nitrostat] 0.4 mg SUBLINGUAL Q5M PRN 12/10/17 [History] Simvastatin 40 mg PO HS 12/10/17 [History] Spironolactone [Aldactone] 25 mg PO DAILY 12/10/17 [History] Vit C/E/Zn/Coppr/Lutein/Zeaxan [Preservision Areds 2 Softgel] 2 cap PO DAILY 12/10/17 [History] rOPINIRole HCL [Requip] 2 mg PO 5XD 12/10/17 [History] Warfarin Sodium [Coumadin] 2 mg PO THSA 09/11/18 [History] Ranolazine [Ranexa] 500 mg PO BID 05/19/19 [History] Warfarin Sodium [Coumadin] 1 mg PO SUMOTUWEFR 05/19/19 [History] Albuterol Nebulized [Ventolin Nebulized] 2.5 mg INHALATION RT-QID PRN 30 Days #120 nebu 05/23/19 [Rx] Ipratropium/Albuterol Sulfate [Combivent Respimat Inhaler] 2 puff INHALATION RT- QID #120 mist.inhal 05/23/19 [Rx] Omeprazole 20 mg PO DAILY 09/02/19 [History] predniSONE 5 mg PO DAILY 09/02/19 [History] Budesonide [Pulmicort] 0.25 mg INHALATION RT-DAILY #30 nebu 09/06/19 [Rx] Cephalexin [Keflex] 500 mg PO Q8HR #10 cap 09/06/19 [Rx] Sotalol [Betapace] 80 mg PO BID #60 tab 09/06/19 [Rx] Follow up Appointment(s)/Referral(s): [facility] [Provider Group] - 09/10/19 9:30 am (Device clinic for defibrillator check. ) Kathy Patel MD [STAFF PHYSICIAN] - 1-2 Days (Office closed, please call and make follow up appointment during normal business hours. ) Radha Rodriguez MD [STAFF PHYSICIAN] - 09/18/19 3:30 pm ([facility] previously seen in 2018. ) Patient Instructions/Handouts: How to Stop Smoking (DC), Syncope (DC), Implantable Cardioverter Defibrillator (DC), After Radial Heart Catheterization (GEN) Activity/Diet/Wound Care/Special Instructions: PACEMAKER/DEFIBRILLATOR INSTRUCTIONS: 1. Keep dressing dry and intact for 5 days. You may cover the area with saran or cling wrap, prior to a shower. 2. The dressing will be removed in the Device Clinic at [facility]. Absorbable sutures were used to close the wound. 3. Avoid raising the left arm above the shoulder level. (4-week restriction). 4. Avoid arm movements, like backscratching, rubbing your head, or pulling on a cord with your left arm. (4-week restriction). 5. Gentle range of motion movements of the left shoulder should be performed to avoid a frozen shoulder. (Pendulum exercises). 6. The opposite arm may be used freely. 7. Avoid driving for 7 days. 8. Avoid activities such as golfing, swimming, week whacking, lifting more than 10 pounds of weight, bowling, gymnastics and weight training/lifting. (6-week restriction). 9. Activities such as chopping wood, pull-ups, power lifting, welding, and being around an induction cooktop will always be a problem and can interfere with your pacemaker. 10. Your arm sling is only a reminder to not lift your arm above your head. You do not need to keep the arm completely immobilized. You are free to move your arm and use it for normal activities. In case of any problems, please call [facility] [place] @ [phone].
--- NOTE | 2019-09-06 10:34 | XR ---
EXAMINATION TYPE: XR chest 2V DATE OF EXAM: 09/06/2019 COMPARISON: Chest x-ray 06/20/2019 HISTORY: Lead placement TECHNIQUE: Frontal and lateral views of the chest are obtained. FINDINGS/IMPRESSION: Suboptimal lateral view due to technique. Cardiac pacemaker with right chest wall power pack; newly p laced AICD lead projects over the ventricles. Left lung is hyperinflated relative to the right, as be fore. Patchy right basilar airspace opacities appear similar to prior. No discrete pneumothorax. Card iac silhouette is not enlarged.
[2019-09-06 11:23] VITALS: BP 121/70; PULSE 61; TEMP 97
--- NOTE | 2019-09-09 10:02 | CDI ---
Documentation Clarification Form Date: 09/09/19 From: Sintia La Phone: If you have a question about this query, please contact Tahmina Viveros, Building Construction Ironworker at [phone] between 8am and 5pm. Admit Date: 09/02/19 Discharge Date: 09/06/19 Patient Name: Emmanuel Hall Visit Number: [id number] ATTENTION: The Clinical Documentation Specialists (CDI) and [facility] Coding Staff appreciate your assistance in clarifying documentation. Please respond to the clarification below the line at the bottom and electronically sign. The CDI & [facility] Coding staff will review the response and follow-up if needed. Please note: Queries are made part of the Legal Health Record. If you have any questions, please contact the author of this message via ITS. Dear Dr. Amador Bean, CHF without any acute exacerbation mildly depressed EF of around 45% is documented in the H&P, PNs & DS. History/Risk Factors: HTN, RA, CAD, COPD Clinical Indicators: Presents with syncope, V tach. No chest pain, SOB or palpitations. VS/Pulse OX: T-97.8, P-70, R-16, BP-166/75, O2 sat-94 BNP: none [facility] Echocardiogram Results: Overall left ventricular systolic function appears normal. Diastolic dysfunction is indeterminate due to paced rhythm. LVEF is 50%. Chest X Ray: Suboptimal lateral view due to technique.Cardiac pacemaker with right chest wall power pack; newly placed AICD lead projects over the ventricles.Left lung is hyperinflated relative to the right, as before.Patchy right basilar airspace opacities appear similar to prior.No discrete pneumothorax.Cardiac silhouette is not enlarged. Treatment: In your professional opinion, can you please clarify the type of CHF if known? Systolic Heart Failure Diastolic Heart Failure Systolic & Diastolic Heart Failure Unable to Determine Other, please specify Systolic Heart Failure MTDD
--- NOTE | 2019-09-09 10:07 | CDI ---
Documentation Clarification Form Date: 09/09/19 From: Sintia La Phone: If you have a question about this query, please contact Tahmina Viveros, Mechanical Commissioning Engineer at [phone] between 8am and 5pm. Admit Date: 09/02/19 Discharge Date: 09/06/19 Patient Name: Emmanuel Hall Visit Number: [id number] ATTENTION: The Clinical Documentation Specialists (CDI) and [facility] Coding Staff appreciate your assistance in clarifying documentation. Please respond to the clarification below the line at the bottom and electronically sign. The CDI & [facility] Coding staff will review the response and follow-up if needed. Please note: Queries are made part of the Legal Health Record. If you have any questions, please contact the author of this message via ITS. Dear Dr. Amador Bean, Atrial Fibrillation is documented in the H&P, PN & DS. History/Risk Factors: HTN, RA, CAD, COPD Clinical Indicators: Presents with syncope and V tach. EKG/telemetry: Normal sinus rhythm, incomplete LBB Treatment: Coumadin In your professional opinion, can you please clarify the type of Atrial Fibrillation, if known? Chronic/Permanent Paroxysmal Persistent Other, please specify Unable to determine Unable to determine MTDD
--- NOTE | 2019-09-09 10:09 | CDI ---
Documentation Clarification Form Date: 09/09/19 From: Sintia La Phone: If you have a question about this query, please contact Tahmina Viveros, Compliance Engineer Products at [phone] between 8am and 5pm. Admit Date: 09/02/19 Discharge Date: 09/06/19 Patient Name: Emmanuel Hall Visit Number: [id number] ATTENTION: The Clinical Documentation Specialists (CDI) and [facility] Coding Staff appreciate your assistance in clarifying documentation. Please respond to the clarification below the line at the bottom and electronically sign. The CDI & [facility] Coding staff will review the response and follow-up if needed. Please note: Queries are made part of the Legal Health Record. If you have any questions, please contact the author of this message via ITS. Dear Dr. Amador Bean, Atrial Flutter is documented in the H&P. History/Risk Factors: HTN, RA, CAD, COPD Clinical Indicators: Presents with syncope and V tach. EKG/telemetry: Normal sinus rhythm, incomplete LBB Treatment: Coumadin In your professional opinion, in order to capture the severity of condition; can you please clarify the type of Atrial Flutter if known? Typical/Type I Atypical/Type II Other, please specify Unable to determine Unable to determine MTDD
== END 2019-09-06 14:40 | disposition home or self-care (01) | DRG 245 ==
LOC: 3SCARD 17:30
PROVIDERS: ADMIT Internal Medicine; ATTEND Internal Medicine
PROC: 4A033BC Measurement of Arterial Pressure, Coronary, Percutaneous Approach (ICD-10-PCS; 2019-09-03)
PROC: B2111ZZ Fluoroscopy of Multiple Coronary Arteries using Low Osmolar Contrast (ICD-10-PCS; 2019-09-03 10:00)
PROC: B51N1ZZ Fluoroscopy of Left Upper Extremity Veins using Low Osmolar Contrast (ICD-10-PCS; 2019-09-04)
PROC: 0JH608Z Insertion of Defibrillator Generator into Chest Subcutaneous Tissue and Fascia, Open Approach (ICD-10-PCS; principal; 2019-09-05 11:15)
PROC: 0JPT0PZ Removal of Cardiac Rhythm Related Device from Trunk Subcutaneous Tissue and Fascia, Open Approach (ICD-10-PCS; 2019-09-05 11:15)
DX: I47.2 Ventricular tachycardia (principal); I50.22 Chronic systolic (congestive) heart failure; I11.0 Hypertensive heart disease with heart failure; I48.92 Unspecified atrial flutter; I48.91 Unspecified atrial fibrillation; J44.9 Chronic obstructive pulmonary disease, unspecified; M06.9 Rheumatoid arthritis, unspecified; R00.1 Bradycardia, unspecified; I25.10 Atherosclerotic heart disease of native coronary artery without angina pectoris; K21.9 Gastro-esophageal reflux disease without esophagitis; E78.5 Hyperlipidemia, unspecified; G25.81 Restless legs syndrome; G89.29 Other chronic pain; M54.5 Low back pain; E03.9 Hypothyroidism, unspecified; F41.9 Anxiety disorder, unspecified; H35.30 Unspecified macular degeneration; Z79.82 Long term (current) use of aspirin; Z79.890 Hormone replacement therapy; Z79.01 Long term (current) use of anticoagulants; Z79.52 Long term (current) use of systemic steroids; Z79.899 Other long term (current) drug therapy; Z95.1 Presence of aortocoronary bypass graft; Z95.5 Presence of coronary angioplasty implant and graft; Z95.2 Presence of prosthetic heart valve; Z95.0 Presence of cardiac pacemaker; Z98.890 Other specified postprocedural states; Z86.711 Personal history of pulmonary embolism; Z86.718 Personal history of other venous thrombosis and embolism; Z87.01 Personal history of pneumonia (recurrent); Z86.19 Personal history of other infectious and parasitic diseases; Z86.14 Personal history of Methicillin resistant Staphylococcus aureus infection; Z98.84 Bariatric surgery status; Z87.891 Personal history of nicotine dependence
CPT/HCPCS: 33233; 33249; 36005; 71046; 75820; 80053; 85025; 85610; 85730; 93458; 93571; 93572; 93641; 94640

== ENCOUNTER 2019-09-20 09:42 | Inpatient (IN) | payer MEDICARE, OTHER ==
[2019-09-20] MEDS ORDERED: SODIUM CHLORIDE 0.9% 1,000 ML IV STA (10:07)
[2019-09-20] MEDS ORDERED: SODIUM CHLORIDE 0.9% 500 ML 500 ML IV STA (10:07)
[2019-09-20] MEDS ORDERED: IPRATROPIUM-ALBUTEROL 3 ML NEB INHALATION STA (10:07)
--- NOTE | 2019-09-20 10:09 | ED ---
SOB HPI <Kareem Cochran - Last Filed: 09/20/19 12:55> - General Source: patient Mode of arrival: ambulatory Limitations: no limitations <Jesenia Yanez - Last Filed: 09/20/19 15:47> - General Chief Complaint: Shortness of Breath Stated Complaint: Cough,shaking Time Seen by Provider: 09/20/19 09:56 - History of Present Illness Initial Comments: 78-year-old male with extensive past medical history and recent pacemaker placement on 09/05/[address] Vieira presents today for chief complaint of cough, rigors, chills x 2-3 days. Patient states that he diagnosed with pneumonia approximately 2-3 weeks ago at [facility]. He states that he had the exact same symptoms that he is experiencing today, shakes, chills, productive cough. Patient states when symptoms persisted today he felt it was best to came to the emergency department for evaluation. Patient denies any chest pain. Patient does admit to shortness of breath. Patient denies any leg swelling hemoptysis. Patient states he is compliant with his Coumadin and monitors it weekly up every Sunday. Patient states it has been therapeutic to his knowledge. Patient denies chest pressure, arm or jaw pain, denies back pain, nausea, epigastric or abdominal pain. Remaining ROS (-). Upon arrival patient hypoxic at 90%. (Jesenia Yanez) - Related Data Home Medications Medication Instructions Recorded Confirmed ALPRAZolam [Xanax] 0.5 mg PO BID PRN 12/10/17 09/20/19 Aspirin [Adult Low Dose Aspirin EC] 81 mg PO DAILY 12/10/17 09/20/19 Cyanocobalamin [Vitamin B-12 1,000 mcg SQ Q30D 12/10/17 09/20/19 Injection] Ferrous Sulfate [Iron (65 MG 325 mg PO DAILY 12/10/17 09/20/19 Elemental)] Furosemide [Lasix] 40 mg PO BID 12/10/17 09/20/19 Gabapentin 600 mg PO BID 12/10/17 09/20/19 HYDROcodone/APAP 10-325MG [[place] 1 tab PO TID PRN 12/10/17 09/20/19 10-325] Isosorbide Mononitrate ER [Imdur] 30 mg PO DAILY 12/10/17 09/02/19 Levothyroxine Sodium [Synthroid] 50 mcg PO DAILY 12/10/17 09/20/19 Losartan Potassium [Cozaar] 25 mg PO HS 12/10/17 09/20/19 Metoprolol Succinate (ER) [Toprol 25 mg PO DAILY 12/10/17 09/20/19 XL] Morphine Sulfate [Ms Contin] 30 mg PO Q12H 12/10/17 09/20/19 Nitroglycerin Sl Tabs [Nitrostat] 0.4 mg SUBLINGUAL Q5M PRN 12/10/17 09/20/19 Simvastatin 40 mg PO HS 12/10/17 09/20/19 Spironolactone [Aldactone] 25 mg PO DAILY 12/10/17 09/20/19 Vit C/E/Zn/Coppr/Lutein/Zeaxan 1 cap PO BID 12/10/17 09/20/19 [Preservision Areds 2 Softgel] rOPINIRole HCL [Requip] 2 mg PO 5XD 12/10/17 09/20/19 Warfarin Sodium [Coumadin] 2 mg PO HS 09/11/18 09/20/19 Ranolazine [Ranexa] 500 mg PO BID PRN 05/19/19 09/20/19 predniSONE 5 mg PO DAILY 09/02/19 09/20/19 Previous Rx's Medication Instructions Recorded Albuterol Nebulized [Ventolin 2.5 mg INHALATION RT-QID PRN 30 05/23/19 Nebulized] Days #120 nebu Ipratropium/Albuterol Sulfate 2 puff INHALATION RT-QID #120 05/23/19 [Combivent Respimat Inhaler] mist.inhal Sotalol [Betapace] 80 mg PO BID #60 tab 09/06/19 Allergies Allergy/AdvReac Type Severity Reaction Status Date / Time No Known Allergies Allergy Verified 09/20/19 12:59 Review of Systems ROS Other: All systems not noted in ROS Statement are negative. <Kareem Cochran - Last Filed: 09/20/19 12:55> ROS Other: All systems not noted in ROS Statement are negative. <Jesenia Yanez - Last Filed: 09/20/19 15:47> ROS Statement: Those systems with pertinent positive or pertinent negative responses have been documented in the HPI. Past Medical History Past Medical History: Atrial Flutter, Asthma, Coronary Artery Disease (CAD), Heart Failure, COPD, Deep Vein Thrombosis (DVT), GERD/Reflux, Hyperlipidemia, Hypertension, Pneumonia, Pulmonary Embolus (PE), Rheumatoid Arthritis (RA), Thyroid Disorder Additional Past Medical History / Comment(s): MACULAR DEGNERATION MISA EYES,GERD, SHINGLES LT EAR [phone], "IRREG HEARTBEAT", RLS, hammertoe, chronic low back pain, USES A CANE FOR DISTANCE. History of Any Multi-Drug Resistant Organisms: ESBL, MRSA Date of last positivie culture/infection: 07/02/18 ESBL / 07/2013 & 01/2017 MRSA MDRO Source:: BRONCH ESBL/ MRSA 2nd pacer & HAND Past Surgical History: Bariatric Surgery, Coronary Bypass/CABG, Heart Catheterization, Heart Catheterization With Stent, Hernia Repair, Pacemaker Additional Past Surgical History / Comment(s): Trifecta aortic valve re palcement, bunionectomy left great toe, 7 heart caths, stents x2 to rca, gastroplasty 1979, crys-en-y May 2016 at [facility]; 2017- Diaphram Plycation at [facility], heart valve replacement at [facility] Aortic valve- bovine, Pacers x3 (first pacer placed in 2006- need a new battery in 2012, placed 2nd pacer 2012. 2nd pacer became infected with MRSA and was removed. once infection cleared a 3rd was placed on the right side) Past Anesthesia/Blood Transfusion Reactions: No Reported Reaction Date of Last Stent Placement:: 2012 Type of Cardiac Device: Permanent Pacemaker Device Placement Date:: 2013 Past Psychological History: Anxiety Smoking Status: Former smoker Past Alcohol Use History: None Reported Past Drug Use History: None Reported - Past Family History Father History Unknown: Yes Mother History Unknown: Yes <Jesenia Yanez - Last Filed: 09/20/19 15:47> General Exam Limitations: no limitations <Jesenia Yanez - Last Filed: 09/20/19 15:47> - General Exam Comments Initial Comments: General: The patient is awake and alert, in no distress, and does not appear acutely ill. Eye: +3 mm pupils are equal, round and reactive to light, extra-ocular movements are intact. No nystagmus. There is normal conjunctiva bilaterally. No signs of icterus. No photophobia Ears, nose, mouth and throat: There are moist mucous membranes and no oral lesions. Oropharynx was not erythematous there is no tonsillar enlargement exudates or lesions. Uvula midline. No anterior cervical lymphadenopathy. No tripoding, no drooling. Neck: The neck is supple, there is no tenderness or JVD. No nuchal rigidity Cardiovascular: There is a regular rate and rhythm. No murmur, rub or gallop is appreciated. Respiratory: Respirations are non-labored, breath sounds are equal. rales audible at both lung bases there is expiratory wheeze that is mild. No stridor, but rhonchi is noted as well. No retractions or abdominal breathing. Gastrointestinal: Soft, non-distended, non-tender abdomen without masses or organomegaly noted. There is no rebound or guarding present. Bowel sounds are unremarkable. Musculoskeletal: Normal ROM, no tenderness. Strength 5/5. Sensation intact. Radial pulses equal bilaterally 2+. Neurological: A&O x 3. CN II-XII intact grossly, There are no obvious motor or sensory deficits. Coordination appears grossly intact. Speech appears normal, no muffling. Skin: Skin is warm and dry and no rashes or lesions are noted. No extremity edema Psychiatric: Cooperative (Jesenia Yanez) Course <Kareem Cochran - Last Filed: 09/20/19 12:55> Vital Signs 09/20/19 09/20/19 09/20/19 09:51 10:47 11:16 Temperature 97.5 F L 100.7 F H Pulse Rate 67 64 62 Respiratory 18 22 Rate Blood Pressure 153/60 107/52 O2 Sat by Pulse 90 L 95 Oximetry 09/20/19 09/20/19 09/20/19 11:28 12:07 14:47 Temperature 98 F Pulse Rate 63 61 60 Respiratory 18 18 Rate Blood Pressure 117/52 95/51 O2 Sat by Pulse 95 94 L Oximetry - Reevaluation(s) Reevaluation #1: 09/20/19 12:55 PA supervision: I proceeded [id number] evaluation the patient. Patient does have evidence clinically and on x-ray of right sided pneumonia. He does de monstrate diminished breath sounds in the right side. He will be admitted the case discussed with Dr. Dean. I do agree with the assessment and plan (Kareem Cochran) Medical Decision Making - Lab Data Result diagrams: 09/20/19 10:56 09/20/19 10:56 <Kareem Cochran - Last Filed: 09/20/19 12:55> - Lab Data Result diagrams: 09/20/19 10:56 09/20/19 10:56 <Jesenia Yanez - Last Filed: 09/20/19 15:47> - Medical Decision Making 78-year-old male with recurrent pneumonia presenting for cough rigors fever. ALLERGIES consistent infiltrates concerning for hospital-acquired pneumonia given recent admissions. Patient began on cefepime and vancomycin and Levaquin. Patient case discussed with him provider who reviewed imaging studies EKG patient's laboratory studies at about patient in person he spoke with the admitting provider Dr. Dean was agreeable to admission no further instruction at this time. Patient transferred to the floor in stable condition. (Jesenia Yanez) - Lab Data Lab Results 09/20/19 09/20/19 09/20/19 Range/Units 10:56 10:56 10:56 WBC 15.5 H (3.8-10.6) k/uL RBC 3.58 L (4.30-5.90) m/uL Hgb 11.8 L (13.0-17.5) gm/dL Hct 35.0 L (39.0-53.0) % MCV 97.7 (80.0-100.0) fL MCH 32.9 (25.0-35.0) pg MCHC 33.7 (31.0-37.0) g/dL RDW 13.8 (11.5-15.5) % Plt Count 142 L (150-450) k/uL Neutrophils % 91 % Lymphocytes % 3 % Monocytes % 4 % Eosinophils % 1 % Basophils % 0 % Neutrophils # 14.0 H (1.3-7.7) k/uL Lymphocytes # 0.5 L (1.0-4.8) k/uL Monocytes # 0.7 (0-1.0) k/uL Eosinophils # 0.2 (0-0.7) k/uL Basophils # 0.0 (0-0.2) k/uL PT (9.0-12.0) sec INR (<1.2) APTT (22.0-30.0) sec Sodium 139 (137-145) mmol/L Potassium 3.8 (3.5-5.1) mmol/L Chloride 108 H (98-107) mmol/L Carbon Dioxide 26 (22-30) mmol/L Anion Gap 5 mmol/L BUN 28 H (9-20) mg/dL Creatinine 1.15 (0.66-1.25) mg/dL Est GFR (CKD-EPI)AfAm 71 (>60 ml/min/1.73 sqM) Est GFR (CKD-EPI)NonAf 61 (>60 ml/min/1.73 sqM) Glucose 101 H (74-99) mg/dL Plasma Lactic Acid Rivas (0.7-2.0) mmol/L Calcium 8.6 (8.4-10.2) mg/dL Total Bilirubin 0.8 (0.2-1.3) mg/dL AST 18 (17-59) U/L ALT 24 (21-72) U/L Alkaline Phosphatase 79 (38-126) U/L Troponin I (0.000-0.034) ng/mL NT-Pro-B Natriuret Pep 1570 pg/mL Total Protein 6.3 (6.3-8.2) g/dL Albumin 3.4 L (3.5-5.0) g/dL 09/20/19 09/20/19 09/20/19 Range/Units 10:56 10:56 10:56 WBC (3.8-10.6) k/uL RBC (4.30-5.90) m/uL Hgb (13.0-17.5) gm/dL Hct (39.0-53.0) % MCV (80.0-100.0) fL MCH (25.0-35.0) pg MCHC (31.0-37.0) g/dL RDW (11.5-15.5) % Plt Count (150-450) k/uL Neutrophils % % Lymphocytes % % Monocytes % % Eosinophils % % Basophils % % Neutrophils # (1.3-7.7) k/uL Lymphocytes # (1.0-4.8) k/uL Monocytes # (0-1.0) k/uL Eosinophils # (0-0.7) k/uL Basophils # (0-0.2) k/uL PT 33.0 H (9.0-12.0) sec INR 3.4 H (<1.2) APTT 31.8 H (22.0-30.0) sec Sodium (137-145) mmol/L Potassium (3.5-5.1) mmol/L Chloride (98-107) mmol/L Carbon Dioxide (22-30) mmol/L Anion Gap mmol/L BUN (9-20) mg/dL Creatinine (0.66-1.25) mg/dL Est GFR (CKD-EPI)AfAm (>60 ml/min/1.73 sqM) Est GFR (CKD-EPI)NonAf (>60 ml/min/1.73 sqM) Glucose (74-99) mg/dL Plasma Lactic Acid Irvas 1.3 (0.7-2.0) mmol/L Calcium (8.4-10.2) mg/dL Total Bilirubin (0.2-1.3) mg/dL AST (17-59) U/L ALT (21-72) U/L Alkaline Phosphatase (38-126) U/L Troponin I <0.012 (0.000-0.034) ng/mL NT-Pro-B Natriuret Pep pg/mL Total Protein (6.3-8.2) g/dL Albumin (3.5-5.0) g/dL - EKG Data EKG Comments: Ventricular rate 63bpm OR interval 168 ms, QR administration 116 ms, QT/QTC 390/399 ms this is normal sinus possible left atrial enlargement due to noted left axis. No ST elevation or depression noted. (Jesenia Yanez) Disposition <Kareem Cochran - Last Filed: 09/20/19 12:55> Is patient prescribed a controlled substance at d/c from ED?: No Time of Disposition: 12:59 Decision to Admit Reason: Admit from EC Decision Date: 09/20/19 Decision Time: 12:59 <Jesenia Yanez - Last Filed: 09/20/19 15:47> Clinical Impression: HCAP (healthcare-associated pneumonia), Fever, Cough Disposition: ADMITTED IP TO THIS [facility] Condition: Stable
[2019-09-20] MEDS ORDERED: methylPREDNISolone SOD SUCCI 125 MG/2 ML VIAL IV STA (10:26)
[2019-09-20] MEDS ORDERED: LEVOFLOXACIN 750MG-D5W PMX 750 MG in DEXTROSE/WATER 1 150ML.BAG IVPB STA (10:27)
[2019-09-20 11:18] LABS: Basophils % (A) 0 %; Eosinophils # (A) 0.2 k/uL (0-0.7); Eosinophils % (A) 1 %; HGB 11.8 gm/dL (13.0-17.5); Lymphocytes # (A) 0.5 k/uL (1.0-4.8); Lymphocytes % (A) 3 %; MCH 32.9 pg (25.0-35.0); MCHC 33.7 g/dL (31.0-37.0); MCV 97.7 fL (80.0-100.0); Mean Platelet Volume 9.1; Monocytes # (A) 0.7 k/uL (0-1.0); Monocytes % (A) 4 %; Neutrophils % (A) 91 %; Platelet Count 142 k/uL (150-450); RBC 3.58 m/uL (4.30-5.90); RDW 13.8 % (11.5-15.5); WBC 15.5 k/uL (3.8-10.6)
[2019-09-20 11:27] LABS: Albumin 3.4 g/dL (3.5-5.0); Calcium 8.6 mg/dL (8.4-10.2); Potassium 3.8 mmol/L (3.5-5.1); Total Bilirubin 0.8 mg/dL (0.2-1.3); Total Protein 6.3 g/dL (6.3-8.2)
[2019-09-20 11:29] LABS: INR 3.4 (<1.2); Partial Thromboplastin Time 31.8 sec (22.0-30.0)
--- NOTE | 2019-09-20 11:31 | XR ---
EXAMINATION TYPE: XR chest 2V DATE OF EXAM: 09/20/2019 HISTORY: difficulty breathing. REFERENCE: Previous study dated 09/06/2019. FINDINGS: There has been a midline sternotomy. There is a multilead pacing device present on the righ t. There is a worsening right upper lobe infiltrate. There is a masslike density in the right lower lobe which is more confluent than on the previous study. The left lung is clear. Heart size upper limits of normal. There is a left-sided effusion. IMPRESSION: 1. MASSLIKE DENSITY AT THE RIGHT LUNG BASE. A CT SCAN OF THE CHEST BE SUGGESTED. 2. WORSENING CONSOLIDATION, RIGHT UPPER LOBE. 3. SMALL RIGHT EFFUSION. 4. BORDERLINE CARDIOMEGALY.
[2019-09-20] MEDS ORDERED: CEFEPIME 1 GM in SODIUM CHLORIDE 0.9% 50 ML IVPB STA (11:33)
[2019-09-20] MEDS ORDERED: VANCOMYCIN IV PER PHARMACY 1 EACH MISC MISCELLANE PRN (11:33)
[2019-09-20] MEDS ORDERED: RX INFO: IV CONTRAST WAS GIVEN 1 EACH MISC MISCELLANE PRN (11:34)
[2019-09-20] MEDS ORDERED: ACETAMINOPHEN TAB 325 MG TAB PO STA (11:50)
[2019-09-20] MEDS ORDERED: VANCOMYCIN 1,750 MG in SODIUM CHLORIDE 0.9% 500 ML 500 ML IVPB STA (11:52)
--- NOTE | 2019-09-20 12:18 | CT ---
EXAMINATION TYPE: CT chest w con DATE OF EXAM: 09/20/2019 COMPARISON: Previous study dated 12/10/2017 as well as a chest x-ray of earlier today. HISTORY: abnormal chest xray CT DLP: 537.1 mGycm Automated exposure control for dose reduction was used. CONTRAST: CT scan of the chest is performed with IV Contrast, patient injected with 100 mL of Isovue 300. FINDINGS: Masslike density in the right lung base represents: Within a partial eventration right ramy diaphragm. There are patchy opacities in the right upper lobe. There is more confluent consolidation in the righ t lower lobe. There is no significant axillary, mediastinal or hilar adenopathy. There is a multilead pacemaker place. There is no pleural or pericardial fluid. The heart is mildly e nlarged. There is extensive vascular calcification in the upper portion of the abdomen. There is a small hiata l hernia. There is degenerative disc disease and hypertrophic spondylosis within the spine. IMPRESSION: 1. MASSLIKE DENSITY IN THE RIGHT LOWER LOBE REPRESENTS COLON WITHIN A PARTIAL EVENTRATION. 2. PATCHY CONSOLIDATION IN THE RIGHT UPPER LOBE WELL IN THE RIGHT LOWER LOBE. 3. MILD CARDIOMEGALY.
[2019-09-20] MEDS ORDERED: IPRATROPIUM-ALBUTEROL 3 ML NEB INHALATION PRN (18:53)
[2019-09-20] MEDS ORDERED: ALPRAZolam 0.5 MG TAB PO PRN (18:55)
[2019-09-20] MEDS ORDERED: NITROGLYCERIN SL TABS 0.4 MG TAB SUBLINGUAL PRN (18:55)
[2019-09-20] MEDS ORDERED: RANOLAZINE 500 MG TAB.ER.12H PO PRN (18:55)
[2019-09-20] MEDS: SODIUM CHLORIDE 0.9% 1,000 ML IV SCH ×2 (19:53→21:22)
[2019-09-20] MEDS: ATORVASTATIN 20 MG TAB PO SCH (21:20)
[2019-09-20] MEDS: GABAPENTIN 300 MG CAP PO SCH (21:20)
[2019-09-20] MEDS: SOTALOL 80 MG TAB PO SCH (21:35)
[2019-09-21] MEDS: VANCOMYCIN 1,500 MG in SODIUM CHLORIDE 0.9% 250 ML IVPB SCH ×2 (05:33→23:28)
[2019-09-21] MEDS: LEVOTHYROXINE 50 MCG TAB PO SCH (05:33)
[2019-09-21] MEDS: SODIUM CHLORIDE 0.9% 1,000 ML IV SCH ×3 (05:34→20:53)
[2019-09-21] MEDS: ASPIRIN 81 MG PO SCH (07:17)
[2019-09-21] MEDS: GABAPENTIN 300 MG CAP PO SCH ×2 (07:17→20:43)
[2019-09-21] MEDS: predniSONE 20 MG TAB PO SCH (07:18)
[2019-09-21] MEDS: METOPROLOL SUCCINATE (ER) 25 MG TAB.ER.24H PO SCH (07:18)
[2019-09-21] MEDS: SPIRONOLACTONE 25 MG TAB PO SCH (07:18)
[2019-09-21] MEDS: SOTALOL 80 MG TAB PO SCH ×2 (07:18→20:43)
[2019-09-21 07:48] LABS: Basophils % (A) 0 %; Eosinophils % (A) 0 %; HCT 35.1 % (39.0-53.0); HGB 11.7 gm/dL (13.0-17.5); Lymphocytes # (A) 0.7 k/uL (1.0-4.8); Lymphocytes % (A) 3 %; MCH 33.1 pg (25.0-35.0); MCHC 33.3 g/dL (31.0-37.0); MCV 99.4 fL (80.0-100.0); Mean Platelet Volume 9.3; Monocytes # (A) 0.6 k/uL (0-1.0); Monocytes % (A) 3 %; Neutrophils % (A) 94 %; Platelet Count 139 k/uL (150-450); RBC 3.53 m/uL (4.30-5.90); RDW 13.7 % (11.5-15.5); WBC 21.4 k/uL (3.8-10.6)
[2019-09-21 07:57] LABS: Calcium 8.5 mg/dL (8.4-10.2)
[2019-09-21] MEDS: CEFEPIME 1 GM in SODIUM CHLORIDE 0.9% 50 ML IVPB SCH ×2 (11:27→20:43)
--- NOTE | 2019-09-21 11:28 | P.CNPUL ---
History of Present Illness Consult date: 09/21/19 Reason for consult: dyspnea, cough, other Chief complaint: Dyspnea, cough, shaking chills History of present illness: This is a 78-year-old white male patient with an extensive medical history including chronic right hemidiaphragm paralysis, status post right hemidiaphragm plication, mild COPD, past history of pneumonias including E. coli ESBL, B12 deficiency, previous history of MRSA infection, valvular heart disease, osteoarthritis, chronic kidney disease, obstructive sleep apnea syndrome, hypothyroidism, previous history of pacemaker insertion, CAD with stenting. Patient was recently hospitalized for cardiac syncope related to V. tach, and had a pacemaker upgrade to a pacemaker with AICD in his right upper chest. Patient does have history of atrial fibrillation on Coumadin, and his EF is around 45%. Patient presented to the emergency department on 09/20/2019 with complaints of shaking chills, vomiting, shortness of breath. At times he is able to bring up green colored sputum, no hemoptysis, no complaints of chest pain. Chest x-ray showed masslike density at the right lung base, and worsening consolidation in the right upper lobe and a small right pleural effusion. CT chest with contrast showed masslike density in the right lower lobe representing colon within the partial eventration, patchy consolidation in the right upper lobe as well as in the right lower lobe and mild cardiomegaly. Initial blood work showed a white blood cell count of 15.5, hemoglobin of 11.8, INR is 3.4, sodium is 139, potassium 3.8, chloride is 108, CO2 is 26, BUN is 28 creatinine is 1.15. ProBNP is 1570, and troponin was negative 1, influenza screen was negative. Patient did have a low-grade fever on admission with a temp of 100.7F. He was started on antibiotics in the form of cefepime and vancomycin, received IV fluid bolus of 500 mL of normal saline and maintenance IV fluids infusing at a rate of 100, and today's exam he states he is ready feeling better. Review of Systems All systems: negative Constitutional: Denies chills, Denies fever Eyes: denies blurred vision, denies pain Ears, nose, mouth and throat: Denies headache, Denies sore throat Cardiovascular: Denies chest pain, Denies shortness of breath Respiratory: Reports cough with sputum, Reports dyspnea, Denies cough Gastrointestinal: Denies abdominal pain, Denies diarrhea, Denies nausea, Denies vomiting Musculoskeletal: Denies myalgias Integumentary: Denies pruritus, Denies rash Neurological: Denies numbness, Denies weakness Psychiatric: Denies anxiety, Denies depression Endocrine: Denies fatigue, Denies weight change Past Medical History Past Medical History: Atrial Flutter, Asthma, Coronary Artery Disease (CAD), Heart Failure, COPD, Deep Vein Thrombosis (DVT), GERD/Reflux, Hyperlipidemia, Hypertension, Pneumonia, Pulmonary Embolus (PE), Rheumatoid Arthritis (RA), T hyroid Disorder Additional Past Medical History / Comment(s): MACULAR DEGNERATION MISA EYES,GERD, SHINGLES LT EAR [phone], atrial fibrillation on Coumadin, RLS, hammertoe, ch ronic low back pain, USES A CANE FOR DISTANCE. History of Any Multi-Drug Resistant Organisms: ESBL, MRSA Date of last positivie culture/infection: 07/02/18 ESBL / 07/2013 & 01/2017 MRSA MDRO Source:: BRONCH ESBL/ MRSA 2nd pacer & HAND Past Surgical History: Bariatric Surgery, Coronary Bypass/CABG, Heart Catheterization, Heart Catheterization With Stent, Hernia Repair, Pacemaker Additional Past Surgical History / Comment(s): Trifecta aortic valve repalcement, bunionectomy left great toe, 7 heart caths, stents x2 to rca, gastroplasty 1979, crys-en-y May 2016 at [facility]; 2017- Diaphram Plycation at [facility], heart valve replacement at [facility]- Aortic valve- bovine, Pacers x3 (first pacer placed in 2006- need a new battery in 2012, placed 2nd pacer 2012. 2nd pacer became infected with MRSA and was removed. once infection cleared a 3rd was placed on the right side) Past Anesthesia/Blood Transfusion Reactions: No Reported Reaction Date of Last Stent Placement:: 2012 Type of Cardiac Device: Permanent Pacemaker Device Placement Date:: 2013 Smoking Status: Former smoker - Past Family History Father History Unknown: Yes Mother History Unknown: Yes Medications and Allergies Home Medications Medication Instructions Recorded Confirmed Type ALPRAZolam [Xanax] 0.5 mg PO BID PRN 12/10/17 09/20/19 History Aspirin [Adult Low Dose Aspirin EC] 81 mg PO DAILY 12/10/17 09/20/19 History Cyanocobalamin [Vitamin B-12 1,000 mcg SQ Q30D 12/10/17 09/20/19 History Injection] Ferrous Sulfate [Iron (65 MG 325 mg PO DAILY 12/10/17 09/20/19 History Elemental)] Furosemide [Lasix] 40 mg PO BID 12/10/17 09/20/19 History Gabapentin 600 mg PO BID 12/10/17 09/20/19 History HYDROcodone/APAP 10-325MG [[place] 1 tab PO TID PRN 12/10/17 09/20/19 History 10-325] Levothyroxine Sodium [Synthroid] 50 mcg PO DAILY 12/10/17 09/20/19 History Losartan Potassium [Cozaar] 25 mg PO HS 12/10/17 09/20/19 History Metoprolol Succinate (ER) [Toprol 25 mg PO DAILY 12/10/17 09/20/19 History XL] Morphine Sulfate [Ms Contin] 30 mg PO Q12H 12/10/17 09/20/19 History Nitroglycerin Sl Tabs [Nitrostat] 0.4 mg SUBLINGUAL Q5M PRN 12/10/17 09/20/19 History Simvastatin 40 mg PO HS 12/10/17 09/20/19 History Spironolactone [Aldactone] 25 mg PO DAILY 12/10/17 09/20/19 History Vit C/E/Zn/Coppr/Lutein/Zeaxan 1 cap PO BID 12/10/17 09/20/19 History [Preservision Areds 2 Softgel] rOPINIRole HCL [Requip] 2 mg PO 5XD 12/10/17 09/20/19 History Warfarin Sodium [Coumadin] 2 mg PO HS 09/11/18 09/20/19 History Ranolazine [Ranexa] 500 mg PO BID PRN 05/19/19 09/20/19 History Albuterol Nebulized [Ventolin 2.5 mg INHALATION RT-QID PRN 30 05/23/19 09/20/19 Rx Nebulized] Days #120 nebu Ipratropium/Albuterol Sulfate 2 puff INHALATION RT-QID #120 05/23/19 09/20/19 Rx [Combivent Respimat Inhaler] mist.inhal predniSONE 5 mg PO DAILY 09/02/19 09/20/19 History Sotalol [Betapace] 80 mg PO BID #60 tab 09/06/19 09/20/19 Rx Allergies Allergy/AdvReac Type Severity Reaction Status Date / Time No Known Allergies Allergy Verified 09/20/19 12:59 Physical Exam Vitals: Vital Signs Temp Pulse Pulse Resp BP BP Pulse Ox 09/21/19 04:41 97.6 F 56 L 16 120/63 94 L 09/20/19 23:53 60 16 09/20/19 21:32 97 09/20/19 20:38 98.4 F 60 16 134/58 95 09/20/19 15:33 98 F 60 17 107/52 93 L 09/20/19 14:47 98 F 60 18 95/51 94 L 09/20/19 12:07 61 18 117/52 95 09/20/19 11:28 63 09/20/19 11:16 62 Intake and Output 09/20/19 09/21/19 09/21/19 22:59 06:59 14:59 Other: # Voids 1 2 Weight 99.79 kg GENERAL EXAM: Alert, very pleasant, 78-year-old white male, on 2 L of oxygen with a pulse ox of 94% comfortable in no apparent distress. HEAD: Normocephalic/atraumatic. EYES: Normal reaction of pupils, equal size. Conjunctiva pink, sclera white. NOSE: Clear with pink turbinates. THROAT: No erythema or exudates. NECK: No masses, no JVD, no thyroid enlargement, no adenopathy. CHEST: No chest wall deformity. Symmetrical expansion. Right upper chest pacemaker/AICD incisions clean dry and intact, no sign of hematoma LUNGS: Equal air entry with inspiratory crackles over right upper mid and lower lobe wheeze, rhonchi or dullness. CVS: Regular rate and rhythm, normal S1 and S2, no gallops, no murmurs, no rubs ABDOMEN: Soft, nontender. No hepatosplenomegaly, normal bowel sounds, no guarding or rigidity. EXTREMITIES: No clubbing, no edema, no cyanosis, 2+ pulses and upper and lower extremities. MUSCULOSKELETAL: Muscle strength and tone normal. SPINE: No scoliosis or deformity SKIN: No rashes CENTRAL NERVOUS SYSTEM: Alert and oriented -3. No focal deficits, tone is normal in all 4 extremities. PSYCHIATRIC: Alert and oriented -3. Appropriate affect. Intact judgment and insight. Results - Laboratory Findings CBC and BMP: 09/21/19 07:25 09/21/19 07:25 PT/INR, D-dimer PT 33.0 sec (9.0-12.0) H 09/20/19 10:56 INR 3.4 (<1.2) H 09/20/19 10:56 Abnormal lab findings: Abnormal Labs 09/20/19 09/20/19 09/20/19 10:56 10:56 10:56 WBC 15.5 H RBC 3.58 L Hgb 11.8 L Hct 35.0 L Plt Count 142 L Neutrophils # 14.0 H Lymphocytes # 0.5 L PT 33.0 H INR 3.4 H APTT 31.8 H Chloride 108 H BUN 28 H Glucose 101 H Albumin 3.4 L 09/21/19 09/21/19 07:25 07:25 WBC 21.4 H RBC 3.53 L Hgb 11.7 L Hct 35.1 L Plt Count 139 L Neutrophils # 20.0 H Lymphocytes # 0.7 L PT INR APTT Chloride 109 H BUN 26 H Glucose 149 H Albumin - Diagnostic Findings Chest x-ray: report reviewed, image reviewed CT scan - chest: report reviewed, image reviewed Assessment and Plan Plan: Assessment: #1. Acute pneumonia in the right upper lobe and right lower lobe, possibly healthcare acquired or possibly aspiration related #2. Recent history of hospitalization for syncopal episodes related to V. tach, status post pacemaker upgrade with addition of AICD #3. Coronary artery disease with previous stenting #4. History of ischemic cardiomyopathy with with in EF of 45% #5. History of bypass grafting #6. History of valvular heart disease, with aortic valve replacement #7. Chronic right hemidiaphragmatic paralysis, status post diaphragmatic plication #8. History of pacemaker placements, and subsequent replacements #9. History of MRSA infection #10. Former history of smoking #11. Mild COPD stage II, outpatient PFT showed FEV1 of 2.77 L or 74% of predicted, with a component of restriction with FVC of 3.65 L or 71% of predicted Plan: Continue current antibiotic coverage, continue nebulized treatments, we'll try to send a sputum for culture. Vital signs are stable, patient is already feeling better today. Influenza screen was negative, his CT chest and chest x- ray have been reviewed showing patchy consolidation involving right upper lobe and right lower lobe consistent with pneumonia. Will continue to follow I performed a history & physical examination of the patient and discussed their management with my nurse practitioner, Gayle Thompson. I reviewed the nurse practitioner's note and agree with the documented findings and plan of care. Lung sounds are positive for crackles at the right mid and lower lobe. The findings and the impression was discussed with the patient. I attest to the documentation by the nurse practitioner. Time with Patient: Greater than 30
[2019-09-21] MEDS: ATORVASTATIN 20 MG TAB PO SCH (20:43)
[2019-09-21 21:08] VITALS: RESP 18
--- NOTE | 2019-09-21 22:19 | P.HPIM ---
History of Present Illness H&P Date: 09/20/19 Chief Complaint: Shortness of breath Patient is a 78-year-old male with a known history of coronary artery disease with history of CABG, cardiac catheterization with stent placement, recent placement of AICD upgrade from pacemaker due to recent syncopal episode and ventricular tachycardia on 09/05/[address] Fine came to ER with the complaints of she worsened weakness. Patient says that she woke in the morning and was having shivers. [place] to be the week. Also had headache. Denied any complaints of dizziness or lightheadedness. No diaphoresis. No complaints of chest pain. Did have some shortness of breath. Patient had pneumonia 2-3 weeks ago prior to pacemaker placement and was admitted to [facility]. Patient felt like similar symptoms of pneumonia and came to ER for further evaluation. Denied any leg swelling. Patient denied any complaints of cough or sputum production. Patient was hypoxic with pulse ox less than 90% on admission. \\Denied any complaints of nausea vomiting or abdominal pain or diarrhea. Chest x-ray showed masslike density in the right lung base and worsening consolidation in the right upper lobe and small right pleural effusion. CT chest with contrast showed masslike density in the right lower lobe representing colon within the partial eventration, patchy consolidation in the right upper lobe as well as in the right lower lobe and mild cardiomegaly. WBC 15.5, hemoglobin 9.8, sodium 139, potassium 3.8, BUN 2018 and creatinine 1.15. ProBNP 1570 Troponin 1 negative Influenza negative. Strength T-max was 100.7 on admission. Review of Systems Constitutional: Patient did have fever and chills and generalized weakness Abdomen: Patient denied nausea vomiting and diarrhea and abdominal pain. Cardiovascular: Patient denies any chest pain or short of breath no pal pitations. Respiratory: Patient does have cough without sputum production and minimal shortness of breath Neurologic: Patient denied any numbness or tingling headache. Musculoskeletal: Patient denies any complaints of joint swelling or deformity. Skin: Negative Psychiatric: Negative Endocrine: No heat or cold intolerance. No recent weight gain. Genitourinary: No dysuria or hematuria. All other 14 point ROS negative except the above Past Medical History Past Medical History: Atrial Flutter, Asthma, Coronary Artery Disease (CAD), Heart Failure, COPD, Deep Vein Thrombosis (DVT), GERD/Reflux, Hyperlipidemia, Hypertension, Pneumonia, Pulmonary Embolus (PE), Rheumatoid Arthritis (RA), Thyroid Disorder Additional Past Medical History / Comment(s): MACULAR DEGNERATION MISA EYES,GERD, SHINGLES LT EAR [phone], "IRREG HEARTBEAT", RLS, hammertoe, chronic low back pain, USES A CANE FOR DISTANCE. History of Any Multi-Drug Resistant Organisms: ESBL, MRSA Date of last positivie culture/infection: 07/02/18 ESBL / 07/2013 & 01/2017 MRSA MDRO Source:: BRONCH ESBL/ MRSA 2nd pacer & HAND Past Surgical History: Bariatric Surgery, Coronary Bypass/CABG, Heart Catheterization, Heart Catheterization With Stent, Hernia Repair, Pacemaker Additional Past Surgical History / Comment(s): Trifecta aortic valve repalcement, bunionectomy left great toe, 7 heart caths, stents x2 to rca, gastroplasty 1979, crys-en-y May 2016 at [facility]; 2017- Diaphram Plycation at [facility], heart valve replacement at [facility]- Aortic valve- bovine, Pacers x3 (first pacer placed in 2006- need a new battery in 2012, placed 2nd pacer 2012. 2nd pacer became infected with MRSA and was removed. once infection cleared a 3rd was placed on the right side) Past Anesthesia/Blood Transfusion Reactions: No Reported Reaction Date of Last Stent Placement:: 2012 Type of Cardiac Device: Permanent Pacemaker Device Placement Date:: 2013 Smoking Status: Former smoker - Past Family History Father History Unknown: Yes Mother History Unknown: Yes Medications and Allergies Home Medications Medication Instructions Recorded Confirmed Type ALPRAZolam [Xanax] 0.5 mg PO BID PRN 12/10/17 09/20/19 History Aspirin [Adult Low Dose Aspirin EC] 81 mg PO DAILY 12/10/17 09/20/19 History Cyanocobalamin [Vitamin B-12 1,000 mcg SQ Q30D 12/10/17 09/20/19 History Injection] Ferrous Sulfate [Iron (65 MG 325 mg PO DAILY 12/10/17 09/20/19 History Elemental)] Furosemide [Lasix] 40 mg PO BID 12/10/17 09/20/19 History Gabapentin 600 mg PO BID 12/10/17 09/20/19 History HYDROcodone/APAP 10-325MG [[place] 1 tab PO TID PRN 12/10/17 09/20/19 History 10-325] Levothyroxine Sodium [Synthroid] 50 mcg PO DAILY 12/10/17 09/20/19 History Losartan Potassium [Cozaar] 25 mg PO HS 12/10/17 09/20/19 History Metoprolol Succinate (ER) [Toprol 25 mg PO DAILY 12/10/17 09/20/19 History XL] Morphine Sulfate [Ms Contin] 30 mg PO Q12H 12/10/17 09/20/19 History Nitroglycerin Sl Tabs [Nitrostat] 0.4 mg SUBLINGUAL Q5M PRN 12/10/17 09/20/19 History Simvastatin 40 mg PO HS 12/10/17 09/20/19 History Spironolactone [Aldactone] 25 mg PO DAILY 12/10/17 09/20/19 History Vit C/E/Zn/Coppr/Lutein/Zeaxan 1 cap PO BID 12/10/17 09/20/19 History [Preservision Areds 2 Softgel] rOPINIRole HCL [Requip] 2 mg PO 5XD 12/10/17 09/20/19 History Warfarin Sodium [Coumadin] 2 mg PO HS 09/11/18 09/20/19 History Ranolazine [Ranexa] 500 mg PO BID PRN 05/19/19 09/20/19 History Albuterol Nebulized [Ventolin 2.5 mg INHALATION RT-QID PRN 30 05/23/19 09/20/19 Rx Nebulized] Days #120 nebu Ipratropium/Albuterol Sulfate 2 puff INHALATION RT-QID #120 05/23/19 09/20/19 Rx [Combivent Respimat Inhaler] mist.inhal predniSONE 5 mg PO DAILY 09/02/19 09/20/19 History Sotalol [Betapace] 80 mg PO BID #60 tab 09/06/19 09/20/19 Rx Allergies Allergy/AdvReac Type Severity Reaction Status Date / Time No Known Allergies Allergy Verified 09/20/19 12:59 Physical Exam Vitals: Vital Signs Temp Pulse Pulse Resp BP BP Pulse Ox 09/20/19 15:33 98 F 60 17 107/52 93 L 09/20/19 14:47 98 F 60 18 95/51 94 L 09/20/19 12:07 61 18 117/52 95 09/20/19 11:28 63 09/20/19 11:16 62 09/20/19 10:47 100.7 F H 64 22 107/52 95 09/20/19 09:51 97.5 F L 67 18 153/60 90 L Intake and Output 09/20/19 09/20/19 09/20/19 06:59 14:59 22:59 Other: Weight 99.79 kg 99.79 kg PHYSICAL EXAMINATION: Patient is lying in the bed comfortably, no acute distress, awake alert and oriented.. HEENT: Normocephalic. Neck is supple. Pupils reactive. Nostrils clear. Oral cavity is moist. Ears reveal no drainage. Neck reveals no JVD, carotid bruits, or thyromegaly. CHEST EXAMINATION: Trachea is central. Symmetrical expansion. Right lower diminished breath sounds and right-sided crackles positive.. CARDIAC: Normal S1, S2 with no gallops. No murmurs ABDOMEN: Soft. Bowel sounds normal. No organomegaly. No abdominal bruits. Extremities: reveal no edema. No clubbing or cyanosis Neurologically awake, alert, oriented x3 with well-coordinated movements. No focal deficits noted Skin: No rash or skin lesions. Psychiatric: Coperative. Nonsuicidal Musculoskeletal: No joint swelling or deformity. Normal range of motion. Results CBC & Chem 7: 09/21/19 07:25 09/21/19 07:25 Labs: Abnormal Lab Results - Last 24 Hours (Table) 09/20/19 09/20/19 09/20/19 Range/Units 10:56 10:56 10:56 WBC 15.5 H (3.8-10.6) k/uL RBC 3.58 L (4.30-5.90) m/uL Hgb 11.8 L (13.0-17.5) gm/dL Hct 35.0 L (39.0-53.0) % Plt Count 142 L (150-450) k/uL Neutrophils # 14.0 H (1.3-7.7) k/uL Lymphocytes # 0.5 L (1.0-4.8) k/uL PT 33.0 H (9.0-12.0) sec INR 3.4 H (<1.2) APTT 31.8 H (22.0-30.0) sec Chloride 108 H (98-107) mmol/L BUN 28 H (9-20) mg/dL Glucose 101 H (74-99) mg/dL Albumin 3.4 L (3.5-5.0) g/dL Thrombosis Risk Factor Assmnt - DVT/VTE Prophylaxis DVT/VTE Prophylaxis: Pharmacologic Prophylaxis ordered - Choose All That Apply Each Factor Represents 1 point: Abnormal pulmonary function (COPD), Medical pt on bed rest, Serious lung disease incl. pneumonia (< 1month), Varicose veins Each Risk Factor Represents 3 Points: Age 75 years or older, Family history of DVT/PE Thrombosis Risk Factor Assessment Total Risk Factor Score: 10 Thrombosis Risk Factor Assessment Level: High Risk Assessment and Plan Assessment: Fever chills and generalized weakness likely due to right upper lobe pneumonia. Possible HCAP. Sepsis secondary to above Recent pacemaker upgrade on 09/05/2019 due to syncopal episode with ventricular tachycardia History of E. coli ESBL pneumonia Coronary artery disease with history of CABG and stent placement Ischemic cardio myopathy ejection fraction 5-40% Valvular heart disease with aortic valve replacement Chronic right hemidiaphragmatic process status post diaphragmatic plication at [facility] Previous history of smoking COPD. Stable Atrial fibrillation paroxysmal. Anticoagulation with Coumadin Hypertension Hyperlipidemia Rheumatoid arthritis Osteoarthritis History of DVT/PE Plan: Patient will be continued on broad-spectrum antibiotics in the form of vancomyc in and cefepime. Continue with duo nebs and follow up blood cultures and sputum culture. Continue with the medications and telemetry monitoring. Pulmonary will be consulted. Further recommendations based on the clinical course. Prognosis is guarded with multiple medical problems and comorbid cond itions. Time with Patient: Greater than 30
--- NOTE | 2019-09-21 22:23 | P.PN ---
Subjective Progress Note Date: 09/21/19 Principal diagnosis: Right upper lobe pneumonia Patient is a 78-year-old male with a known history of coronary artery disease with history of CABG, cardiac catheterization with stent placement, recent placement of AICD upgrade from pacemaker due to recent syncopal episode and v entricular tachycardia on 09/05/[address] Fine came to ER with the complaints of she worsened weakness. Patient says that she woke in the morning and was having shivers. [place] to be the week. Also had headache. Denied any complaints of dizziness or lightheadedness. No diaphoresis. No complaints of chest pain. Did have some shortness of breath. Patient had pneumonia 2-3 weeks ago prior to pacemaker placement and was admitted to [facility] [place]. Patient felt like similar symptoms of pneumonia and came to ER for further evaluation. Denied any leg swelling. Patient denied any complaints of cough or sputum production. Patient was hypoxic with pulse ox less than 90% on admission. \Denied any complaints of nausea vomiting or abdominal pain or diarrhea. Chest x-ray showed masslike density in the right lung base and worsening consolidation in the right upper lobe and small right pleural effusion. CT chest with contrast showed masslike density in the right lower lobe represe nting colon within the partial eventration, patchy consolidation in the right upper lobe as well as in the right lower lobe and mild cardiomegaly. WBC 15.5, hemoglobin 9.8, sodium 139, potassium 3.8, BUN 2018 and creatinine 1.15. ProBNP 1570 Troponin 1 negative Influenza negative. Strength T-max was 100.7 on admission. 09/21/2019 Patient says that she did not have any fever or chills last night. Shortness of breath did improve compared to yesterday. Still having exertional dyspnea. No nausea vomiting or abdominal pain. Denied any difficulty in swallowing. Patient is still having right-sided crackles and wheezing improved. Patient is being continued on antibiotics in the form of vancomycin and cefepime. Converted on DuoNeb's and prednisone 40 mg daily. Pulmonary is following. Still having leukocytosis with WBC count 15. No complaints of chest pain. No nausea vomiting or diarrhea. All other review of systems negative except the above. Active Medications Albuterol/Ipratropium (Duoneb 0.5 Mg-3 Mg/3 Ml Soln) 3 ml INHALATION RT-QID PRN PRN Reason: Shortness Of Breath Or Wheezing Alprazolam (Xanax) 0.5 mg PO BID PRN PRN Reason: Anxiety Aspirin (Aspirin) 81 mg PO DAILY [facility] Last Admin: 09/21/19 07:17 Dose: 81 mg Documented by: Atorvastatin Calcium (Lipitor) 20 mg PO HS [facility] Last Admin: 09/21/19 20:43 Dose: 20 mg Documented by: Gabapentin (Neurontin) 600 mg PO BID [facility] Last Admin: 09/21/19 20:43 Dose: 600 mg Documented by: Sodium Chloride (Saline 0.9%) 1,000 mls @ 100 mls/hr IV .Q10H [facility] Last Admin: 09/21/19 20:53 Dose: 100 mls/hr Documented by: Vancomycin HCl 1,500 mg/ (Sodium Chloride) 250 mls @ 125 mls/hr IVPB Q16H [facility] Last Admin: 09/21/19 05:33 Dose: 125 mls/hr Documented by: Cefepime HCl 1 gm/ Sodium (Chloride) 50 mls @ 100 mls/hr IVPB Q12HR [facility] Last Admin: 09/21/19 20:43 Dose: 100 mls/hr Documented by: Levothyroxine Sodium (Synthroid) 50 mcg PO DAILY@0630 [facility] Last Admin: 09/21/19 05:33 Dose: 50 mcg Documented by: Metoprolol Succinate (Toprol Xl) 25 mg PO DAILY [facility] Last Admin: 09/21/19 07:18 Dose: 25 mg Documented by: Miscellaneous Information (Rx Info: Iv Contrast Was Given) 1 each MISCELLANE DAILY PRN PRN Reason: Per Protocol Stop: 09/22/19 11:34 Last Admin: 09/20/19 12:00 Dose: 1 each Documented by: Nitroglycerin (Nitrostat) 0.4 mg SUBLINGUAL Q5M PRN PRN Reason: Chest Pain Prednisone () 40 mg PO DAILY [facility] Last Admin: 09/21/19 07:18 Dose: 40 mg Documented by: Ranolazine (Ranexa) 500 mg PO BID PRN PRN Reason: Angina Ropinirole HCl (Requip) 2 mg PO 5XD [facility] Last Admin: 09/21/19 20:43 Dose: 2 mg Documented by: Sotalol HCl (Betapace) 80 mg PO BID [facility] Last Admin: 09/21/19 20:43 Dose: 80 mg Documented by: Spironolactone (Aldactone) 25 mg PO DAILY [facility] Last Admin: 09/21/19 07:18 Dose: 25 mg Documented by: Objective - Vital Signs Vital signs: Vital Signs Temp 97.7 F 09/21/19 21:08 Pulse 55 L 09/21/19 21:08 Resp 18 09/21/19 21:08 BP 143/70 09/21/19 21:08 Pulse Ox 97 09/21/19 21:08 Intake & Output 09/21/19 09/21/19 09/22/19 06:59 18:59 06:59 Intake Total 850 Balance 850 Intake: Intake, IV Titration 850 Amount Cefepime 1 gm In Sodium 50 Chloride 0.9% 50 ml @ 100 mls/hr IVPB Q12HR [facility] Rx #:[id number] Sodium Chloride 0.9% 1, 800 000 ml @ 100 mls/hr IV . Q10H [facility] Rx#:[id number] Other: # Voids 2 1 - Exam PHYSICAL EXAMINATION: Patient is lying in the bed comfortably, no acute distress, awake alert and oriented.. HEENT: Normocephalic. Neck is supple. Pupils reactive. Nostrils clear. Oral cavity is moist. Ears reveal no drainage. Neck reveals no JVD, carotid bruits, or thyromegaly. CHEST EXAMINATION: Trachea is central. Symmetrical expansion. Right lower diminished breath sounds and right-sided crackles positive.. CARDIAC: Normal S1, S2 with no gallops. No murmurs ABDOMEN: Soft. Bowel sounds normal. No organomegaly. No abdominal bruits. Extremities: reveal no edema. No clubbing or cyanosis Neurologically awake, alert, oriented x3 with well-coordinated movements. No focal deficits noted Skin: No rash or skin lesions. Psychiatric: Coperative. Nonsuicidal Musculoskeletal: No joint swelling or deformity. Normal range of motion. - Labs CBC & Chem 7: 09/21/19 07:25 09/21/19 07:25 Labs: Abnormal Lab Results - Last 24 Hours (Table) 09/21/19 09/21/19 Range/Units 07:25 07:25 WBC 21.4 H (3.8-10.6) k/uL RBC 3.53 L (4.30-5.90) m/uL Hgb 11.7 L (13.0-17.5) gm/dL Hct 35.1 L (39.0-53.0) % Plt Count 139 L (150-450) k/uL Neutrophils # 20.0 H (1.3-7.7) k/uL Lymphocytes # 0.7 L (1.0-4.8) k/uL Chloride 109 H (98-107) mmol/L BUN 26 H (9-20) mg/dL Glucose 149 H (74-99) mg/dL Microbiology - Last 24 Hours (Table) 09/20/19 10:56 Blood Culture - Preliminary Blood No Growth after 24 hours Assessment and Plan Assessment: Fever chills and generalized weakness likely due to right upper lobe pneumonia. Likely HCAP with recent admissions. Sepsis secondary to above Recent pacemaker upgrade on 09/05/2019 due to syncopal episode with ventricular tachycardia History of E. 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 Stable Atrial fibrillation paroxysmal. Anticoagulation with Coumadin Hypertension Hyperlipidemia Rheumatoid arthritis Osteoarthritis History of DVT/PE Plan: Patient will be continued on broad-spectrum antibiotics in the form of vancomycin and cefepime. Continue with duo nebs and prednisone and follow up blood cultures and sputum culture. Continue with the medications and telemetry monitoring. Pulmonary is following. Further recommendations based on the clinical course. Prognosis is guarded with multiple medical problems and comorbid conditions. Time with Patient: Greater than 30
[2019-09-22 05:38] VITALS: BP 161/81; PULSE 60; TEMP 97.3
[2019-09-22] MEDS: LEVOTHYROXINE 50 MCG TAB PO SCH (06:02)
[2019-09-22 08:18] LABS: Basophils % (A) 0 %; Eosinophils % (A) 0 %; HGB 11.7 gm/dL (13.0-17.5); Lymphocytes # (A) 1.1 k/uL (1.0-4.8); Lymphocytes % (A) 7 %; MCH 33.2 pg (25.0-35.0); MCHC 33.4 g/dL (31.0-37.0); MCV 99.3 fL (80.0-100.0); Mean Platelet Volume 8.4; Monocytes # (A) 0.7 k/uL (0-1.0); Monocytes % (A) 5 %; Neutrophils # (A) 13.5 k/uL (1.3-7.7); Neutrophils % (A) 87 %; Platelet Count 149 k/uL (150-450); RBC 3.53 m/uL (4.30-5.90); RDW 13.8 % (11.5-15.5); WBC 15.6 k/uL (3.8-10.6)
[2019-09-22 08:36] LABS: Calcium 8.4 mg/dL (8.4-10.2); Potassium 3.9 mmol/L (3.5-5.1)
[2019-09-22] MEDS: METOPROLOL SUCCINATE (ER) 25 MG TAB.ER.24H PO SCH (09:03)
[2019-09-22] MEDS: SPIRONOLACTONE 25 MG TAB PO SCH (09:03)
[2019-09-22] MEDS: GABAPENTIN 300 MG CAP PO SCH (09:03)
[2019-09-22] MEDS: SOTALOL 80 MG TAB PO SCH (09:04)
[2019-09-22] MEDS: predniSONE 20 MG TAB PO SCH (09:04)
[2019-09-22] MEDS: CEFEPIME 1 GM in SODIUM CHLORIDE 0.9% 50 ML IVPB SCH (09:04)
[2019-09-22] MEDS: ASPIRIN 81 MG PO SCH (09:04)
[2019-09-22] MEDS ORDERED: HYDROcodone/APAP 10-325MG 1 EACH TAB PO PRN (10:14)
[2019-09-22] MEDS: SODIUM CHLORIDE 0.9% 1,000 ML IV SCH (12:16)
[2019-09-22 14:08] LABS: INR 2.1 (<1.2); Prothrombin Time 20.7 sec (9.0-12.0)
--- NOTE | 2019-09-22 14:37 | CDI ---
Documentation Clarification Form Date: 09/22/2019 2:22:32 PM From: Madelyn Cuenca RN CCDS Admit Date: 09/20/2019 12:59:00 PM Patient Name: Emmanuel Hall Visit Number: [id number] Discharge Date: ATTENTION: The Clinical Documentation Specialists (CDI) and [facility] Coding Staff appreciate your assistance in clarifying documentation. Please respond to the clarification below the line at the bottom and electronically sign. The CDI & [facility] Coding staff will review the response and follow-up if needed. Please note: Queries are made part of the Legal Health Record. If you have any questions, please contact the author of this message via ITS. Dr. Bean Heart Failure is documented in the H & P under past medical history History/Risk Factors: 78-year-old male presents to the ED with cough, rigors, chills and shortness of breath. Medical History Atrial Flutter, Asthma, CAD, Heart failure; COPD; DVT; GERD; Hyperlipidemia; HTN; PE; RA; Thyroid disorder Clinical Indicators: VS/Pulse OX: 153/60 67 97.5 18 90% ra BNP: 09/20 1570 Echocardiogram Results: 12/11/17 moderate concentric left ventricular hypertrophy. Overall left ventricular systolic function is low normal with an EF between 50-55% Chest X Ray: Treatment: 09/21 Aldactone 25mg po daily; Toprol Xl 25mg po Daily; In your professional opinion, can you please clarify the acuity and type of CHF if known? * Chronic Systolic Heart Failure: * Chronic Diastolic Heart Failure: * Chronic Systolic & Diastolic Heart Failure: * Unable to Determine * Other, please specify (Last Revision: January 2018) Unable to Determine MTDD
--- NOTE | 2019-09-22 14:48 | P.DS ---
Providers Date of admission: 09/20/19 12:59 Expected date of discharge: 09/22/19 Attending physician: Tabitha Dean Consults: 09/20/19 18:59 Consult Physician Routine Consulting Provider: Randell Santana Consult Reason/Comments: Pneumonia Do you want consulting provider notified?: Yes Primary care physician: Randell Santana [facility] Course: Final diagnosis Fever chills and generalized weakness likely due to right upper lobe pneumonia. Likely HCAP with recent admissions. Sepsis secondary to above Recent pacemaker upgrade on 09/05/2019 due to syncopal episode with ventricular tachycardia History of E. coli ESBL pneumonia Coronary artery disease with history of CABG and stent placement Ischemic cardio myopathy ejection fraction 45-40% Valvular heart disease with aortic valve replacement Chronic right hemidiaphragmatic process Previous history of smoking COPD. Atrial fibrillation paroxysmal. Hypertension Hyperlipidemia Rheumatoid arthritis Osteoarthritis History of DVT/PE Discharge disposition Patient is being discharged in a stable condition with guarded prognosis to home and will follow-up with primary care provider in the outpatient setting. Patient will follow-up with Dr. Santana in one week. Patient will continue with short course of oral antibiotics in the form of Ceftin twice daily for 10 days. Total time taken is 35 minutes. Patient is a 78-year-old male with a known history of coronary artery disease with history of CABG, cardiac catheterization with stent placement, recent placement of AICD upgrade from pacemaker due to recent syncopal episode and ventricular tachycardia on 09/05/[address] Fine came to ER with the complaints of she worsened weakness. Patient says that she woke in the morning and was having shivers. [place] to be the week. Also had headache. Denied any complaints of dizziness or lightheadedness. No diaphoresis. No complaints of chest pain. Did have some shortness of breath. Patient had pneumonia 2-3 weeks ago prior to pacemaker placement and was admitted to [facility]. Patient felt like similar symptoms of pneumonia and came to ER for further evaluation. Denied any leg swelling. Patient denied any complaints of cough or sputum production. Patient was hypoxic with pulse ox less than 90% on admission. \Denied any complaints of nausea vomiting or abdominal pain or diarrhea. Chest x-ray showed masslike density in the right lung base and worsening consolidation in the right upper lobe and small right pleural effusion. CT chest with contrast showed masslike density in the right lower lobe repres enting colon within the partial eventration, patchy consolidation in the right upper lobe as well as in the right lower lobe and mild cardiomegaly. WBC 15.5, hemoglobin 9.8, sodium 139, potassium 3.8, BUN 2018 and creatinine 1.15. ProBNP 1570 Troponin 1 negative Influenza negative. Strength T-max was 100.7 on admission. 09/21/2019 Patient says that she did not have any fever or chills last night. Shortness of breath did improve compared to yesterday. Still having exertional dyspnea. No nausea vomiting or abdominal pain. Denied any difficulty in swallowing. Patient is still having right-sided crackles and wheezing improved. Patient is being continued on antibiotics in the form of vancomycin and cefepime. Converted on DuoNeb's and prednisone 40 mg daily. Pulmonary is following. Still having leukocytosis with WBC count 15. No complaints of chest pain. No nausea vomiting or diarrhea. 09/22/2019 Patient is sitting up in bed in no acute distress with no acute overnight issues. Patient states that his breathing has much improved and his shortness of breath on exertion has gotten better. Patient's white blood count has improved and is trending down and is at 15.6 today. Hemoglobin is stable at 11.7. Repeat PT/INR was done as he was mildly elevated upon admission. Coumadin was held and may be resumed upon discharge. INR today is 2.1. Patient instructed to continue with 1 mg daily of Coumadin and repeat labs in 2-3 days. Currently patient's condition is stable and is ready for discharge today. Patient denies any chest pain, shortness of breath, or palpitations. Patient is afebrile. Patient denies any nausea or vomiting and has been tolerating diet. On exam vital signs are stable. Temp is 97.3F, pulse is 60, respirations are 18, blood pressure is 161/81, oxygen saturation is 94% on room air. Cardio S1, S2 are present. Respiratory system shows diminished breath sounds at the bases with a few scattered crackles noted on the right. Abdomen is soft and nontender. Nervous system shows no focal deficits. Please refer to medication reconciliation sheet for a list of medications. Patient Condition at Discharge: Stable Plan - Discharge Summary New Discharge Prescriptions: New predniSONE 10 mg PO DIRECTED #30 tab Cefuroxime Axetil [Ceftin] 500 mg PO BID 10 Days #20 tab Continue Metoprolol Succinate (ER) [Toprol XL] 25 mg PO DAILY Nitroglycerin Sl Tabs [Nitrostat] 0.4 mg SUBLINGUAL Q5M PRN PRN Reason: Chest Pain Losartan Potassium [Cozaar] 25 mg PO HS Cyanocobalamin [Vitamin B-12 Injection] 1,000 mcg SQ Q30D Vit C/E/Zn/Coppr/Lutein/Zeaxan [Preservision Areds 2 Softgel] 1 cap PO BID Spironolactone [Aldactone] 25 mg PO DAILY Levothyroxine Sodium [Synthroid] 50 mcg PO DAILY Ferrous Sulfate [Iron (65 MG Elemental)] 325 mg PO DAILY rOPINIRole HCL [Requip] 2 mg PO 5XD Gabapentin 600 mg PO BID Simvastatin 40 mg PO HS Aspirin [Adult Low Dose Aspirin EC] 81 mg PO DAILY ALPRAZolam [Xanax] 0.5 mg PO BID PRN PRN Reason: Anxiety Morphine Sulfate [Ms Contin] 30 mg PO Q12H HYDROcodone/APAP 10-325MG [[place] 10-325] 1 tab PO TID PRN PRN Reason: LOWER BACK PAIN Warfarin Sodium [Coumadin] 2 mg PO HS Ranolazine [Ranexa] 500 mg PO BID PRN PRN Reason: Angina Albuterol Nebulized [Ventolin Nebulized] 2.5 mg INHALATION RT-QID PRN 30 Days #120 nebu PRN Reason: Shortness Of Breath Ipratropium/Albuterol Sulfate [Combivent Respimat Inhaler] 2 puff INHALATION RT-QID #120 mist.inhal Sotalol [Betapace] 80 mg PO BID #60 tab Discontinued Furosemide [Lasix] 40 mg PO BID predniSONE 5 mg PO DAILY Discharge Medication List ALPRAZolam [Xanax] 0.5 mg PO BID PRN 12/10/17 [History] Aspirin [Adult Low Dose Aspirin EC] 81 mg PO DAILY 12/10/17 [History] Cyanocobalamin [Vitamin B-12 Injection] 1,000 mcg SQ Q30D 12/10/17 [History] Ferrous Sulfate [Iron (65 MG Elemental)] 325 mg PO DAILY 12/10/17 [History] Gabapentin 600 mg PO BID 12/10/17 [History] HYDROcodone/APAP 10-325MG [[place] 10-325] 1 tab PO TID PRN 12/10/17 [History] Levothyroxine Sodium [Synthroid] 50 mcg PO DAILY 12/10/17 [History] Losartan Potassium [Cozaar] 25 mg PO HS 12/10/17 [History] Metoprolol Succinate (ER) [Toprol XL] 25 mg PO DAILY 12/10/17 [History] Morphine Sulfate [Ms Contin] 30 mg PO Q12H 12/10/17 [History] Nitroglycerin Sl Tabs [Nitrostat] 0.4 mg SUBLINGUAL Q5M PRN 12/10/17 [History] Simvastatin 40 mg PO HS 12/10/17 [History] Spironolactone [Aldactone] 25 mg PO DAILY 12/10/17 [History] Vit C/E/Zn/Coppr/Lutein/Zeaxan [Preservision Areds 2 Softgel] 1 cap PO BID 12/10/17 [History] rOPINIRole HCL [Requip] 2 mg PO 5XD 12/10/17 [History] Warfarin Sodium [Coumadin] 2 mg PO HS 09/11/18 [History] Ranolazine [Ranexa] 500 mg PO BID PRN 05/19/19 [History] Albuterol Nebulized [Ventolin Nebulized] 2.5 mg INHALATION RT-QID PRN 30 Days #120 nebu 05/23/19 [Rx] Ipratropium/Albuterol Sulfate [Combivent Respimat Inhaler] 2 puff INHALATION RT- QID #120 mist.inhal 05/23/19 [Rx] Sotalol [Betapace] 80 mg PO BID #60 tab 09/06/19 [Rx] Cefuroxime Axetil [Ceftin] 500 mg PO BID 10 Days #20 tab 09/22/19 [Rx] predniSONE 10 mg PO DIRECTED #30 tab 09/22/19 [Rx] Follow up Appointment(s)/Referral(s): Randell Santana MD [Primary Care Provider] - 10/03/19 1:30 pm Ambulatory/Diagnostic Orders: Basic Metabolic Panel [LAB.AMB] Time Frame: 2 Days, Location: None Selected Complete Blood Count w/diff [LAB.AMB] Time Frame: 2 Days, Location: None Selected Prothrombin Time INR [LAB.AMB] Time Frame: 2 Days, Location: None Selected Patient Instructions/Handouts: Prednisone (By mouth), Levofloxacin (By mouth), Pneumonia (DC) Activity/Diet/Wound Care/Special Instructions: Continue with antibiotics until finished May resume Coumadin tonight. Continue with 1 mg daily and recheck labs in 2-3 days Follow-up with primary care provider upon discharge Follow-up with Dr. Santana in one week Repeat labs in 2-3 days Continue current diet Discharge Disposition: HOME SELF-CARE
[2019-09-22] MEDS: VANCOMYCIN 1,500 MG in SODIUM CHLORIDE 0.9% 250 ML IVPB SCH (15:06)
--- NOTE | 2019-09-22 16:31 | PN ---
PROGRESS NOTE DATE OF SERVICE: 09/22/2019 This is a 78-year-old male, well known to our service. The patient was seen by Dr. Santana in consultation yesterday. The patient's complaints included pneumonia involving the right upper lobe, right middle lobe and also right lower lobe, likely healthcare acquired. The patient has got a history of previous syncopal episode secondary to ventricular tachycardia any status post AICD placement. He does have a history of previous CAD with stenting, history of ischemic cardiomyopathy and bypass grafting. In addition, he carries a diagnosis of valvular heart disease with aortic valve replacement, right diaphragm paralysis status post plication, history of pacemaker placement and subsequent upgrade to AICD, MRSA infection, former history of tobacco use and stage 2 COPD with an FEV1 that is 74% of predicted. In addition, the patient has had multiple infections in the past including most recently with Klebsiella pneumoniae and Enterobacter aerogenes. Anyway, the patient was admitted with a diagnosis of pneumonia. Feeling better. Less short of breath. Still coughing. He is producing some phlegm. He was able to provide a sputum specimen. Current microbiology though is negative. PHYSICAL EXAMINATION: VITAL SIGNS: Current vital signs are reviewed. Temperature is 97.3, heart rate 60, respiratory rate 18, blood pressure 161/81, mean 107, room air saturation 94%. On 2 L he is 97%. Appears no acute distress. HEENT examination is grossly unremarkable. Mucous membranes are moist. No oral lesions. NECK: Supple. Full range of motion. No adenopathy. Neck veins are flat. CARDIOVASCULAR examination reveals regular rhythm and rate. S1, S2 normal. No S3, S4, murmur. Heart sounds are distant. LUNGS: Reveal mostly clear breath sounds. A few scattered rhonchi. No wheezes or crackles. Breath sounds equal bilaterally but diminished throughout. ABDOMEN: Soft. Bowel sounds are heard. EXTREMITIES are intact. No cyanosis, clubbing, or significant edema. SKIN: Without rash. NEUROLOGIC examination is brief but nonfocal. Microbiologic studies including blood and sputum sampling are thus far negative. Two previous infections going back through his microbiology history includes Klebsiella pneumoniae in the sputum as well as Enterobacter aerogenes in his sputum. Labs are reviewed. His white count is 15.6, hemoglobin 11.7, hematocrit 35.0, platelet count 149,000. PT, INR were 20.7 and 2.1 respectively. Sodium and potassium normal. Chloride 110, CO2 is 27, anion gap is 5. BUN and creatinine were 24 and 1.07. Influenza studies were negative. Chest x-ray showed diffuse infiltrates throughout his right lung. He also has elevation of the right hemidiaphragm which is chronic. He has had a previous plication there. Chest CT shows evidence of mild cardiomegaly, patchy consolidation in the right upper lobe as well as in the right lower lobe. In addition, the patient has elevated right hemidiaphragm with previous plication and partial eventration. Medications are reviewed. ASSESSMENT: 1. Extensive right-sided pneumonia in a patient with multiple previous pneumonias caused by various bacteria including MRSA, extended spectrum beta lactamase producing organisms, and most recently both Klebsiella pneumoniae and Enterobacter aerogenes. 2. Stage 2/moderate chronic obstructive pulmonary disease with an FEV1 that is 74% of predicted. 3. History of atrial flutter. 4. History of coronary artery disease. 5. History of heart failure. 6. Chronic obstructive pulmonary disease. 7. Deep venous thrombosis. 8. Gastroesophageal reflux disease. 9. Hyperlipidemia. 10.Hypertension. 11.Pneumonia. 12.History of pulmonary embolism. 13.History of rheumatoid arthritis. 14.Hypothyroidism. 15.Status post AICD placement. PLAN: The patient is doing reasonably well. We will check his medications. We will make sure he is on proper updrafts, steroids and antibiotics. No additional recommendations are made. His 2 previous bacteria, both the Klebsiella and the Enterobacter were sensitive to Levaquin. That would be a good choice in the way of antibiotics. Additional recommendations and suggestions are forthcoming. MMODL / IJN: [id number] /
== END 2019-09-22 15:25 | disposition home or self-care (01) | DRG 871 ==
LOC: EC 09:42 → 3NMEDONC 12:59
PROVIDERS: ADMIT Hospitalist; ATTEND Hospitalist
DX: A41.9 Sepsis, unspecified organism (principal); J18.9 Pneumonia, unspecified organism; J44.0 Chronic obstructive pulmonary disease with (acute) lower respiratory infection; I25.10 Atherosclerotic heart disease of native coronary artery without angina pectoris; I10 Essential (primary) hypertension; F41.9 Anxiety disorder, unspecified; E78.5 Hyperlipidemia, unspecified; E03.9 Hypothyroidism, unspecified; K21.9 Gastro-esophageal reflux disease without esophagitis; M06.9 Rheumatoid arthritis, unspecified; M19.90 Unspecified osteoarthritis, unspecified site; Y95 Nosocomial condition; I25.5 Ischemic cardiomyopathy; I48.0 Paroxysmal atrial fibrillation; Z79.01 Long term (current) use of anticoagulants; Z79.82 Long term (current) use of aspirin; Z79.890 Hormone replacement therapy; Z79.899 Other long term (current) drug therapy; Z86.14 Personal history of Methicillin resistant Staphylococcus aureus infection; Z86.711 Personal history of pulmonary embolism; Z95.2 Presence of prosthetic heart valve; Z86.718 Personal history of other venous thrombosis and embolism; Z95.5 Presence of coronary angioplasty implant and graft; Z95.810 Presence of automatic (implantable) cardiac defibrillator; Z90.49 Acquired absence of other specified parts of digestive tract; Z90.89 Acquired absence of other organs; Z95.1 Presence of aortocoronary bypass graft; Z87.891 Personal history of nicotine dependence
CPT/HCPCS: 36415; 71046; 71260; 80048; 80053; 83605; 83880; 84484; 85025; 85610; 85730; 87040; 87070; 87205; 87502; 93005; 94640; 96365; 96367; 96375; 99285

== ENCOUNTER 2019-10-08 20:21 | Inpatient (IN) | payer MEDICARE, OTHER ==
[2019-10-08] MEDS ORDERED: SODIUM CHLORIDE 0.9% 500 ML 500 ML IV STA (20:57)
[2019-10-08] MEDS ORDERED: ACETAMINOPHEN TAB 325 MG TAB PO STA (20:57)
[2019-10-08 21:36] LABS: Basophils # (A) 0.2 k/uL (0-0.2); Basophils % (A) 2 %; Eosinophils % (A) 0 %; HCT 34.1 % (39.0-53.0); HGB 11.2 gm/dL (13.0-17.5); Lymphocytes # (A) 0.1 k/uL (1.0-4.8); Lymphocytes % (A) 1 %; MCH 32.6 pg (25.0-35.0); MCHC 32.7 g/dL (31.0-37.0); MCV 99.7 fL (80.0-100.0); Mean Platelet Volume 8.6; Monocytes # (A) 0.4 k/uL (0-1.0); Monocytes % (A) 5 %; Neutrophils # (A) 7.9 k/uL (1.3-7.7); Neutrophils % (A) 92 %; Platelet Count 126 k/uL (150-450); RBC 3.42 m/uL (4.30-5.90); RDW 14.3 % (11.5-15.5); WBC 8.6 k/uL (3.8-10.6)
--- NOTE | 2019-10-08 21:44 | XR ---
EXAMINATION TYPE: XR chest 2V DATE OF EXAM: 10/08/2019 COMPARISON: 10/03/2019 HISTORY: Pneumonia TECHNIQUE: 2 views FINDINGS: There is pulmonary interstitial and alveolar edema. There is blunting of right costophrenic angle. There are sternal wires. There is right axillary pacemaker. Thoracic aorta is atheromatous. H eart size is normal. IMPRESSION: Increasing pulmonary edema compared to last exam. This could relate to acute heart failur e or developing RDS. Pleural diaphragmatic reaction right lung base unchanged.
[2019-10-08 22:02] LABS: Albumin 3.4 g/dL (3.5-5.0); Calcium 8.3 mg/dL (8.4-10.2); Potassium 4.5 mmol/L (3.5-5.1); Total Bilirubin 0.6 mg/dL (0.2-1.3); Total Protein 6.2 g/dL (6.3-8.2)
[2019-10-08] MEDS ORDERED: ALBUTEROL NEBULIZED (CONC) 5 MG, SODIUM CHLORIDE 0.9% NEBULIZ 3 ML INHALATION STA ×2 (22:31)
[2019-10-08] MEDS ORDERED: IPRATROPIUM 0.5 MG/2.5 ML NEBU INHALATION STA (22:31)
[2019-10-08] MEDS ORDERED: FUROSEMIDE 10 MG/ML 4 ML VIAL IV STA (22:45)
[2019-10-08] MEDS ORDERED: OSELTAMIVIR 75 MG CAP PO STA (22:45)
[2019-10-08] MEDS ORDERED: ACETAMINOPHEN TAB 325 MG TAB PO PRN (22:49)
[2019-10-08] MEDS ORDERED: NALOXONE 0.4 MG/ML 1 ML VIAL IV PRN (22:49)
--- NOTE | 2019-10-08 22:49 | ED ---
Fever HPI - General Source: patient, family Mode of arrival: wheelchair Limitations: no limitations <Jenna Guillen - Last Filed: 10/08/19 22:41> <Margo Quezada - Last Filed: 10/08/19 23:00> - General Chief Complaint: Fever Stated Complaint: Cough/fever Time Seen by Provider: 10/08/19 20:30 - History of Present Illness Initial Comments: 78-year-old male patient presents to the emergency department today for evaluation of fever, weakness, shortness of breath. Patient states that he was recently admitted for pneumonia and also had a AICD/pacemaker implantation after syncopal event. Patient states he feels quite winded. He has been coughing up green sputum. He does breathing treatments at home, states he has done 3 of them today. He states he has had a fever of 102F at home. He did not take any medication for fever. Denies any chest pain or tightness. Denies any dizziness, numbness, tingling to his extremities. Denies any burning with urination, nausea, vomiting, or diarrhea. Patient denies any recent rash, constipation, back pain, numbness, tingling, dizziness, weakness, headache, visual changes, or any other complaints. (Jenna Guillen) - Related Data Home Medications Medication Instructions Recorded Confirmed ALPRAZolam [Xanax] 0.5 mg PO BID PRN 12/10/17 09/20/19 Aspirin [Adult Low Dose Aspirin EC] 81 mg PO DAILY 12/10/17 09/20/19 Cyanocobalamin [Vitamin B-12 1,000 mcg SQ Q30D 12/10/17 09/20/19 Injection] Ferrous Sulfate [Iron (65 MG 325 mg PO DAILY 12/10/17 09/20/19 Elemental)] Gabapentin 600 mg PO BID 12/10/17 09/20/19 HYDROcodone/APAP 10-325MG [[place] 1 tab PO TID PRN 12/10/17 09/20/19 10-325] Levothyroxine Sodium [Synthroid] 50 mcg PO DAILY 12/10/17 09/20/19 Losartan Potassium [Cozaar] 25 mg PO HS 12/10/17 09/20/19 Metoprolol Succinate (ER) [Toprol 25 mg PO DAILY 12/10/17 09/20/19 XL] Morphine Sulfate [Ms Contin] 30 mg PO Q12H 12/10/17 09/20/19 Nitroglycerin Sl Tabs [Nitrostat] 0.4 mg SUBLINGUAL Q5M PRN 12/10/17 09/20/19 Simvastatin 40 mg PO HS 12/10/17 09/20/19 Spironolactone [Aldactone] 25 mg PO DAILY 12/10/17 09/20/19 Vit C/E/Zn/Coppr/Lutein/Zeaxan 1 cap PO BID 12/10/17 09/20/19 [Preservision Areds 2 Softgel] rOPINIRole HCL [Requip] 2 mg PO 5XD 12/10/17 09/20/19 Warfarin Sodium [Coumadin] 2 mg PO HS 09/11/18 09/20/19 Ranolazine [Ranexa] 500 mg PO BID PRN 05/19/19 09/20/19 Previous Rx's Medication Instructions Recorded Albuterol Nebulized [Ventolin 2.5 mg INHALATION RT-QID PRN 30 05/23/19 Nebulized] Days #120 nebu Ipratropium/Albuterol Sulfate 2 puff INHALATION RT-QID #120 05/23/19 [Combivent Respimat Inhaler] mist.inhal Sotalol [Betapace] 80 mg PO BID #60 tab 09/06/19 Cefuroxime Axetil [Ceftin] 500 mg PO BID 10 Days #20 tab 09/22/19 predniSONE 10 mg PO DIRECTED #30 tab 09/22/19 Allergies Allergy/AdvReac Type Severity Reaction Status Date / Time No Known Allergies Allergy Verified 10/08/19 20:29 Review of Systems ROS Other: All systems not noted in ROS Statement are negative. <Jenna Guillen M - Last Filed: 10/08/19 22:41> ROS Other: All systems not noted in ROS Statement are negative. <Margo Quezada - Last Filed: 10/08/19 23:00> ROS Statement: Those systems with pertinent positive or pertinent negative responses have been documented in the HPI. Past Medical History Past Medical History: Atrial Flutter, Asthma, Coronary Artery Disease (CAD), Heart Failure, COPD, Deep Vein Thrombosis (DVT), GERD/Reflux, Hyperlipidemia, Hypertension, Pneumonia, Pulmonary Embolus (PE), Rheumatoid Arthritis (RA), Thyroid Disorder Additional Past Medical History / Comment(s): MACULAR DEGNERATION MISA EYES,GERD, SHINGLES LT EAR [id number], "IRREG HEARTBEAT", RLS, hammertoe, chronic low back pain, USES A CANE FOR DISTANCE. History of Any Multi-Drug Resistant Organisms: ESBL, MRSA Date of last positivie culture/infection: 07/02/18 ESBL / 07/2013 & 01/2017 MRSA MDRO Source:: BRONCH ESBL/ MRSA 2nd pacer & HAND Past Surgical History: Bariatric Surgery, Coronary Bypass/CABG, Heart Catheterization, Heart Catheterization With Stent, Hernia Repair, Pacemaker Additional Past Surgical History / Comment(s): Trifecta aortic valve rep alcement, bunionectomy left great toe, 7 heart caths, stents x2 to rca, gastroplasty 1979, crys-en-y May 2016 at [facility]; 2017- Diaphram Plycation at [facility], heart valve replacement at [facility]- Aortic valve- bovine, Pacers x3 (first pacer placed in 2006- need a new battery in 2012, placed 2nd pacer 2012. 2nd pacer became infected with MRSA and was removed. once infection cleared a 3rd was placed on the right side) Past Anesthesia/Blood Transfusion Reactions: No Reported Reaction Date of Last Stent Placement:: 2012 Type of Cardiac Device: Permanent Pacemaker Device Placement Date:: 2013 Past Psychological History: Anxiety Smoking Status: Former smoker Past Alcohol Use History: None Reported Past Drug Use History: None Reported - Past Family History Father History Unknown: Yes Mother History Unknown: Yes <Jenna Guillen - Last Filed: 10/08/19 22:41> General Exam Limitations: no limitations General appearance: alert, in no apparent distress, other (This is a well- developed, well-nourished elderly male patient in no acute distress. Vital signs upon presentation are temperature 100F, pulse 61, respirations 20, blood pressure 162/78, pulse ox 95% on room air.) Eye exam: Present: normal appearance, PERRL, EOMI. Absent: scleral icterus, conjunctival injection, periorbital swelling ENT exam: Present: normal exam, normal oropharynx, mucous membranes moist, TM's normal bilaterally Respiratory exam: Present: respiratory distress (Mild), wheezes (Course expiratory wheezing noted in the upper lung holland), rales (Noted in the lower lung holland posteriorly), other (Tachypnea). Absent: normal lung sounds misa aterally, rhonchi, stridor Cardiovascular Exam: Present: regular rate, normal rhythm, normal heart sounds. Absent: systolic murmur, diastolic murmur, rubs, gallop, clicks GI/Abdominal exam: Present: soft, normal bowel sounds. Absent: distended, ten derness, guarding, rebound, rigid Neurological exam: Present: alert, oriented X3, CN II-XII intact Psychiatric exam: Present: normal affect, normal mood Skin exam: Present: warm, dry, intact, normal color. Absent: rash <Jenna Guillen - Last Filed: 10/08/19 22:41> Course Vital Signs 10/08/19 10/08/19 10/08/19 20:24 21:15 22:44 Temperature 100 F H 98.2 F Pulse Rate 61 61 Respiratory 20 24 20 Rate Blood Pressure 162/78 125/77 O2 Sat by Pulse 95 98 Oximetry 10/08/19 22:55 Temperature Pulse Rate 60 Respiratory Rate Blood Pressure O2 Sat by Pulse Oximetry Medical Decision Making - Lab Data Result diagrams: 10/08/19 21:10 10/08/19 21:10 - EKG Data -: EKG Interpreted by Ok - Radiology Data Radiology results: report reviewed, image reviewed <Jenna Guillen - Last Filed: 10/08/19 22:41> - Lab Data Result diagrams: 10/08/19 21:10 10/08/19 21:10 <Margo Quezada - Last Filed: 10/08/19 23:00> - Medical Decision Making 78-year-old male patient presents to the emergency department today for evaluation of fever, weakness, shortness of breath. Physical examination did reveal coarse expiratory wheezing in the upper posterior lung holland with rales at the bases. He was to Neck, requiring 3 L of oxygen via nasal cannula. A chest x-ray did reveal worsening pulmonary edema consistent with acute just of heart failure or RDS. He was influenza be positive. He is given a breathing treatment here in the emergency department. Labs reviewed and did reveal elevated BNP over 1999. We'll give a dose of Lasix. We'll start Tamiflu. He'll be admitted to the hospital for further evaluation by pulmonology. Patient and family are agreeable to plan. (Jenna Guillen) I personally saw and Evaluated the patient, this is an elderly gentleman who is influenza B-positive with chest x-ray findings concerning for digestive heart failure versus ARDS. At this time I recommend admission to the hospital patient is agreeable. (Margo Quezada) - Lab Data Lab Results 10/08/19 10/08/19 10/08/19 Range/Units 21:10 21:10 21:10 WBC 8.6 (3.8-10.6) k/uL RBC 3.42 L (4.30-5.90) m/uL Hgb 11.2 L (13.0-17.5) gm/dL Hct 34.1 L (39.0-53.0) % MCV 99.7 (80.0-100.0) fL MCH 32.6 (25.0-35.0) pg MCHC 32.7 (31.0-37.0) g/dL RDW 14.3 (11.5-15.5) % Plt Count 126 L (150-450) k/uL Neutrophils % 92 % Lymphocytes % 1 % Monocytes % 5 % Eosinophils % 0 % Basophils % 2 % Neutrophils # 7.9 H (1.3-7.7) k/uL Lymphocytes # 0.1 L (1.0-4.8) k/uL Monocytes # 0.4 (0-1.0) k/uL Eosinophils # 0.0 (0-0.7) k/uL Basophils # 0.2 (0-0.2) k/uL Sodium 138 (137-145) mmol/L Potassium 4.5 (3.5-5.1) mmol/L Chloride 107 (98-107) mmol/L Carbon Dioxide 25 (22-30) mmol/L Anion Gap 6 mmol/L BUN 30 H (9-20) mg/dL Creatinine 1.17 (0.66-1.25) mg/dL Est GFR (CKD-EPI)AfAm 69 (>60 ml/min/1.73 sqM) Est GFR (CKD-EPI)NonAf 59 (>60 ml/min/1.73 sqM) Glucose 103 H (74-99) mg/dL Plasma Lactic Acid Rivas 1.4 (0.7-2.0) mmol/L Calcium 8.3 L (8.4-10.2) mg/dL Total Bilirubin 0.6 (0.2-1.3) mg/dL AST 33 (17-59) U/L ALT 38 (4-49) U/L Alkaline Phosphatase 80 (38-126) U/L Troponin I (0.000-0.034) ng/mL NT-Pro-B Natriuret Pep pg/mL Total Protein 6.2 L (6.3-8.2) g/dL Albumin 3.4 L (3.5-5.0) g/dL Influenza Type A RNA (Not Detectd) Influenza Type B (PCR) (Not Detectd) 10/08/19 10/08/19 10/08/19 Range/Units 21:10 21:10 21:15 WBC (3.8-10.6) k/uL RBC (4.30-5.90) m/uL Hgb (13.0-17.5) gm/dL Hct (39.0-53.0) % MCV (80.0-100.0) fL MCH (25.0-35.0) pg MCHC (31.0-37.0) g/dL RDW (11.5-15.5) % Plt Count (150-450) k/uL Neutrophils % % Lymphocytes % % Monocytes % % Eosinophils % % Basophils % % Neutrophils # (1.3-7.7) k/uL Lymphocytes # (1.0-4.8) k/uL Monocytes # (0-1.0) k/uL Eosinophils # (0-0.7) k/uL Basophils # (0-0.2) k/uL Sodium (137-145) mmol/L Potassium (3.5-5.1) mmol/L Chloride (98-107) mmol/L Carbon Dioxide (22-30) mmol/L Anion Gap mmol/L BUN (9-20) mg/dL Creatinine (0.66-1.25) mg/dL Est GFR (CKD-EPI)AfAm (>60 ml/min/1.73 sqM) Est GFR (CKD-EPI)NonAf (>60 ml/min/1.73 sqM) Glucose (74-99) mg/dL Plasma Lactic Acid Rivas (0.7-2.0) mmol/L Calcium (8.4-10.2) mg/dL Total Bilirubin (0.2-1.3) mg/dL AST (17-59) U/L ALT (4-49) U/L Alkaline Phosphatase (38-126) U/L Troponin I 0.023 (0.000-0.034) ng/mL NT-Pro-B Natriuret Pep 2430 pg/mL Total Protein (6.3-8.2) g/dL Albumin (3.5-5.0) g/dL Influenza Type A RNA Not Detected (Not Detectd) Influenza Type B (PCR) Detected H (Not Detectd) - EKG Data EKG Comments: EKG obtained at 2041 shows paced rhythm at a rate of 61, W[place] interval 128, QRS duration 154, QTC 416, QTC 418. (Jenna Guillen) - Radiology Data Two-view x-ray of the chest is obtained. Report was reviewed in its entirety. Impression by Dr. Anderson shows increasing pulmonary edema compared to last exam. This could relate to acute heart failure developing RDS. Pleural diaphragmatic reaction right lung base unchanged. (Jenna Guillen) Disposition Decision to Admit Reason: Admit from EC Decision Date: 10/08/19 Decision Time: 22:49 <Jenna Guillen - Last Filed: 10/08/19 22:41> <Margo Quezada - Last Filed: 10/08/19 23:00> Clinical Impression: Influenza B, Pulmonary edema Disposition: ADMITTED IP TO THIS HOSP Condition: Serious Referrals: Jagdeep Funez DO [Primary Care Provider] - 1-2 days
[2019-10-08] MEDS ORDERED: IPRATROPIUM-ALBUTEROL 3 ML NEB INHALATION PRN (22:51)
[2019-10-09] MEDS ORDERED: IPRATROPIUM-ALBUTEROL 3 ML NEB INHALATION SCH
[2019-10-09 00:22] LABS: Appearance,Urine Clear (Clear); Bilirubin,Urine Negative (Negative); Blood,Urine Negative (Negative); Color,Urine Light Yellow; Glucose,Urine (UA) Negative (Negative); Ketones,Urine Negative (Negative); Leukocyte Esterase,Urine Negative (Negative); Nitrite,Urine Negative (Negative); PH, Urine 5.5 (5.0-8.0); Protein,Urine Negative (Negative); Urobilinogen,Urine <2.0 mg/dL (<2.0)
[2019-10-09] MEDS ORDERED: HYDROcodone/APAP 10-325MG 1 EACH TAB PO PRN (01:06)
[2019-10-09] MEDS: IPRATROPIUM-ALBUTEROL 3 ML NEB INHALATION SCH ×5 (08:23→20:02)
[2019-10-09] MEDS: OSELTAMIVIR 75 MG CAP PO SCH ×2 (09:31→21:56)
[2019-10-09] MEDS: FUROSEMIDE 10 MG/ML 4 ML VIAL IV SCH ×2 (09:36→21:55)
--- NOTE | 2019-10-09 09:58 | XR ---
EXAMINATION TYPE: XR chest 1V portable DATE OF EXAM: 10/09/2019 COMPARISON: 10/08/2019 HISTORY: Shortness of breath TECHNIQUE: Single frontal view of the chest is obtained. FINDINGS: Bilateral infiltrate and pleural effusion with diffuse interstitial pattern. Postoperative change, cardiomegaly and cardiac device noted. One of the cardiac leads appears overlying the latera l margin of the right chest and should be correlated clinically. IMPRESSION: 1. Correlate for CHF right basilar infiltrate not excluded. See above regarding cardiac leads.
--- NOTE | 2019-10-09 11:47 | P.CNPUL ---
History of Present Illness Consult date: 10/09/19 Requesting physician: Margo Quezada Reason for consult: dyspnea, hypoxemia, abnormal CXR/CT Chief complaint: Paroxysmal nocturnal dyspnea, hypoxemia History of present illness: 78-year-old white male patient with past medical history of COPD, chronic right hemidiaphragm paralysis, status post right hemidiaphragm plication, past history of pneumonias including E. coli ESBL, previous history of MRSA infection, valvular heart disease, osteoarthritis, B12 deficiency, chronic kidney disease, obstructive sleep apnea syndrome, hypothyroidism, previous history of pacemaker insertion, CAD with stenting. Patient was recently hospitalized for right upper lobe and right lower lobe pneumonia, blood and sputum cultures from that admission were negative, patient was treated with antibiotics, he recovered, he saw Dr. Fitch in follow-up on 10/03/2019, she felt like his cough was coming back, and he was experiencing more shortness of breath coughing and wheezing. He was discharged home on Ceftin and bronchodilators. On 10/08/2019 patient presented to the emergency department with complaints of increasing shortness of breath, patient was waking up in the middle of the night being very short of breath, and patient is not normally oxygen dependent, he was noting his pulse ox to be in the 80s on room air. Did have fever and chills, with T-max of 10 2F, denied any chest pain, did note weight gain and lower extremity edema. His cough is productive with copious amounts of whitish colored sputum. Chest x-ray showed bilateral infiltrates and pleural effusions with diffuse interstitial pattern, pulmonary edema. Labs showed a white blood cell count of 8.6, hemoglobin of 11.2, electrolytes are within normal limits, B1 is 30 creatinine is 1.17, troponin was 0.0-3, proBNP was 2430, urinalysis was negative for any signs of infection, influenza B was positive, patient was initially given some IV fluids in the emergency department, was started on Tamiflu, breathing treatments, to call me he was given a dose of IV Lasix, he is diuresed, and follow-up chest x-ray today shows continued diffuse interstitial pattern, with bilateral infiltrates, and right basilar infiltrate could not be excluded. Review of Systems All systems: negative Constitutional: Denies chills, Denies fever Eyes: denies blurred vision, denies pain Ears, nose, mouth and throat: Denies headache, Denies sore throat Cardiovascular: Reports decreased exercise tolerance, Reports dyspnea on exertion, Reports edema, Reports paroxysmal nocturnal dyspnea, Denies chest pain, Denies shortness of breath Respiratory: Reports congestion, Reports cough with sputum, Reports dyspnea, Denies cough Gastrointestinal: Denies abdominal pain, Denies diarrhea, Denies nausea, Denies vomiting Musculoskeletal: Denies myalgias Integumentary: Denies pruritus, Denies rash Neurological: Denies numbness, Denies weakness Psychiatric: Denies anxiety, Denies depression Endocrine: Denies fatigue, Denies weight change Past Medical History Past Medical History: Atrial Flutter, Asthma, Coronary Artery Disease (CAD), Heart Failure, COPD, Deep Vein Thrombosis (DVT), GERD/Reflux, Hyperlipidemia, Hypertension, Pneumonia, Pulmonary Embolus (PE), Rheumatoid Arthritis (RA), Thyroid Disorder Additional Past Medical History / Comment(s): MACULAR DEGNERATION MISA EYES,GERD, SHINGLES LT EAR [phone], "IRREG HEARTBEAT", RLS, hammertoe, chronic low back pain, USES A CANE FOR DISTANCE. History of Any Multi-Drug Resistant Organisms: ESBL, MRSA Date of last positivie culture/infection: 07/02/18 ESBL / 07/2013 & 01/2017 MRSA MDRO Source:: BRONCH ESBL/ MRSA 2nd pacer & HAND Past Surgical History: Bariatric Surgery, Coronary Bypass/CABG, Heart Catheterization, Heart Catheterization With Stent, Hernia Repair, Pacemaker Additional Past Surgical History / Comment(s): Trifecta aortic valve repalcement, bunionectomy left great toe, 7 heart caths, stents x2 to rca, gastroplasty 1979, crys-en-y May 2016 at [facility]; 2017- Diaphram Plycation at [facility], heart valve replacement at [facility]- Aortic valve- bovine, Pacers x3 (first pacer placed in 2006- need a new battery in 2012, placed 2nd pacer 2012. 2nd pacer became infected with MRSA and was removed. once infection cleared a 3rd was placed on the right side) Past Anesthesia/Blood Transfusion Reactions: No Reported Reaction Date of Last Stent Placement:: 2012 Type of Cardiac Device: Permanent Pacemaker Device Placement Date:: 2018 Past Psychological History: Anxiety Smoking Status: Former smoker Past Alcohol Use History: None Reported Additional Past Alcohol Use History / Comment(s): STARTED SMOKING AT AGE 19 UP TO 2 PPD QUIT 1977 Past Drug Use History: None Reported - Past Family History Father History Unknown: Yes Mother History Unknown: Yes Medications and Allergies Home Medications Medication Instructions Recorded Confirmed Type ALPRAZolam [Xanax] 0.5 mg PO BID PRN 12/10/17 10/08/19 History Aspirin [Adult Low Dose Aspirin EC] 81 mg PO DAILY 12/10/17 10/08/19 History Cyanocobalamin [Vitamin B-12 1,000 mcg SQ Q30D 12/10/17 10/08/19 History Injection] Ferrous Sulfate [Iron (65 MG 325 mg PO DAILY 12/10/17 10/08/19 History Elemental)] Gabapentin 600 mg PO BID 12/10/17 10/08/19 History HYDROcodone/APAP 10-325MG [[place] 1 tab PO TID PRN 12/10/17 10/08/19 History 10-325] Levothyroxine Sodium [Synthroid] 50 mcg PO DAILY 12/10/17 10/08/19 History Losartan Potassium [Cozaar] 25 mg PO HS 12/10/17 10/08/19 History Metoprolol Succinate (ER) [Toprol 25 mg PO DAILY 12/10/17 10/08/19 History XL] Morphine Sulfate [Ms Contin] 30 mg PO Q12H 12/10/17 10/08/19 History Nitroglycerin Sl Tabs [Nitrostat] 0.4 mg SUBLINGUAL Q5M PRN 12/10/17 10/08/19 History Simvastatin 40 mg PO HS 12/10/17 10/08/19 History Spironolactone [Aldactone] 25 mg PO DAILY 12/10/17 10/08/19 History Vit C/E/Zn/Coppr/Lutein/Zeaxan 2 cap PO DAILY 12/10/17 10/08/19 History [Preservision Areds 2 Softgel] rOPINIRole HCL [Requip] 2 mg PO 5XD 12/10/17 10/08/19 History Warfarin Sodium [Coumadin] 2 mg PO WESA 09/11/18 10/08/19 History Ranolazine [Ranexa] 500 mg PO BID 05/19/19 10/08/19 History Albuterol Nebulized [Ventolin 2.5 mg INHALATION RT-QID PRN 30 05/23/19 10/08/19 Rx Nebulized] Days #120 nebu Ipratropium/Albuterol Sulfate 2 puff INHALATION RT-QID #120 05/23/19 10/08/19 Rx [Combivent Respimat Inhaler] mist.inhal Sotalol [Betapace] 80 mg PO BID #60 tab 09/06/19 10/08/19 Rx Cefuroxime Axetil [Ceftin] 500 mg PO BID 10 Days #20 tab 09/22/19 10/08/19 Rx Omeprazole 20 mg PO DAILY 10/08/19 10/08/19 History Warfarin [Coumadin] 1 mg PO SUMOTUTHFR 10/08/19 10/08/19 History predniSONE 5 mg PO DIRECTED 10/08/19 10/08/19 History predniSONE See Taper PO DAILY 10/08/19 10/08/19 History Allergies Allergy/AdvReac Type Severity Reaction Status Date / Time No Known Allergies Allergy Verified 10/08/19 23:14 Physical Exam Vitals: Vital Signs Temp Pulse Pulse Resp BP BP Pulse Ox 10/09/19 09:17 64 10/09/19 09:07 62 10/09/19 04:00 98.2 F 61 18 132/70 97 10/08/19 23:46 97.9 F 65 18 128/66 95 10/08/19 23:40 65 18 10/08/19 23:35 98.2 F 65 18 124/78 98 10/08/19 22:55 60 10/08/19 22:44 98.2 F 61 20 125/77 98 10/08/19 21:15 24 10/08/19 20:24 100 F H 61 20 162/78 95 Intake and Output 10/08/19 10/09/19 10/09/19 22:59 06:59 14:59 Intake Total 180 Output Total 3375 1100 Balance -0671 -700 Intake: Oral 180 Output: Urine 3375 1100 Other: Voiding Method Toilet Urinal # Voids 1 Weight 96.162 kg 102.6 kg GENERAL EXAM: Alert, very pleasant, 78-year-old white male, on 2 L of oxygen with pulse ox of 97% comfortable in no apparent distress. HEAD: Normocephalic/atraumatic. EYES: Normal reaction of pupils, equal size. Conjunctiva pink, sclera white. NOSE: Clear with pink turbinates. THROAT: No erythema or exudates. NECK: No masses, no JVD, no thyroid enlargement, no adenopathy. CHEST: No chest wall deformity. Symmetrical expansion. LUNGS: Equal air entry with diffuse coarse crackles in the bilateral lower and mid lungs CVS: Regular rate and rhythm, normal S1 and S2, no gallops, no murmurs, no rubs ABDOMEN: Soft, nontender. No hepatosplenomegaly, normal bowel sounds, no guarding or rigidity. EXTREMITIES: No clubbing, one plus pitting edema in bilateral lower extremities, no cyanosis, 2+ pulses and upper and lower extremities. MUSCULOSKELETAL: Muscle strength and tone normal. SPINE: No scoliosis or deformity SKIN: No rashes CENTRAL NERVOUS SYSTEM: Alert and oriented -3. No focal deficits, tone is normal in all 4 extremities. PSYCHIATRIC: Alert and oriented -3. Appropriate affect. Intact judgment and insight. Results - Laboratory Findings CBC and BMP: 10/08/19 21:10 10/08/19 21:10 Abnormal lab findings: Abnormal Labs 10/08/19 10/08/19 10/08/19 21:10 21:10 21:15 RBC 3.42 L Hgb 11.2 L Hct 34.1 L Plt Count 126 L Neutrophils # 7.9 H Lymphocytes # 0.1 L BUN 30 H Glucose 103 H Calcium 8.3 L Total Protein 6.2 L Albumin 3.4 L Influenza Type B (PCR) Detected H - Diagnostic Findings Chest x-ray: report reviewed, image reviewed Assessment and Plan Plan: Assessment: #1. Hypoxemic respiratory failure related to acute exacerbation of systolic CHF with an ejection fraction of 45%, chest x-ray showed pulmonary edema, possibility of right basilar infiltrate/pneumonia could not be ruled out #2. Acute influenza B infection #3. Recent hospitalization for right upper lobe and right lower lobe pneumonia #4. Recent pacemaker upgrade to an AICD #5. Coronary artery disease with previous stenting and bypass grafting #6. History of ischemic cardiomyopathy with an EF of 45% #7. History of valvular heart disease with aortic valve replacement #8. Chronic right hemidiaphragmatic paralysis, status post diaphragmatic plication #9. History of pacemaker placements and subsequent replacements #10. History of MRSA infection #11. Former history of smoking #12. Mild COPD stage II, outpatient PFT showed FEV1 of 2.77 L or 74% of predicted with a component of restriction with FVC of 3.65 L or 71% of predicted #13. History of pulmonary embolism on long-term anticoagulation with Coumadin #14. Hypertension #15. Dyslipidemia Plan: Continue the IV diuretics, at 40 mg every 12 hours, today's chest x-ray has been reviewed, showing residual interstitial pattern, and the possibility of a right basilar infiltrate/pneumonia could not be ruled out this could be a resolving pneumonia from patient's previous admission. Continue Tamiflu, continue breathing treatments. Send the sputum for culture, repeat echocardiogram. Continue oral anticoagulation, daily PT/INR, we'll continue to follow I performed a history & physical examination of the patient and discussed their management with my nurse practitioner, Gayle Thompson. I reviewed the nurse practitioner's note and agree with the documented findings and plan of care. Lung sounds are positive for diffuse crackles. The findings and the impression was discussed with the patient. I attest to the documentation by the nurse practitioner. Time with Patient: Greater than 30
--- NOTE | 2019-10-09 11:50 | P.HPIM ---
History of Present Illness 72-year-old male came in the body aches and flu like symptoms found to have influenza B patient did have fever at home and fever here. Patient admits to shortness of breath orthopnea proximal nocturnal dyspnea does have pulmonary ed stacia on the chest x-ray does have elevated JVD which is only about 2-3 cm above the supraclavicular line. This was started on IV Lasix. Patient is comparing of cough with green sputum production. Patient does have multiple other medical problems which will be discussed in assessment and plan. Patient had an ejection fraction of 40-45%. Review of Systems REVIEW OF SYSTEMS: CONSTITUTIONAL: As mentioned in HPI HEENT: No recent visual problems or hearing problems. Denied any sore throat. CARDIOVASCULAR: No chest pain, no palpitations, no syncope. PULMONARY: no hemoptysis. GASTROINTESTINAL: No diarrhea, no nausea, no vomiting, no abdominal pain. NEUROLOGICAL: No headaches, no weakness, no numbness. HEMATOLOGICAL: Denies any bleeding or petechiae. GENITOURINARY: Denies any burning micturition, frequency, or urgency. MUSCULOSKELETAL/RHEUMATOLOGICAL: Denies any joint pain, swelling, or any muscle pain. ENDOCRINE: Denies any polyuria or polydipsia. The rest of the 14-point review of systems is negative. Past Medical History Past Medical History: Atrial Flutter, Asthma, Coronary Artery Disease (CAD), Heart Failure, COPD, Deep Vein Thrombosis (DVT), GERD/Reflux, Hyperlipidemia, Hypertension, Pneumonia, Pulmonary Embolus (PE), Rheumatoid Arthritis (RA), Thyroid Disorder Additional Past Medical History / Comment(s): MACULAR DEGNERATION MISA EYES,GERD, SHINGLES LT EAR [id number], "IRREG HEARTBEAT", RLS, hammertoe, chronic low back pain, USES A CANE FOR DISTANCE. History of Any Multi-Drug Resistant Organisms: ESBL, MRSA Date of last positivie culture/infection: 07/02/18 ESBL / 07/2013 & 01/2017 MRSA MDRO Source:: BRONCH ESBL/ MRSA 2nd pacer & HAND Past Surgical History: Bariatric Surgery, Coronary Bypass/CABG, Heart Catheterization, Heart Catheterization With Stent, Hernia Repair, Pacemaker Additional Past Surgical History / Comment(s): Trifecta aortic valve repalcement, bunionectomy left great toe, 7 heart caths, stents x2 to rca, gastroplasty 1979, crys-en-y May 2016 at [facility]; 2017- Diaphram Plycation at [facility], heart valve replacement at [facility]- Aortic valve- bovine, Pacers x3 (first pacer placed in 2006- need a new battery in 2012, placed 2nd pacer 2012. 2nd pacer became infected with MRSA and was removed. once infection cleared a 3rd was placed on the right side) Past Anesthesia/Blood Transfusion Reactions: No Reported Reaction Date of Last Stent Placement:: 2012 Type of Cardiac Device: Permanent Pacemaker Device Placement Date:: 2018 Past Psychological History: Anxiety Smoking Status: Former smoker Past Alcohol Use History: None Reported Additional Past Alcohol Use History / Comment(s): STARTED SMOKING AT AGE 19 UP TO 2 PPD QUIT 1977 Past Drug Use History: None Reported - Past Family History Father History Unknown: Yes Mother History Unknown: Yes Medications and Allergies Home Medications Medication Instructions Recorded Confirmed Type ALPRAZolam [Xanax] 0.5 mg PO BID PRN 12/10/17 10/08/19 History Aspirin [Adult Low Dose Aspirin EC] 81 mg PO DAILY 12/10/17 10/08/19 History Cyanocobalamin [Vitamin B-12 1,000 mcg SQ Q30D 12/10/17 10/08/19 History Injection] Ferrous Sulfate [Iron (65 MG 325 mg PO DAILY 12/10/17 10/08/19 History Elemental)] Gabapentin 600 mg PO BID 12/10/17 10/08/19 History HYDROcodone/APAP 10-325MG [[place] 1 tab PO TID PRN 12/10/17 10/08/19 History 10-325] Levothyroxine Sodium [Synthroid] 50 mcg PO DAILY 12/10/17 10/08/19 History Losartan Potassium [Cozaar] 25 mg PO HS 12/10/17 10/08/19 History Metoprolol Succinate (ER) [Toprol 25 mg PO DAILY 12/10/17 10/08/19 History XL] Morphine Sulfate [Ms Contin] 30 mg PO Q12H 12/10/17 10/08/19 History Nitroglycerin Sl Tabs [Nitrostat] 0.4 mg SUBLINGUAL Q5M PRN 12/10/17 10/08/19 History Simvastatin 40 mg PO HS 12/10/17 10/08/19 History Spironolactone [Aldactone] 25 mg PO DAILY 12/10/17 10/08/19 History Vit C/E/Zn/Coppr/Lutein/Zeaxan 2 cap PO DAILY 12/10/17 10/08/19 History [Preservision Areds 2 Softgel] rOPINIRole HCL [Requip] 2 mg PO 5XD 12/10/17 10/08/19 History Warfarin Sodium [Coumadin] 2 mg PO WESA 09/11/18 10/08/19 History Ranolazine [Ranexa] 500 mg PO BID 05/19/19 10/08/19 History Albuterol Nebulized [Ventolin 2.5 mg INHALATION RT-QID PRN 30 05/23/19 10/08/19 Rx Nebulized] Days #120 nebu Ipratropium/Albuterol Sulfate 2 puff INHALATION RT-QID #120 05/23/19 10/08/19 Rx [Combivent Respimat Inhaler] mist.inhal Sotalol [Betapace] 80 mg PO BID #60 tab 09/06/19 10/08/19 Rx Cefuroxime Axetil [Ceftin] 500 mg PO BID 10 Days #20 tab 09/22/19 10/08/19 Rx Omeprazole 20 mg PO DAILY 10/08/19 10/08/19 History Warfarin [Coumadin] 1 mg PO SUMOTUTHFR 10/08/19 10/08/19 History predniSONE 5 mg PO DIRECTED 10/08/19 10/08/19 History predniSONE See Taper PO DAILY 10/08/19 10/08/19 History Allergies Allergy/AdvReac Type Severity Reaction Status Date / Time No Known Allergies Allergy Verified 10/08/19 23:14 Physical Exam Vitals: Vital Signs Temp Pulse Pulse Resp BP BP Pulse Ox 10/09/19 09:17 64 10/09/19 09:07 62 10/09/19 04:00 98.2 F 61 18 132/70 97 10/08/19 23:46 97.9 F 65 18 128/66 95 10/08/19 23:40 65 18 10/08/19 23:35 98.2 F 65 18 124/78 98 10/08/19 22:55 60 10/08/19 22:44 98.2 F 61 20 125/77 98 10/08/19 21:15 24 10/08/19 20:24 100 F H 61 20 162/78 95 Intake and Output 10/08/19 10/09/19 10/09/19 22:59 06:59 14:59 Intake Total 180 Output Total 3375 1100 Balance -5235 -920 Intake: Oral 180 Output: Urine 3376 1100 Other: Voiding Method Toilet Urinal # Voids 1 Weight 96.162 kg 102.6 kg PHYSICAL EXAMINATION: GENERAL: The patient is alert and oriented x3, not in any acute distress. Well developed, well nourished. HEENT: Pupils are round and equally reacting to light. EOMI. No scleral icterus. No conjunctival pallor. Normocephalic, atraumatic. No pharyngeal erythema. No thyromegaly. CARDIOVASCULAR: S1 and S2 present. No murmurs, rubs, or gallops. His have elevated JVD PULMONARY: Bilaterally with bibasilar crackles on exam.. ABDOMEN: Soft, nontender, nondistended, normoactive bowel sounds. No palpable organomegaly. MUSCULOSKELETAL: No joint swelling or deformity. EXTREMITIES: No cyanosis, clubbing, or pedal edema. NEUROLOGICAL: Gross neurological examination did not reveal any focal deficits. SKIN: No rashes. Results CBC & Chem 7: 10/08/19 21:10 10/08/19 21:10 Labs: Abnormal Lab Results - Last 24 Hours (Table) 10/08/19 10/08/19 10/08/19 Range/Units 21:10 21:10 21:15 RBC 3.42 L (4.30-5.90) m/uL Hgb 11.2 L (13.0-17.5) gm/dL Hct 34.1 L (39.0-53.0) % Plt Count 126 L (150-450) k/uL Neutrophils # 7.9 H (1.3-7.7) k/uL Lymphocytes # 0.1 L (1.0-4.8) k/uL BUN 30 H (9-20) mg/dL Glucose 103 H (74-99) mg/dL Calcium 8.3 L (8.4-10.2) mg/dL Total Protein 6.2 L (6.3-8.2) g/dL Albumin 3.4 L (3.5-5.0) g/dL Influenza Type B (PCR) Detected H (Not Detectd) Thrombosis Risk Factor Assmnt - Choose All That Apply Any of the Below Risk Factors Present?: Yes Each Factor Represents 1 point: Abnormal pulmonary function (COPD) Other Risk Factors: Yes Each Risk Factor Represents 3 Points: Age 75 years or older Thrombosis Risk Factor Assessment Total Risk Factor Score: 4 Thrombosis Risk Factor Assessment Level: Moderate Risk Assessment and Plan Plan: Sepsis or systemic inflammatory response syndrome secondary to influenza be for which patient is on Tamiflu which will be continued. -Congestive heart failure chronic systolic dysfunction with acute exacerbation probably precipitated by flu. Patient will be continued on IV Lasix today patient may need increased dose of Lasix because patient has been having episodes of paroxysmal nocturnal dyspnea often lately. Patient has an AiCD. -Proximal A. fib patient has valvular A. fib for which patient is on Coumadin which will be continued patient INR on Sunday was therapeutic will repeat INR today and will continue the same dose of Coumadin is home home. -Coronary artery disease -COPD without any significant acute exacerbation at this time next and-DVT and pulmonary embolism in the past -hyperlipidemia #hypertension -History of rheumatoid arthritis. 10-hypothyroidism -Chronic right-sided diaphragmatic paralysis -Patient will need GI prophylaxis.
[2019-10-09 11:53] LABS: INR 2.2 (<1.2); Prothrombin Time 21.2 sec (9.0-12.0)
[2019-10-09] MEDS: MORPHINE SULFATE ER 30 MG TABLET PO SCH ×2 (13:34→21:55)
[2019-10-09] MEDS ORDERED: WARFARIN 1 MG TAB PO SCH (18:00)
[2019-10-09] MEDS: LOSARTAN 25 MG TAB PO SCH (21:55)
[2019-10-09] MEDS: ATORVASTATIN 20 MG TAB PO SCH (21:55)
[2019-10-09] MEDS: GABAPENTIN 300 MG CAP PO SCH (21:55)
[2019-10-09] MEDS: SOTALOL 80 MG TAB PO SCH (21:56)
[2019-10-09] MEDS: RANOLAZINE 500 MG TAB.ER.12H PO SCH (21:56)
[2019-10-10] MEDS: PANTOPRAZOLE 40 MG TABLET PO SCH (06:25)
[2019-10-10] MEDS: LEVOTHYROXINE 50 MCG TAB PO SCH (06:25)
[2019-10-10 07:24] LABS: Calcium 7.9 mg/dL (8.4-10.2); Potassium 4.2 mmol/L (3.5-5.1)
[2019-10-10 07:28] LABS: INR 1.4 (<1.2); Prothrombin Time 14.6 sec (9.0-12.0)
[2019-10-10] MEDS: IPRATROPIUM-ALBUTEROL 3 ML NEB INHALATION SCH ×4 (08:51→20:19)
--- NOTE | 2019-10-10 09:26 | XR ---
EXAMINATION TYPE: XR chest 1V portable DATE OF EXAM: 10/10/2019 COMPARISON: Prior chest x-ray 10/09/2019 HISTORY: Congestive heart failure TECHNIQUE: Single frontal view of the chest is obtained. FINDINGS: Patient is post median sternotomy and rotated, technique is apical lordotic. Generator is present in the right pectoral region, there are leads in the right atrium and ventricle as on prior, additional lead over the right chest is again noted. Patchy density at the right lung base obscures t he hemidiaphragm. No evident pneumothorax. There are overlying cardiac leads. Heart is stable. Suspec t some improvement in pulmonary vascularity and interstitium. IMPRESSION: Improvement in patient's volume status, aeration within the lungs. Stable lead position as previously described.
--- NOTE | 2019-10-10 10:49 | P.PN ---
Subjective Patient is admitted for influenza B and also congestive heart failure exacerbation patient has EF of around 45%.. Patient the serum creatinine start ed going up and patient is hypotensive patient will be switched to oral Lasix will hold off on losartan if needed tonight. Will repeat basic metabolic profile tomorrow. Patient has minimal wheeze today patient remains in arms and will try to be no concentrated possibility of discharge tomorrow. Constitutional: Denied any fatigue denied any fever. Cardio vascular: denied any chest pain, palpitations Gastrointestinal denied any nausea vomiting Pulmonary: Shortness of breath is significantly better Neurologic denied any new focal deficits All inpatient medications were reviewed and appropriate changes in these medications as dictated in the interval history and assessment and plan. Objective - Vital Signs Vital signs: Vital Signs Temp 98.0 F 10/10/19 04:00 Pulse 68 10/10/19 09:06 Resp 18 10/10/19 04:05 BP 99/63 10/10/19 04:00 Pulse Ox 93 L 10/10/19 04:05 Intake & Output 10/09/19 10/10/19 10/10/19 18:59 06:59 18:59 Intake Total 300 180 Output Total 4050 1600 1200 Balance -3750 -1600 -1020 Weight 92.1 kg Intake: Oral 300 180 Output: Urine 4050 1600 1200 Other: Voiding Method Toilet Urinal # Voids 1 - Exam PHYSICAL EXAMINATION: GENERAL: The patient is alert and oriented x3, not in any acute distress. Well developed, well nourished. HEENT: Pupils are round and equally reacting to light. EOMI. No scleral icterus. No conjunctival pallor. Normocephalic, atraumatic. No pharyngeal erythema. No thyromegaly. CARDIOVASCULAR: S1 and S2 present. No murmurs, rubs, or gallops. His have elevated JVD PULMONARY: Air entry into bilateral lung holland minimal expiratory wheezing on one location posteriorly on the right side ABDOMEN: Soft, nontender, nondistended, normoactive bowel sounds. No palpable organomegaly. MUSCULOSKELETAL: No joint swelling or deformity. EXTREMITIES: No cyanosis, clubbing, or pedal edema. NEUROLOGICAL: Gross neurological examination did not reveal any focal deficits. SKIN: No rashes. - Labs CBC & Chem 7: 10/08/19 21:10 10/10/19 05:54 Labs: Abnormal Lab Results - Last 24 Hours (Table) 10/09/19 10/10/19 10/10/19 Range/Units 11:06 05:54 05:54 PT 21.2 H 14.6 H (9.0-12.0) sec INR 2.2 H 1.4 H (<1.2) Sodium 135 L (137-145) mmol/L Chloride 93 L (98-107) mmol/L Carbon Dioxide 37 H (22-30) mmol/L BUN 35 H (9-20) mg/dL Calcium 7.9 L (8.4-10.2) mg/dL Microbiology - Last 24 Hours (Table) 10/08/19 21:10 Blood Culture - Preliminary Blood No Growth after 24 hours Assessment and Plan Plan: Sepsis or systemic inflammatory response syndrome secondary to influenza be for which patient is on Tamiflu which will be continued. -Congestive heart failure chronic systolic dysfunction with acute exacerbation probably precipitated by flu. Lasix will be switched to oral and patient has an AICD. She may need 1 more day. We're able to get up [place] patient is doing well without oxygen patient will be discharged tomorrow -Proximal A. fib patient has valvular A. fib for which patient is on Coumadin which will be continued patient INR on and off is subtherapeutic patient will be on 2 mg of Coumadin today and repeat INR tomorrow -Coronary artery disease -COPD without any significant acute exacerbation at this time next and-DVT and pulmonary embolism in the past -hyperlipidemia #hypertension -History of rheumatoid arthritis. 10-hypothyroidism -Chronic right-sided diaphragmatic paralysis -Patient will need GI prophylaxis.
[2019-10-10] MEDS: GABAPENTIN 300 MG CAP PO SCH ×2 (11:30→20:53)
[2019-10-10] MEDS: MORPHINE SULFATE ER 30 MG TABLET PO SCH ×2 (11:30→20:53)
--- NOTE | 2019-10-10 11:31 | P.PN ---
Subjective Progress Note Date: 10/10/19 Principal diagnosis: Influenza B infection, exacerbation of CHF 78-year-old white male patient with past medical history of COPD, chronic right hemidiaphragm paralysis, status post right hemidiaphragm plication, past history of pneumonias including E. coli ESBL, previous history of MRSA infection, valvular heart disease, osteoarthritis, B12 deficiency, chronic kidney disease, obstructive sleep apnea syndrome, hypothyroidism, previous history of pacemaker insertion, CAD with stenting. Patient was recently hospitalized for right upper lobe and right lower lobe pneumonia, blood and sputum cultures from that admission were negative, patient was treated with antibiotics, he recovered, he saw Dr. Fitch in follow-up on 10/03/2019, she felt like his cough was coming back, and he was experiencing more shortness of breath coughing and wheezing. He was discharged home on Ceftin and bronchodilators. On 10/08/2019 patient presented to the emergency department with complaints of increasing shortness of breath, patient was waking up in the middle of the night being very short of breath, and patient is not normally oxygen dependent, he was noting his pulse ox to be in the 80s on room air. Did have fever and chills, with T-max of 10 2F, denied any chest pain, did note weight gain and lower extremity edema. His cough is productive with copious amounts of whitish colored sputum. Chest x-ray showed bilateral infiltrates and pleural effusions with diffuse interstitial pattern, pulmonary edema. Labs showed a white blood cell count of 8.6, hemoglobin of 11.2, electrolytes are within normal limits, B1 is 30 creatinine is 1.17, troponin was 0.0-3, proBNP was 2430, urinalysis was negative for any signs of infection, influenza B was positive, patient was initially given some IV fluids in the emergency department, was started on Tamiflu, breathing treatments, to call me he was given a dose of IV Lasix, he is diuresed, and follow-up chest x-ray today shows continued diffuse interstitial pattern, with bilateral infiltrates, and right basilar infiltrate could not be excluded. On 10/10/2019 patient seen in follow-up on selective care unit, he states he is breathing much easier today, although he still requiring supplemental oxygen, he states when he walked to the bathroom without oxygen his pulse ox was around 87% on room air, no fever or chills, he remains on Tamiflu for influenza B infection, he is been diuresed, his chest x-ray initially shows improvement in patient's volume status and aeration within the lungs. These labs have been reviewed, showing metabolic alkalosis with CO2 up to 37, BUN of 35, and creatinine of 1.25, sodium is 135, chloride is 93. Potassium is 4.2, we'll cut back the Lasix to once daily. Sounds reveal coarse crackles at bilateral bases. Occasional cough, with production of whitish colored sputum. Objective - Vital Signs Vital signs: Vital Signs Temp 98.0 F 10/10/19 04:00 Pulse 68 10/10/19 09:06 Resp 18 10/10/19 04:05 BP 99/63 10/10/19 04:00 Pulse Ox 93 L 10/10/19 04:05 Intake & Output 10/09/19 10/10/19 10/10/19 18:59 06:59 18:59 Intake Total 300 180 Output Total 4050 1600 1200 Balance -3750 -1600 -1020 Weight 92.1 kg Intake: Oral 300 180 Output: Urine 4050 1600 1200 Other: Voiding Method Toilet Urinal # Voids 1 - Exam GENERAL EXAM: Alert, very pleasant, 78-year-old white male, on 2 L of oxygen with pulse ox of 97% comfortable in no apparent distress. HEAD: Normocephalic/atraumatic. EYES: Normal reaction of pupils, equal size. Conjunctiva pink, sclera white. NOSE: Clear with pink turbinates. THROAT: No erythema or exudates. NECK: No masses, no JVD, no thyroid enlargement, no adenopathy. CHEST: No chest wall deformity. Symmetrical expansion. LUNGS: Equal air entry with diffuse coarse crackles in the bilateral lower and mid lungs CVS: Regular rate and rhythm, normal S1 and S2, no gallops, no murmurs, no rubs ABDOMEN: Soft, nontender. No hepatosplenomegaly, normal bowel sounds, no guarding or rigidity. EXTREMITIES: No clubbing, one plus pitting edema in bilateral lower extremities, no cyanosis, 2+ pulses and upper and lower extremities. MUSCULOSKELETAL: Muscle strength and tone normal. SPINE: No scoliosis or deformity SKIN: No rashes CENTRAL NERVOUS SYSTEM: Alert and oriented -3. No focal deficits, tone is normal in all 4 extremities. PSYCHIATRIC: Alert and oriented -3. Appropriate affect. Intact judgment and insight. - Labs CBC & Chem 7: 10/08/19 21:10 10/10/19 05:54 Labs: Abnormal Lab Results - Last 24 Hours (Table) 10/09/19 10/10/19 10/10/19 Range/Units 11:06 05:54 05:54 PT 21.2 H 14.6 H (9.0-12.0) sec INR 2.2 H 1.4 H (<1.2) Sodium 135 L (137-145) mmol/L Chloride 93 L (98-107) mmol/L Carbon Dioxide 37 H (22-30) mmol/L BUN 35 H (9-20) mg/dL Calcium 7.9 L (8.4-10.2) mg/dL Microbiology - Last 24 Hours (Table) 10/08/19 21:10 Blood Culture - Preliminary Blood No Growth after 24 hours Assessment and Plan Plan: Assessment: #1. Hypoxemic respiratory failure related to acute exacerbation of systolic CHF with an ejection fraction of 45%, chest x-ray showed pulmonary edema, possi bility of right basilar infiltrate/pneumonia could not be ruled out #2. Acute influenza B infection #3. Recent hospitalization for right upper lobe and right lower lobe pneumonia #4. Recent pacemaker upgrade to an AICD #5. Coronary artery disease with previous stenting and bypass grafting #6. History of ischemic cardiomyopathy with an EF of 45% #7. History of valvular heart disease with aortic valve replacement #8. Chronic right hemidiaphragmatic paralysis, status post diaphragmatic plication #9. History of pacemaker placements and subsequent replacements #10. History of MRSA infection #11. Former history of smoking #12. Mild COPD stage II, outpatient PFT showed FEV1 of 2.77 L or 74% of predicted with a component of restriction with FVC of 3.65 L or 71% of predicted #13. History of pulmonary embolism on long-term anticoagulation with Coumadin #14. Hypertension #15. Dyslipidemia Plan: Diuretics have been better, and then switched over to oral Lasix, and his chest x-ray shows significant improvement in aeration of bilateral lungs, and fluid volume status, patient significantly diuresed. Breathing easier, continue Tamiflu for influenza B infection, no fever or chills, increase activity as tolerated, recheck labs tomorrow. I performed a history & physical examination of the patient and discussed their management with my nurse practitioner, Gayle Thompson. I reviewed the nurse practitioner's note and agree with the documented findings and plan of care. Lung sounds are positive for diffuse crackles. The findings and the impression was discussed with the patient. I attest to the documentation by the nurse practitioner. Time with Patient: Less than 30
[2019-10-10] MEDS: RANOLAZINE 500 MG TAB.ER.12H PO SCH ×2 (11:37→20:53)
[2019-10-10] MEDS: SPIRONOLACTONE 25 MG TAB PO SCH (11:37)
[2019-10-10] MEDS: ASPIRIN 81 MG PO SCH (11:37)
[2019-10-10] MEDS: OSELTAMIVIR 75 MG CAP PO SCH ×2 (11:38→20:53)
[2019-10-10] MEDS: FERROUS SULFATE 325 MG TAB PO SCH (11:38)
[2019-10-10] MEDS: METOPROLOL SUCCINATE (ER) 25 MG TAB.ER.24H PO SCH (11:38)
[2019-10-10] MEDS: SOTALOL 80 MG TAB PO SCH ×2 (11:39→20:54)
--- NOTE | 2019-10-10 13:59 | CDI ---
Documentation Clarification Form Date: 10/10/2019 01:29:30 PM From: Madelyn Cuenca RN CCDS Admit Date: 10/09/2019 02:54:00 PM Patient Name: Emmanuel Hall Visit Number: [id number] Discharge Date: ATTENTION: The Clinical Documentation Specialists (CDI) and [facility] Coding Staff appreciate your assistance in clarifying documentation. Please respond to the clarification below the line at the bottom and electronically sign. The CDI & [facility] Coding staff will review the response and follow-up if needed. Please note: Queries are made part of the Legal Health Record. If you have any questions, please contact the author of this message via ITS. Dr. Randell Santana Hypoxemic respiratory failure related to acute exacerbation of systolic CHF Is documented in Pulmonary Consult and progress notes. History/Risk Factors: 78-year-old male presents to the ED with shortness of breath. Medical history; Systolic CHF; CAD; PE; COPD Tobacco use: Started smoking at age 19, two per day quit 1977 Clinical Indicators: Vital signs: 10/08 2115 24RR short of breath with accessory muscles. 10/08 2244 [id number] 61 98.2 20 98% 3L Lung/Breathing assessment: Pulmonary Consult 10/09 Lungs: Equal air entry with diffuse coarse crackles in the bilateral lower and mid lungs. Treatment: Breathing tx 10/08 Albuterol / Ipratropium Q2H PRN; Albuterol / Ipratropium QID DEANN 3L oxygen by nasal cannula In your professional opinion, can you please clarify the acuity of Hypoxemic Respiratory failure? * Acute Respiratory Failure * Other Diagnosis, please specify * Unable to determine Specificity: If known, further specify (if known): With hypercapnia? (pCO2 >50 and pH <7.35) With hypoxia? (pO2 <60 mm Hg or SpO2 <91% on room air) (Last Query Form Revision: June 2019) MTDD
--- NOTE | 2019-10-10 14:04 | P.PN ---
Progress Note - Text Progress Note Date: 10/10/19 For documentation purposes and clarification, patient presented with acute hypoxic respiratory failure secondary to acute systolic congestive heart failure. And LV dysfunction.
[2019-10-10] MEDS: FUROSEMIDE 40 MG TAB PO SCH (17:16)
[2019-10-10] MEDS: WARFARIN 2 MG TAB PO SCH (17:18)
--- NOTE | 2019-10-10 19:20 | ECHOF ---
Referral Reason:acute CHF MEASUREMENTS -------- HEIGHT: 188.0 cm WEIGHT: 102.5 kg BP: 132/70 RVIDd: 4.1 cm (< 3.3) IVSd: 1.7 cm (0.6 - 1.1) LVIDd: 4.9 cm (3.9 - 5.3) LVPWd: 1.8 cm (0.6 - 1.1) IVSs: 1.7 cm LVIDs: 3.7 cm LVPWs: 2.3 cm LAESV Index (A-L): 44.94 ml/m Ao Diam: 2.9 cm (2.0 - 3.7) AV Cusp: 1.8 cm (1.5 - 2.6) LA Diam: 5.9 cm (2.7 - 3.8) MV EXCURSION: 17.586 mm (> 18.000) MV EF SLOPE: 53 mm/s (70 - 150) MV E Forest: 0.81 m/s MV DecT: 289 ms MV A Forest: 1.04 m/s MV E/A Ratio: 0.78 AV maxP.68 mmHg AV meanP.99 mmHg RAP: 5.00 mmHg RVSP: 39.71 mmHg FINDINGS -------- Sinus rhythm. This was a technically adequate study. The left ventricular size is normal. There is moderate concentric left ventricular hypertrophy. O verall left ventricular systolic function is mildly impaired with, an EF between 45 - 50 %. Increas ed Lap Grade II Diastolic Dysfunction. The right ventricle is moderately enlarged. LA is severely dilated >40 ml/m2 The right atrium was not well visualized. Interatrial and interventricular septum intact. Normally functioning bioprosthetic valve. There is trivial regurgitation of the bioprosthetic aorti c valve. Moderate mitral annular calcification present. Kpdy-fz-pifgauoi mitral regurgitation is present. Mild tricuspid regurgitation present. There is mild pulmonary hypertension. The right ventricular systolic pressure, as measured by Doppler, is 39.71mmHg. There is no pulmonic regurgitation present. The aortic root size is normal. IVC Not well visulized. There is no pericardial effusion. CONCLUSIONS -------- 1. Sinus rhythm. 2. This was a technically adequate study. 3. The left ventricular size is normal. 4. There is moderate concentric left ventricular hypertrophy. 5. Overall left ventricular systolic function is mildly impaired with, an EF between 45 - 50 %. 6. Increased Lap Grade II Diastolic Dysfunction. 7. The right ventricle is moderately enlarged. 8. LA is severely dilated >40 ml/m2 9. The right atrium was not well visualized. 10. Normally functioning bioprosthetic valve. 11. There is trivial regurgitation of the bioprosthetic aortic valve. 12. Moderate mitral annular calcification present. 13. Phen-ut-gsoimfpy mitral regurgitation is present. 14. Mild tricuspid regurgitation present. 15. There is mild pulmonary hypertension. 16. There is no pulmonic regurgitation present. 17. There is no pericardial effusion. MACHINE RIGGER: Joyce Hernandez RDCS
[2019-10-10] MEDS: FUROSEMIDE 10 MG/ML 4 ML VIAL IV SCH (20:48)
[2019-10-10] MEDS: ATORVASTATIN 20 MG TAB PO SCH (20:53)
[2019-10-10] MEDS: LOSARTAN 25 MG TAB PO SCH (20:53)
[2019-10-11] MEDS: LEVOTHYROXINE 50 MCG TAB PO SCH (06:22)
[2019-10-11] MEDS: PANTOPRAZOLE 40 MG TABLET PO SCH (06:22)
[2019-10-11 07:09] LABS: INR 1.3 (<1.2); Prothrombin Time 13.2 sec (9.0-12.0)
[2019-10-11 07:20] LABS: Potassium 4.3 mmol/L (3.5-5.1)
[2019-10-11] MEDS: GABAPENTIN 300 MG CAP PO SCH ×2 (08:43→22:00)
[2019-10-11] MEDS: ASPIRIN 81 MG PO SCH (08:43)
[2019-10-11] MEDS: SOTALOL 80 MG TAB PO SCH ×2 (08:44→21:33)
[2019-10-11] MEDS: FERROUS SULFATE 325 MG TAB PO SCH (08:44)
[2019-10-11] MEDS: MORPHINE SULFATE ER 30 MG TABLET PO SCH ×2 (08:44→22:00)
[2019-10-11] MEDS: RANOLAZINE 500 MG TAB.ER.12H PO SCH ×2 (08:44→22:00)
[2019-10-11] MEDS ORDERED: FUROSEMIDE 10 MG/ML 4 ML VIAL IV SCH (09:00)
[2019-10-11] MEDS: IPRATROPIUM-ALBUTEROL 3 ML NEB INHALATION SCH ×4 (09:41→21:11)
--- NOTE | 2019-10-11 12:50 | P.PN ---
Subjective Progress Note Date: 10/11/19 Principal diagnosis: Influenza B infection, acute exacerbation of systolic congestive heart failure 78-year-old white male patient with past medical history of COPD, chronic right hemidiaphragm paralysis, status post right hemidiaphragm plication, past history of pneumonias including E. coli ESBL, previous history of MRSA infection, valvular heart disease, osteoarthritis, B12 deficiency, chronic kidney disease, obstructive sleep apnea syndrome, hypothyroidism, previous history of pacemaker insertion, CAD with stenting. Patient was recently hospitalized for right upper lobe and right lower lobe pneumonia, blood and sputum cultures from that admission were negative, patient was treated with antibiotics, he recovered, he saw Dr. Fitch in follow-up on 10/03/2019, she felt like his cough was coming back, and he was experiencing more shortness of breath coughing and wheezing. He was discharged home on Ceftin and bronchodilators. On 10/08/2019 patient presented to the emergency department with complaints of increasing shortness of breath, patient was waking up in the middle of the night being very short of breath, and patient is not normally oxygen dependent, he was noting his pulse ox to be in the 80s on room air. Did have fever and chills, with T-max of 10 2F, denied any chest pain, did note weight gain and lower extremity edema. His cough is productive with copious amounts of whitish colored sputum. Chest x-ray showed bilateral infiltrates and pleural effusions with diffuse interstitial pattern, pulmonary edema. Labs showed a white blood cell count of 8.6, hemoglobin of 11.2, electrolytes are within normal limits, B1 is 30 creatinine is 1.17, troponin was 0.0-3, proBNP was 2430, urinalysis was negative for any signs of infection, influenza B was positive, patient was initially given some IV fluids in the emergency department, was started on Tamiflu, breathing treatments, to call me he was given a dose of IV Lasix, he is diuresed, and follow-up chest x-ray today shows continued diffuse interstitial pattern, with bilateral infiltrates, and right basilar infiltrate could not be excluded. On 10/10/2019 patient seen in follow-up on selective care unit, he states he is breathing much easier today, although he still requiring supplemental oxygen, he states when he walked to the bathroom without oxygen his pulse ox was around 87% on room air, no fever or chills, he remains on Tamiflu for influenza B infection, he is been diuresed, his chest x-ray initially shows improvement in patient's volume status and aeration within the lungs. These labs have been reviewed, showing metabolic alkalosis with CO2 up to 37, BUN of 35, and creatinine of 1.25, sodium is 135, chloride is 93. Potassium is 4.2, we'll cut back the Lasix to once daily. Sounds reveal coarse crackles at bilateral bases. Occasional cough, with production of whitish colored sputum. The patient is seen today 10/11/2018 in follow-up on the selective care unit. He is currently resting comfortably in bed. Awake and alert in no acute distress. No pulmonary complaints. He did have some issues with dizziness upon standing earlier this morning. Otherwise stable. Maintaining O2 saturations in the 90s on 3 L/m per nasal cannula. He is afebrile. Blood culture reveals no growth. INR 1.3. Sodium 135. Potassium 4.3. Creatinine 1.94. He remains on bronchodilators, Tamiflu, oral diuretics Objective - Vital Signs Vital signs: Vital Signs Temp 98.0 F 10/11/19 11:51 Pulse 60 10/11/19 11:51 Resp 16 10/11/19 11:51 BP 94/55 10/11/19 11:51 Pulse Ox 92 L 10/11/19 11:51 Intake & Output 10/10/19 10/11/19 10/11/19 18:59 06:59 18:59 Intake Total 540 710 Output Total 4175 400 500 Balance -3635 -400 210 Weight 91.8 kg Intake: Oral 540 710 Output: Urine 4175 400 500 Other: Voiding Method Toilet Toilet Urinal Urinal # Voids 1 - Exam GENERAL EXAM: Alert, very pleasant, 78-year-old male patient, on 3 L of oxygen with pulse ox of 92% comfortable in no apparent distress. HEAD: Normocephalic/atraumatic. EYES: Normal reaction of pupils, equal size. Conjunctiva pink, sclera white. NOSE: Clear with pink turbinates. THROAT: No erythema or exudates. NECK: No masses, no JVD, no thyroid enlargement, no adenopathy. CHEST: No chest wall deformity. Symmetrical expansion. LUNGS: Equal air entry with diffuse coarse crackles in the bilateral lower and mid lungs CVS: Regular rate and rhythm, normal S1 and S2, no gallops, no murmurs, no rubs ABDOMEN: Soft, nontender. No hepatosplenomegaly, normal bowel sounds, no guarding or rigidity. EXTREMITIES: No clubbing, one plus pitting edema in bilateral lower extremities, no cyanosis, 2+ pulses and upper and lower extremities. MUSCULOSKELETAL: Muscle strength and tone normal. SPINE: No scoliosis or deformity SKIN: No rashes CENTRAL NERVOUS SYSTEM: No focal deficits, tone is normal in all 4 extremities. PSYCHIATRIC: Alert and oriented -3. Appropriate affect. Intact judgment and insight. - Labs CBC & Chem 7: 10/08/19 21:10 10/11/19 05:44 Labs: Abnormal Lab Results - Last 24 Hours (Table) 10/11/19 10/11/19 Range/Units 05:44 05:44 PT 13.2 H (9.0-12.0) sec INR 1.3 H (<1.2) Sodium 135 L (137-145) mmol/L Chloride 92 L (98-107) mmol/L Carbon Dioxide 37 H (22-30) mmol/L BUN 45 H (9-20) mg/dL Creatinine 1.94 H (0.66-1.25) mg/dL Calcium 8.0 L (8.4-10.2) mg/dL Microbiology - Last 24 Hours (Table) 10/08/19 21:10 Blood Culture - Preliminary Blood No Growth after 48 hours Assessment and Plan Assessment: 1 Acute hypoxemic respiratory failure related to acute exacerbation of systolic CHF with an ejection fraction of 45%, chest x-ray showed pulmonary edema, possibility of right basilar infiltrate/pneumonia could not be ruled out 2 Acute influenza B infection, currently on Tamiflu 3 Recent hospitalization for right upper lobe and right lower lobe pneumonia 4 Recent pacemaker upgrade to an AICD 5 Coronary artery disease with previous stenting and bypass grafting 6 History of ischemic cardiomyopathy with an EF of 45% 7 History of valvular heart disease with aortic valve replacement 8 Chronic right hemidiaphragmatic paralysis, status post diaphragmatic plication 9 History of pacemaker placements and subsequent replacements 10 History of MRSA infection 11 Former history of smoking 12 Mild COPD stage II, outpatient PFT showed FEV1 of 2.77 L or 74% of predicted with a component of restriction with FVC of 3.65 L or 71% of predicted 13 History of pulmonary embolism on long-term anticoagulation with Coumadin 14 Hypertension 15 Hyperlipidemia 16 Hypothyroidism Plan The patient was seen and evaluated by Dr. Santana Continue Tamiflu Continue bronchodilators Continue to titrate down the FiO2 as tolerated Optimize INR Medication adjustment per cardiology I, the cosigning physician, performed a history & physical examination of the patient. Lungs sounds with coarse crackles in the bilateral bases. Maintaining good O2 saturations in the 90s on 3 L/m per nasal cannula. I discussed the assessment and plan of care with my nurse practitioner, Katja Lin. I attest to the above note as dictated by her.
[2019-10-11] MEDS: FUROSEMIDE 40 MG TAB PO SCH ×2 (15:16→15:27)
[2019-10-11] MEDS: METOPROLOL SUCCINATE (ER) 25 MG TAB.ER.24H PO SCH (15:16)
[2019-10-11] MEDS: OSELTAMIVIR 75 MG CAP PO SCH ×2 (15:17→22:00)
[2019-10-11] MEDS ORDERED: WARFARIN 2 MG TAB PO SCH (18:00)
[2019-10-11] MEDS: SPIRONOLACTONE 25 MG TAB PO SCH (18:20)
[2019-10-11] MEDS: WARFARIN 2 MG TAB PO SCH (18:26)
[2019-10-11] MEDS ORDERED: MELATONIN 3 MG TABLET PO PRN (20:35)
--- NOTE | 2019-10-11 20:38 | PN ---
PROGRESS NOTE DATE OF SERVICE: 10/11/2019 This 78-year-old gentleman who was admitted with acute pneumonia as well as sepsis was also started on Tamiflu. The patient is also on broad-spectrum IV antibiotics also. Cultures are negative so far. Multiple consultants are follow the patient closely at this time. White count is 8.2, hemoglobin 11.2 and sodium is 135. Creatinine is increased to 1.94 at this time. Influenza B was positive. PAST MEDICAL HISTORY: Reviewed. REVIEW OF SYSTEMS: CARDIOVASCULAR system: No angina or palpitations. RESPIRATORY as mentioned earlier. GI: As mentioned earlier. : No dysuria or hematuria. CENTRAL NERVOUS SYSTEM: No focal deficits. CURRENT MEDICATIONS ARE: Reviewed and include: 1. Tylenol p.r.n. 2. Hydrocodone. 3. DuoNeb. 4. Xanax. 5. Aspirin. 6. Lipitor. 7. Iron sulfate. 8. Lasix. 9. Neurontin. 10.Synthroid. 11.Cozaar. 12.Toprol. 13.MS Contin. 14.Narcan. 15.Tamiflu. 17.Betapace. 18.Coumadin. PHYSICAL EXAMINATION: Patient is alert, oriented x3. The pulse is 67, blood pressure 98/43, respiration 14, temperature 98 degrees, pulse ox 98% on 3 L. HEENT is conjunctivae normal. NECK: No JVD. CARDIOVASCULAR: S1, S2 muffled. RESPIRATIONS: Breath sounds diminished in the bases. A few scattered rhonchi and crackles. ABDOMEN: Soft, nontender. LEGS no edema. No swelling. CENTRAL NERVOUS SYSTEM: No focal deficits. LABS: At this time shows WBC 8.2, hemoglobin 11.2, INR 1.3. Sodium is 133. Chest x- ray personally reviewed by me reviewed. ASSESSMENT: 1. Chronic obstructive pulmonary disease acute exacerbation with acute influenza B with possible sepsis present on admission. 2. Congestive heart failure with chronic systolic dysfunction with acute on chronic systolic congestive heart failure precipitated by flu. 3. Paroxysmal atrial fibrillation. 4. History of coronary artery disease. 5. Hypertension. 6. Hyperlipidemia. 7. History of rheumatoid arthritis. 8. Hypothyroidism. 9. Chronic right-sided diaphragmatic paralysis. 10.Remote history atrial flutter. 11.History of asthma/chronic obstructive pulmonary disease. 12.History of deep vein thrombosis. 13.History of hypertension. 14.History of hyperlipidemia. 15.History of pulmonary embolism. 16.History of hypothyroidism. 17.History of macular degeneration. 18.History ESBL. 19.History of MRSA. 20.History of bariatric surgery. 21.History of coronary artery disease, coronary artery bypass grafting/ stent. 22.History of Trifecta aortic valve replacement. 23.History of Vazquez-en-Y. 24.History of permanent pacemaker. 25.Anxiety. 26.Remote history of nicotine dependence. 27.FULL CODE. RECOMMENDATIONS AND DISCUSSION: This 78-year-old gentleman who presented with multiple complex medical issues, at this time, I recommend continue the current medication. Continue the broad-spectrum IV antibiotics. The patient had a previous episode of sepsis also. The prognosis is extremely guarded because of multiple complex medical issues, as detailed above. I would also recommend a short course of steroids also and hold metoprolol and losartan if the blood pressure is low. See orders for details. Further recommendations to follow. MAULIK / SANTOSN: [id number] / [id number]
[2019-10-11 20:42] LABS: Glucose,Whole Blood 95 mg/dL (75-99)
[2019-10-11] MEDS: INSULIN ASPART (NovoLOG) 100 UNIT/ML VIAL SQ SCH (20:45)
[2019-10-11] MEDS: LOSARTAN 25 MG TAB PO SCH (20:45)
[2019-10-11] MEDS: methylPREDNISolone SOD SUCCI 40 MG/ML 1 ML VIAL IV SCH (21:59)
[2019-10-11] MEDS: ATORVASTATIN 20 MG TAB PO SCH (22:00)
[2019-10-12] MEDS: methylPREDNISolone SOD SUCCI 40 MG/ML 1 ML VIAL IV SCH ×5 (00:22→23:00)
[2019-10-12 06:13] LABS: Glucose,Whole Blood 168 mg/dL (75-99)
[2019-10-12] MEDS: INSULIN ASPART (NovoLOG) 100 UNIT/ML VIAL SQ SCH ×4 (06:29→21:43)
[2019-10-12] MEDS: PANTOPRAZOLE 40 MG TABLET PO SCH (06:29)
[2019-10-12] MEDS: LEVOTHYROXINE 50 MCG TAB PO SCH (06:29)
[2019-10-12 07:41] LABS: Calcium 8.1 mg/dL (8.4-10.2); Potassium 4.7 mmol/L (3.5-5.1)
[2019-10-12 07:54] LABS: INR 1.8 (<1.2); Prothrombin Time 17.4 sec (9.0-12.0)
--- NOTE | 2019-10-12 07:55 | XR ---
EXAMINATION TYPE: XR chest 1V portable DATE OF EXAM: 10/12/2019 COMPARISON: 10/10/2019 HISTORY: Shortness of breath TECHNIQUE: Single frontal view of the chest is obtained. FINDINGS: Cardiac device with cardiomegaly and postsurgical changes are noted. There is right apical pleural-based density medially which is stable. Bilateral lower lobe infiltrate and small effusion. Underlying COPD suspected. Arthropathy of the shoulders. Lucency beneath the left hemidiaphragm seen prior exams. Related air within bowel or stomach. IMPRESSION: 1. Bilateral pleural-parenchymal changes correlate for pneumonia versus mild CHF. No significant inte rval change. There is asymmetric soft tissue density in the right lung apex. This may be related to c onsolidation is recent CT scan demonstrated no evidence of mass in this region.
[2019-10-12 08:03] LABS: Basophils % (A) 0 %; Eosinophils % (A) 0 %; HCT 36.6 % (39.0-53.0); HGB 12.5 gm/dL (13.0-17.5); Lymphocytes # (A) 0.2 k/uL (1.0-4.8); Lymphocytes % (A) 3 %; MCH 33.2 pg (25.0-35.0); MCHC 34.1 g/dL (31.0-37.0); MCV 97.4 fL (80.0-100.0); Mean Platelet Volume 9.7; Monocytes # (A) 0.1 k/uL (0-1.0); Monocytes % (A) 2 %; Neutrophils # (A) 6.2 k/uL (1.3-7.7); Neutrophils % (A) 94 %; RBC 3.76 m/uL (4.30-5.90); RDW 13.8 % (11.5-15.5); WBC 6.6 k/uL (3.8-10.6)
[2019-10-12] MEDS: IPRATROPIUM-ALBUTEROL 3 ML NEB INHALATION SCH ×4 (08:28→20:58)
[2019-10-12] MEDS: ASPIRIN 81 MG PO SCH (09:30)
[2019-10-12] MEDS: MORPHINE SULFATE ER 30 MG TABLET PO SCH ×2 (09:30→21:42)
[2019-10-12] MEDS: GABAPENTIN 300 MG CAP PO SCH ×2 (09:30→21:42)
[2019-10-12] MEDS: FUROSEMIDE 40 MG TAB PO SCH (09:31)
[2019-10-12] MEDS: FERROUS SULFATE 325 MG TAB PO SCH (09:31)
[2019-10-12] MEDS: RANOLAZINE 500 MG TAB.ER.12H PO SCH ×2 (09:31→21:43)
--- NOTE | 2019-10-12 11:06 | P.PN ---
Subjective Progress Note Date: 10/12/19 Principal diagnosis: Influenza B infection, exacerbation of CHF 78-year-old white male patient with past medical history of COPD, chronic right hemidiaphragm paralysis, status post right hemidiaphragm plication, past history of pneumonias including E. coli ESBL, previous history of MRSA infection, valvular heart disease, osteoarthritis, B12 deficiency, chronic kidney disease, obstructive sleep apnea syndrome, hypothyroidism, previous history of pacemaker insertion, CAD with stenting. Patient was recently hospitalized for right upper lobe and right lower lobe pneumonia, blood and sputum cultures from that admission were negative, patient was treated with antibiotics, he recovered, he saw Dr. Fitch in follow-up on 10/03/2019, she felt like his cough was coming back, and he was experiencing more shortness of breath coughing and wheezing. He was discharged home on Ceftin and bronchodilators. On 10/08/2019 patient presented to the emergency department with complaints of increasing shortness of breath, patient was waking up in the middle of the night being very short of breath, and patient is not normally oxygen dependent, he was noting his pulse ox to be in the 80s on room air. Did have fever and chills, with T-max of 10 2F, denied any chest pain, did note weight gain and lower extremity edema. His cough is productive with copious amounts of whitish colored sputum. Chest x-ray showed bilateral infiltrates and pleural effusions with diffuse interstitial pattern, pulmonary edema. Labs showed a white blood cell count of 8.6, hemoglobin of 11.2, electrolytes are within normal limits, B1 is 30 creatinine is 1.17, troponin was 0.0-3, proBNP was 2430, urinalysis was negative for any signs of infection, influenza B was positive, patient was initially given some IV fluids in the emergency department, was started on Tamiflu, breathing treatments, to call me he was given a dose of IV Lasix, he is diuresed, and follow-up chest x-ray today shows continued diffuse interstitial pattern, with bilateral infiltrates, and right basilar infiltrate could not be excluded. On 10/10/2019 patient seen in follow-up on selective care unit, he states he is breathing much easier today, although he still requiring supplemental oxygen, he states when he walked to the bathroom without oxygen his pulse ox was around 87% on room air, no fever or chills, he remains on Tamiflu for influenza B infection, he is been diuresed, his chest x-ray initially shows improvement in patient's volume status and aeration within the lungs. These labs have been reviewed, showing metabolic alkalosis with CO2 up to 37, BUN of 35, and creatinine of 1.25, sodium is 135, chloride is 93. Potassium is 4.2, we'll cut back the Lasix to once daily. Sounds reveal coarse crackles at bilateral bases. Occasional cough, with production of whitish colored sputum. On 10/12/2019 patient seen in follow-up active care unit. Resting comfortably in bed, in no acute distress, breathing is stable, denies any shortness of breath, currently on 3 L of oxygen and the pulse ox of 91%, patient is afebrile, hemodynamically stable, no acute events overnight, no specific complaints, he is tolerating ambulation, no significant cough or congestion. He is on a combination of Rocephin, Tamiflu. IV Solu-Medrol, and oral Lasix. In negative fluid balance. No lower extremity edema, trace is Preston has been reviewed showing bilateral pleural parenchymal changes related to possibly pneumonia ve rsus mild CHF. No leukocytosis on today's labs, white blood cell, 6.6, hemoglobin is 12.5, INR is 1.8, sodium is 135, potassium is 4.7, chloride is 95, CO2 is 35, BUN is 40 creatinine is 1.30 Objective - Vital Signs Vital signs: Vital Signs Temp 98 F 10/11/19 20:00 Pulse 76 10/12/19 08:44 Resp 16 10/12/19 03:40 BP 105/54 10/12/19 03:40 Pulse Ox 91 L 10/12/19 03:40 Intake & Output 10/11/19 10/12/19 10/12/19 18:59 06:59 18:59 Intake Total 1154 240 Output Total 2100 1250 Balance -946 -1250 240 Weight 90.1 kg Intake: Oral 1154 240 Output: Urine 2100 1250 Other: Voiding Method Toilet Toilet Urinal Urinal # Voids 1 - Exam GENERAL EXAM: Alert, very pleasant, 78-year-old white male, on 3 L of oxygen with pulse ox of 91% comfortable in no apparent distress. HEAD: Normocephalic/atraumatic. EYES: Normal reaction of pupils, equal size. Conjunctiva pink, sclera white. NOSE: Clear with pink turbinates. THROAT: No erythema or exudates. NECK: No masses, no JVD, no thyroid enlargement, no adenopathy. CHEST: No chest wall deformity. Symmetrical expansion. LUNGS: Equal air entry with diffuse coarse crackles in the bilateral lower and mid lungs CVS: Regular rate and rhythm, normal S1 and S2, no gallops, no murmurs, no rubs ABDOMEN: Soft, nontender. No hepatosplenomegaly, normal bowel sounds, no guarding or rigidity. EXTREMITIES: No clubbing, no edema in bilateral lower extremities, no cyanosis, 2+ pulses and upper and lower extremities. MUSCULOSKELETAL: Muscle strength and tone normal. SPINE: No scoliosis or deformity SKIN: No rashes CENTRAL NERVOUS SYSTEM: Alert and oriented -3. No focal deficits, tone is normal in all 4 extremities. PSYCHIATRIC: Alert and oriented -3. Appropriate affect. Intact judgment and insight. - Labs CBC & Chem 7: 10/12/19 05:58 10/12/19 05:58 Labs: Abnormal Lab Results - Last 24 Hours (Table) 10/12/19 10/12/19 10/12/19 Range/Units 05:58 05:58 05:58 RBC 3.76 L (4.30-5.90) m/uL Hgb 12.5 L (13.0-17.5) gm/dL Hct 36.6 L (39.0-53.0) % PT 17.4 H (9.0-12.0) sec INR 1.8 H (<1.2) Sodium 135 L (137-145) mmol/L Chloride 95 L (98-107) mmol/L Carbon Dioxide 35 H (22-30) mmol/L BUN 40 H (9-20) mg/dL Creatinine 1.30 H (0.66-1.25) mg/dL Glucose 168 H (74-99) mg/dL POC Glucose (mg/dL) (75-99) mg/dL Calcium 8.1 L (8.4-10.2) mg/dL 10/12/19 Range/Units 06:11 RBC (4.30-5.90) m/uL Hgb (13.0-17.5) gm/dL Hct (39.0-53.0) % PT (9.0-12.0) sec INR (<1.2) Sodium (137-145) mmol/L Chloride (98-107) mmol/L Carbon Dioxide (22-30) mmol/L BUN (9-20) mg/dL Creatinine (0.66-1.25) mg/dL Glucose (74-99) mg/dL POC Glucose (mg/dL) 168 H (75-99) mg/dL Calcium (8.4-10.2) mg/dL Microbiology - Last 24 Hours (Table) 10/08/19 21:10 Blood Culture - Preliminary Blood No Growth after 72 hours Assessment and Plan Plan: Assessment: #1. Hypoxemic respiratory failure related to acute exacerbation of systolic CHF with an ejection fraction of 45%, chest x-ray showed pulmonary edema, possibility of right basilar infiltrate/pneumonia could not be ruled out #2. Acute influenza B infection #3. Recent hospitalization for right upper lobe and right lower lobe pneumonia #4. Recent pacemaker upgrade to an AICD #5. Coronary artery disease with previous stenting and bypass grafting #6. History of ischemic cardiomyopathy with an EF of 45% #7. History of valvular heart disease with aortic valve replacement #8. Chronic right hemidiaphragmatic paralysis, status post diaphragmatic plication #9. History of pacemaker placements and subsequent replacements #10. History of MRSA infection #11. Former history of smoking #12. Mild COPD stage II, outpatient PFT showed FEV1 of 2.77 L or 74% of predicted with a component of restriction with FVC of 3.65 L or 71% of predicted #13. History of pulmonary embolism on long-term anticoagulation with Coumadin #14. Hypertension #15. Dyslipidemia Plan: Continue antibiotics, continue Tamiflu, patient is improving, breathing easier, no fever or chills, hemodynamically stable, maintaining negative fluid balance, today's labs have been reviewed, no evidence of leukocytosis, renal profile is improving, no acute issues overnight, follow-up chest x-ray has been reviewed still showing bilateral lower lobe infiltrates and small pleural effusion. No lower extremity edema, fluid volume status is improving. Increase activity as tolerated, home oxygen assessment. Patient can be considered for discharge home possibly today or tomorrow if doing well. He will need follow-up appointment with Dr. Rodriguez in the office in one to 2 weeks. I performed a history & physical examination of the patient and discussed their management with my nurse practitioner, Gayle Thompson. I reviewed the nurse practitioner's note and agree with the documented findings and plan of care. Lung sounds are positive for diffuse crackles. The findings and the impression was discussed with the patient. I attest to the documentation by the nurse practitioner. Time with Patient: Less than 30
[2019-10-12] MEDS: METOPROLOL SUCCINATE (ER) 25 MG TAB.ER.24H PO SCH (11:44)
[2019-10-12] MEDS: SOTALOL 80 MG TAB PO SCH (11:45)
[2019-10-12 12:02] LABS: Glucose,Whole Blood 196 mg/dL (75-99)
[2019-10-12] MEDS: OSELTAMIVIR 60 MG/10 ML ORAL SYRINGE PO SCH ×2 (12:05→23:01)
[2019-10-12] MEDS: SODIUM CHLORIDE 0.9% 1,000 ML IV SCH ×2 (12:08→21:47)
[2019-10-12 14:08] LABS: RBC Fragments Present
[2019-10-12 14:09] LABS: Platelet Count 98 k/uL (150-450)
[2019-10-12 14:20] LABS: Poikilocytosis (M) Present
[2019-10-12 17:08] LABS: Glucose,Whole Blood 229 mg/dL (75-99)
[2019-10-12] MEDS: WARFARIN 2 MG TAB PO SCH (17:25)
[2019-10-12 20:40] LABS: Glucose,Whole Blood 241 mg/dL (75-99)
--- NOTE | 2019-10-12 21:28 | PN ---
PROGRESS NOTE DATE OF SERVICE: 10/12/2019 This 78-year-old gentleman admitted with acute pneumonia, as well as sepsis, is being closely monitored. Patient had a past medical history of multiple episodes of sepsis and a chest x-ray done today which was personally reviewed by me showed lesions on the right base which is persistent at this time. The patient being closely monitored. Dr. Santana is following the patient closely. The patient on broad spectrum IV antibiotics. The patient is thought to have CHF also acute exacerbation also. PAST MEDICAL HISTORY: Reviewed. REVIEW OF SYSTEMS: CARDIOVASCULAR SYSTEM: No angina or palpitations. RESPIRATION as mentioned earlier. GI: As mentioned earlier. : No dysuria. CENTRAL NERVOUS SYSTEM: No numbness or weakness. CURRENT MEDICATIONS: Reviewed and include: 1. Tylenol p.r.n. 2. [place] 10 mg. 3. DuoNeb q.i.d. and p.r.n. 4. Xanax. 5. Aspirin. 6. Lipitor. 7. Rocephin 1 g IV daily. 8. Iron sulfate. 9. Neurontin. 10.NovoLog. 11.Synthroid. 12.Solu-Medrol. 13.Toprol XL. 14.MS Contin. 15.Narcan. 16.Tamiflu. 17.Ranexa. 18.Requip. 19.Coumadin. PHYSICAL EXAMINATION: Patient is alert, oriented x3. Pulse is 62. Blood pressure 130/70, respirations 16, temperature 97.7, pulse ox 94% on 3 L. HEENT: Conjunctivae normal. NECK: No JVD. Cardiovascular systems: S1, S2 muffled. Respirations: Breath sounds diminished in the bases. A few scattered rhonchi and crackles, right more than the left. ABDOMEN: Soft, nontender. LEGS no edema. NERVOUS SYSTEM: No focal deficits. LABS: INR 1.8. WBC 6.6, hemoglobin 12.5, sodium 135, creatinine is 1.3. ASSESSMENT: 1. Chronic obstructive pulmonary disease acute exacerbation with acute influenza A with possible sepsis present on admission. 2. Possible right lower pneumonia possibly gram-negative. 3. Congestive heart failure with chronic systolic dysfunction with acute on chronic systolic congestive heart failure with ejection fraction about 35-40 percent 4. Paroxysmal atrial fibrillation. 5. History of coronary artery disease. 6. Hypertension. 7. Hyperlipidemia. 8. Acute renal failure possibly prerenal acute tubular necrosis. 9. History of rheumatoid arthritis. 10.Hypothyroidism. 11.Chronic right-sided diaphragmatic paralysis. 12.Remote history of atrial flutter. 13.History of asthma/chronic obstructive pulmonary disease. 14.History of deep vein thrombosis. 15.Hypertension. 16.Hyperlipidemia. 17.History of pulmonary embolism. 18.History of hypothyroidism. 19.History of macular degeneration. 20.History of ESBL. 21.History of MRSA. 22.History of bariatric surgery. 23.History of coronary artery disease, coronary artery bypass grafting/stent. 24.History of Trifecta aortic valve replacement. 25.History of Vazquez-en-Y. 26.History of permanent pacemaker. 27.History of anxiety. 28.Remote history of nicotine dependence. 29.FULL CODE. RECOMMENDATIONS AND DISCUSSION: Recommend to continue current medications, management and symptomatic treatment. The patient had persistent chest x-ray opacities, clinically patient is slightly better. I would recommend continue the antibiotics and bronchodilators and steroids. Otherwise, diuretics have been held. Monitor creatinine closely and as well as fluid and electrolytes balance closely. Increase ambulation. Prognosis extremely guarded as mentioned earlier. Guarded prognosis. Further recommendations to follow. MMODL / IJN: [id number] / JOHN
[2019-10-12] MEDS: LOSARTAN 25 MG TAB PO SCH (21:42)
[2019-10-12] MEDS: ATORVASTATIN 20 MG TAB PO SCH (21:43)
--- NOTE | 2019-10-12 22:20 | CONS ---
CONSULTATION Mr. Hall is a 78-year-old gentleman, a patient of Dr. Fine in the outpatient setting, who recently in August had a pulse generator changed with a single-chamber ICD and explantation of the old pacemaker. He has an ICD in the right infraclavicular approach and device is a single-chamber functioning well. He also has history of CAD, underwent previous stenting of RCA and recent cardiac cath revealed that RCA was patent. Moderate disease in the LAD and diagonal was noted, verified to be unremarkable by fractional flow reserve assessment. He is here today after having developed influenza, developed dehydration, weak, complains of lack of energy when he sits up or walks. He has significant orthostatic changes. At the time of my evaluation he is more comfortable, resting. Denies any chest discomfort. PAST MEDICAL HISTORY: 1. Remarkable for CAD with previous PCI. Recent cardiac cath revealed patent vessels. 2. History of atrial fibrillation. 3. History of AICD. History of a recent upgrade of from a pacemaker to ICD by Dr. Fine. He came in with recurrent episodes of ventricular tachycardia and syncope and therefore his cardiac cath was performed and then his pacemaker was upgraded to ICD. This was on September 05 of this year. He has a fair left ventricular systolic function. Clinically, patient appears to be quite dehydrated. Ejection fraction in the range of 45-50% based on a recent echocardiogram. MEDICATIONS: At home include Xanax, aspirin, iron supplements, losartan, levothyroxine, simvastatin, Aldactone, Coumadin and Ranexa. PHYSICAL EXAMINATION: Blood pressure was 140/70 lying down, standing up was 100. HEENT unremarkable. Fundus was not examined by me. Neck is supple. No JVD. I do not hear a carotid bruit. Heart exam reveals S1, S2 with a short systolic murmur. Lungs reveal diminished air entry. Abdomen is soft. Lower extremities reveal diminished pulses. Central nervous system is normal. EKG revealed a ventricular paced rhythm with probable underlying atrial fibrillation. Rate is about 60 beats per minute. LABORATORY DATA: Laboratory data revealed that the patient's creatinine was slightly elevated at 1.94. Potassium levels were normal. There is no significant troponin elevation. IMPRESSION: 1. Orthostatic hypotension, probably dehydration. 2. Influenza confirmed by testing. 3. Coronary artery disease, stable. 4. History of ventricular tachycardia with ICD. RECOMMENDATIONS: I am recommending cautious hydration and discontinue IV Lasix and Aldactone and hold all blood pressure lowering medications for 24 hours and based on clinical course we will make further recommendations. I discussed my thoughts in detail with the patient. Thank you very much for the consult. MAULIK / SHELLY: [id number] /
[2019-10-12] MEDS: ALPRAZolam 0.5 MG TAB PO PRN (23:00)
[2019-10-13 06:12] LABS: Glucose,Whole Blood 159 mg/dL (75-99)
[2019-10-13] MEDS: INSULIN ASPART (NovoLOG) 100 UNIT/ML VIAL SQ SCH ×4 (06:19→22:12)
[2019-10-13] MEDS: LEVOTHYROXINE 50 MCG TAB PO SCH (06:19)
[2019-10-13] MEDS: methylPREDNISolone SOD SUCCI 40 MG/ML 1 ML VIAL IV SCH ×3 (06:19→22:20)
[2019-10-13] MEDS: PANTOPRAZOLE 40 MG TABLET PO SCH (06:19)
[2019-10-13 06:20] LABS: Basophils % (A) 0 %; Eosinophils % (A) 0 %; HCT 37.1 % (39.0-53.0); HGB 12.2 gm/dL (13.0-17.5); Lymphocytes # (A) 0.4 k/uL (1.0-4.8); Lymphocytes % (A) 4 %; MCH 32.5 pg (25.0-35.0); MCV 98.7 fL (80.0-100.0); Mean Platelet Volume 8.9; Monocytes # (A) 0.3 k/uL (0-1.0); Monocytes % (A) 3 %; Neutrophils % (A) 92 %; Platelet Count 117 k/uL (150-450); RBC 3.76 m/uL (4.30-5.90); RDW 13.8 % (11.5-15.5); WBC 9.7 k/uL (3.8-10.6)
[2019-10-13] MEDS: SODIUM CHLORIDE 0.9% 1,000 ML IV SCH (06:20)
[2019-10-13 06:39] LABS: Calcium 8.6 mg/dL (8.4-10.2); Potassium 5.1 mmol/L (3.5-5.1)
[2019-10-13] MEDS: IPRATROPIUM-ALBUTEROL 3 ML NEB INHALATION SCH ×4 (08:39→20:57)
[2019-10-13] MEDS: MORPHINE SULFATE ER 30 MG TABLET PO SCH ×2 (09:15→22:11)
[2019-10-13] MEDS: ASPIRIN 81 MG PO SCH (09:15)
[2019-10-13] MEDS: GABAPENTIN 300 MG CAP PO SCH ×2 (09:15→22:12)
[2019-10-13] MEDS: METOPROLOL SUCCINATE (ER) 25 MG TAB.ER.24H PO SCH (09:16)
[2019-10-13] MEDS: RANOLAZINE 500 MG TAB.ER.12H PO SCH ×2 (09:16→23:59)
[2019-10-13] MEDS: FERROUS SULFATE 325 MG TAB PO SCH (09:16)
[2019-10-13] MEDS: OSELTAMIVIR 75 MG CAP PO SCH ×2 (09:30→22:10)
[2019-10-13 11:51] LABS: Glucose,Whole Blood 170 mg/dL (75-99)
[2019-10-13 12:02] LABS: INR 2.9 (<1.2); Prothrombin Time 27.5 sec (9.0-12.0)
--- NOTE | 2019-10-13 15:01 | P.PN ---
Subjective Progress Note Date: 10/13/19 this is [id number] white male patient with past medical history of COPD, chronic right hemidiaphragm paralysis, status post right hemidiaphragm plication, past history of pneumonias including E. coli ESBL, previous history of MRSA infection, valvular heart disease, osteoarthritis, B12 deficiency, chron ic kidney disease, obstructive sleep apnea syndrome, hypothyroidism, previous history of pacemaker insertion, CAD with stenting. Patient was recently hospitalized for right upper lobe and right lower lobe pneumonia, blood and sputum cultures from that admission were negative, patient was treated with antibiotics, he recovered,a repeat it back to the hospital because of more shortness of breath, coughing and wheezing. Pulse ox on admission here was noted to be in the 80s, he was running a temperature as well. Patient ruled in positive for influenza B. He was quite hypotensive on arrival here which is why cardiology consultation was requested, initially patient was given some IV hydration, and some of his blood pressure meds had been held. These have now been resumed and patient's blood pressure today is stable, 162/70 with a heart rate in the 80s.blood cell count 9.7, hemoglobin 12.2, platelet count 117. Pro time 27.5 with an INR 2.9 today, sodium 137, potassium 5.1, BUN 39 and cr eatinine 1.1.she and is on Coumadin and is also on antibiotics, we need to monitor the INR closely. Objective - Vital Signs Vital signs: Vital Signs Temp 97.6 F 10/13/19 12:00 Pulse 74 10/13/19 12:13 Resp 16 10/13/19 12:00 BP 162/72 10/13/19 12:00 Pulse Ox 92 L 10/13/19 12:00 Intake & Output 10/12/19 10/13/19 10/13/19 18:59 06:59 18:59 Intake Total 462 290 Output Total 357 288 8184 Balance 62 -650 -760 Weight 90.6 kg Intake: IV 50 cefTRIAXone 1 gm In 50 Sodium Chloride 0.9% 50 ml @ 100 mls/hr IVPB Q24HR [facility] Rx#:[id number] Oral 462 240 Output: Urine [id number] Other: Voiding Method Toilet Toilet Toilet Urinal Urinal Urinal # Voids 1 1 2 - Exam GENERAL EXAM: Alert, very pleasant, 78-year-old white male, on 2 L of oxygen with pulse ox of 97% comfortable in no apparent distress. HEAD: Normocephalic/atraumatic. EYES: Normal reaction of pupils, equal size. Conjunctiva pink, sclera white. NOSE: Clear with pink turbinates. THROAT: No erythema or exudates. NECK: No masses, no JVD, no thyroid enlargement, no adenopathy. CHEST: No chest wall deformity. Symmetrical expansion. LUNGS: Equal air entry with diffuse coarse crackles in the bilateral lower and mid lungs CVS: Regular rate and rhythm, normal S1 and S2, no gallops, no murmurs, no rubs ABDOMEN: Soft, nontender. No hepatosplenomegaly, normal bowel sounds, no guarding or rigidity. EXTREMITIES: No clubbing, one plus pitting edema in bilateral lower extremities, no cyanosis, 2+ pulses and upper and lower extremities. MUSCULOSKELETAL: Muscle strength and tone normal. SPINE: No scoliosis or deformity SKIN: No rashes CENTRAL NERVOUS SYSTEM: Alert and oriented -3. No focal deficits, tone is normal in all 4 extremities. PSYCHIATRIC: Alert and oriented -3. Appropriate affect. Intact judgment and insight. - Labs CBC & Chem 7: 10/13/19 05:41 10/13/19 05:41 Labs: Abnormal Lab Results - Last 24 Hours (Table) 10/12/19 10/12/19 10/13/19 Range/Units 17:06 20:39 05:41 RBC 3.76 L (4.30-5.90) m/uL Hgb 12.2 L (13.0-17.5) gm/dL Hct 37.1 L (39.0-53.0) % Plt Count 117 L (150-450) k/uL Neutrophils # 9.0 H (1.3-7.7) k/uL Lymphocytes # 0.4 L (1.0-4.8) k/uL PT (9.0-12.0) sec INR (<1.2) Chloride (98-107) mmol/L Carbon Dioxide (22-30) mmol/L BUN (9-20) mg/dL Glucose (74-99) mg/dL POC Glucose (mg/dL) 229 H 241 H (75-99) mg/dL 10/13/19 10/13/19 10/13/19 Range/Units 05:41 06:11 11:33 RBC (4.30-5.90) m/uL Hgb (13.0-17.5) gm/dL Hct (39.0-53.0) % Plt Count (150-450) k/uL Neutrophils # (1.3-7.7) k/uL Lymphocytes # (1.0-4.8) k/uL PT 27.5 H (9.0-12.0) sec INR 2.9 H (<1.2) Chloride 96 L (98-107) mmol/L Carbon Dioxide 35 H (22-30) mmol/L BUN 39 H (9-20) mg/dL Glucose 156 H (74-99) mg/dL POC Glucose (mg/dL) 159 H (75-99) mg/dL 10/13/19 Range/Units 11:49 RBC (4.30-5.90) m/uL Hgb (13.0-17.5) gm/dL Hct (39.0-53.0) % Plt Count (150-450) k/uL Neutrophils # (1.3-7.7) k/uL Lymphocytes # (1.0-4.8) k/uL PT (9.0-12.0) sec INR (<1.2) Chloride (98-107) mmol/L Carbon Dioxide (22-30) mmol/L BUN (9-20) mg/dL Glucose (74-99) mg/dL POC Glucose (mg/dL) 170 H (75-99) mg/dL Microbiology - Last 24 Hours (Table) 10/08/19 21:10 Blood Culture - Preliminary Blood No Growth after 96 hours Assessment and Plan Plan: Assessmentand plan: #1. Hypoxemic respiratory failure related to acute exacerbation of systolic CHF with an ejection fraction of 45%, chest x-ray showed pulmonary edema, possibility of right basilar infiltrate/pneumonia could not be ruled out #2. Acute influenza B infection #3. Recent hospitalization for right upper lobe and right lower lobe pneumonia #4. Recent pacemaker upgrade to an AICD #5. Coronary artery disease with previous stenting and bypass grafting #6. History of ischemic cardiomyopathy with an EF of 45% #7. History of valvular heart disease with aortic valve replacement #8. Chronic right hemidiaphragmatic paralysis, status post diaphragmatic plication #9. History of pacemaker placements and subsequent replacements #10. History of MRSA infection #11. Former history of smoking #12. Mild COPD stage II #13. History of pulmonary embolism on long-term anticoagulation with CoumadinINR today is 2.9 #14. Hypertension #15. Dyslipidemia #16 hypotension, resolved with IV fluids Plan From cardiology's perspective, we'll recommend to continue this patient on his current medications. INR will need to be monitored closely as the patient is on antibiotics along with the Coumadin at present. DNP note has been reviewed, I agree with a documented findings and plan of care. Patient was seen and examined.
--- NOTE | 2019-10-13 15:52 | P.PN ---
Subjective Progress Note Date: 10/13/19 Principal diagnosis: Influenza B infection, exacerbation of CHF 78-year-old white male patient with past medical history of COPD, chronic right hemidiaphragm paralysis, status post right hemidiaphragm plication, past history of pneumonias including E. coli ESBL, previous history of MRSA infection, valvular heart disease, osteoarthritis, B12 deficiency, chronic kidney disease, obstructive sleep apnea syndrome, hypothyroidism, previous history of pacemaker insertion, CAD with stenting. Patient was recently hospitalized for right upper lobe and right lower lobe pneumonia, blood and sputum cultures from that admission were negative, patient was treated with antibiotics, he recovered, he saw Dr. Fitch in follow-up on 10/03/2019, she felt like his cough was coming back, and he was experiencing more shortness of breath coughing and wheezing. He was discharged home on Ceftin and bronchodilators. On 10/08/2019 patient presented to the emergency department with complaints of increasing shortness of breath, patient was waking up in the middle of the night being very short of breath, and patient is not normally oxygen dependent, he was noting his pulse ox to be in the 80s on room air. Did have fever and chills, with T-max of 10 2F, denied any chest pain, did note weight gain and lower extremity edema. His cough is productive with copious amounts of whitish colored sputum. Chest x-ray showed bilateral infiltrates and pleural effusions with diffuse interstitial pattern, pulmonary edema. Labs showed a white blood cell count of 8.6, hemoglobin of 11.2, electrolytes are within normal limits, B1 is 30 creatinine is 1.17, troponin was 0.0-3, proBNP was 2430, urinalysis was negative for any signs of infection, influenza B was positive, patient was initially given some IV fluids in the emergency department, was started on Tamiflu, breathing treatments, to call me he was given a dose of IV Lasix, he is diuresed, and follow-up chest x-ray today shows continued diffuse interstitial pattern, with bilateral infiltrates, and right basilar infiltrate could not be excluded. On 10/10/2019 patient seen in follow-up on selective care unit, he states he is breathing much easier today, although he still requiring supplemental oxygen, he states when he walked to the bathroom without oxygen his pulse ox was around 87% on room air, no fever or chills, he remains on Tamiflu for influenza B infection, he is been diuresed, his chest x-ray initially shows improvement in patient's volume status and aeration within the lungs. These labs have been reviewed, showing metabolic alkalosis with CO2 up to 37, BUN of 35, and creatinine of 1.25, sodium is 135, chloride is 93. Potassium is 4.2, we'll cut back the Lasix to once daily. Sounds reveal coarse crackles at bilateral bases. Occasional cough, with production of whitish colored sputum. On 10/12/2019 patient seen in follow-up active care unit. Resting comfortably in bed, in no acute distress, breathing is stable, denies any shortness of breath, currently on 3 L of oxygen and the pulse ox of 91%, patient is afebrile, hemodynamically stable, no acute events overnight, no specific complaints, he is tolerating ambulation, no significant cough or congestion. He is on a combination of Rocephin, Tamiflu. IV Solu-Medrol, and oral Lasix. In negative fluid balance. No lower extremity edema, trace is Preston has been reviewed showing bilateral pleural parenchymal changes related to possibly pneumonia ve rsus mild CHF. No leukocytosis on today's labs, white blood cell, 6.6, hemoglobin is 12.5, INR is 1.8, sodium is 135, potassium is 4.7, chloride is 95, CO2 is 35, BUN is 40 creatinine is 1.30 On 10/13/2019 patient seen in follow-up on selective care unit, he is awake and alert, in no acute distress, he is on room air with a pulse ox of 92%, hemodynamically stable, no fever or chills, blood cultures show no growth. No couplets of chest pain, he remains on Rocephin for antibiotic coverage, he is complaining course of Tamiflu. No wheezing. Remains on IV steroids. He is in negative fluid balance, his IV diuretics and oral diuretics are on hold. Today's INR is 2.9 Objective - Vital Signs Vital signs: Vital Signs Temp 97.6 F 10/13/19 12:00 Pulse 72 10/13/19 15:44 Resp 16 10/13/19 12:00 BP 162/72 10/13/19 12:00 Pulse Ox 92 L 10/13/19 12:00 Intake & Output 1210/13/19 10/13/19 18:59 06:59 18:59 Intake Total 462 290 Output Total 750 507 6506 Balance 62 -650 -760 Weight 90.6 kg Intake: IV 50 cefTRIAXone 1 gm In 50 Sodium Chloride 0.9% 50 ml @ 100 mls/hr IVPB Q24HR [facility] Rx#:[id number] Oral 462 240 Output: Urine [id number] [id number] Other: Voiding Method Toilet Toilet Toilet Urinal Urinal Urinal # Voids 1 1 2 - Exam GENERAL EXAM: Alert, very pleasant, 78-year-old white male, on 3 L of oxygen with pulse ox of 91% comfortable in no apparent distress. HEAD: Normocephalic/atraumatic. EYES: Normal reaction of pupils, equal size. Conjunctiva pink, sclera white. NOSE: Clear with pink turbinates. THROAT: No erythema or exudates. NECK: No masses, no JVD, no thyroid enlargement, no adenopathy. CHEST: No chest wall deformity. Symmetrical expansion. LUNGS: Equal air entry with diffuse coarse crackles in the bilateral lower and mid lungs CVS: Regular rate and rhythm, normal S1 and S2, no gallops, no murmurs, no rubs ABDOMEN: Soft, nontender. No hepatosplenomegaly, normal bowel sounds, no guarding or rigidity. EXTREMITIES: No clubbing, no edema in bilateral lower extremities, no cyanosis, 2+ pulses and upper and lower extremities. MUSCULOSKELETAL: Muscle strength and tone normal. SPINE: No scoliosis or deformity SKIN: No rashes CENTRAL NERVOUS SYSTEM: Alert and oriented -3. No focal deficits, tone is normal in all 4 extremities. PSYCHIATRIC: Alert and oriented -3. Appropriate affect. Intact judgment and insight. - Labs CBC & Chem 7: 10/13/19 05:41 10/13/19 05:41 Labs: Abnormal Lab Results - Last 24 Hours (Table) 10/12/19 10/12/19 10/13/19 Range/Units 17:06 20:39 05:41 RBC 3.76 L (4.30-5.90) m/uL Hgb 12.2 L (13.0-17.5) gm/dL Hct 37.1 L (39.0-53.0) % Plt Count 117 L (150-450) k/uL Neutrophils # 9.0 H (1.3-7.7) k/uL Lymphocytes # 0.4 L (1.0-4.8) k/uL PT (9.0-12.0) sec INR (<1.2) Chloride (98-107) mmol/L Carbon Dioxide (22-30) mmol/L BUN (9-20) mg/dL Glucose (74-99) mg/dL POC Glucose (mg/dL) 229 H 241 H (75-99) mg/dL 10/13/19 10/13/19 10/13/19 Range/Units 05:41 06:11 11:33 RBC (4.30-5.90) m/uL Hgb (13.0-17.5) gm/dL Hct (39.0-53.0) % Plt Count (150-450) k/uL Neutrophils # (1.3-7.7) k/uL Lymphocytes # (1.0-4.8) k/uL PT 27.5 H (9.0-12.0) sec INR 2.9 H (<1.2) Chloride 96 L (98-107) mmol/L Carbon Dioxide 35 H (22-30) mmol/L BUN 39 H (9-20) mg/dL Glucose 156 H (74-99) mg/dL POC Glucose (mg/dL) 159 H (75-99) mg/dL 10/13/19 Range/Units 11:49 RBC (4.30-5.90) m/uL Hgb (13.0-17.5) gm/dL Hct (39.0-53.0) % Plt Count (150-450) k/uL Neutrophils # (1.3-7.7) k/uL Lymphocytes # (1.0-4.8) k/uL PT (9.0-12.0) sec INR (<1.2) Chloride (98-107) mmol/L Carbon Dioxide (22-30) mmol/L BUN (9-20) mg/dL Glucose (74-99) mg/dL POC Glucose (mg/dL) 170 H (75-99) mg/dL Microbiology - Last 24 Hours (Table) 10/08/19 21:10 Blood Culture - Preliminary Blood No Growth after 96 hours Assessment and Plan Plan: Assessment: #1. Hypoxemic respiratory failure related to acute exacerbation of systolic CHF with an ejection fraction of 45%, chest x-ray showed pulmonary edema, possibility of right basilar infiltrate/pneumonia could not be ruled out #2. Acute influenza B infection #3. Recent hospitalization for right upper lobe and right lower lobe pneumonia #4. Recent pacemaker upgrade to an AICD #5. Coronary artery disease with previous stenting and bypass grafting #6. History of ischemic cardiomyopathy with an EF of 45% #7. History of valvular heart disease with aortic valve replacement #8. Chronic right hemidiaphragmatic paralysis, status post diaphragmatic plication #9. History of pacemaker placements and subsequent replacements #10. History of MRSA infection #11. Former history of smoking #12. Mild COPD stage II, outpatient PFT showed FEV1 of 2.77 L or 74% of predicted with a component of restriction with FVC of 3.65 L or 71% of predicted #13. History of pulmonary embolism on long-term anticoagulation with Coumadin #14. Hypertension #15. Dyslipidemia Plan: Continue current medical treatment, continue Tamiflu and empiric antibiotics, no fever or chills, he is on room air, no worsening dyspnea, no specific complaints, no cough or congestion, we will decrease IV steroids down to 40 mg every 12 hours, his diuretics remain on hold but patient continues to diurese, feeling better, breathing easier, anticipate discharge home in another 24 hours. Patient will need to follow-up with Dr. Fitch in the office in one to 2 weeks I performed a history & physical examination of the patient and discussed their management with my nurse practitioner, Gayle Thompson. I reviewed the nurse practitioner's note and agree with the documented findings and plan of care. Lung sounds are positive for diffuse crackles. The findings and the impression was discussed with the patient. I attest to the documentation by the nurse practitioner. Time with Patient: Less than 30
[2019-10-13 16:50] LABS: Glucose,Whole Blood 215 mg/dL (75-99)
[2019-10-13] MEDS: WARFARIN 2 MG TAB PO SCH (17:52)
[2019-10-13 18:52] VITALS: RESP 18
[2019-10-13 21:31] LABS: Glucose,Whole Blood 216 mg/dL (75-99)
[2019-10-13] MEDS: ATORVASTATIN 20 MG TAB PO SCH (22:10)
[2019-10-13] MEDS: LOSARTAN 25 MG TAB PO SCH (22:10)
--- NOTE | 2019-10-14 00:02 | PN ---
PROGRESS NOTE DATE OF SERVICE: 10/13/2019 This 78-year-old gentleman who was admitted with COPD exacerbation as well as acute influenza A and as well as possible sepsis is being closely monitored at this time. The patient also possible right lower pneumonia multiple consultants are following the patient closely. No chest pain. No palpitations. No fever. EXAM: Alert and oriented x3. The pulse is 59. Blood pressure is 164/70, respiration 18, temperature 97.7, pulse ox 98% on 3 L. HEENT is conjunctivae normal. NECK: No JVD. CARDIOVASCULAR: S1, S2 muffled. RESPIRATORY: Breath sounds [place] in the bases. Bilateral scattered rhonchi and crackles. Abdomen is soft, nontender, legs are no edema. No swelling. LABS: INR 2.9, sodium 137, potassium 5.1. ASSESSMENT: 1. Chronic obstructive pulmonary disease exacerbation with acute influenza a with possible sepsis present on admission. 2. Possible right pneumonia possibly gram-negative. 3. Congestive heart failure acute exacerbation with acute on chronic systolic dysfunction ejection fraction 35-40 percent. 4. Paroxysmal atrial fibrillation next history of coronary artery disease. 5. Hypertension. 6. Hyperlipidemia. 7. Acute renal failure possibly prerenal acute tubular necrosis. 8. History of rheumatoid arthritis. 9. Hypothyroidism. 10.History of chronic right-sided diaphragmatic paralysis. 11.Remote history of atrial flutter. 12.History of asthma. 13.History of chronic obstructive pulmonary disease. 14.History of deep vein thrombosis. 15.History of hypertension. 16.History of hyperlipidemia. 17.History of ESBN. 18.History of pulmonary embolism. 19.Hypothyroidism. 20.History of macular degeneration. 21.History ESBL. 22.History of MRSA. 23.History of bariatric surgery. 24.History of coronary artery bypass grafting/stent. 25.History of Trifecta aortic valve replacement. 26.History of Vazquez-en-Y. 27.History of permanent pacemaker. 28.History of anxiety. 29.Remote history of nicotine dependence. 30.FULL CODE. In this 78-year-old gentleman who presented with multiple complex medical issues, we will monitor the patient closely, continue the current management. Continue the bronchodilators. Continue with empiric antibiotics. Repeat labs. Guarded prognosis because of multiple complex medical issues and further recommendations to follow. Continue with patient. MMODL / IJN: [id number] /
[2019-10-14] MEDS: ALPRAZolam 0.5 MG TAB PO PRN (00:51)
[2019-10-14 05:21] VITALS: BP 149/89; TEMP 97.6
[2019-10-14] MEDS: LEVOTHYROXINE 50 MCG TAB PO SCH (06:07)
[2019-10-14 07:18] LABS: Glucose,Whole Blood 121 mg/dL (75-99)
[2019-10-14] MEDS: INSULIN ASPART (NovoLOG) 100 UNIT/ML VIAL SQ SCH ×2 (07:23→13:00)
[2019-10-14] MEDS: IPRATROPIUM-ALBUTEROL 3 ML NEB INHALATION SCH ×2 (07:46→11:44)
[2019-10-14] MEDS: methylPREDNISolone SOD SUCCI 40 MG/ML 1 ML VIAL IV SCH (08:36)
[2019-10-14] MEDS: GABAPENTIN 300 MG CAP PO SCH (08:36)
[2019-10-14] MEDS: MORPHINE SULFATE ER 30 MG TABLET PO SCH (08:36)
[2019-10-14] MEDS: FERROUS SULFATE 325 MG TAB PO SCH (08:36)
[2019-10-14] MEDS: ASPIRIN 81 MG PO SCH (08:37)
[2019-10-14] MEDS: METOPROLOL SUCCINATE (ER) 25 MG TAB.ER.24H PO SCH (08:37)
[2019-10-14] MEDS: PANTOPRAZOLE 40 MG TABLET PO SCH (08:37)
[2019-10-14] MEDS: RANOLAZINE 500 MG TAB.ER.12H PO SCH (08:37)
[2019-10-14 10:18] LABS: Basophils % (A) 0 %; Eosinophils # (A) 0.1 k/uL (0-0.7); Eosinophils % (A) 1 %; HCT 36.7 % (39.0-53.0); HGB 12.4 gm/dL (13.0-17.5); Lymphocytes # (A) 0.4 k/uL (1.0-4.8); Lymphocytes % (A) 3 %; MCH 32.4 pg (25.0-35.0); MCHC 33.8 g/dL (31.0-37.0); MCV 95.7 fL (80.0-100.0); Mean Platelet Volume 9.7; Monocytes # (A) 0.5 k/uL (0-1.0); Monocytes % (A) 3 %; Neutrophils # (A) 14.8 k/uL (1.3-7.7); Neutrophils % (A) 94 %; Platelet Count 145 k/uL (150-450); RBC 3.84 m/uL (4.30-5.90); RDW 13.7 % (11.5-15.5); WBC 15.8 k/uL (3.8-10.6)
[2019-10-14 10:25] LABS: INR 3.7 (<1.2); Prothrombin Time 35.6 sec (9.0-12.0)
[2019-10-14 10:32] LABS: Calcium 8.4 mg/dL (8.4-10.2); Potassium 4.8 mmol/L (3.5-5.1)
[2019-10-14 11:47] VITALS: PULSE 58
[2019-10-14 12:17] LABS: Glucose,Whole Blood 194 mg/dL (75-99)
--- NOTE | 2019-10-14 13:22 | P.PN ---
Subjective Progress Note Date: 10/14/19 Principal diagnosis: Influenza B infection, exacerbation of CHF 78-year-old white male patient with past medical history of COPD, chronic right hemidiaphragm paralysis, status post right hemidiaphragm plication, past history of pneumonias including E. coli ESBL, previous history of MRSA infection, valvular heart disease, osteoarthritis, B12 deficiency, chronic kidney disease, obstructive sleep apnea syndrome, hypothyroidism, previous history of pacemaker insertion, CAD with stenting. Patient was recently hospitalized for right upper lobe and right lower lobe pneumonia, blood and sputum cultures from that admission were negative, patient was treated with antibiotics, he recovered, he saw Dr. Fitch in follow-up on 10/03/2019, she felt like his cough was coming back, and he was experiencing more shortness of breath coughing and wheezing. He was discharged home on Ceftin and bronchodilators. On 10/08/2019 patient presented to the emergency department with complaints of increasing shortness of breath, patient was waking up in the middle of the night being very short of breath, and patient is not normally oxygen dependent, he was noting his pulse ox to be in the 80s on room air. Did have fever and chills, with T-max of 10 2F, denied any chest pain, did note weight gain and lower extremity edema. His cough is productive with copious amounts of whitish colored sputum. Chest x-ray showed bilateral infiltrates and pleural effusions with diffuse interstitial pattern, pulmonary edema. Labs showed a white blood cell count of 8.6, hemoglobin of 11.2, electrolytes are within normal limits, B1 is 30 creatinine is 1.17, troponin was 0.0-3, proBNP was 2430, urinalysis was negative for any signs of infection, influenza B was positive, patient was initially given some IV fluids in the emergency department, was started on Tamiflu, breathing treatments, to call me he was given a dose of IV Lasix, he is diuresed, and follow-up chest x-ray today shows continued diffuse interstitial pattern, with bilateral infiltrates, and right basilar infiltrate could not be excluded. On 10/10/2019 patient seen in follow-up on selective care unit, he states he is breathing much easier today, although he still requiring supplemental oxygen, he states when he walked to the bathroom without oxygen his pulse ox was around 87% on room air, no fever or chills, he remains on Tamiflu for influenza B infection, he is been diuresed, his chest x-ray initially shows improvement in patient's volume status and aeration within the lungs. These labs have been reviewed, showing metabolic alkalosis with CO2 up to 37, BUN of 35, and creatinine of 1.25, sodium is 135, chloride is 93. Potassium is 4.2, we'll cut back the Lasix to once daily. Sounds reveal coarse crackles at bilateral bases. Occasional cough, with production of whitish colored sputum. On 10/12/2019 patient seen in follow-up active care unit. Resting comfortably in bed, in no acute distress, breathing is stable, denies any shortness of breath, currently on 3 L of oxygen and the pulse ox of 91%, patient is afebrile, hemodynamically stable, no acute events overnight, no specific complaints, he is tolerating ambulation, no significant cough or congestion. He is on a combination of Rocephin, Tamiflu. IV Solu-Medrol, and oral Lasix. In negative fluid balance. No lower extremity edema, trace is Preston has been reviewed showing bilateral pleural parenchymal changes related to possibly pneumonia ve rsus mild CHF. No leukocytosis on today's labs, white blood cell, 6.6, hemoglobin is 12.5, INR is 1.8, sodium is 135, potassium is 4.7, chloride is 95, CO2 is 35, BUN is 40 creatinine is 1.30 On 10/13/2019 patient seen in follow-up on selective care unit, he is awake and alert, in no acute distress, he is on room air with a pulse ox of 92%, hemodynamically stable, no fever or chills, blood cultures show no growth. No couplets of chest pain, he remains on Rocephin for antibiotic coverage, he is complaining course of Tamiflu. No wheezing. Remains on IV steroids. He is in negative fluid balance, his IV diuretics and oral diuretics are on hold. Today's INR is 2.9 On 10/14/2019 patient seen in follow-up on medical surgical floor. Patient is on 2 L of oxygen with a pulse ox of 93%, breathing is stable, no worsening dyspnea, lung sounds reveal a few scattered basilar crackles, no rhonchi, no wheezing, remains on IV Rocephin, nebulized medical diabetes, complete a course of Tamiflu. No fever or chills, blood cultures are negative, continues to maintain negative fluid balance, no new chest x-ray, last chest x-ray was done on 10/12/2019 still showing mild CHF. Today's labs have been reviewed, showing white blood cell count of 15.8, hemoglobin of 12.4, INR 3.7, sodium is 135, the rest of his electrolytes were within normal limits, B1 is 44 creatinine 1.19 Objective - Vital Signs Vital signs: Vital Signs Temp 97.6 F 10/14/19 05:19 Pulse 58 L 10/14/19 11:58 Resp 18 10/14/19 11:44 BP 149/89 10/14/19 05:19 Pulse Ox 93 L 10/14/19 07:46 Intake & Output 10/13/19 10/14/19 10/14/19 18:59 06:59 18:59 Intake Total 290 Output Total 1050 2475 Balance -760 -2475 Intake: IV 50 cefTRIAXone 1 gm In 50 Sodium Chloride 0.9% 50 ml @ 100 mls/hr IVPB Q24HR [facility] Rx#:[id number] Oral 240 Output: Urine 1050 2475 Other: Voiding Method Toilet Toilet Urinal Urinal # Voids 2 - Exam GENERAL EXAM: Alert, very pleasant, 78-year-old white male, on 3 L of oxygen with pulse ox of 91% comfortable in no apparent distress. HEAD: Normocephalic/atraumatic. EYES: Normal reaction of pupils, equal size. Conjunctiva pink, sclera white. NOSE: Clear with pink turbinates. THROAT: No erythema or exudates. NECK: No masses, no JVD, no thyroid enlargement, no adenopathy. CHEST: No chest wall deformity. Symmetrical expansion. LUNGS: Equal air entry with diffuse coarse crackles in the bilateral lower and mid lungs CVS: Regular rate and rhythm, normal S1 and S2, no gallops, no murmurs, no rubs ABDOMEN: Soft, nontender. No hepatosplenomegaly, normal bowel sounds, no guarding or rigidity. EXTREMITIES: No clubbing, no edema in bilateral lower extremities, no cyanosis, 2+ pulses and upper and lower extremities. MUSCULOSKELETAL: Muscle strength and tone normal. SPINE: No scoliosis or deformity SKIN: No rashes CENTRAL NERVOUS SYSTEM: Alert and oriented -3. No focal deficits, tone is normal in all 4 extremities. PSYCHIATRIC: Alert and oriented -3. Appropriate affect. Intact judgment and insight. - Labs CBC & Chem 7: 10/14/19 09:54 10/14/19 09:54 Labs: Abnormal Lab Results - Last 24 Hours (Table) 10/13/19 10/13/19 10/14/19 Range/Units 16:49 21:29 07:16 WBC (3.8-10.6) k/uL RBC (4.30-5.90) m/uL Hgb (13.0-17.5) gm/dL Hct (39.0-53.0) % Plt Count (150-450) k/uL Neutrophils # (1.3-7.7) k/uL Lymphocytes # (1.0-4.8) k/uL PT (9.0-12.0) sec INR (<1.2) Sodium (137-145) mmol/L BUN (9-20) mg/dL Glucose (74-99) mg/dL POC Glucose (mg/dL) 215 H 216 H 121 H (75-99) mg/dL 10/14/19 10/14/19 10/14/19 Range/Units 09:54 09:54 09:54 WBC 15.8 H (3.8-10.6) k/uL RBC 3.84 L (4.30-5.90) m/uL Hgb 12.4 L (13.0-17.5) gm/dL Hct 36.7 L (39.0-53.0) % Plt Count 145 L (150-450) k/uL Neutrophils # 14.8 H (1.3-7.7) k/uL Lymphocytes # 0.4 L (1.0-4.8) k/uL PT 35.6 H (9.0-12.0) sec INR 3.7 H (<1.2) Sodium 135 L (137-145) mmol/L BUN 44 H (9-20) mg/dL Glucose 234 H (74-99) mg/dL POC Glucose (mg/dL) (75-99) mg/dL 10/14/19 Range/Units 12:14 WBC (3.8-10.6) k/uL RBC (4.30-5.90) m/uL Hgb (13.0-17.5) gm/dL Hct (39.0-53.0) % Plt Count (150-450) k/uL Neutrophils # (1.3-7.7) k/uL Lymphocytes # (1.0-4.8) k/uL PT (9.0-12.0) sec INR (<1.2) Sodium (137-145) mmol/L BUN (9-20) mg/dL Glucose (74-99) mg/dL POC Glucose (mg/dL) 194 H (75-99) mg/dL Microbiology - Last 24 Hours (Table) 10/08/19 21:10 Blood Culture - Preliminary Blood No Growth after 120 hours Assessment and Plan Plan: Assessment: #1. Hypoxemic respiratory failure related to acute exacerbation of systolic CHF with an ejection fraction of 45%, chest x-ray showed pulmonary edema, possibility of right basilar infiltrate/pneumonia could not be ruled out #2. Acute influenza B infection #3. Recent hospitalization for right upper lobe and right lower lobe pneumonia #4. Recent pacemaker upgrade to an AICD #5. Coronary artery disease with previous stenting and bypass grafting #6. History of ischemic cardiomyopathy with an EF of 45% #7. History of valvular heart disease with aortic valve replacement #8. Chronic right hemidiaphragmatic paralysis, status post diaphragmatic plication #9. History of pacemaker placements and subsequent replacements #10. History of MRSA infection #11. Former history of smoking #12. Mild COPD stage II, outpatient PFT showed FEV1 of 2.77 L or 74% of predicted with a component of restriction with FVC of 3.65 L or 71% of predicted #13. History of pulmonary embolism on long-term anticoagulation with Coumadin #14. Hypertension #15. Dyslipidemia Plan: Patient is doing well, clinically stable, will restart oral Lasix, his last chest x-ray still showed mild CHF, no dynamics patient stable, denies any chest pain, no fever, no chills, blood cultures show no growth, tolerating ambulation, doing well, stable for discharge home today on oral dose of Lasix 40 mg twice daily, will restart his Aldactone, patient can complete outpatient course of oral antibiotics and prednisone taper, he can resume his breathing treatments, follow-up with Dr. Fitch in the office in one week I performed a history & physical examination of the patient and discussed their management with my nurse practitioner, Gayle hTompson. I reviewed the nurse practitioner's note and agree with the documented findings and plan of care. Lung sounds are positive for diffuse crackles. The findings and the impression was discussed with the patient. I attest to the documentation by the nurse practitioner. Time with Patient: Less than 30
[2019-10-14] MEDS ORDERED: FUROSEMIDE 40 MG TAB PO SCH (16:00)
[2019-10-14] MEDS ORDERED: WARFARIN 0.5 MG TAB PO ONE (18:00)
[2019-10-15] MEDS ORDERED: SPIRONOLACTONE 25 MG TAB PO SCH (09:00)
--- NOTE | 2019-10-15 09:40 | DS ---
DISCHARGE SUMMARY DATE OF SERVICE: 10/14/2019 FINAL DIAGNOSES: 1. Chronic obstructive pulmonary disease exacerbation with acute influenza A with possible sepsis present on admission. 2. Possible right lower lobe pneumonia possibly gram-negative present on admission. 3. Congestive heart failure acute exacerbation acute on chronic systolic dysfunction ejection fraction 35-40 percent. 4. Paroxysmal atrial fibrillation with history of coronary artery disease. 5. Hypertension. 6. Hyperlipidemia. 7. History of acute renal failure possibly prerenal acute tubular necrosis. 8. History of rheumatoid arthritis. 9. Hypothyroidism. 10.History of chronic right sided diaphragmatic paralysis. 11.Remote history of atrial flutter. 12.History of asthma. 13.Chronic obstructive pulmonary disease. 14.History of deep vein thrombosis. 15.Hypertension. 16.Hyperlipidemia. 17.History of ESBL. 18.History of pulmonary embolism. 19.Hypothyroidism. 21.History of MRSA. 22.History of bariatric surgery. 23.History of coronary artery disease/coronary artery bypass grafting/stent. 24.History Trifecta aortic valve replacement. 25.History of Vaz[place]-en-[place]. 26.History of permanent pacemaker. 27.History of anxiety. 28.Remote history of nicotine dependence. 29.FULL CODE. DISCHARGE DISPOSITION: The patient will be discharged in stable condition with guarded prognosis. Discharge cleared by Dr. Rodriguez. HISTORY OF PRESENT ILLNESS: This is a 78-year-old gentleman with a past medical history of multiple medical problems admitted with COPD and multiple other complex medical issues as mentioned earlier, the patient treated with bronchodilators, antibiotics and steroids. Patient improved significantly. On exam, vitals are stable. Cardiovascular system: S1, S2. Respiration revealed few scattered rhonchi. Abdomen soft. Nontender. Nervous system: No focal deficits. DISCHARGE ADVICE AND MEDICATIONS: 1. Diet is cardiac. 2. Activity limited followup. 3. Follow up with a primary physician, Dr. Funez in 2-3 days. 4. Follow up with Dr. Santana as recommended in 1 week. DISCHARGE MEDICATIONS: Are as follows: 1. Ecotrin 81 mg p.o. daily. 2. Coumadin 2 mg Sunday and 1 mg other days as before. 3. Cozaar 225 mg q.h.s. 4. Gabapentin 600 mg p.o. b.i.d. 5. Iron sulfate 325 mg p.o. daily. 6. Morphine sulfate 30 mg p.o. b.i.d. 7. Nitrostat 0.4 mg sublingual p.r.n. 8. [place] 10 mg p.o. t.i.d. p.r.n. 9. Omeprazole 20 mg p.o. daily. 10.Vitamin C zinc copper 1 p.o. daily. 11.Ranexa 500 mg p.o. b.i.d. 12.Requip 2 mg p.o. 5 times a day. 13.Simvastatin 40 mg p.o. q.h.s. 14.Levothyroxine 50 mcg p.o. daily. 15.Metoprolol 25 mg p.o. daily. 16.Vitamin B12 1000 mcg p.o. subcu. 17.Xanax 1.5 mg p.o. b.i.d. 18.Aldactone 25 mg p.o. daily. 19.Betapace 80 mg p.o. b.i.d. 20.Ceftin 500 mg p.o. b.i.d. for 3 days, finish the home course. 21.Albuterol, Atrovent q.i.d. and p.r.n. 22.Lasix 40 mg p.o. daily. 23.Prednisone taper that is 40 mg daily for 3 days, 30 for 3 days, 20 for 3 days, 10 for 3 days. 24.Ventolin p.r.n. Once again the patient being discharged in stable condition with guarded prognosis. MMODL / IJN: [id number] / MTDD
== END 2019-10-14 13:48 | disposition home or self-care (01) | DRG 871 ==
LOC: EC 20:21 → 3SCARD 22:57 → OBSVTOIN 10-09 14:54 → 6NMEDSUR 10-13 18:20
PROVIDERS: ADMIT Internal Medicine; ATTEND Internal Medicine
DX: A41.89 Other specified sepsis (principal); I50.23 Acute on chronic systolic (congestive) heart failure; J96.01 Acute respiratory failure with hypoxia; J15.6 Pneumonia due to other Gram-negative bacteria; N17.0 Acute kidney failure with tubular necrosis; E87.3 Alkalosis; I13.0 Hypertensive heart and chronic kidney disease with heart failure and stage 1 through stage 4 chronic kidney disease, or unspecified chronic kidney disease; J44.0 Chronic obstructive pulmonary disease with (acute) lower respiratory infection; J44.1 Chronic obstructive pulmonary disease with (acute) exacerbation; Z16.12 Extended spectrum beta lactamase (ESBL) resistance; Z16.24 Resistance to multiple antibiotics; E03.9 Hypothyroidism, unspecified; E78.5 Hyperlipidemia, unspecified; E86.0 Dehydration; F41.9 Anxiety disorder, unspecified; G25.81 Restless legs syndrome; I25.10 Atherosclerotic heart disease of native coronary artery without angina pectoris; I25.5 Ischemic cardiomyopathy; I48.0 Paroxysmal atrial fibrillation; I95.1 Orthostatic hypotension; J98.6 Disorders of diaphragm; M06.9 Rheumatoid arthritis, unspecified; N18.9 Chronic kidney disease, unspecified; Z79.01 Long term (current) use of anticoagulants; Z79.82 Long term (current) use of aspirin; Z79.890 Hormone replacement therapy; Z79.899 Other long term (current) drug therapy; Z86.14 Personal history of Methicillin resistant Staphylococcus aureus infection; Z86.19 Personal history of other infectious and parasitic diseases; Z86.711 Personal history of pulmonary embolism; Z86.718 Personal history of other venous thrombosis and embolism; Z86.79 Personal history of other diseases of the circulatory system; Z87.891 Personal history of nicotine dependence; Z95.1 Presence of aortocoronary bypass graft; Z95.2 Presence of prosthetic heart valve; Z95.5 Presence of coronary angioplasty implant and graft; Z95.810 Presence of automatic (implantable) cardiac defibrillator; Z98.84 Bariatric surgery status
CPT/HCPCS: 36415; 71045; 71046; 80048; 80053; 81003; 83605; 83735; 83880; 84484; 85025; 85610; 87040; 87502; 93005; 93306; 94640; 94760; 96374; 99285